=== PATIENT | female | born 1940 | race Caucasian/White ===

== ENCOUNTER 2017-02-04 15:14 | Emergency (ER) | payer OTHER, MEDICARE ==
[~2017-02-04] VITALS: Ht 152.4 cm; Wt 100.6 kg
[~2017-02-04 15:14] MED LIST: ACET325T96 PO; AMLO10TA9 PO; AMR2 PO; ASPEC325 PO; CLOP1TAB15 PO; LSX40 PO; METO100T44 PO; NTRGSL/4 UT; SITA100T3 PO; VALS-10 PO; [UNRECOGNIZED DRUG - CODE] EXT
[2017-02-04 15:21] VITALS: TEMP 36.4; Ht 152.4 cm; Wt 100.6 kg
[2017-02-04] MEDS ORDERED: ONDANSETRON INJ 2 MG/ML 2 ML VIAL IV STA (15:33)
[2017-02-04] MEDS ORDERED: SODIUM CHLORIDE 0.9% 1000ML 500 ML IV STA (15:33)
[2017-02-04] MEDS ORDERED: SODIUM CHLORIDE 0.9% 1000ML 1,000 ML IV STA (15:33)
--- NOTE | 2017-02-04 15:44 | EMERGENCY ROOM VISIT NOTE ---
History Report prepared by Nettie: Andres Reed Under the Supervision of: Dr. Stuart Sy M.D. First contact with patient: 15:27 Chief Complaint: DIARRHEA Stated Complaint: DIARRHEA [id number],ABD PAIN Nursing Triage Summary: Abdominal pain and diarrhea. Denies n/v History of Present Illness The patient is a 76 year old female with a history of diverticulitis who presents to the Emergency Room with complaints of persistent diarrhea that started 2 weeks ago. She says her diarrhea is loose and watery. The patient has had 5 episodes of diarrhea today. She also notes persistent abdominal pain and intermittent chills. She rates the pain as an 8 out of 10 in severity at its worst. The patient says that nothing in particular brings on the diarrhea or worsens the pain. She does not know if this feels like a diverticulitis flare- up. She went to her primary care physician yesterday, and the physician told the patient to come be seen here for evaluation if the pain or symptoms worsen. She was not given any medications there. The patient did not have a fever at the office yesterday. She denies any vomiting or urinary symptoms. The patient has diabetes, and takes medication for it. She has a history of a cholecystectomy, appendectomy, and hysterectomy. Source of History: patient Onset: 2 weeks ago Position: other (global - diarrhea) Symptom Intensity: 5 episodes today Quality: other (loose and watery) Timing: other (persistent) Associated Symptoms: + abdominal pain, + chills, No fevers, No urinary symptoms, No vomiting Review of Systems See HPI for pertinent positives & negatives. A total of 10 systems reviewed and were otherwise negative. Past Medical & Surgical Medical Problems: (1) Appendicitis (2) CAD (coronary artery disease) (3) Colon polyps (4) CORONARY ATHEROSCLEROSIS OF [place] CORONARY VESSEL (5) DIAB KHUSHI WO COMPL, TYPE II OR UNSPEC TYPE, NOT UNCNTRLD (6) Diastolic CHF (7) History of PSVT (paroxysmal supraventricular tachycardia) (8) HTN (hypertension) (9) Hyperlipidemia (10) HYPERLIPIDEMIA NEC/NOS (11) KNEE JOINT REPLACEMENT STATUS (12) PERCUTANEOUS TRANSLUM CORON ANGIOPLASTY STATUS Surgical Problems: (1) History of cardiac cath (2) S/P appendectomy (3) S/P cholecystectomy (4) Stented coronary artery Family History Diabetes mellitus Heart disease Hypertension Social History Smoking Status: Never Smoker Alcohol Use: none Drug Use: none Marital Status: Housing Status: lives alone Occupation Status: retired Current/Historical Medications Scheduled Amlodipine Besylate-Atorvastat (Caduet), 1 TAB PO DAILY Aspirin (Aspirin), 325 MG PO DAILY Baclofen (Baclofen), 10 MG PO BID Clopidogrel (Plavix), 150 MG PO DAILY Furosemide (Furosemide), 40 MG PO DAILY Glimepiride (Glimepiride), 8 MG PO DAILY Metoprolol Succ (Toprol Xl) (Toprol-Xl ), 100 MG PO QAM Nitroglycerin (Nitrostat), 0.4 MG UT PRN Sitagliptin Phosphate (Januvia), 100 MG PO DAILY Triamcinolone Acet (Triamcinolone Acetonide), UD Valsartan/Hctz (Diovan Hct 320MG/12.5MG), 1 TAB PO DAILY Scheduled PRN Acetaminophen Tab (Tylenol), 650 MG PO Q6H PRN for Pain or Fever Dicyclomine Hcl (Bentyl), 1 TAB PO QID PRN for Pain Hydrocodone/Acetaminophen 5MG/325MG ([place] 5MG/325MG), 1 TABLET PO UD PRN for Pain Allergies Coded Allergies: Adhesives (Verified Allergy, Unknown, ALLERGY TO TAPE, 02/04/17) Nadolol (Verified Allergy, Unknown, 02/04/17) Nifedipine (Verified Allergy, Unknown, BLISTERS, TOLERATES PLENDIL, ) Ibuprofen (Verified Adverse Reaction, Mild, UPSET STOMACH, 02/04/17) Diltiazem (Verified Adverse Reaction, Unknown, TOLERATES PLENDIL, MALAISE , 02/04/17) Oxycodone (Verified Adverse Reaction, Unknown, SEVERE NAUSEA, 02/04/17) Physical Exam Vital Signs Date Time Temp Pulse Resp B/P Pulse Ox O2 Delivery O2 Flow Rate FiO2 02/04/17 17:55 65 20 157/74 97 Room Air 02/04/17 15:21 36.4 70 18 158/99 95 Room Air Physical Exam GENERAL: Patient is in no acute distress. HEENT: No acute trauma, normocephalic atraumatic, mucous membranes moist, no nasal congestion, no scleral icterus. NECK: No stridor, no adenopathy, no meningismus, trachea is midline. LUNGS: Clear to auscultation bilaterally, no wheeze, no rhonchi, breath sounds equal. HEART: Without murmurs gallops or rubs, regular rate and rhythm. ABDOMEN: Soft, bowel sounds positive, no hernias, no peritonitis. Diffusely moderately tender. EXTREMITIES: No cyanosis or edema, full range of motion of all the joints without pain or difficulty, no signs for acute trauma. NEUROLOGIC: Oriented x 3, no acute motor or sensory deficits, no focal weakness. SKIN: No rash, no jaundice, no diaphoresis. Medical Decision & Procedures ER Provider Diagnostic Interpretation: CT results as stated below per my review and radiologist interpretation: CT ABD/PELVIS IV AND ORAL CONT CLINICAL HISTORY: Generalized abdominal pain COMPARISON STUDY: 04/26/2014 TECHNIQUE: Following the IV administration of 92 mL of Optiray-320, CT scan of the abdomen and pelvis was performed from the lung bases to the proximal femurs. Images are reviewed in the axial, sagittal, and coronal planes. IV contrast was administered without complication. CT DOSE: 1641.40 mGy.cm FINDINGS: Lower chest: There are minor basilar atelectatic changes Liver: There is mild hepatic steatosis. No focal masses are visualized. The portal vein appears patent. Gallbladder: Surgically absent Spleen: Normal in size and attenuation. Pancreas: Unremarkable. Adrenal glands: Unremarkable. Kidneys: There are multiple bilateral renal cysts including a 9.7 cm left renal cyst and 5.3 cm right renal cyst. A 15 mm upper pole left renal hypodense lesion exceeds water attenuation and is therefore indeterminate. This remain similar in size to the prior study. Bowel: There are no transition zones indicate bowel obstruction. There is colonic diverticulosis. There is mild sigmoid wall thickening likely secondary to peridiverticular muscular hypertrophy. There are no findings to indicate acute diverticulitis. There are no findings to indicate acute appendicitis. Peritoneum: There is no intraperitoneal free air or abdominal ascites. Vasculature: The abdominal aorta is normal in course and caliber. Adenopathy: None. Pelvic viscera: The uterus is surgically absent. Skeletal structures: No destructive osseous lesions are seen. There is a nonspecific 15 mm subcutaneous nodule in the left hip region. IMPRESSION: 1. No evidence of bowel obstruction. No evidence of free air 2. Colonic diverticulosis. No evidence of acute diverticulitis 3. Multiple renal cysts including a 9.7 cm left renal cyst. This has enlarged when compared with the prior study 4. Stable 15 mm left renal hypodense lesion arising from the upper pole. This exceeds water attenuation and remains indeterminate 5. Surgically absent gallbladder and uterus 6. Nonspecific 15 mm subcutaneous nodule within the left hip region. Electronically signed by: Andrew Burrell M.D. 02/04/2017 7:11 PM Dictated Date/Time: 02/04/2017 7:05 PM Laboratory Results 02/04/17 15:56 Red Blood Count 5.01, Mean Corpuscular Volume 87.6, Mean Corpuscular Hemoglobin 28.9, Mean Corpuscular Hemoglobin Concent 33.0, Mean Platelet Volume 10.2, Neutrophils (%) (Auto) 67.0, Lymphocytes (%) (Auto) 25.2, Monocytes (%) (Auto) 5.5, Eosinophils (%) (Auto) 1.7, Basophils (%) (Auto) 0.2, Neutrophils # (Auto) 6.88, Lymphocytes # (Auto) 2.59, Monocytes # (Auto) 0.56, Eosinophils # (Auto) 0.17, Basophils # (Auto) 0.02 02/04/17 15:56 Test 02/04/17 15:56 02/04/17 16:30 02/04/17 21:23 White Blood Count 10.26 K/uL (4.8-10.8) Red Blood Count 5.01 M/uL (4.2-5.4) Hemoglobin 14.5 g/dL (12.0-16.0) Hematocrit 43.9 % (37-47) Mean Corpuscular Volume 87.6 fL (80-100) Mean Corpuscular Hemoglobin 28.9 pg (25-34) Mean Corpuscular Hemoglobin Concent 33.0 g/dl (32-36) Platelet Count 236 K/uL (130-400) Mean Platelet Volume 10.2 fL (7.4-10.4) Neutrophils (%) (Auto) 67.0 % Lymphocytes (%) (Auto) 25.2 % Monocytes (%) (Auto) 5.5 % Eosinophils (%) (Auto) 1.7 % Basophils (%) (Auto) 0.2 % Neutrophils # (Auto) 6.88 K/uL (1.4-6.5) Lymphocytes # (Auto) 2.59 K/uL (1.2-3.4) Monocytes # (Auto) 0.56 K/uL (0.11-0.59) Eosinophils # (Auto) 0.17 K/uL (0-0.5) Basophils # (Auto) 0.02 K/uL (0-0.2) RDW Standard Deviation 41.8 fL (36.4-46.3) RDW Coefficient of Variation 13.0 % (11.5-14.5) Immature Granulocyte % (Auto) 0.4 % Immature Granulocyte # (Auto) 0.04 K/uL (0.00-0.02) Anion Gap 6.0 mmol/L (3-11) Est Creatinine Clear Calc Drug Dose 46.4 ml/min Estimated GFR () 56.5 Estimated GFR (Non- 48.7 BUN/Creatinine Ratio 32.3 (10-20) Calcium Level 9.0 mg/dl (8.5-10.1) Total Bilirubin 0.4 mg/dl (0.2-1) Aspartate Amino Transf (AST/SGOT) 14 U/L (15-37) Alanine Aminotransferase (ALT/SGPT) 30 U/L (12-78) Alkaline Phosphatase 77 U/L (45-117) Total Protein 7.6 gm/dl (6.4-8.2) Albumin 3.4 gm/dl (3.4-5.0) Globulin 4.2 gm/dl (2.5-4.0) Albumin/Globulin Ratio 0.8 (0.9-2) Lipase 257 U/L (73-393) Beta-Hydroxybutyric Acid 0.96 mg/dL (0.2-2.81) Urine Color YELLOW Urine Appearance CLEAR (CLEAR) Urine pH 5.0 (4.5-7.5) Urine Specific [place] 1.010 (1.000-1.030) Urine Protein NEG (NEG) Urine Glucose (UA) TRACE (NEG) Urine Ketones NEG (NEG) Urine Occult Blood NEG (NEG) Urine Nitrite NEG (NEG) Urine Bilirubin NEG (NEG) Urine Urobilinogen NEG (NEG) Urine Leukocyte Esterase NEG (NEG) Bedside Glucose 314 mg/dl (70-90) Laboratory results reviewed by me. Medications Administered Medications (Trade) Dose Ordered Sig/[place] Route Start Time Stop Time Status Last Admin Dose Admin Sodium Chloride 500 ml @ 999 mls/hr Q31M STAT IV 02/04/17 15:33 02/04/17 16:03 DC 02/04/17 15:33 999 MLS/HR Sodium Chloride 1,000 ml @ 200 mls/hr Q5H STAT IV 02/04/17 15:33 02/04/17 20:32 DC 02/04/17 16:45 200 MLS/HR Sodium Chloride (Nss 500ml) 500 ml @ 999 mls/hr Q31M STAT IV 02/04/17 19:43 02/04/17 20:13 DC 02/04/17 20:07 999 MLS/HR Insulin Human Regular 10 units 10 units NOW STAT IV 02/04/17 19:43 02/04/17 19:45 DC 02/04/17 20:02 10 UNITS Sodium Chloride (Nss 500ml) 500 ml @ 999 mls/hr Q31M STAT IV 02/04/17 20:28 02/04/17 20:58 DC 02/04/17 20:51 999 MLS/HR Insulin Human Regular (novoLIN-R U-100 PER UNIT) 10 units NOW STAT IV 02/04/17 21:30 02/04/17 21:31 DC 02/04/17 21:30 10 UNITS Dicyclomine HCl (Bentyl Inj) 20 mg NOW ONCE IM 02/04/17 22:00 02/04/17 22:01 DC 02/04/17 22:09 20 MG ED Course 1530: The patient was evaluated in room C5. A complete history and physical exam was performed. 1532: Ordered NSS 1000 ml @ 200 mls/hr IV, Zofran Inj 4 mg IV, NSS 500 ml @ 999 mls/hr IV. 1937: I reevaluated the patient and she is doing fine. She just gave us a stool sample that we will send out. The patient's sugars are a little high so we will treat that. 1942: Ordered Novolin-R U-100 PER UNIT 10 units IV. 2199: Ordered Bentyl Inj 20 mg IM. 2221: I reevaluated the patient and she is resting comfortably. The patient verbally expressed understanding and agreement of the treatment plan. The patient will be discharged. Medical Decision Differential diagnosis includes but is not limited to colitis or diverticulitis , dehydration, UTI, electrolyte imbalance, pancreatitis, hernia, C. difficile colitis, food borne illness, viral illness. There is no leukocytosis or worrisome anemia. Renal panel testing shows hyperglycemia in the 3 and 400 range. No kidney failure. No hepatitis or pancreatitis. Urinalysis does not show infection. Abdominal and pelvis CT shows some chronic findings in the kidneys, no colitis or diverticulitis, no acute surgical process. Stool cultures are pending, stool C. difficile was negative. The patient received IV saline and IV Zofran. Because of the hyperglycemia, she was given IV insulin 2 doses. She received IM Bentyl for her abdominal cramping. She has done well. The patient is being discharged with a bland diet, Bentyl for abdominal cramps, Tylenol suggested for pain. She will follow with her doctors office. We can call with any positive stool culture results. The cause for the persistent diarrhea is not clear by today's workup. Impression Primary Impression: Diffuse abdominal pain Additional Impressions: Diarrhea Hyperglycemia Scribe Attestation The scribe's documentation has been prepared under my direction and personally reviewed by me in its entirety. I confirm that the note above accurately reflects all work, treatment, procedures, and medical decision making performed by me. Departure Information Dispostion Home / Self-Care Prescriptions Dicyclomine Hcl (BENTYL) 20 Mg Tab 1 TAB PO QID Y for Pain for 10 Days, #40 TAB Prov: Stuart Sy M.D. 02/04/17 Referrals Elizabeth Caicedo M.D. (PCP) Forms HOME CARE DOCUMENTATION FORM, IMPORTANT VISIT INFORMATION Patient Instructions My [facility] Additional Instructions bland diet---crackers, soup, fluids tylenol for pain bentyl tab as directed for abdominal cramps and spasms see your doctor this week return if worsening keep a watch on your sugar imaging was ok today we will call with positive stool results Problem Qualifiers
[2017-02-04] MEDS ORDERED: OPTIRAY 320 IV PRN (16:00)
[2017-02-04 16:11] LABS: BASO % 0.2 %; BASO ABS # 0.02 K/uL (0-0.2); COMPLETE YES; EOS % 1.7 %; HEMATOCRIT 43.9 % (37-47); IG% 0.4 %; LYMPH % 25.2 %; LYMPH ABS # 2.59 K/uL (1.2-3.4); MEAN CELL VOLUME 87.6 fL (80-100); MEAN CORPUSCULAR HEMOGLOBIN 28.9 pg (25-34); MEAN PLATELET VOLUME 10.2 fL (7.4-10.4); MONO % 5.5 %; PLATELET COUNT 236 K/uL (130-400); RED BLOOD COUNT 5.01 M/uL (4.2-5.4); WHITE BLOOD COUNT 10.26 K/uL (4.8-10.8)
[2017-02-04 16:28] LABS: BUN/CREATININE RATIO 32.3 (10-20); CREATININE 1.1 mg/dl (0.60-1.20); POTASSIUM 4.2 mmol/L (3.5-5.1)
[2017-02-04 16:30] LABS: ALB/GLOB RATIO 0.8 (0.9-2)
[2017-02-04 16:38] LABS: BETA-HYDROXYBUTYRATE 0.96 mg/dL (0.2-2.81)
[2017-02-04 16:46] LABS: URINE APPEARANCE CLEAR (CLEAR); URINE BILIRUBIN NEG (NEG); URINE COLOR YELLOW; URINE NITRITE NEG (NEG); UROBILINOGEN NEG (NEG); ZZUR CULT IF INDIC CLEAN CATCH NO
[2017-02-04 17:01] LABS: MANUAL MICROSCOPIC REQUIRED? NO; REVIEW REQ? NO
[2017-02-04] MEDS ORDERED: GLIM4TAB2 PO (17:28)
[2017-02-04] MEDS ORDERED: VALS-10 PO (17:28)
[2017-02-04] MEDS ORDERED: ASPI325T45 PO (17:28)
[2017-02-04] MEDS ORDERED: LRS10 PO (17:30)
[2017-02-04] MEDS ORDERED: HYDR-5688 PO (17:30)
--- NOTE | 2017-02-04 19:14 | DIAGNOSTIC IMAGING REPORT ---
CT ABD/PELVIS IV AND ORAL CONT CLINICAL HISTORY: Generalized abdominal pain COMPARISON STUDY: 04/26/2014 TECHNIQUE: Following the IV administration of 92 mL of Optiray-320, CT scan of the abdomen and pelvis was performed from the lung bases to the proximal femurs. Images are reviewed in the axial, sagittal, and coronal planes. IV contrast was administered without complication. CT DOSE: 1641.40 mGy.cm FINDINGS: Lower chest: There are minor basilar atelectatic changes Liver: There is mild hepatic steatosis. No focal masses are visualized. The portal vein appears patent. Gallbladder: Surgically absent Spleen: Normal in size and attenuation. Pancreas: Unremarkable. Adrenal glands: Unremarkable. Kidneys: There are multiple bilateral renal cysts including a 9.7 cm left renal cyst and 5.3 cm right renal cyst. A 15 mm upper pole left renal hypodense lesion exceeds water attenuation and is therefore indeterminate. This remain similar in size to the prior study. Bowel: There are no transition zones indicate bowel obstruction. There is colonic diverticulosis. There is mild sigmoid wall thickening likely secondary to peridiverticular muscular hypertrophy. There are no findings to indicate acute diverticulitis. There are no findings to indicate acute appendicitis. Peritoneum: There is no intraperitoneal free air or abdominal ascites. Vasculature: The abdominal aorta is normal in course and caliber. Adenopathy: None. Pelvic viscera: The uterus is surgically absent. Skeletal structures: No destructive osseous lesions are seen. There is a nonspecific 15 mm subcutaneous nodule in the left hip region. IMPRESSION: 1. No evidence of bowel obstruction. No evidence of free air 2. Colonic diverticulosis. No evidence of acute diverticulitis 3. Multiple renal cysts including a 9.7 cm left renal cyst. This has enlarged when compared with the prior study 4. Stable 15 mm left renal hypodense lesion arising from the upper pole. This exceeds water attenuation and remains indeterminate 5. Surgically absent gallbladder and uterus 6. Nonspecific 15 mm subcutaneous nodule within the left hip region. Electronically signed by: Andrew Burrell M.D. 02/04/2017 7:11 PM Dictated Date/Time: 02/04/2017 7:05 PM
[2017-02-04] MEDS ORDERED: NovoLIN-R INSULIN PER UNIT CHARGE IV STA ×2 (19:43→21:30)
[2017-02-04] MEDS ORDERED: SODIUM CHLORIDE 0.9% 500ML 500 ML IV STA ×2 (19:43→20:28)
[2017-02-04] MEDS ORDERED: DICYCLOMINE HCL 10 MG/ML 2 ML AMP IM ONE (22:00)
[2017-02-04] MEDS ORDERED: DICY20TA35 PO (22:27)
[2017-02-04 23:00] VITALS: BP 175/78; PULSE 66; O2SAT 98
[2017-03-21] MEDS ORDERED: VALS320T2 PO (11:34)
[2017-03-21] MEDS ORDERED: [UNRECOGNIZED DRUG - REMARK] PO (11:34)
[2017-03-21] MEDS ORDERED: [UNRECOGNIZED DRUG - OTHER] PO (11:35)
== END 2017-02-04 23:03 | disposition home or self-care (01) ==
LOC: C.EDB 15:16 → C.EDC 23:03
DX: R10.9 Unspecified abdominal pain (principal); R19.7 Diarrhea, unspecified; E11.65 Type 2 diabetes mellitus with hyperglycemia; I25.10 Atherosclerotic heart disease of native coronary artery without angina pectoris; Z86.010 Personal history of colon polyps; I10 Essential (primary) hypertension; E78.5 Hyperlipidemia, unspecified; Z83.3 Family history of diabetes mellitus; Z82.49 Family history of ischemic heart disease and other diseases of the circulatory system; Z79.82 Long term (current) use of aspirin; Z79.899 Other long term (current) drug therapy; Z79.02 Long term (current) use of antithrombotics/antiplatelets

== ENCOUNTER → 2017-03-28 | Day surgery (SDC) | payer OTHER, MEDICARE ==
[2017-03-21 11:16] VITALS: Ht 152.4 cm; Wt 100.0 kg
[~2017-03-28] VITALS: Ht 152.4 cm; Wt 100.0 kg
[~2017-03-28] MED LIST changes: -AMR2 PO; -ASPEC325 PO; +ASPI325T45 PO; +BARB1CAP PO; +CEFD1CAP14 PO; +CHOL4POW14 PO; +GLIM4TAB2 PO; +HRBLS PO; +HYDR-5688 PO; +HYOS1TAB PO; +LIDOCAINE HCL 2% 2 ML VIAL (20MG/ML) ONE; +LRS10 PO; +MISCCAP80 PO; +NF656 TOP; +ONDANSETRON INJ 2 MG/ML 2 ML VIAL IV PRN; +PROPOFOL IV EMULSION 10 MG/ML 20 ML VIAL IV ONE; +SACC250C PO; -VALS-10 PO; +VALS320T2 PO; +VANC5CAP PO; +[UNRECOGNIZED DRUG - OTHER] PO; +[UNRECOGNIZED DRUG - OTHER] PO; +[UNRECOGNIZED DRUG - REMARK] PO
--- NOTE | 2017-03-28 11:47 | Endo History and Physical ---
History & Physical Date of Service: Mar 28, 2017. Chief Complaint: Diarrhea Referring Physician: History of Present Illness Patient with a 2 month history of progressive diarrhea presenting for colonoscopy today. Past Medical History Diabetes, Arthritis, Cancer, High Cholesterol, Heart Disease, CHF, Hypertension , MS Past Surgical History Hx Cardiac Surgery: Yes (HEART CATH (MULTIPLE)-TOTAL 7 STENTS PLACED, CARDIAC ALBATION) Hx Abdominal Surgery: Yes (APPY, DANIEL, RENARD BSO) Hx Post-Op Nausea and Vomiting: No Hx Cancer Surgery: Yes (FACIAL EXCISION) Hx Thoracic Surgery: No Hx Orthopedic: Yes (RT TKA AND REVISION, LEFT TKA, LEFT/RT SHOULDER SX X 2) Hx Urinary Tract Surgery: Yes (RECTAL BLADDER FISTULA REPAIR) Family History Polyp Social History Smoking Status: Never Smoker Hx Substance Use: No Hx Alcohol Use: No Allergies Coded Allergies: Adhesives (Verified Allergy, Unknown, ALLERGY TO TAPE, 03/28/17) Nadolol (Verified Allergy, Unknown, UNSURE, 03/28/17) Nifedipine (Verified Allergy, Unknown, BLISTERS, TOLERATES PLENDIL, ) Ibuprofen (Verified Adverse Reaction, Mild, UPSET STOMACH, 03/28/17) Diltiazem (Verified Adverse Reaction, Unknown, TOLERATES PLENDIL, MALAISE , 03/28/17) Oxycodone (Verified Adverse Reaction, Unknown, SEVERE NAUSEA, 03/28/17) Current Medications Reported Home Medications Medications Dose Route/Sig Max Daily Dose Days Date Category Dose Instructions [Gluco-Oil] 1 Cap PO BID 03/21/17 Reported [Clinical Trial Med] 4 Cap PO DIRECTED 03/21/17 Reported Diovan Hct 320MG/25MG (HCTZ/Valsartan) 1 Tab Tab 1 Tab PO QAM 03/21/17 Reported Baclofen 10 Mg Tab 10 Mg PO BID 02/04/17 Reported [place] 5MG/325MG (Acetaminophen/Hydrocodone Bitart) Tab 1 Tablet PO UD PRN 02/04/17 Reported PRN PAIN Glimepiride 4 Mg Tab 8 Mg PO QAM 90 02/04/17 Reported Aspirin 325 Mg Tab 325 Mg PO QAM 02/04/17 Reported CURRENTLY ON HOLD Furosemide 40 Mg Tab 40 Mg PO QAM 05/20/16 Reported Januvia (Sitagliptin Phosphate) 100 Mg Tab 100 Mg PO QAM 05/28/15 Reported Triamcinolone Acetonide (Triamcinolone Acet) 60 Gm Cr 1 Dose EXT UD PRN 10/02/14 Reported APPLY CREAM TO ANKLE NEEDED Tylenol (Acetaminophen) 325 Mg Tab 650 Mg PO Q6H PRN 01/21/14 Reported Caduet (Amlodipine Besylate-Atorvastat) 1 Tab Tab 1 Tab PO QAM 06/04/13 Reported Nitrostat (Nitroglycerin) 0.4 Mg Tab 0.4 Mg UT PRN 06/25/11 Reported NEEDED FOR CHEST PAIN : ONE TABLET UNDER THE TONGUE EVERY 5 MINUTES, UP TO 3 DOSES. Plavix (Clopidogrel Bisulfate) 75 Mg Tab 2 Tab PO QAM 06/24/11 Reported Toprol-Xl (Metoprolol Succinate) 100 Mg Tabcr 100 Mg PO QAM 03/17/10 Reported Vital Signs Weight (Kilograms): 100 Height (Feet): 5 Height (Inches): 0 Date Time Temp Pulse Resp B/P (MAP) Pulse Ox O2 Delivery O2 Flow Rate FiO2 03/28/17 11:39 37 64 18 116/60 (78) 95 Room Air Physical Exam General Appearance: no apparent distress Respiratory/Chest: Auscultation: breath sounds normal Cardiovascular: Heart Auscultation: RRR Abdomen: Inspection & Palpation: soft, RUQ tenderness Assessment and Plan Patient for colonoscopy today to evaluate progressive diarrhea, risks discussed to include bleeding, infection, perforation and pain.
--- NOTE | 2017-03-28 12:27 | GI REPORT ---
Procedure Date: 03/28/2017 11:57 AM Procedure: Colonoscopy Indications: High risk colon cancer surveillance: Personal history of colonic polyps, Incidental diarrhea noted Medicines: Monitored Anesthesia Care Complications: No immediate complications. Estimated blood loss: Minimal. Estimated Blood Loss: Estimated blood loss was minimal. Procedure: Pre-Anesthesia Assessment: - Prior to the procedure, a History and Physical was performed, and patient medications, allergies and sensitivities were reviewed. The patient's tolerance of previous anesthesia was reviewed. - The risks and benefits of the procedure and the sedation options and risks were discussed with the patient. All questions were answered and informed consent was obtained. - Patient identification and proposed procedure were verified prior to the procedure by the physician, the nurse and the dental laboratory technician. The procedure was verified in the procedure room. - Pre-procedure physical examination revealed no contraindications to sedation. - ASA Grade Assessment: III - A patient with severe systemic disease. - After reviewing the risks and benefits, the patient was deemed in satisfactory condition to undergo the procedure. - The anesthesia plan was to use monitored anesthesia care (MAC). - Immediately prior to administration of medications, the patient was re-assessed for adequacy to receive sedatives. - The heart rate, respiratory rate, oxygen saturations, blood pressure, adequacy of pulmonary ventilation, and response to care were monitored throughout the procedure. - The physical status of the patient was re-assessed after the procedure. After I obtained informed consent, the scope was passed under direct vision. Throughout the procedure, the patient's blood pressure, pulse, and oxygen saturations were monitored continuously. The scope was introduced through the anus and advanced to the terminal ileum. The colonoscopy was performed without difficulty. The patient tolerated the procedure well. The quality of the bowel preparation was good. Findings: The perianal and digital rectal examinations were normal. Pertinent negatives include normal sphincter tone. The terminal ileum appeared normal. Normal mucosa was found in the entire colon. Biopsies for histology were taken with a cold forceps from the entire colon for evaluation of microscopic colitis. Fluid aspiration was performed through the scope suction channel. Sample(s) were sent for bacterial cultures, Clostridium difficile and ova and parasites. A 7 mm polyp was found in the transverse colon. The polyp was sessile. The polyp was removed with a hot snare. Resection and retrieval were complete. Estimated blood loss was minimal. Multiple small and large-mouthed diverticula were found in the sigmoid colon and in the descending colon. Internal hemorrhoids were found during retroflexion. The hemorrhoids were moderate. The exam was otherwise without abnormality. Impression: - The examined portion of the ileum was normal. - Normal mucosa in the entire examined colon. Biopsied. Fluid aspiration performed. - One 7 mm polyp in the transverse colon, removed with a hot snare. Resected and retrieved. - Moderate diverticulosis in the sigmoid colon and in the descending colon. - Internal hemorrhoids. - The examination was otherwise normal. Recommendation: - Discharge patient to home (ambulatory). - Advance diet as tolerated today. - Await pathology results. - Repeat colonoscopy in 3 - 5 years for surveillance based on pathology results. - Return to GI office in 4 to 6 months if symptoms persist - Symptoms likely medication related (perhaps januvia) Dayne Doty D.O. Dayne Doty, 03/28/2017 12:26:44 PM This report has been signed electronically. Note Initiated On: 03/28/2017 11:57 AM I attest to the content of the Intraoperative Record and orders documented therein, exceptions below
--- NOTE | 2017-03-28 12:28 | Discharge Instructions ---
Endoscopy Patient Instructions Date / Procedure(s) Performed Mar 28, 2017. Colonoscopy Allergy Information Coded Allergies: Adhesives (Verified Allergy, Unknown, ALLERGY TO TAPE, 03/28/17) Nadolol (Verified Allergy, Unknown, UNSURE, 03/28/17) Nifedipine (Verified Allergy, Unknown, BLISTERS, TOLERATES PLENDIL, ) Ibuprofen (Verified Adverse Reaction, Mild, UPSET STOMACH, 03/28/17) Diltiazem (Verified Adverse Reaction, Unknown, TOLERATES PLENDIL, MALAISE , 03/28/17) Oxycodone (Verified Adverse Reaction, Unknown, SEVERE NAUSEA, 03/28/17) Discharge Date / Findings Mar 28, 2017. Hemorrhoids Diverticulosis of the colon 1 transverse colon polyp Medication Instructions Stopped Medication(s): ASPIRIN LAST DOSE 03/21/17 GLYBRIDE LAST DOSE 03/27/17 JANUVIA LAST DOSE 03/27/17 Reported Home Medications Medications Dose Route/Sig Max Daily Dose Days Date Category Dose Instructions [Gluco-Oil] 1 Cap PO BID 03/21/17 Reported [Clinical Trial Med] 4 Cap PO DIRECTED 03/21/17 Reported Diovan Hct 320MG/25MG (HCTZ/Valsartan) 1 Tab Tab 1 Tab PO QAM 03/21/17 Reported Baclofen 10 Mg Tab 10 Mg PO BID 02/04/17 Reported [place] 5MG/325MG (Acetaminophen/Hydrocodone Bitart) Tab 1 Tablet PO UD PRN 02/04/17 Reported PRN PAIN Glimepiride 4 Mg Tab 8 Mg PO QAM 90 02/04/17 Reported Aspirin 325 Mg Tab 325 Mg PO QAM 02/04/17 Reported CURRENTLY ON HOLD Furosemide 40 Mg Tab 40 Mg PO QAM 05/20/16 Reported Januvia (Sitagliptin Phosphate) 100 Mg Tab 100 Mg PO QAM 05/28/15 Reported Triamcinolone Acetonide (Triamcinolone Acet) 60 Gm Cr 1 Dose EXT UD PRN 10/02/14 Reported APPLY CREAM TO ANKLE NEEDED Tylenol (Acetaminophen) 325 Mg Tab 650 Mg PO Q6H PRN 01/21/14 Reported Caduet (Amlodipine Besylate-Atorvastat) 1 Tab Tab 1 Tab PO QAM 06/04/13 Reported Nitrostat (Nitroglycerin) 0.4 Mg Tab 0.4 Mg UT PRN 06/25/11 Reported NEEDED FOR CHEST PAIN : ONE TABLET UNDER THE TONGUE EVERY 5 MINUTES, UP TO 3 DOSES. Plavix (Clopidogrel Bisulfate) 75 Mg Tab 2 Tab PO QAM 06/24/11 Reported Toprol-Xl (Metoprolol Succinate) 100 Mg Tabcr 100 Mg PO QAM 03/17/10 Reported Provider Instructions Activity Restrictions - No exercising or heavy lifting for 24 hours. - Do not drink alcohol the day of the procedure. - Do not drive a car or operate machinery until the day after the procedure. - Do not make any important decisions or sign important papers in 24 hours after the procedure. Following Day: - Return to full activity which may include returning to work/school. Diet Start your diet with liquids and light foods (jello, soup, juice, toast). Then eat your usual diet if not nauseated. Treatment For Common After Affects For mild abdominal pain, bloating, or excessive gas: - Rest - Eat lightly - Lie on right side Follow-Up Information Follow-up with Dr. Caicedo and SHAGGY SUNSHINE PA-C as scheduled If cultures and biopsies are negative would consider temporarily stopping Januvia Anesthesia Information What You Should Know You have had a procedure that required some medicine to reduce anxiety and discomfort. This treatment is called moderate sedation. After receiving the treatment, you may be sleepy, but you will be able to breathe on your own. The effects of the treatment may last for several hours. Follow these instructions along with Activity/Diet recommendations noted above: * Do NOT do anything where dizziness or clumsiness would be dangerous. * Rest quietly at home today, then you can be up and about tomorrow. * Have a responsible person stay with you the rest of today. * You may have had an I.V. today. If so, you may take the dressing off later today. Recommendations Call your doctor if: * Trouble breathing * Continuous vomiting for more than 24 hours * Temperature above 101 degrees * Severe abdominal pain or bloating * Pain not relieved by pain medicine ordered * There is increased drainage or redness from any incision * A large amount of rectal bleeding greater than 2-3 tablespoons. (If you had a polyp/s removed or have hemorrhoids, a small amount of blood - from the rectum is to be expected.) * You have any unanswered questions or concerns. IN THE EVENT OF A SERIOUS EMERGENCY, GO TO THE NEAREST EMERGENCY ROOM Your discharge instructions were prepared by provider Dayne Doty. Patient Instructions Signature Page Vandana Dodsoning Patient (or Guardian) Signature/Date: I have read and understand the instructions given to me by my caregivers. Caregiver/RN/Doctor Signature/Date: The above-named patient and/or guardian has received patient instructions on this date. + Original Patient Signature Page (only) stays with chart. Please make copy for patient.
[2017-03-28 12:52] VITALS: BP 148/61; PULSE 60; O2SAT 98
--- NOTE | 2017-03-28 14:17 | Anesthesiology Progress Note ---
Anesthesia Post Op Note Date & Time Mar 28, 2017 at 14:17 Vital Signs Pain Intensity: 0 Vital Signs Past 12 Hours Date Time Temp Pulse Resp B/P (MAP) Pulse Ox O2 Delivery O2 Flow Rate FiO2 03/28/17 12:52 60 20 148/61 (90) 98 Room Air 03/28/17 12:40 57 20 134/67 (89) 99 Room Air 03/28/17 12:28 64 18 142/45 (77) 96 Room Air 03/28/17 11:39 37 64 18 116/60 (78) 95 Room Air Notes Mental Status: alert / awake / arousable, participated in evaluation Pt Amnestic to Procedure: Yes Nausea / Vomiting: adequately controlled Pain: adequately controlled Airway Patency, RR, SpO2: stable & adequate BP & HR: stable & adequate Hydration State: stable & adequate Anesthetic Complications: no major complications apparent
[2017-04-05 17:03] LABS: CRYPTOSPORIDIUM AG TC 37213 NOT DETECTED (NOT DETECTED); ISOSPORA+CYCLOSPORA NOT DETECTED (NOT DETECTED); O&P GIARDIA AG NOT DETECTED (NOT DETECTED); O&P SOURCE OTHER-STOOL
== END | disposition home or self-care (01) ==
LOC: C.GI 11:10
PROVIDERS: ATTEND Internal Medicine Gastroenterology
DX: Z12.11 Encounter for screening for malignant neoplasm of colon (principal); Z86.010 Personal history of colon polyps; R19.7 Diarrhea, unspecified; D12.3 Benign neoplasm of transverse colon; K57.30 Diverticulosis of large intestine without perforation or abscess without bleeding; K64.8 Other hemorrhoids; E11.9 Type 2 diabetes mellitus without complications; E66.9 Obesity, unspecified; Z68.41 Body mass index [BMI] 40.0-44.9, adult; I25.2 Old myocardial infarction; I25.10 Atherosclerotic heart disease of native coronary artery without angina pectoris; I10 Essential (primary) hypertension; Z88.1 Allergy status to other antibiotic agents; Z79.02 Long term (current) use of antithrombotics/antiplatelets; Z88.2 Allergy status to sulfonamides; Z90.89 Acquired absence of other organs; Z90.49 Acquired absence of other specified parts of digestive tract; Z96.653 Presence of artificial knee joint, bilateral; Z83.71 Family history of colonic polyps

== ENCOUNTER 2017-05-06 16:37 | Emergency (ER) | payer OTHER, MEDICARE ==
[~2017-05-06] VITALS: Ht 152.4 cm; Wt 99.0 kg
[~2017-05-06 16:37] MED LIST changes: -BARB1CAP PO; -CEFD1CAP14 PO; -CHOL4POW14 PO; -HRBLS PO; -HYOS1TAB PO; -LIDOCAINE HCL 2% 2 ML VIAL (20MG/ML) ONE; -METO100T44 PO; +METO1TAB69 PO; -MISCCAP80 PO; -NF656 TOP; -ONDANSETRON INJ 2 MG/ML 2 ML VIAL IV PRN; -PROPOFOL IV EMULSION 10 MG/ML 20 ML VIAL IV ONE; -SACC250C PO; -VANC5CAP PO; -[UNRECOGNIZED DRUG - OTHER] PO
[2017-05-06 16:40] VITALS: TEMP 36.5; Ht 152.4 cm; Wt 99.0 kg
[2017-05-06] MEDS ORDERED: FENTANYL CITRATE INJ 50 MCG/1 ML 2 ML VIAL IV STA ×2 (16:59→17:18)
[2017-05-06] MEDS ORDERED: HRBLS PO (17:18)
[2017-05-06] MEDS ORDERED: MoRPHine SULFATE 4 MG/ML 1 ML CARP\\VIAL IV STA ×2 (17:18→18:34)
[2017-05-06 17:23] LABS: BASO % 0.3 %; BASO ABS # 0.03 K/uL (0-0.2); COMPLETE YES; EOS % 1.8 %; HEMATOCRIT 39.1 % (37-47); IG% 0.2 %; LYMPH % 29.5 %; MEAN CELL VOLUME 85.7 fL (80-100); MEAN CORPUSCULAR HEMOGLOBIN 29.6 pg (25-34); MEAN CORPUSCULAR HGB CONC 34.5 g/dl (32-36); MEAN PLATELET VOLUME 9.8 fL (7.4-10.4); NEUT % 62.2 %; PLATELET COUNT 241 K/uL (130-400); RED BLOOD COUNT 4.56 M/uL (4.2-5.4)
[2017-05-06 17:43] LABS: BUN/CREATININE RATIO 28.3 (10-20); CALCIUM 9.1 mg/dl (8.5-10.1); CREATININE 1.1 mg/dl (0.60-1.20); POTASSIUM 4.4 mmol/L (3.5-5.1)
[2017-05-06 19:35] LABS: URINE APPEARANCE CLOUDY (CLEAR); URINE BILIRUBIN NEG (NEG); URINE COLOR YELLOW; URINE EPITHELIAL CELL AUTO >30 /lpf (0-5); URINE NITRITE NEG (NEG); URINE SPECIFIC GRAVITY 1.021 (1.000-1.030); UROBILINOGEN NEG (NEG); ZZUR CULT IF INDIC CLEAN CATCH NO
[2017-05-06 19:36] LABS: MANUAL MICROSCOPIC REQUIRED? NO; REVIEW REQ? NO
--- NOTE | 2017-05-06 20:04 | EMERGENCY ROOM VISIT NOTE ---
History First contact with patient: 16:46 Chief Complaint: BACK PAIN Stated Complaint: BACK PAIN History of Present Illness The patient is a 76 year old female who presents to the Emergency Room with complaints of back pain. The patient states that she has had pain in the right side of her back on and off for 2 weeks. The pain sometimes radiates into the right upper abdomen. She rates the discomfort a 10/10. She has been taking Vicodin and muscle relaxers at home without relief. The patient states that she was seen at the [place] emergency Department a few days ago and had a CT of her abdomen which was normal. She has not yet followed up with her primary care provider. She does admit to a long history of "back problems" and has been told before that she needs surgery, but is not a good surgical candidate. She has had a previous cholecystectomy. She denies any numbness or weakness in her extremities. She denies any nausea/vomiting, urinary symptoms or changes in bowel movements. The patient did recently have C. difficile colitis. Review of Systems A complete 10 point review of systems was reviewed with the patient with pertinent positives and negatives as per history of present illness. All else were negative. Past Medical/Surgical History Medical Problems: (1) Appendicitis (2) CAD (coronary artery disease) (3) Colon polyps (4) CORONARY ATHEROSCLEROSIS OF [place] CORONARY VESSEL (5) DIAB KHUSHI WO COMPL, TYPE II OR UNSPEC TYPE, NOT UNCNTRLD (6) Diastolic CHF (7) History of PSVT (paroxysmal supraventricular tachycardia) (8) HTN (hypertension) (9) Hyperlipidemia (10) HYPERLIPIDEMIA NEC/NOS (11) KNEE JOINT REPLACEMENT STATUS (12) PERCUTANEOUS TRANSLUM CORON ANGIOPLASTY STATUS Surgical Problems: (1) History of cardiac cath (2) S/P appendectomy (3) S/P cholecystectomy (4) Stented coronary artery Family History Diabetes mellitus Heart disease Hypertension Social History Smoking Status: Never Smoker Alcohol Use: none Drug Use: none Marital Status: Housing Status: lives alone Occupation Status: retired Current/Historical Medications Scheduled Amlodipine Besylate-Atorvastat (Caduet), 1 TAB PO QAM Aspirin (Aspirin), 325 MG PO QAM Baclofen (Baclofen), 10 MG PO BID Clopidogrel (Plavix), 2 TAB PO QAM Furosemide (Furosemide), 40 MG PO QAM Glimepiride (Glimepiride), 8 MG PO QAM [place] (Herbals), 1 TAB PO DAILY Metoprolol Succ (Toprol Xl) (Toprol-Xl ), 100 MG PO QAM Nitroglycerin (Nitrostat), 0.4 MG UT PRN Sitagliptin Phosphate (Januvia), 100 MG PO QAM Valsartan/Hctz (Diovan Hct 320MG/25MG), 1 TAB PO QAM Scheduled PRN Acetaminophen Tab (Tylenol), 650 MG PO Q6H PRN for Pain or Fever Hydrocodone/Acetaminophen 5MG/325MG ([place] 5MG/325MG), 1 TABLET PO UD PRN for Pain Triamcinolone Acet (Triamcinolone Acetonide), 1 DOSE EXT UD PRN for PRN Physical Exam Vital Signs Date Time Temp Pulse Resp B/P (MAP) Pulse Ox O2 Delivery O2 Flow Rate FiO2 05/06/17 20:16 52 16 145/72 98 Room Air 05/06/17 18:25 56 16 155/63 98 Room Air 05/06/17 16:40 36.5 57 20 133/69 97 Room Air Physical Exam VITALS: Vitals are noted on the nurse's note and reviewed by myself. Vital signs stable. GENERAL: This is a 76-year-old female, in no acute distress, nondiaphoretic, well-developed well-nourished. SKIN: The skin was without rashes. EARS: External auditory canals clear, tympanic membranes pearly blood without erythema or effusion bilaterally. EYES: Pupils equal round and reactive to light and accommodation. MOUTH: Mucous membranes moist. HEART: Regular rate and rhythm without murmurs gallops or rubs. LUNGS: Clear to auscultation bilaterally without wheezes, rales or rhonchi. ABDOMEN: Positive bowel sounds x 4. Soft, nontender to palpation. MUSCULOSKELETAL: There is tenderness of the right thoracic region. No tenderness of the spinous processes. Full range of motion of all tummies. Strength 5/5 throughout. NEURO: Patient was alert and oriented to person place and time. Normal sensation to light and sharp touch. Medical Decision & Procedures Laboratory Results 05/06/17 17:15 Red Blood Count 4.56, Mean Corpuscular Volume 85.7, Mean Corpuscular Hemoglobin 29.6, Mean Corpuscular Hemoglobin Concent 34.5, Mean Platelet Volume 9.8, Neutrophils (%) (Auto) 62.2, Lymphocytes (%) (Auto) 29.5, Monocytes (%) (Auto) 6.0, Eosinophils (%) (Auto) 1.8, Basophils (%) (Auto) 0.3, Neutrophils # (Auto) 5.91, Lymphocytes # (Auto) 2.80, Monocytes # (Auto) 0.57, Eosinophils # (Auto) 0.17, Basophils # (Auto) 0.03 05/06/17 17:15 Test 05/06/17 00:00 05/06/17 17:15 05/06/17 18:52 Urine Color YELLOW Urine Appearance CLOUDY (CLEAR) Urine pH 5.0 (4.5-7.5) Urine Specific [place] 1.021 (1.000-1.030) Urine Protein NEG (NEG) Urine Glucose (UA) NEG (NEG) Urine Ketones NEG (NEG) Urine Occult Blood NEG (NEG) Urine Nitrite NEG (NEG) Urine Bilirubin NEG (NEG) Urine Urobilinogen NEG (NEG) Urine Leukocyte Esterase NEG (NEG) Urine WBC (Auto) 1-5 /hpf (0-5) Urine RBC (Auto) 0-4 /hpf (0-4) Urine Hyaline Casts (Auto) 1-5 /lpf (0-5) Urine Epithelial Cells (Auto) >30 /lpf (0-5) Urine Bacteria (Auto) NEG (NEG) White Blood Count 9.50 K/uL (4.8-10.8) Red Blood Count 4.56 M/uL (4.2-5.4) Hemoglobin 13.5 g/dL (12.0-16.0) Hematocrit 39.1 % (37-47) Mean Corpuscular Volume 85.7 fL (80-100) Mean Corpuscular Hemoglobin 29.6 pg (25-34) Mean Corpuscular Hemoglobin Concent 34.5 g/dl (32-36) Platelet Count 241 K/uL (130-400) Mean Platelet Volume 9.8 fL (7.4-10.4) Neutrophils (%) (Auto) 62.2 % Lymphocytes (%) (Auto) 29.5 % Monocytes (%) (Auto) 6.0 % Eosinophils (%) (Auto) 1.8 % Basophils (%) (Auto) 0.3 % Neutrophils # (Auto) 5.91 K/uL (1.4-6.5) Lymphocytes # (Auto) 2.80 K/uL (1.2-3.4) Monocytes # (Auto) 0.57 K/uL (0.11-0.59) Eosinophils # (Auto) 0.17 K/uL (0-0.5) Basophils # (Auto) 0.03 K/uL (0-0.2) RDW Standard Deviation 40.7 fL (36.4-46.3) RDW Coefficient of Variation 12.9 % (11.5-14.5) Immature Granulocyte % (Auto) 0.2 % Immature Granulocyte # (Auto) 0.02 K/uL (0.00-0.02) Anion Gap 5.0 mmol/L (3-11) Est Creatinine Clear Calc Drug Dose 46.0 ml/min Estimated GFR () 56.5 Estimated GFR (Non- 48.7 BUN/Creatinine Ratio 28.3 (10-20) Calcium Level 9.1 mg/dl (8.5-10.1) Total Bilirubin 0.4 mg/dl (0.2-1) Direct Bilirubin 0.1 mg/dl (0-0.2) Aspartate Amino Transf (AST/SGOT) 18 U/L (15-37) Alanine Aminotransferase (ALT/SGPT) 28 U/L (12-78) Alkaline Phosphatase 87 U/L (45-117) Total Protein 6.9 gm/dl (6.4-8.2) Albumin 3.0 gm/dl (3.4-5.0) Lipase 224 U/L (73-393) Bedside D-Dimer 440 ng/mlFEU (0-450) Medications Administered Medications (Trade) Dose Ordered Sig/Ayleen Route Start Time Stop Time Status Last Admin Dose Admin Morphine Sulfate (MoRPHine SULFATE INJ) 4 mg NOW STAT IV 05/06/17 17:18 05/06/17 17:20 DC 05/06/17 17:25 4 MG Morphine Sulfate (MoRPHine SULFATE INJ) 4 mg NOW STAT IV 05/06/17 18:34 05/06/17 18:35 DC 05/06/17 18:56 4 MG Medical Decision Differential diagnosis includes musculoskeletal back pain, pancreatitis, bowel obstruction, pulmonary embolism, kidney stone, pyelonephritis, among others. The patient was evaluated as above. She is a 76-year-old female who presents complaining of right-sided back pain for the past few weeks. Records were obtained from her recent visit to [place] emergency Department plan. The patient has had 2 CT scans of her abdomen and pelvis in the past month, both of which were negative. Laboratory studies today were unremarkable. There is no leukocytosis or left leg abnormalities. LFTs are within normal limits. Urinalysis was not suggestive of stone or infection. D-dimer was negative. I feel that the patient's symptoms are likely musculoskeletal in nature. She was treated with IV morphine in the emergency room with relief. I had a lengthy discussion with the patient regarding her symptoms today. She is already currently taking pain medication and muscle relaxers at home. I feel she will benefit from follow-up with her primary care provider and possibly physical therapy. She was instructed to follow-up with them for further evaluation and treatment. She will return here for any worsening or new/concerning symptoms. The patient's case was reviewed with Dr. Wolfe, ED attending physician, who agreed with my assessment and treatment plan. Medication Reconcilliation Current Medication List: was personally reviewed by me Blood Pressure Screening Patient's blood pressure: Elevated blood pressure Blood pressure disposition: Elevated BP felt to be situational Impression Primary Impression: Right flank pain Departure Information Dispostion Home / Self-Care Condition GOOD Referrals Elizabeth Caicedo M.D. (PCP) Patient Instructions My [facility] Additional Instructions You have been treated in the Emergency Department for Back Pain. Continue your Vicodin at home as needed for pain. You should schedule a follow-up appointment in 2-3 days with your Primary Care Provider for further evaluation and treatment of your back pain. Return to the Emergency Department if your current symptoms worsen despite treatment course outlined above, or if you develop any of the following symptoms : intractable pain despite aforementioned treatment course, loss of control of your bowel or bladder, numbness or tingling in your groin, or development of a fever.
[2017-05-06 20:16] VITALS: BP 145/72; PULSE 52; O2SAT 98
== END 2017-05-06 20:50 | disposition home or self-care (01) ==
LOC: C.EDB 16:38
DX: R10.9 Unspecified abdominal pain (principal); I11.0 Hypertensive heart disease with heart failure; I50.32 Chronic diastolic (congestive) heart failure; I25.10 Atherosclerotic heart disease of native coronary artery without angina pectoris; E11.9 Type 2 diabetes mellitus without complications; Z96.659 Presence of unspecified artificial knee joint; Z98.61 Coronary angioplasty status; Z90.49 Acquired absence of other specified parts of digestive tract; Z90.89 Acquired absence of other organs; Z83.3 Family history of diabetes mellitus; Z82.49 Family history of ischemic heart disease and other diseases of the circulatory system; Z79.82 Long term (current) use of aspirin; Z79.84 Long term (current) use of oral hypoglycemic drugs; Z79.899 Other long term (current) drug therapy

== ENCOUNTER 2017-05-13 12:55 | Inpatient (IN) | payer OTHER, MEDICARE ==
[~2017-05-13] VITALS: Ht 160 cm; Wt 98.5 kg
[~2017-05-13 12:55] MED LIST changes: +HRBLS PO; -[UNRECOGNIZED DRUG - OTHER] PO; -[UNRECOGNIZED DRUG - REMARK] PO
[2017-05-13] MEDS ORDERED: ONDANSETRON INJ 2 MG/ML 2 ML VIAL IV STA (14:01)
[2017-05-13] MEDS ORDERED: NF656 TOP (14:08)
[2017-05-13] MEDS ORDERED: HYOS1TAB PO (14:08)
[2017-05-13] MEDS ORDERED: SACC250C PO (14:08)
[2017-05-13] MEDS ORDERED: VANC5CAP PO ×2 (14:08→20:21)
[2017-05-13] MEDS ORDERED: MISCCAP80 PO (14:08)
[2017-05-13] MEDS ORDERED: CHOL4POW14 PO (14:08)
[2017-05-13] MEDS ORDERED: BARB1CAP PO (14:08)
[2017-05-13] MEDS: HYDROmorphone INJ 1 MG/ML SYR IV PRN ×2 (14:36→17:16)
[2017-05-13 14:41] LABS: BASO % 0.4 %; BASO ABS # 0.03 K/uL (0-0.2); COMPLETE YES; EOS % 2.3 %; HEMATOCRIT 42.4 % (37-47); IG% 0.5 %; LYMPH % 27.9 %; LYMPH ABS # 2.34 K/uL (1.2-3.4); MEAN CELL VOLUME 87.1 fL (80-100); MEAN CORPUSCULAR HEMOGLOBIN 30.2 pg (25-34); MEAN CORPUSCULAR HGB CONC 34.7 g/dl (32-36); MEAN PLATELET VOLUME 10.3 fL (7.4-10.4); MONO % 6.4 %; NEUT % 62.5 %; PLATELET COUNT 228 K/uL (130-400); RED BLOOD COUNT 4.87 M/uL (4.2-5.4)
[2017-05-13 15:02] LABS: ALT/SGPT 52 U/L (12-78); AST/SGOT 16 U/L (15-37); BLOOD UREA NITROGEN 23 mg/dl (7-18); BUN/CREATININE RATIO 22.8 (10-20); CALCIUM 9.5 mg/dl (8.5-10.1); CARBON DIOXIDE 31 mmol/L (21-32); CHLORIDE 104 mmol/L (98-107); GLUCOSE 234 mg/dl (70-99); POTASSIUM 4.3 mmol/L (3.5-5.1); SODIUM 141 mmol/L (136-145)
[2017-05-13 15:05] LABS: ALKALINE PHOSPHATASE 127 U/L (45-117)
[2017-05-13 15:05] LABS: URINE APPEARANCE CLEAR (CLEAR); URINE BILIRUBIN NEG (NEG); URINE COLOR YELLOW; URINE NITRITE NEG (NEG); URINE SPECIFIC GRAVITY 1.014 (1.000-1.030); UROBILINOGEN NEG (NEG); ZZUR CULT IF INDIC CLEAN CATCH NO
[2017-05-13 15:10] LABS: MANUAL MICROSCOPIC REQUIRED? NO; REVIEW REQ? NO
--- NOTE | 2017-05-13 18:47 | DIAGNOSTIC IMAGING REPORT ---
MRI OF THE LUMBAR SPINE WITHOUT CONTRAST CLINICAL HISTORY: Right lower thoracic/upper lumbar pain COMPARISON STUDY: No previous studies for comparison. TECHNIQUE: Utilizing a 1.5 Kalani magnet and dedicated coil, multiplanar, multiecho imaging of the lumbar spine was performed without IV contrast. FINDINGS: For purposes of numbering on this exam, the L5-S1 disc space is assigned to axial image 23 of 25. Alignment of the lumbar spine is anatomic. Vertebral body heights are maintained. There is no suspicious marrow replacement. There is prominent epidural fat at the L5 level and within the sacrum. Paravertebral soft tissues are unremarkable. A few hemangiomas are noted, the largest of which is a 2 cm lesion within the L1 vertebral body. Bilateral renal lesions are better depicted on prior CT of February 04, 2017. L1-2: The central canal and neural foramen are patent. L2-3: The central canal and neural foramen are patent. There is minimal disc bulge. L3-4: The central canal and neural foramen are patent. There is mild facet arthrosis. L4-5: There is mild disc bulge and facet arthrosis. Central canal and neural foramen are patent. L5-S1: There is disc space narrowing with a disc bulge and small central disc protrusion. There is mild narrowing of the central canal, lateral recesses and neural foramen. IMPRESSION: 1. Mild multilevel degenerative changes of the lumbar spine. 2. Disc bulge with small central disc protrusion at L5-S1 that result in mild narrowing of the central canal, lateral recesses and neural foramen. Electronically signed by: Yaya Huerta M.D. 05/13/2017 6:46 PM Dictated Date/Time: 05/13/2017 6:38 PM
--- NOTE | 2017-05-13 19:03 | DIAGNOSTIC IMAGING REPORT ---
MRI OF THE THORACIC SPINE WITHOUT CONTRAST CLINICAL HISTORY: Right lower thoracic/upper lumbar pain COMPARISON: None. TECHNIQUE: Utilizing a 1.5 Kalani magnet and dedicated coil, multiplanar, multiecho imaging of the thoracic spine was performed without IV contrast. FINDINGS: Alignment of the thoracic spine is anatomic. Vertebral body heights are maintained. There is an L1 vertebral body hemangioma. Thoracic cord signal and caliber are normal. There is no intracanalicular mass or fluid collection. There is moderate disc space narrowing with discogenic changes at the T9-T10. There is minimal disc bulge. Central canal is patent. There is mild narrowing of the bilateral neural foramen at this level. There are trace bilateral pleural effusions. T2 hyperintense bilateral renal lesions are better depicted on abdominal CT of February 04, 2017. There is no suspicious marrow replacement. IMPRESSION: 1. No acute abnormality within the thoracic spine by MRI. 2. Mild degenerative disc disease at T9-T10 with disc bulge. Mild bilateral neural foraminal narrowing at this level. Patent central canal. 3. Normal thoracic cord signal and caliber. 4. Trace bilateral pleural effusions. Electronically signed by: Yaya Huerta M.D. 05/13/2017 7:02 PM Dictated Date/Time: 05/13/2017 6:56 PM
[2017-05-13 19:17] VITALS: BMI 38.5
[2017-05-13] MEDS ORDERED: IV FLUIDS COMPLETED PRN (20:00)
--- NOTE | 2017-05-13 20:07 | EMERGENCY ROOM VISIT NOTE ---
History Report prepared by Nettie: Abdifatah Bowen Under the Supervision of: Dr. Isauro Quinn M.D. First contact with patient: 13:38 Chief Complaint: BACK PAIN Stated Complaint: BACK PAIN History of Present Illness The patient is a 76 year old female who presents to the Emergency Room with complaints of worsening right middle back pain that started a couple of months ago. She rates her pain as a 10/10 in severity and states that the pain has radiated to her right abdominal pain. The patient states that she was her February 04 and last week for the same symptoms, but states that the Morphine she was given did not help. She states that she reported to the [facility] two days ago where they gave her a Lanacane patch, which she states did not help relieve pain. The patient states that she had CT scans and X rays done. The patient states that she had an endoscopy performed two days ago with Dr. Doty of [facility] for a suspected stone in her common bile duct when they found cysts on her kidneys bilaterally. He believes that the patient is experiencing back pain due to the cysts. She reports that she saw her PCP yesterday who told her to report to the ED if the pain worsened and the Vicodin did not work. The patient states that the pain became severe following her visit, which prompted The patient admits to a history of Clostridium difficile that was diagnosed on March 28, which she admits she takes antibiotics for. She also admits to seven stents in her heart and previous unproblematic MRIs. The patient denies LOC, headache, fevers, chills, diaphoresis, visual changes, neck pain, chest pain, breathing difficulties, nausea, vomiting, melena, hematochezia, urinary symptoms , numbness, weakness, lymphadenopathy, rash, or other complaints. Source of History: patient Onset: a couple of months ago Position: back Symptom Intensity: 10/10 Timing: worsening Associated Symptoms: + abdominal pain Review of Systems See HPI for pertinent positives and negatives. A total of ten systems were reviewed and were otherwise negative. Past Medical & Surgical Medical Problems: (1) Appendicitis (2) CAD (coronary artery disease) (3) Colon polyps (4) CORONARY ATHEROSCLEROSIS OF [place] CORONARY VESSEL (5) DIAB KHUSHI WO COMPL, TYPE II OR UNSPEC TYPE, NOT UNCNTRLD (6) Diastolic CHF (7) History of PSVT (paroxysmal supraventricular tachycardia) (8) HTN (hypertension) (9) Hyperlipidemia (10) HYPERLIPIDEMIA NEC/NOS (11) Intractable back pain (12) KNEE JOINT REPLACEMENT STATUS (13) PERCUTANEOUS TRANSLUM CORON ANGIOPLASTY STATUS Surgical Problems: (1) History of cardiac cath (2) S/P appendectomy (3) S/P cholecystectomy (4) Stented coronary artery Family History Diabetes mellitus Heart disease Hypertension Social History Smoking Status: Never Smoker Alcohol Use: none Drug Use: none Marital Status: Housing Status: lives alone Occupation Status: retired Current/Historical Medications Scheduled Amlodipine Besylate-Atorvastat (Caduet), 1 TAB PO QAM Aspirin (Aspirin), 325 MG PO QAM Baclofen (Baclofen), 5 MG PO BID [place]berry-[place] Grape-Goldense (Berberine Complex 200-200-50 mg), 1 CAP PO DAILY Cholestyramine Light (Questran Light), 2 GM PO DAILY Clopidogrel (Plavix), 2 TAB PO QAM Furosemide (Furosemide), 40 MG PO QAM Glimepiride (Glimepiride), 8 MG PO QAM Herbals (Herbals), 1 TAB PO DAILY Hyoscyamine Sulfate (Levsin), 0.125 MG PO BID Lidocaine (Lidoderm Patch 5%), 1 PATCH TOP DAILY Metoprolol Succ (Toprol Xl) (Toprol-Xl ), 100 MG PO QAM Nitroglycerin (Nitrostat), 0.4 MG UT PRN Probiotic Product (Probiotic), 2 CAP PO DAILY Saccharomyces Boulardii (Florastor), 250 MG PO BID Sitagliptin Phosphate (Januvia), 100 MG PO QAM Valsartan/Hctz (Diovan Hct 320MG/25MG), 1 TAB PO QAM Vancomycin Hcl (Vancomycin), 125 MG PO Q2D Scheduled PRN Acetaminophen Tab (Tylenol), 650 MG PO Q6H PRN for Pain or Fever Hydrocodone/Acetaminophen 5MG/325MG ([place] 5MG/325MG), 1 TABLET PO Q6H PRN for Moderate Pain Triamcinolone Acet (Triamcinolone Acetonide), 1 DOSE EXT UD PRN for PRN Allergies Coded Allergies: Adhesives (Verified Allergy, Unknown, ALLERGY TO TAPE, 05/06/17) Nadolol (Verified Allergy, Unknown, UNSURE, 05/06/17) Nifedipine (Verified Allergy, Unknown, BLISTERS, TOLERATES PLENDIL, ) Ibuprofen (Verified Adverse Reaction, Mild, UPSET STOMACH, 05/06/17) Diltiazem (Verified Adverse Reaction, Unknown, TOLERATES PLENDIL, MALAISE , 05/06/17) Oxycodone (Verified Adverse Reaction, Unknown, SEVERE NAUSEA, 05/06/17) Physical Exam Vital Signs Date Time Temp Pulse Resp B/P (MAP) Pulse Ox O2 Delivery O2 Flow Rate FiO2 05/13/17 19:56 52 17 94 05/13/17 19:17 Room Air 05/13/17 18:49 51 16 118/66 93 Room Air 05/13/17 17:17 50 14 108/49 93 Room Air 05/13/17 16:23 49 05/13/17 16:11 51 19 139/62 96 Room Air 05/13/17 15:18 48 16 123/58 94 Room Air 05/13/17 13:02 36.4 62 20 168/74 96 Room Air Physical Exam GENERAL: Uncomfortable, awake, alert, well-appearing, in no distress HENT: Normocephalic, atraumatic. Oropharynx unremarkable. EYES: Normal conjunctiva. Sclera non-icteric. NECK: Supple. No nuchal rigidity. FROM. No JVD. RESPIRATORY: Clear to auscultation. CARDIAC: Regular rate, normal rhythm. Extremities warm and well perfused. Pulses equal. ABDOMEN: Soft, non-distended. Right and Left upper quadrant tenderness as well as mild left lower quadrant tenderness. No rebound or guarding. No masses. RECTAL: Deferred. MUSCULOSKELETAL: Chest examination reveals no tenderness. The back is symmetrical on inspection without obvious abnormality. There is right CVA tenderness to palpation. No joint edema. LOWER EXTREMITIES: Calves are equal size bilaterally and non-tender. No edema. No discoloration. NEURO: Normal sensorium. No sensory or motor deficits noted. SKIN: No rash or jaundice noted. Medical Decision & Procedures ER Provider Diagnostic Interpretation: Radiology results as stated below per my review and radiologist interpretation: MRI OF THE LUMBAR SPINE WITHOUT CONTRAST CLINICAL HISTORY: Right lower thoracic/upper lumbar pain COMPARISON STUDY: No previous studies for comparison. TECHNIQUE: Utilizing a 1.5 Kalani magnet and dedicated coil, multiplanar, multiecho imaging of the lumbar spine was performed without IV contrast. FINDINGS: For purposes of numbering on this exam, the L5-S1 disc space is assigned to axial image 23 of 25. Alignment of the lumbar spine is anatomic. Vertebral body heights are maintained. There is no suspicious marrow replacement. There is prominent epidural fat at the L5 level and within the sacrum. Paravertebral soft tissues are unremarkable. A few hemangiomas are noted, the largest of which is a 2 cm lesion within the L1 vertebral body. Bilateral renal lesions are better depicted on prior CT of February 04, 2017. L1-2: The central canal and neural foramen are patent. L2-3: The central canal and neural foramen are patent. There is minimal disc bulge. L3-4: The central canal and neural foramen are patent. There is mild facet arthrosis. L4-5: There is mild disc bulge and facet arthrosis. Central canal and neural foramen are patent. L5-S1: There is disc space narrowing with a disc bulge and small central disc protrusion. There is mild narrowing of the central canal, lateral recesses and neural foramen. IMPRESSION: 1. Mild multilevel degenerative changes of the lumbar spine. 2. Disc bulge with small central disc protrusion at L5-S1 that result in mild narrowing of the central canal, lateral recesses and neural foramen. Electronically signed by: Yaya Huerta M.D. 05/13/2017 6:46 PM Dictated Date/Time: 05/13/2017 6:38 PM MRI OF THE THORACIC SPINE WITHOUT CONTRAST CLINICAL HISTORY: Right lower thoracic/upper lumbar pain COMPARISON: None. TECHNIQUE: Utilizing a 1.5 Kalani magnet and dedicated coil, multiplanar, multiecho imaging of the thoracic spine was performed without IV contrast. FINDINGS: Alignment of the thoracic spine is anatomic. Vertebral body heights are maintained. There is an L1 vertebral body hemangioma. Thoracic cord signal and caliber are normal. There is no intracanalicular mass or fluid collection. There is moderate disc space narrowing with discogenic changes at the T9-T10. There is minimal disc bulge. Central canal is patent. There is mild narrowing of the bilateral neural foramen at this level. There are trace bilateral pleural effusions. T2 hyperintense bilateral renal lesions are better depicted on abdominal CT of February 04, 2017. There is no suspicious marrow replacement. IMPRESSION: 1. No acute abnormality within the thoracic spine by MRI. 2. Mild degenerative disc disease at T9-T10 with disc bulge. Mild bilateral neural foraminal narrowing at this level. Patent central canal. 3. Normal thoracic cord signal and caliber. 4. Trace bilateral pleural effusions. Electronically signed by: Yaya Huerta M.D. 05/13/2017 7:02 PM Dictated Date/Time: 05/13/2017 6:56 PM Laboratory Results 05/13/17 14:20 Red Blood Count 4.87, Mean Corpuscular Volume 87.1, Mean Corpuscular Hemoglobin 30.2, Mean Corpuscular Hemoglobin Concent 34.7, Mean Platelet Volume 10.3, Neutrophils (%) (Auto) 62.5, Lymphocytes (%) (Auto) 27.9, Monocytes (%) (Auto) 6.4, Eosinophils (%) (Auto) 2.3, Basophils (%) (Auto) 0.4, Neutrophils # (Auto) 5.26, Lymphocytes # (Auto) 2.34, Monocytes # (Auto) 0.54, Eosinophils # (Auto) 0.19, Basophils # (Auto) 0.03 05/13/17 14:20 Test 05/13/17 14:20 05/13/17 14:30 White Blood Count 8.40 K/uL (4.8-10.8) Red Blood Count 4.87 M/uL (4.2-5.4) Hemoglobin 14.7 g/dL (12.0-16.0) Hematocrit 42.4 % (37-47) Mean Corpuscular Volume 87.1 fL (80-100) Mean Corpuscular Hemoglobin 30.2 pg (25-34) Mean Corpuscular Hemoglobin Concent 34.7 g/dl (32-36) Platelet Count 228 K/uL (130-400) Mean Platelet Volume 10.3 fL (7.4-10.4) Neutrophils (%) (Auto) 62.5 % Lymphocytes (%) (Auto) 27.9 % Monocytes (%) (Auto) 6.4 % Eosinophils (%) (Auto) 2.3 % Basophils (%) (Auto) 0.4 % Neutrophils # (Auto) 5.26 K/uL (1.4-6.5) Lymphocytes # (Auto) 2.34 K/uL (1.2-3.4) Monocytes # (Auto) 0.54 K/uL (0.11-0.59) Eosinophils # (Auto) 0.19 K/uL (0-0.5) Basophils # (Auto) 0.03 K/uL (0-0.2) RDW Standard Deviation 42.5 fL (36.4-46.3) RDW Coefficient of Variation 13.3 % (11.5-14.5) Immature Granulocyte % (Auto) 0.5 % Immature Granulocyte # (Auto) 0.04 K/uL (0.00-0.02) Anion Gap 6.0 mmol/L (3-11) Est Creatinine Clear Calc Drug Dose 53.5 ml/min Estimated GFR () 63.4 Estimated GFR (Non- 54.7 BUN/Creatinine Ratio 22.8 (10-20) Calcium Level 9.5 mg/dl (8.5-10.1) Total Bilirubin 0.3 mg/dl (0.2-1) Direct Bilirubin < 0.1 mg/dl (0-0.2) Aspartate Amino Transf (AST/SGOT) 16 U/L (15-37) Alanine Aminotransferase (ALT/SGPT) 52 U/L (12-78) Alkaline Phosphatase 127 U/L (45-117) Total Protein 7.1 gm/dl (6.4-8.2) Albumin 3.1 gm/dl (3.4-5.0) Lipase 177 U/L (73-393) Urine Color YELLOW Urine Appearance CLEAR (CLEAR) Urine pH 5.0 (4.5-7.5) Urine Specific [place] 1.014 (1.000-1.030) Urine Protein NEG (NEG) Urine Glucose (UA) NEG (NEG) Urine Ketones NEG (NEG) Urine Occult Blood NEG (NEG) Urine Nitrite NEG (NEG) Urine Bilirubin NEG (NEG) Urine Urobilinogen NEG (NEG) Urine Leukocyte Esterase NEG (NEG) Laboratory results reviewed by me Medications Administered Medications (Trade) Dose Ordered Sig/Ayleen Route Start Time Stop Time Status Last Admin Dose Admin Hydromorphone HCl (Dilaudid Inj) 1 mg Q15M PRN IV 05/13/17 14:15 05/27/17 14:14 05/13/17 17:16 1 MG Ondansetron HCl (Zofran Inj) 4 mg NOW STAT IV 05/13/17 14:01 05/13/17 14:03 DC 05/13/17 14:36 4 MG ED Course 1357: The patient was evaluated in room C05. A complete history and physical exam was performed. 1401: Zofran Injection 4 mg IV. 1415: Dilaudid Injection 1 mg IV. 1618: I discussed the patient's case with case management. They will evaluate the patient's case further. 164: I reevaluate the patient and she is resting comfortably. 1917: I discussed the patients case with Ashish Russo. He understands the patients condition and agrees to accept the patient. The patient will be further evaluated. 1927: I reevaluated the patient and she is resting comfortably. I updated her on her results and treatment plan. The patient agrees to admission. The patient will be further evaluated. Medical Decision Triage Nursing notes reviewed. The patient's presentation and history were concerning for back and abdominal pain. Etiologies such as lumbago, sciatica, cauda equina, epidural abscess, osteomyelitis, fracture, aortic disease, metastatic disease, infection, renal colic, gastrointestinal, as well as others were entertained. The patient was evaluated. She was treated with IV Zofran and Dilaudid. She was doing better with this. She did require a second dose. The patient has had an extensive workup. Previous CT imaging did not reveal any acute abnormality. She just had an upper endoscopy with endoscopic ultrasound because of suspected choledocholithiasis. No gallbladder duct ultrasound abnormalities were noted. The patient was noted to have renal cysts. She was scheduled to have an outpatient MRI. Unfortunately her pain medication is not controlling her pain and she is having significant issues functioning at home. She is directed to the Emergency Room by her specialty office. The patient had an unremarkable CBC, chemistry panel, LFTs, lipase and urinalysis. Case management did meet with the patient. She went MRI imaging and finding as above. I did consult with the [facility] service. The patient was evaluated in the Emergency Room for further management and she has failed outpatient treatment of her symptoms. Medication Reconcilliation Current Medication List: was personally reviewed by me Blood Pressure Screening Patient's blood pressure: Normal blood pressure Consults Time Called: 1917 Consulting Physician: Ashish Russo Returned Call: 1917 I discussed the patients case with Dr. Coppes, [facility]. He understands the patients condition and agrees to accept the patient. The patient will be further evaluated. Impression Primary Impression: Back pain Additional Impressions: Upper abdominal pain Thoracic disc disease Scribe Attestation The scribe's documentation has been prepared under my direction and personally reviewed by me in its entirety. I confirm that the note above accurately reflects all work, treatment, procedures, and medical decision making performed by me. Departure Information Dispostion Being Evaluated By Hospitalist (Dr. Sood) Referrals Elizabeth Caicedo M.D. (PCP) Patient Instructions My [facility] Problem Qualifiers
[2017-05-13] MEDS ORDERED: [UNRECOGNIZED DRUG - OTHER] PO (20:29)
[2017-05-13] MEDS ORDERED: NITROGLYCERIN 0.4 MG SL PER TAB CHARGE UT PRN (20:30)
[2017-05-13] MEDS ORDERED: HYDROCODONE/ACETAMOPHEN 5/325MG TAB PO PRN (20:30)
--- NOTE | 2017-05-13 20:59 | History and Physical ---
History & Physical Date & Time of Service: May 13, 2017 at 20:49 . Chief Complaint: back pain . Primary Care Physician: Elizabeth Caicedo M.D. . History of Present Illness Source: patient, clinic records, hospital records 76-year-old female followed by Dr. Elizabeth Caicedo. History of ischemic heart disease, diastolic heart failure, diabetes, and other problems noted below. 3 weeks prior to admission developed sudden onset of right upper quadrant/right flank pain. The pain has been constant since then, fluctuating in intensity from moderate to severe. It does not radiate. Experiencing chills, but no fever. Has had intermittent nausea without vomiting. Diagnosed with Clostridium difficile colitis in January with subsequent recurrence being treated with vancomycin. No melena or hematochezia. No dysuria or hematuria. No trauma. Vicodin offers some relief. Intolerant of oxycodone and NSAID's. Tried lidocaine patch without benefit. Patient has been evaluated in clinic as well as [facility] ED. Ultrasound on 04/13/17 demonstrated postsurgical changes of cholecystectomy, no intrahepatic biliary dilatation, common bile duct 9 mm, renal cysts. CT of abdomen and pelvis on 04/16/17 demonstrated bilateral renal cyst, some hyperdense. Repeat CT of abdomen and pelvis on 05/04/17 was similar in appearance. Plain films of thoracic spine on 05/09/17 showed degenerative disease and dyspnea narrowing at T9/10, moderate kyphosis. Plain films of lumbar spine on 05/09/17 showed marked disc space narrowing at L5- S1. EGD by Dr. Doty on 05/11/17 showed small hiatal hernia and gastritis. EUS by Dr. Doty on 05/11/17 did not show any biliary tract pathology, but demonstrated renal cysts. Arrangements made for outpatient MRI thoracic spine as well as Urology consultation. Patient called clinic today with worsening pain, not adequately controlled by Vicodin. She was referred to the ED for further evaluation. . Past Medical/Surgical History Chronic and Resolved Medical Problems: (1) CAD (coronary artery disease) Status: Chronic (2) CKD (chronic kidney disease), stage III Status: Chronic (3) Colon polyps Status: Resolved (4) DIAB KHUSHI WO COMPL, TYPE II OR UNSPEC TYPE, NOT UNCNTRLD Status: Chronic (5) Diabetic retinopathy Status: Chronic (6) Diastolic CHF Status: Chronic (7) Diverticulosis of colon Status: Chronic (8) History of basal cell carcinoma Status: Chronic (9) History of Clostridium difficile infection Status: Chronic (10) History of PSVT (paroxysmal supraventricular tachycardia) Permanent Comment: s/p ablation Status: Chronic (11) HTN (hypertension) Status: Chronic (12) Hyperlipidemia Status: Chronic (13) HYPERLIPIDEMIA NEC/NOS Status: Chronic TENRIISM- NO BLOOD PRODUCTS (14) PERCUTANEOUS TRANSLUM CORON ANGIOPLASTY STATUS Status: Chronic (15) Renal cyst Status: Chronic (16) Stented coronary artery Status: Chronic Surgical Problems: (1) Status post cardiac catheterization Status: Chronic (2) Status post cholecystectomy Status: Chronic (3) Status post coronary artery stent placement Permanent Comment: multiple PCI's Status: Chronic (4) Status post hysterectomy Status: Chronic (5) Status post right knee replacement Status: Chronic . Family History Diabetes mellitus Heart disease Hypertension Social History Smoking Status: Never Smoker Alcohol Use: none Drug Use: none Marital Status: Housing status: lives alone Occupational Status: retired Immunizations History of Influenza Vaccine: Yes Influenza Vaccine Date: Aug 02, 2006 History of Tetanus Vaccine?: Yes History of Pneumococcal: Yes History of Hepatitis B Vaccine: Unknown Multi-Drug Resistant Organisms History of MDRO: No Allergies Coded Allergies: Adhesives (Verified Allergy, Unknown, ALLERGY TO TAPE, 05/06/17) Nadolol (Verified Allergy, Unknown, UNSURE, 05/06/17) Nifedipine (Verified Allergy, Unknown, BLISTERS, TOLERATES PLENDIL, ) Ibuprofen (Verified Adverse Reaction, Mild, UPSET STOMACH, 05/06/17) Diltiazem (Verified Adverse Reaction, Unknown, TOLERATES PLENDIL, MALAISE , 05/06/17) Oxycodone (Verified Adverse Reaction, Unknown, SEVERE NAUSEA, 05/06/17) Home Medications Scheduled Amlodipine Besylate-Atorvastat (Caduet), 1 TAB PO QAM Aspirin (Aspirin), 325 MG PO QAM Baclofen (Baclofen), 5 MG PO BID Barberry-[place] Grape-Goldense (Berberine Complex 200-200-50 mg), 1 CAP PO DAILY Cholestyramine Light (Questran Light), 2 GM PO DAILY Clopidogrel (Plavix), 2 TAB PO QAM Furosemide (Furosemide), 40 MG PO QAM Glimepiride (Glimepiride), 8 MG PO QAM Herbals (Herbals), 1 TAB PO DAILY Hyoscyamine Sulfate (Levsin), 0.125 MG PO BID Metoprolol Succ (Toprol Xl) (Toprol-Xl ), 100 MG PO QAM Nitroglycerin (Nitrostat), 0.4 MG UT PRN Probiotic Product (Probiotic), 2 CAP PO DAILY Saccharomyces Boulardii (Florastor), 250 MG PO BID Sitagliptin Phosphate (Januvia), 100 MG PO QAM Valsartan/Hctz (Diovan Hct 320MG/25MG), 1 TAB PO QAM Vancomycin Hcl (Vancomycin), 125 MG PO Q2D Vancomycin Hcl (Vancomycin), 125 MG PO QID [Epanova], 4 GM PO DAILY Scheduled PRN Acetaminophen Tab (Tylenol), 650 MG PO Q6H PRN for Pain or Fever Hydrocodone/Acetaminophen 5MG/325MG ([place] 5MG/325MG), 1 TABLET PO Q6H PRN for Moderate Pain Triamcinolone Acet (Triamcinolone Acetonide), 1 DOSE EXT UD PRN for PRN Review of Systems Constitutional: + chills, + weight loss (6 lbs), No fever Eyes: No worsening of vision, No diplopia ENT: No nasal symptoms, No sore throat Respiratory: + cough (chronic, mild), + dyspnea on exertion Cardiovascular: + chest pain (occasional), + edema (mild), No palpitations Abdomen: + problem reported (as noted above in HPI) Musculoskeletal: No joint pain, No muscle pain Genitourinary - Female: + problem reported (as noted above in HPI) Neurologic: + problem reported (no diabetic neuropathy, no headaches) Endocrine: + excessive urination (attributed to diuretics), No excessive thirst Hematologic / Lymphatic: + abnormal bleeding/bruising (bruises easily) Integumentary: No rash, No new/changing skin lesions Physical Exam Vital Signs Date Time Temp Pulse Resp B/P (MAP) Pulse Ox O2 Delivery O2 Flow Rate FiO2 05/13/17 19:56 52 17 94 05/13/17 19:17 Room Air 05/13/17 18:49 51 16 118/66 93 Room Air 05/13/17 17:17 50 14 108/49 93 Room Air 05/13/17 16:23 49 05/13/17 16:11 51 19 139/62 96 Room Air 05/13/17 15:18 48 16 123/58 94 Room Air 05/13/17 13:02 36.4 62 20 168/74 96 Room Air General Appearance: WD/WN, + mild distress Head: normocephalic, atraumatic Eyes: normal inspection, PERRL, EOMI, sclerae normal ENT: normal ENT inspection, hearing grossly normal, pharynx normal Neck: supple, no adenopathy, thyroid normal, trachea midline Respiratory/Chest: lungs clear, no respiratory distress, no accessory muscle use Cardiovascular: regular rate, rhythm, no edema, no gallop, no JVD, no murmur, + abnormal peripheral pulses (diminished pedal pulses, capillary refill toes < 2 sec) Abdomen/GI: normal bowel sounds, soft, no organomegaly, no pulsatile mass, + pertinent finding (RUQ tenderness without rebound or guarding) Back: no muscle spasm, + right CVA tenderness, + pertinent finding (no midline tenderness) Extremities/Musculoskelatal: no calf tenderness, no pedal edema Neurologic/Psych: invasive cardiovascular technologist II-XII nml as tested (PERRL, EOMI, no facial palsy, no dysarthria), no motor/sensory deficits (motor strength lower extremities 5/5 bilat), alert, normal mood/affect, oriented x 3, + abnormal cerebellar tests Skin: warm/dry, no rash Lymphatic: no adenopathy (cervical) Diagnostics Laboratory Results Results Past 24 Hours Test 05/13/17 14:20 05/13/17 14:30 Range/Units White Blood Count 8.40 4.8-10.8 K/uL Red Blood Count 4.87 4.2-5.4 M/uL Hemoglobin 14.7 12.0-16.0 g/dL Hematocrit 42.4 37-47 % Mean Corpuscular Volume 87.1 80-100 fL Mean Corpuscular Hemoglobin 30.2 25-34 pg Mean Corpuscular Hemoglobin Concent 34.7 32-36 g/dl Platelet Count 228 130-400 K/uL Mean Platelet Volume 10.3 7.4-10.4 fL Neutrophils (%) (Auto) 62.5 % Lymphocytes (%) (Auto) 27.9 % Monocytes (%) (Auto) 6.4 % Eosinophils (%) (Auto) 2.3 % Basophils (%) (Auto) 0.4 % Neutrophils # (Auto) 5.26 1.4-6.5 K/uL Lymphocytes # (Auto) 2.34 1.2-3.4 K/uL Monocytes # (Auto) 0.54 0.11-0.59 K/uL Eosinophils # (Auto) 0.19 0-0.5 K/uL Basophils # (Auto) 0.03 0-0.2 K/uL RDW Standard Deviation 42.5 36.4-46.3 fL RDW Coefficient of Variation 13.3 11.5-14.5 % Immature Granulocyte % (Auto) 0.5 % Immature Granulocyte # (Auto) 0.04 0.00-0.02 K/uL Sodium Level 141 136-145 mmol/L Potassium Level 4.3 3.5-5.1 mmol/L Chloride Level 104 98-107 mmol/L Carbon Dioxide Level 31 21-32 mmol/L Anion Gap 6.0 3-11 mmol/L Blood Urea Nitrogen 23 7-18 mg/dl Creatinine 1.00 0.60-1.20 mg/dl Est Creatinine Clear Calc Drug Dose 53.5 ml/min Estimated GFR () 63.4 Estimated GFR (Non- 54.7 BUN/Creatinine Ratio 22.8 10-20 Random Glucose 234 70-99 mg/dl Calcium Level 9.5 8.5-10.1 mg/dl Total Bilirubin 0.3 0.2-1 mg/dl Direct Bilirubin < 0.1 0-0.2 mg/dl Aspartate Amino Transf (AST/SGOT) 16 15-37 U/L Alanine Aminotransferase (ALT/SGPT) 52 12-78 U/L Alkaline Phosphatase 127 45-117 U/L Total Protein 7.1 6.4-8.2 gm/dl Albumin 3.1 3.4-5.0 gm/dl Lipase 177 73-393 U/L Urine Color YELLOW Urine Appearance CLEAR CLEAR Urine pH 5.0 4.5-7.5 Urine Specific [place] 1.014 1.000-1.030 Urine Protein NEG NEG Urine Glucose (UA) NEG NEG Urine Ketones NEG NEG Urine Occult Blood NEG NEG Urine Nitrite NEG NEG Urine Bilirubin NEG NEG Urine Urobilinogen NEG NEG Urine Leukocyte Esterase NEG NEG Diagnostic Radiology MRI OF THE THORACIC SPINE WITHOUT CONTRAST FINDINGS: Alignment of the thoracic spine is anatomic. Vertebral body heights are maintained. There is an L1 vertebral body hemangioma. Thoracic cord signal and caliber are normal. There is no intracanalicular mass or fluid collection. There is moderate disc space narrowing with discogenic changes at the T9-T10. There is minimal disc bulge. Central canal is patent. There is mild narrowing of the bilateral neural foramen at this level. There are trace bilateral pleural effusions. T2 hyperintense bilateral renal lesions are better depicted on abdominal CT of February 04, 2017. There is no suspicious marrow replacement. IMPRESSION: 1. No acute abnormality within the thoracic spine by MRI. 2. Mild degenerative disc disease at T9-T10 with disc bulge. Mild bilateral neural foraminal narrowing at this level. Patent central canal. 3. Normal thoracic cord signal and caliber. 4. Trace bilateral pleural effusions. Electronically signed by: Yaya Huerta M.D. 05/13/2017 7:02 PM Dictated Date/Time: 05/13/2017 6:56 PM MRI OF THE LUMBAR SPINE WITHOUT CONTRAST FINDINGS: For purposes of numbering on this exam, the L5-S1 disc space is assigned to axial image 23 of 25. Alignment of the lumbar spine is anatomic. Vertebral body heights are maintained. There is no suspicious marrow replacement. There is prominent epidural fat at the L5 level and within the sacrum. Paravertebral soft tissues are unremarkable. A few hemangiomas are noted, the largest of which is a 2 cm lesion within the L1 vertebral body. Bilateral renal lesions are better depicted on prior CT of February 04, 2017. L1-2: The central canal and neural foramen are patent. L2-3: The central canal and neural foramen are patent. There is minimal disc bulge. L3-4: The central canal and neural foramen are patent. There is mild facet arthrosis. L4-5: There is mild disc bulge and facet arthrosis. Central canal and neural foramen are patent. L5-S1: There is disc space narrowing with a disc bulge and small central disc protrusion. There is mild narrowing of the central canal, lateral recesses and neural foramen. IMPRESSION: 1. Mild multilevel degenerative changes of the lumbar spine. 2. Disc bulge with small central disc protrusion at L5-S1 that result in mild narrowing of the central canal, lateral recesses and neural foramen. Electronically signed by: Yaya Huerta M.D. 05/13/2017 6:46 PM Dictated Date/Time: 05/13/2017 6:38 PM . Impression Assessment and Plan RUQ / FLANK PAIN Constant right upper quadrant/right flank pain over past 3-4 weeks. Status post cholecystectomy. No apparent biliary tract pathology per ultrasound, CT, EUS. Imaging has revealed bilateral renal cysts, some hyperdense and possibly hemorrhagic; no apparent renal/ureteral calculi. Patient has outpatient consultation with urology next week, but feels that she cannot wait for that appointment. Will ask Urology to see her during this hospital stay. Imaging by recent outpatient plain films and ED MRI demonstrated disc disease at T9/10. Patient has been seen in the past by Dr. Soto and would like to see him again. Patient is intolerant of oxycodone and NSAID's. Trial of lidocaine patch noneffective. She had some relief with one Vicodin tablet. Change Vicodin to one tablet 4 times a day plus additional tablet every 6 hours when necessary. Add gabapentin. PT / OT evals. CAD History of ischemic heart disease, status post multiple PCI's. Continue aspirin, clopidogrel, metoprolol, lipid management. DIASTOLIC CHF Chronic left ventricular diastolic heart failure. Compensated. Continue furosemide.a HYPERTENSION Continue metoprolol, losartan, hydrochlorothiazide. DM TYPE 2 Fairly well controlled. Hemoglobin A1c in clinic on 04/07/17 was 8.3. Continue oral agents. Insulin coverage as necessary if blood sugars significantly elevated. RECURRENT C DIFF Continue current course of vancomycin. Contact precautions. TENRIISM No blood products. DVT PROPHYLAXIS Moderate risk for DVT. Will not utilize anticoagulants at this time due to possibility of hemorrhagic renal cysts. SCDs. Ambulate. RESUSCITATION STATUS Discussed with patient. She has a living will. She would like resuscitation attempted in the event of a cardiopulmonary arrest if there is a reasonable chance of a meaningful recovery, but does not want prolonged extraordinary measures if prognosis is poor. Therefore, code status = "Level 1" (full resuscitation).. DISPOSITION Observation status on [facility] Unit. Discharge disposition to be determined. Consider skilled care or inpatient rehabilitation if patient is unable to return home. Medical follow-up with Dr. Elizabeth Caicedo. . Advanced Directives Existing Living Will: Yes Existing Power of Manager Call Center: Yes VTE Prophylaxis VTE Risk Assessment Done? Y/N: Yes Risk Level: Moderate Given or contraindicated: SCD's
[2017-05-13] MEDS: BACLOFEN 10 MG TAB PO SCH (21:00)
[2017-05-13] MEDS: HYDROCODONE/ACETAMOPHEN 5/325MG TAB PO SCH (21:00)
[2017-05-13] MEDS: HYOSCYAMINE SULFATE 0.125 MG SL TAB PO SCH (21:00)
[2017-05-13 21:22] VITALS: BP 123/69; PULSE 50; TEMP 36.4; O2SAT 90
[2017-05-13] MEDS: GABAPENTIN 300 MG CAP PO SCH (21:33)
[2017-05-13] MEDS: RASPBERRY SYRUP 5 ML UDP PO SCH (21:37)
[2017-05-13] MEDS: VANCOMYCIN HCL 125 MG/2.5ML SOLN PO SCH (21:38)
[2017-05-13] MEDS: SACCHAROMYCES BOUL (FLORASTOR) 250 MG CAP PO SCH (22:03)
[2017-05-13 22:50] VITALS: BP 105/62; PULSE 48; TEMP 36.3; O2SAT 92
[2017-05-14] MEDS: HYDROmorphone INJ 1 MG/ML SYR IV PRN ×3 (04:34→18:27)
[2017-05-14 06:48] VITALS: BP 137/65; PULSE 49; TEMP 36.4; O2SAT 94
[2017-05-14] MEDS: HYDROCODONE/ACETAMOPHEN 5/325MG TAB PO SCH (08:27)
[2017-05-14] MEDS: RASPBERRY SYRUP 5 ML UDP PO SCH ×4 (08:28→20:05)
[2017-05-14] MEDS: VANCOMYCIN HCL 125 MG/2.5ML SOLN PO SCH ×4 (08:28→20:05)
[2017-05-14] MEDS: SITAGLIPTIN 100 MG TAB PO SCH (08:28)
[2017-05-14] MEDS: HYDROCHLOROTHIAZIDE 25 MG TAB PO SCH (08:29)
[2017-05-14] MEDS: GLIMEPIRIDE 2 MG TAB PO SCH (08:29)
[2017-05-14] MEDS: ATORVASTATIN 20 MG TAB PO SCH (08:30)
[2017-05-14] MEDS: AMLODIPINE BESYLATE 5 MG TAB PO SCH (08:30)
[2017-05-14] MEDS: FUROSEMIDE 40 MG TAB PO SCH (08:30)
[2017-05-14] MEDS: HYOSCYAMINE SULFATE 0.125 MG SL TAB PO SCH (08:32)
[2017-05-14] MEDS: SACCHAROMYCES BOUL (FLORASTOR) 250 MG CAP PO SCH ×2 (08:32→20:08)
[2017-05-14] MEDS: ASPIRIN 325 MG ECTAB PO SCH (08:32)
[2017-05-14] MEDS: CLOPIDOGREL BISULFATE 75 MG TAB PO SCH (08:33)
[2017-05-14] MEDS: LACTOBACILLUS ACIDOPHILUS (FLORANEX) TAB PO SCH ×2 (08:33→08:36)
[2017-05-14] MEDS: INSULIN ASPART 100 UNITS/ML 3 ML PEN SC SCH ×4 (08:40→21:00)
[2017-05-14] MEDS ORDERED: METOPROLOL SUCC 50MG EXT REL TAB PO SCH (09:00)
--- NOTE | 2017-05-14 09:19 | Orthopedic Consultation ---
Orthopedic Consultation Date of Consultation: May 14, 2017. Attending Physician: Analy Bonilla DO Reason for Consultation: Back pain History of Present Illness Primary pleasant 70 [place] female that has complaints of right flank pain radiating into the right groin. This has been present for several weeks. She denies any trauma fall or precipitating event. She denies any radicular component to her pain. She denies any lower extremity weakness. She denies any loss of bowel bladder function or perineal numbness. Past Medical/Surgical History Medical Problems: (1) Back pain Status: Acute (2) Diarrhea Status: Acute (3) Diffuse abdominal pain Status: Acute (4) Hyperglycemia Status: Acute (5) Thoracic disc disease Status: Acute (6) Upper abdominal pain Status: Acute Family History Diabetes mellitus Heart disease Hypertension Social History Smoking Status: Never Smoker Alcohol Use: none Drug Use: none Marital Status: Housing Status: lives alone Occupation Status: retired Allergies Coded Allergies: Adhesives (Verified Allergy, Unknown, ALLERGY TO TAPE, 05/06/17) Nadolol (Verified Allergy, Unknown, UNSURE, 05/06/17) Nifedipine (Verified Allergy, Unknown, BLISTERS, TOLERATES PLENDIL, ) Ibuprofen (Verified Adverse Reaction, Mild, UPSET STOMACH, 05/06/17) Diltiazem (Verified Adverse Reaction, Unknown, TOLERATES PLENDIL, MALAISE , 05/06/17) Oxycodone (Verified Adverse Reaction, Unknown, SEVERE NAUSEA, 05/06/17) Home Medications Scheduled Amlodipine Besylate-Atorvastat (Caduet), 1 TAB PO QAM Aspirin (Aspirin), 325 MG PO QAM Baclofen (Baclofen), 5 MG PO BID Barberry-[place] Grape-Goldense (Berberine Complex 200-200-50 mg), 1 CAP PO DAILY Cholestyramine Light (Questran Light), 2 GM PO DAILY Clopidogrel (Plavix), 2 TAB PO QAM Furosemide (Furosemide), 40 MG PO QAM Glimepiride (Glimepiride), 8 MG PO QAM Herbals (Herbals), 1 TAB PO DAILY Hyoscyamine Sulfate (Levsin), 0.125 MG PO BID Metoprolol Succ (Toprol Xl) (Toprol-Xl ), 100 MG PO QAM Nitroglycerin (Nitrostat), 0.4 MG UT PRN Probiotic Product (Probiotic), 2 CAP PO DAILY Saccharomyces Boulardii (Florastor), 250 MG PO BID Sitagliptin Phosphate (Januvia), 100 MG PO QAM Valsartan/Hctz (Diovan Hct 320MG/25MG), 1 TAB PO QAM Vancomycin Hcl (Vancomycin), 125 MG PO Q2D Vancomycin Hcl (Vancomycin), 125 MG PO QID [Epanova], 4 GM PO DAILY Scheduled PRN Acetaminophen Tab (Tylenol), 650 MG PO Q6H PRN for Pain or Fever Hydrocodone/Acetaminophen 5MG/325MG ([place] 5MG/325MG), 1 TABLET PO Q6H PRN for Moderate Pain Triamcinolone Acet (Triamcinolone Acetonide), 1 DOSE EXT UD PRN for PRN Current Inpatient Medications Current Inpatient Medications Medications (Trade) Dose Ordered Sig/Ayleen Route Start Time Stop Time Status Last Admin Dose Admin Miscellaneous (Iv Fluids Completed) 1 ea PRN PRN N/A 05/13/17 20:00 05/13/18 19:59 Aspirin (Ecotrin Tab) 325 mg QAM PO 05/14/17 09:00 06/13/17 08:59 05/14/17 08:32 325 MG Baclofen (Lioresal Tab) 5 mg BID PO 05/13/17 21:00 06/12/17 20:59 Clopidogrel Bisulfate (plAVix TAB) 150 mg QAM PO 05/14/17 09:00 06/13/17 08:59 05/14/17 08:33 150 MG Furosemide (Lasix Tab) 40 mg QAM PO 05/14/17 09:00 06/13/17 08:59 05/14/17 08:30 40 MG Acetaminophen/ Hydrocodone Bitart ([place] 5/325 Tab) 1 tab Q6H PRN PO 05/13/17 20:30 05/27/17 20:29 05/14/17 08:28 1 TAB Hyoscyamine Sulfate (Levsin Tab) 0.125 mg BID PO 05/13/17 21:00 06/12/17 20:59 05/14/17 08:32 0.125 MG Metoprolol Succinate (Toprol Xl Tab) 100 mg QAM PO 05/14/17 09:00 06/13/17 08:59 Nitroglycerin (Nitrostat Tab) 0.4 mg PRN PRN UT 05/13/17 20:30 06/12/17 20:29 Saccharomyces Boulardii (Florastor Cap) 250 mg BID PO 05/13/17 21:00 06/12/17 20:59 05/14/17 08:32 250 MG Sitagliptin Phosphate (Januvia Tab) 100 mg QAM PO 05/14/17 09:00 06/13/17 08:59 05/14/17 08:28 100 MG Valsartan (Diovan Tab) 160 mg QAM PO 05/14/17 09:00 06/13/17 08:59 Vancomycin HCl (Vancomycin Oral Soln) 125 mg QID PO 05/13/17 21:00 05/27/17 20:59 05/14/17 08:28 125 MG Amlodipine Besylate (Norvasc Tab) 10 mg QAM PO 05/14/17 09:00 06/13/17 08:59 05/14/17 08:30 10 MG Cholestyramine Resin (Questran Powder Light) 2 gm DAILY@1000 PO 05/14/17 10:00 06/13/17 09:59 Glimepiride (Amaryl Tab) 8 mg QAM PO 05/14/17 09:00 06/13/17 08:59 05/14/17 08:29 8 MG Lactobacillus Acidophilus (Floranex Tab) 4 tab TIDM PO 05/14/17 08:00 06/13/17 07:59 05/14/17 08:36 4 TAB Atorvastatin Calcium (Lipitor Tab) 20 mg QAM PO 05/14/17 09:00 06/13/17 08:59 05/14/17 08:30 20 MG Non-Formulary Medication (Epanova (vpttt-2-zruztogomy acid)) 4 gm DAILY PO 05/14/17 09:00 06/13/17 08:59 Gabapentin (Neurontin Cap) 300 mg BID PO 05/13/17 21:00 05/14/17 21:01 05/13/17 21:33 300 MG Gabapentin (Neurontin Cap) 300 mg TID PO 05/15/17 09:00 06/14/17 08:59 Raspberry (Raspberry Syrup 5ml Cup) 5 ml QID PO 05/13/17 21:00 05/27/17 20:59 05/14/17 08:28 5 ML Hydromorphone HCl (Dilaudid Inj) 1 mg Q4H PRN IV 05/13/17 21:00 05/27/17 20:59 05/14/17 04:34 1 MG Acetaminophen/ Hydrocodone Bitart ([place] 5/325 Tab) 1 tab QID PO 05/13/17 21:00 05/27/17 20:59 05/14/17 08:27 1 TAB Hydrochlorothiazide (Hydrochlorothiazide Tab) 12.5 mg QAM PO 05/14/17 09:00 06/13/17 08:59 05/14/17 08:29 12.5 MG Insulin Aspart (novoLOG ASPART) SLIDING SCALE G... ACHS SC 05/14/17 08:00 06/13/17 07:59 Physical Exam Date Time Temp Pulse Resp B/P (MAP) Pulse Ox O2 Delivery O2 Flow Rate FiO2 05/14/17 08:00 Room Air 05/14/17 06:48 36.4 49 19 137/65 (89) 94 Room Air 05/13/17 23:20 Room Air 05/13/17 22:50 36.3 48 18 105/62 (76) 92 Room Air 05/13/17 21:22 36.4 50 18 123/69 (87) 90 Room Air 05/13/17 19:56 52 17 94 05/13/17 19:17 Room Air 05/13/17 18:49 51 16 118/66 93 Room Air 05/13/17 17:17 50 14 108/49 93 Room Air 05/13/17 16:23 49 05/13/17 16:11 51 19 139/62 96 Room Air 05/13/17 15:18 48 16 123/58 94 Room Air 05/13/17 13:02 36.4 62 20 168/74 96 Room Air On exam she is in the chair at bedside. She is eating breakfast. She has reasonable strength testing bilateral lower extremity. Sensory symmetric and intact. She is no significant discomfort to palpation or percussion over the thoracal lumbar spine. Laboratory Results Last 24 Hours Test 05/13/17 14:20 05/13/17 14:30 White Blood Count 8.40 K/uL Red Blood Count 4.87 M/uL Hemoglobin 14.7 g/dL Hematocrit 42.4 % Mean Corpuscular Volume 87.1 fL Mean Corpuscular Hemoglobin 30.2 pg Mean Corpuscular Hemoglobin Concent 34.7 g/dl Platelet Count 228 K/uL Mean Platelet Volume 10.3 fL Neutrophils (%) (Auto) 62.5 % Lymphocytes (%) (Auto) 27.9 % Monocytes (%) (Auto) 6.4 % Eosinophils (%) (Auto) 2.3 % Basophils (%) (Auto) 0.4 % Neutrophils # (Auto) 5.26 K/uL Lymphocytes # (Auto) 2.34 K/uL Monocytes # (Auto) 0.54 K/uL Eosinophils # (Auto) 0.19 K/uL Basophils # (Auto) 0.03 K/uL RDW Standard Deviation 42.5 fL RDW Coefficient of Variation 13.3 % Immature Granulocyte % (Auto) 0.5 % Immature Granulocyte # (Auto) 0.04 K/uL Sodium Level 141 mmol/L Potassium Level 4.3 mmol/L Chloride Level 104 mmol/L Carbon Dioxide Level 31 mmol/L Anion Gap 6.0 mmol/L Blood Urea Nitrogen 23 mg/dl Creatinine 1.00 mg/dl Est Creatinine Clear Calc Drug Dose 53.5 ml/min Estimated GFR () 63.4 Estimated GFR (Non- 54.7 BUN/Creatinine Ratio 22.8 Random Glucose 234 mg/dl Calcium Level 9.5 mg/dl Total Bilirubin 0.3 mg/dl Direct Bilirubin < 0.1 mg/dl Aspartate Amino Transf (AST/SGOT) 16 U/L Alanine Aminotransferase (ALT/SGPT) 52 U/L Alkaline Phosphatase 127 U/L Total Protein 7.1 gm/dl Albumin 3.1 gm/dl Lipase 177 U/L Urine Color YELLOW Urine Appearance CLEAR Urine pH 5.0 Urine Specific [place] 1.014 Urine Protein NEG Urine Glucose (UA) NEG Urine Ketones NEG Urine Occult Blood NEG Urine Nitrite NEG Urine Bilirubin NEG Urine Urobilinogen NEG Urine Leukocyte Esterase NEG Assessment & Plan Assessment right flank pain. Plan I reviewed her thoracic and lumbar MRIs thoroughly. While she does have some evidence of epidural lipomatosis affecting the L4 5 L5-S1 regions appreciate no abnormalities thoracal lumbar region that would account for her right flank pain. Emphasized the patient that there is nothing surgical from a spine standpoint it will improve her current status. She understands agrees.
[2017-05-14] MEDS: VALSARTAN 80 MG TAB PO SCH (09:41)
[2017-05-14] MEDS: BACLOFEN 10 MG TAB PO SCH ×2 (09:42→20:07)
[2017-05-14] MEDS: GABAPENTIN 300 MG CAP PO SCH (09:42)
[2017-05-14] MEDS: CHOLESTYRAMINE LIGHT 4 GM PKT PO SCH (09:42)
[2017-05-14] MEDS: [UNRECOGNIZED DRUG - OTHER] PO SCH (09:45)
[2017-05-14 09:46] VITALS: PULSE 51
--- NOTE | 2017-05-14 10:56 | Progress Note ---
Medicine Progress Note Date & Time of Visit: May 14, 2017 at 10:25. Subjective 76 yoF with RUQ flank pain x 3-4 weeks which became constant and strong. Admitted for pain control and continued work up of etiology. -abd pain still present this morning with no changes -pt not eating well 2/2 nausea -reports some weight loss 2/2 not eating -denies BM since 3 days -+chills -no UTI symptoms -chronic cough productive for 2 years with no changes. reports a headache that began this morning after taking gabapentin, denies stroke like symptoms, eye pain, h/o glaucoma or current visual changes. Objective Last 8 Hrs Date Time Temp Pulse Resp B/P (MAP) Pulse Ox O2 Delivery O2 Flow Rate FiO2 05/14/17 09:46 51 05/14/17 08:00 Room Air 05/14/17 06:48 36.4 49 19 137/65 (89) 94 Room Air Physical Exam: GEN:Obese, in no acute distress, alert and appropriate HEENT: NC/AT, pupils are equal and round bilaterally, normal sclerae, MMM CARDIO: reg rate, S1/2 heard without m/g/r LUNGS: CTA bilaterally, no crackles, rales or wheezes, good diaphragmatic excursion ABD: soft, diffuse tenderness all throughout abdomen, non-distended but large and protuberant, no rebound or guarding, very hypoactive BS, no CVA tenderness, no worsening of pain in RUQ/flank pain area to palpation BACK: paraspinal muscle tenderness to palpation in lower thoracic area. EXTREMITY: RP and DP palpable 2+ bilat, no LE swelling or edema, extremities are warm and well-perfused NEURO: CN 2-12 grossly intact, sensation intact throughout, moves around bed with ease, no gross focal deficits. MUSC: 5/5 strength throughout, no focal deficits SKIN: warm and dry, mild bruising on RLQ 2/2 recent SQ injection given Laboratory Results: 05/13/17 14:20 Red Blood Count 4.87, Mean Corpuscular Volume 87.1, Mean Corpuscular Hemoglobin 30.2, Mean Corpuscular Hemoglobin Concent 34.7, Mean Platelet Volume 10.3, Neutrophils (%) (Auto) 62.5, Lymphocytes (%) (Auto) 27.9, Monocytes (%) (Auto) 6.4, Eosinophils (%) (Auto) 2.3, Basophils (%) (Auto) 0.4, Neutrophils # (Auto) 5.26, Lymphocytes # (Auto) 2.34, Monocytes # (Auto) 0.54, Eosinophils # (Auto) 0.19, Basophils # (Auto) 0.03 05/13/17 14:20 Test 05/13/17 14:20 05/13/17 14:30 05/14/17 08:21 White Blood Count 8.40 K/uL (4.8-10.8) Red Blood Count 4.87 M/uL (4.2-5.4) Hemoglobin 14.7 g/dL (12.0-16.0) Hematocrit 42.4 % (37-47) Mean Corpuscular Volume 87.1 fL (80-100) Mean Corpuscular Hemoglobin 30.2 pg (25-34) Mean Corpuscular Hemoglobin Concent 34.7 g/dl (32-36) Platelet Count 228 K/uL (130-400) Mean Platelet Volume 10.3 fL (7.4-10.4) Neutrophils (%) (Auto) 62.5 % Lymphocytes (%) (Auto) 27.9 % Monocytes (%) (Auto) 6.4 % Eosinophils (%) (Auto) 2.3 % Basophils (%) (Auto) 0.4 % Neutrophils # (Auto) 5.26 K/uL (1.4-6.5) Lymphocytes # (Auto) 2.34 K/uL (1.2-3.4) Monocytes # (Auto) 0.54 K/uL (0.11-0.59) Eosinophils # (Auto) 0.19 K/uL (0-0.5) Basophils # (Auto) 0.03 K/uL (0-0.2) RDW Standard Deviation 42.5 fL (36.4-46.3) RDW Coefficient of Variation 13.3 % (11.5-14.5) Immature Granulocyte % (Auto) 0.5 % Immature Granulocyte # (Auto) 0.04 K/uL (0.00-0.02) Anion Gap 6.0 mmol/L (3-11) Est Creatinine Clear Calc Drug Dose 53.5 ml/min Estimated GFR () 63.4 Estimated GFR (Non- 54.7 BUN/Creatinine Ratio 22.8 (10-20) Calcium Level 9.5 mg/dl (8.5-10.1) Total Bilirubin 0.3 mg/dl (0.2-1) Direct Bilirubin < 0.1 mg/dl (0-0.2) Aspartate Amino Transf (AST/SGOT) 16 U/L (15-37) Alanine Aminotransferase (ALT/SGPT) 52 U/L (12-78) Alkaline Phosphatase 127 U/L (45-117) Total Protein 7.1 gm/dl (6.4-8.2) Albumin 3.1 gm/dl (3.4-5.0) Lipase 177 U/L (73-393) Urine Color YELLOW Urine Appearance CLEAR (CLEAR) Urine pH 5.0 (4.5-7.5) Urine Specific [place] 1.014 (1.000-1.030) Urine Protein NEG (NEG) Urine Glucose (UA) NEG (NEG) Urine Ketones NEG (NEG) Urine Occult Blood NEG (NEG) Urine Nitrite NEG (NEG) Urine Bilirubin NEG (NEG) Urine Urobilinogen NEG (NEG) Urine Leukocyte Esterase NEG (NEG) Bedside Glucose 130 mg/dl (70-90) Last 24 Hours Test 05/13/17 14:20 05/13/17 14:30 05/14/17 08:21 White Blood Count 8.40 K/uL Red Blood Count 4.87 M/uL Hemoglobin 14.7 g/dL Hematocrit 42.4 % Mean Corpuscular Volume 87.1 fL Mean Corpuscular Hemoglobin 30.2 pg Mean Corpuscular Hemoglobin Concent 34.7 g/dl Platelet Count 228 K/uL Mean Platelet Volume 10.3 fL Neutrophils (%) (Auto) 62.5 % Lymphocytes (%) (Auto) 27.9 % Monocytes (%) (Auto) 6.4 % Eosinophils (%) (Auto) 2.3 % Basophils (%) (Auto) 0.4 % Neutrophils # (Auto) 5.26 K/uL Lymphocytes # (Auto) 2.34 K/uL Monocytes # (Auto) 0.54 K/uL Eosinophils # (Auto) 0.19 K/uL Basophils # (Auto) 0.03 K/uL RDW Standard Deviation 42.5 fL RDW Coefficient of Variation 13.3 % Immature Granulocyte % (Auto) 0.5 % Immature Granulocyte # (Auto) 0.04 K/uL Sodium Level 141 mmol/L Potassium Level 4.3 mmol/L Chloride Level 104 mmol/L Carbon Dioxide Level 31 mmol/L Anion Gap 6.0 mmol/L Blood Urea Nitrogen 23 mg/dl Creatinine 1.00 mg/dl Est Creatinine Clear Calc Drug Dose 53.5 ml/min Estimated GFR () 63.4 Estimated GFR (Non- 54.7 BUN/Creatinine Ratio 22.8 Random Glucose 234 mg/dl Calcium Level 9.5 mg/dl Total Bilirubin 0.3 mg/dl Direct Bilirubin < 0.1 mg/dl Aspartate Amino Transf (AST/SGOT) 16 U/L Alanine Aminotransferase (ALT/SGPT) 52 U/L Alkaline Phosphatase 127 U/L Total Protein 7.1 gm/dl Albumin 3.1 gm/dl Lipase 177 U/L Urine Color YELLOW Urine Appearance CLEAR Urine pH 5.0 Urine Specific [place] 1.014 Urine Protein NEG Urine Glucose (UA) NEG Urine Ketones NEG Urine Occult Blood NEG Urine Nitrite NEG Urine Bilirubin NEG Urine Urobilinogen NEG Urine Leukocyte Esterase NEG Bedside Glucose 130 mg/dl Assessment & Plan 76 yoF with RUQ flank pain x 3-4 weeks which became constant and strong. Admitted for pain control and continued work up of etiology. 1. 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 She feels the pain in her R flank area which is mostly along the lateral abdominal wall. However, on exam the TTP is the same and is throughout the abdomen. She has been nautious and not eating with a subsequent reported 6 lb weight loss. She is currently on therapy with a repeat course of vancomycin which was started a couple of days ago and will complete a taper at this point. She denies any BMs in 3 days, poss 2/2 vicodin use at home. Will try Nucynta PO and Dilaudid IV for breakthrough at this time. Stop vicodin and baclofen, which was originally given for R leg pain, which has resolved. Dr. Soto did not feel this was related to her back and doesn't recommend surgery at this time. Although she has some paraspinal muscle tenderness in the lower thoracics, this is not a major complaint for her. Will supply heating pad to help with this and RUQ pain , also. Urology to see patient and discuss the role of her renal cysts in all of this. Cont supportive care for now. Will stop gabapentin as patient developed a headache after taking it. 2. CAD: History of ischemic heart disease, status post multiple PCI's. Continue aspirin, clopidogrel, metoprolol, lipid management. Decreasing metoprolol to 75mg BID as she has had bradycardia overnight. 3. DIASTOLIC CHF: compensated, cont daily furosemide 4. HYPERTENSION-at goal, cont BB, ARB and HCTZ 5. DMII- glucose controlled, Hemoglobin A1c in clinic on 04/07/17 was 8.3. Continue oral agents. Insulin coverage as necessary if blood sugars significantly elevated. 6. RECURRENT C DIFF: Continue current course of vancomycin with longer taper. Contact precautions. 7. BAPTISM: No blood products. 8. Headache-stopping gabapentin, may be tension headache, ordered heating pad, scheduled Tylenol 9. Obesity DVT PROPHYLAXIS Moderate risk for DVT. Will not utilize anticoagulants at this time due to possibility of hemorrhagic renal cysts. SCDs. Ambulate. FULL CODE DISPOSITION: pending evals by Urology, PT and OT. Admit to Med/surg. Consider skilled care or inpatient rehabilitation if patient is unable to return home. Medical follow-up with Dr. Elizabeth Caicedo. . Analy Bonilla DO [facility] Hospitalist Consultants: Ortho-Dr. Soto Urology-Dr. Machado Current Inpatient Medications: Current Inpatient Medications Medications (Trade) Dose Ordered Sig/Ayleen Route Start Time Stop Time Status Last Admin Dose Admin Miscellaneous (Iv Fluids Completed) 1 ea PRN PRN N/A 05/13/17 20:00 05/13/18 19:59 Aspirin (Ecotrin Tab) 325 mg QAM PO 05/14/17 09:00 06/13/17 08:59 05/14/17 08:32 325 MG Baclofen (Lioresal Tab) 5 mg BID PO 05/13/17 21:00 06/12/17 20:59 05/14/17 09:42 5 MG Clopidogrel Bisulfate (plAVix TAB) 150 mg QAM PO 05/14/17 09:00 06/13/17 08:59 05/14/17 08:33 150 MG Furosemide (Lasix Tab) 40 mg QAM PO 05/14/17 09:00 06/13/17 08:59 05/14/17 08:30 40 MG Acetaminophen/ Hydrocodone Bitart (Sweetser 5/325 Tab) 1 tab Q6H PRN PO 05/13/17 20:30 05/27/17 20:29 05/14/17 08:28 1 TAB Hyoscyamine Sulfate (Levsin Tab) 0.125 mg BID PO 05/13/17 21:00 06/12/17 20:59 05/14/17 08:32 0.125 MG Metoprolol Succinate (Toprol Xl Tab) 100 mg QAM PO 05/14/17 09:00 06/13/17 08:59 Nitroglycerin (Nitrostat Tab) 0.4 mg PRN PRN UT 05/13/17 20:30 06/12/17 20:29 Saccharomyces Boulardii (Florastor Cap) 250 mg BID PO 05/13/17 21:00 06/12/17 20:59 05/14/17 08:32 250 MG Sitagliptin Phosphate (Januvia Tab) 100 mg QAM PO 05/14/17 09:00 06/13/17 08:59 05/14/17 08:28 100 MG Valsartan (Diovan Tab) 160 mg QAM PO 05/14/17 09:00 06/13/17 08:59 05/14/17 09:41 160 MG Vancomycin HCl (Vancomycin Oral Soln) 125 mg QID PO 05/13/17 21:00 05/27/17 20:59 05/14/17 08:28 125 MG Amlodipine Besylate (Norvasc Tab) 10 mg QAM PO 05/14/17 09:00 06/13/17 08:59 05/14/17 08:30 10 MG Cholestyramine Resin (Questran Powder Light) 2 gm DAILY@1000 PO 05/14/17 10:00 06/13/17 09:59 05/14/17 09:42 2 GM Glimepiride (Amaryl Tab) 8 mg QAM PO 05/14/17 09:00 06/13/17 08:59 05/14/17 08:29 8 MG Lactobacillus Acidophilus (Floranex Tab) 4 tab TIDM PO 05/14/17 08:00 06/13/17 07:59 05/14/17 08:36 4 TAB Atorvastatin Calcium (Lipitor Tab) 20 mg QAM PO 05/14/17 09:00 06/13/17 08:59 05/14/17 08:30 20 MG Non-Formulary Medication (Epanova ([id number] acid)) 4 gm DAILY PO 05/14/17 09:00 06/13/17 08:59 Gabapentin (Neurontin Cap) 300 mg BID PO 05/13/17 21:00 05/14/17 21:01 05/14/17 09:42 300 MG Gabapentin (Neurontin Cap) 300 mg TID PO 05/15/17 09:00 06/14/17 08:59 Raspberry (Raspberry Syrup 5ml Cup) 5 ml QID PO 05/13/17 21:00 05/27/17 20:59 05/14/17 08:28 5 ML Hydromorphone HCl (Dilaudid Inj) 1 mg Q4H PRN IV 05/13/17 21:00 05/27/17 20:59 05/14/17 04:34 1 MG Acetaminophen/ Hydrocodone Bitart (Sweetser 5/325 Tab) 1 tab QID PO 05/13/17 21:00 05/27/17 20:59 05/14/17 08:27 1 TAB Hydrochlorothiazide (Hydrochlorothiazide Tab) 12.5 mg QAM PO 05/14/17 09:00 06/13/17 08:59 05/14/17 08:29 12.5 MG Insulin Aspart (novoLOG ASPART) SLIDING SCALE G... ACHS OR 05/14/17 08:00 06/13/17 07:59
[2017-05-14] MEDS: ONDANSETRON 4MG OD TAB PO SCH ×2 (11:00→19:03)
[2017-05-14] MEDS: ACETAMINOPHEN 500 MG TAB PO SCH ×2 (14:19→21:51)
--- NOTE | 2017-05-14 14:49 | Urology Consultation ---
History General Date of Service: May 14, 2017. Primary Care Physician: Elizabeth Caicedo M.D. Pt seen a urologist before?: Yes History of Present Illness 76 y/o female with a 3 week hx of right abd/flank pain. She reports the pain as severe. 10/10. Constant. Very little relief with pain medications. The pain will radiate from the RUQ to the flank to the entire abdomen. [place]. No vomitting. No hematuria. No dysuria. No fevers. No chills. She had a CT scan in the past few months with showed: "There are multiple bilateral renal cysts including a 9.7 cm left renal cyst and 5.3 cm right renal cyst. A 15 mm upper pole left renal hypodense lesion exceeds water attenuation and is therefore indeterminate." No hx of kidney stones. She has never had this pain before. Hx of C Diff infx. Constipation. The patient has undergone extensive work-up without a clear cause as to the cause of her pain. Urology was consulted to eval the possibility of the renal cysts as a cause of her pain. Laboratory Labs were reviewed and are within normal limits unless listed below. Labs are available in the chart and at [facility] Problem List Medical Problems: (1) Back pain Status: Acute (2) Diarrhea Status: Acute (3) Diffuse abdominal pain Status: Acute (4) Hyperglycemia Status: Acute (5) Thoracic disc disease Status: Acute (6) Upper abdominal pain Status: Acute Past History other Past Surgical History: other Family History Diabetes mellitus Heart disease Hypertension Social History Hx Tobacco Use In Past Year?: No Smoking: non-smoker Alcohol: never Marital status: Housing status: lives alone Occupation status: retired Immunizations History of Influenza Vaccine: Yes Influenza Vaccine Date: Aug 02, 2006 History of Tetanus Vaccine?: Yes History of Pneumococcal: Yes History of Hepatitis B Vaccine: Unknown History of MDRO No Allergies Coded Allergies: Adhesives (Verified Allergy, Unknown, ALLERGY TO TAPE, 05/06/17) Nadolol (Verified Allergy, Unknown, UNSURE, 05/06/17) Nifedipine (Verified Allergy, Unknown, BLISTERS, TOLERATES PLENDIL, ) Ibuprofen (Verified Adverse Reaction, Mild, UPSET STOMACH, 05/06/17) Diltiazem (Verified Adverse Reaction, Unknown, TOLERATES PLENDIL, MALAISE , 05/06/17) Oxycodone (Verified Adverse Reaction, Unknown, SEVERE NAUSEA, 05/06/17) Medications Home Medications: Home Meds and Scripts Medications Dose Route/Sig Max Daily Dose Days Date Category Dose Instructions [Epanova] 4 Gm PO DAILY 05/13/17 Reported Take 4 capsules daily. STRENGTH Study Epanova or placebo Vancomycin (Vancomycin HCl) 125 Mg Cap 125 Mg PO QID 05/13/17 Reported Vancomycin (Vancomycin HCl) 125 Mg Cap 125 Mg PO Q2D 05/13/17 Reported Probiotic (Probiotic Product) 1 Cap Cap 2 Cap PO DAILY 05/13/17 Reported Florastor (Saccharomyces Boulardii) 250 Mg Cap 250 Mg PO BID 05/13/17 Reported Questran Light (Cholestyramine Light) 4 Gm/Dose Pow 2 Gm PO DAILY 05/13/17 Reported Levsin (Hyoscyamine Sulfate) 0.125 Mg Tab 0.125 Mg PO BID 05/13/17 Reported Berberine Complex 200-200-50 mg ([place] Grape-Goldense) 1 Cap Cap 1 Cap PO DAILY 05/13/17 Reported Herbals (Miscellaneous) Ea 1 Tab PO DAILY 05/06/17 Reported Diovan Hct 320MG/25MG (HCTZ/Valsartan) 1 Tab Tab 1 Tab PO QAM 03/21/17 Reported Baclofen 10 Mg Tab 5 Mg PO BID 02/04/17 Reported [place] 5MG/325MG (Acetaminophen/Hydrocodone Bitart) Tab 1 Tablet PO Q6H PRN 02/04/17 Reported Glimepiride 4 Mg Tab 8 Mg PO QAM 90 02/04/17 Reported Aspirin 325 Mg Tab 325 Mg PO QAM 02/04/17 Reported Furosemide 40 Mg Tab 40 Mg PO QAM 05/20/16 Reported Januvia (Sitagliptin Phosphate) 100 Mg Tab 100 Mg PO QAM 05/28/15 Reported Triamcinolone Acetonide (Triamcinolone Acet) 60 Gm Cr 1 Dose EXT UD PRN 10/02/14 Reported APPLY CREAM TO ANKLE NEEDED Tylenol (Acetaminophen) 325 Mg Tab 650 Mg PO Q6H PRN 01/21/14 Reported [place] (Amlodipine Besylate-Atorvastat) 1 Tab Tab 1 Tab PO QAM 06/04/13 Reported amlodipine 10 mg atorvastatin 20 mg Nitrostat (Nitroglycerin) 0.4 Mg Tab 0.4 Mg UT PRN 06/25/11 Reported NEEDED FOR CHEST PAIN : ONE TABLET UNDER THE TONGUE EVERY 5 MINUTES, UP TO 3 DOSES. Plavix (Clopidogrel Bisulfate) 75 Mg Tab 2 Tab PO QAM 06/24/11 Reported Toprol-Xl (Metoprolol Succinate) 100 Mg Tabcr 100 Mg PO QAM 03/17/10 Reported Inpatient Medications: Current Inpatient Medications Medications (Trade) Dose Ordered Sig/Ayleen Route Start Time Stop Time Status Last Admin Dose Admin Miscellaneous (Iv Fluids Completed) 1 ea PRN PRN N/A 05/13/17 20:00 05/13/18 19:59 Aspirin (Ecotrin Tab) 325 mg QAM PO 05/14/17 09:00 06/13/17 08:59 05/14/17 08:32 325 MG Baclofen (Lioresal Tab) 5 mg BID PO 05/13/17 21:00 06/12/17 20:59 05/14/17 09:42 5 MG Clopidogrel Bisulfate (plAVix TAB) 150 mg QAM PO 05/14/17 09:00 06/13/17 08:59 05/14/17 08:33 150 MG Furosemide (Lasix Tab) 40 mg QAM PO 05/14/17 09:00 06/13/17 08:59 05/14/17 08:30 40 MG Hyoscyamine Sulfate (Levsin Tab) 0.125 mg BID PO 05/13/17 21:00 06/12/17 20:59 Future Hold 05/14/17 08:32 0.125 MG Nitroglycerin (Nitrostat Tab) 0.4 mg PRN PRN UT 05/13/17 20:30 06/12/17 20:29 Saccharomyces Boulardii (Florastor Cap) 250 mg BID PO 05/13/17 21:00 06/12/17 20:59 05/14/17 08:32 250 MG Sitagliptin Phosphate (Januvia Tab) 100 mg QAM PO 05/14/17 09:00 06/13/17 08:59 05/14/17 08:28 100 MG Valsartan (Diovan Tab) 160 mg QAM PO 05/14/17 09:00 06/13/17 08:59 05/14/17 09:41 160 MG Vancomycin HCl (Vancomycin Oral Soln) 125 mg QID PO 05/13/17 21:00 05/27/17 20:59 05/14/17 13:02 125 MG Amlodipine Besylate (Norvasc Tab) 10 mg QAM PO 05/14/17 09:00 06/13/17 08:59 05/14/17 08:30 10 MG Cholestyramine Resin (Questran Powder Light) 2 gm DAILY@1000 PO 05/14/17 10:00 06/13/17 09:59 05/14/17 09:42 2 GM Glimepiride (Amaryl Tab) 8 mg QAM PO 05/14/17 09:00 06/13/17 08:59 05/14/17 08:29 8 MG Atorvastatin Calcium (Lipitor Tab) 20 mg QAM PO 05/14/17 09:00 06/13/17 08:59 05/14/17 08:30 20 MG Non-Formulary Medication (Epanova ([id number] acid)) 4 gm DAILY PO 05/14/17 09:00 06/13/17 08:59 Raspberry (Raspberry Syrup 5ml Cup) 5 ml QID PO 05/13/17 21:00 05/27/17 20:59 05/14/17 13:02 5 ML Hydromorphone HCl (Dilaudid Inj) 1 mg Q4H PRN IV 05/13/17 21:00 05/27/17 20:59 05/14/17 11:09 1 MG Hydrochlorothiazide (Hydrochlorothiazide Tab) 12.5 mg QAM PO 05/14/17 09:00 06/13/17 08:59 05/14/17 08:29 12.5 MG Insulin Aspart (novoLOG ASPART) SLIDING SCALE G... ACHS SC 05/14/17 08:00 06/13/17 07:59 05/14/17 13:01 1 UNITS Metoprolol Succinate (Toprol Xl Tab) 75 mg DAILY PO 05/15/17 09:00 06/14/17 08:59 Tapentadol (Nucynta Tab) 50 mg Q4H PRN PO 05/14/17 10:45 06/13/17 10:44 Acetaminophen (Tylenol Tab) 1,000 mg Q8 PO 05/14/17 14:00 06/13/17 13:59 05/14/17 14:19 1,000 MG Ondansetron HCl (Zofran Odt) 4 mg Q8 PO 05/14/17 11:00 06/13/17 10:59 Review of Systems Review of Systems Constitutional: + frequent headaches Eyes: + see HPI Neurological: No passing out Endocrine: No excessive thirst Gastrointestinal: + abdominal pain, + nausea Cardiovascular: No chest pain Respiratory: No shortness of breath Skin: No boils Musculoskeletal: + joint pain Blood / Lymphatic: No bleed easily Ears / Nose / Throat: No hearing loss Psychologic / Mental: No nervous Female : + problem reported All Other Systems: Reviewed and Negative Physical Exam Vital Signs: Vital Signs Past 12 Hours Date Time Temp Pulse Resp B/P (MAP) Pulse Ox O2 Delivery O2 Flow Rate FiO2 05/14/17 09:46 51 05/14/17 08:00 Room Air 05/14/17 06:48 36.4 49 19 137/65 (89) 94 Room Air Physical Exam: General Appearance: WD/WN, no apparent distress ENT: normal ENT inspection, hearing grossly normal Neck: supple Respiratory/Chest: lungs clear Cardiovascular: regular rate, rhythm Gastrointestinal: Abdomen: RUQ tenderness Extremities: no calf tenderness Neurologic/Psychiatric: alert Skin: normal color, warm/dry Lymphatic: no adenopathy Assessment & Plan Assessment & Plan (1) Renal cyst Status: Chronic (2) Upper abdominal pain Status: Acute I had a long discussion with the patient today. There is not evidence of malignancy or pyelonephritis. She has several renal cysts. Some simple, some hyperdense. The largest is on the left side and measures close to 10cm. It is atypical for renal cysts to cause the amount of pain the patient is reporting. Typical symptoms include intermittent dull pain, bloating, and early satiety. Given the fact that there isn't a clear cause for the pain, it would be reasonable to consider treatment of the renal cysts. The least invasive technique would be percutaneous drainage with interventional radiology. Would consult them to see if that could be performed during this hospitalization.
[2017-05-14 15:17] VITALS: BP 112/50; PULSE 48; TEMP 36.7; O2SAT 94
[2017-05-14] MEDS: TAPENTADOL HCL 50 MG TAB PO PRN (20:04)
[2017-05-14] MEDS ORDERED: METOPROLOL TARTRATE 25 MG TAB PO SCH (21:00)
[2017-05-14 23:32] VITALS: BP 136/67; PULSE 60; TEMP 36.5; O2SAT 95
[2017-05-15] MEDS: ONDANSETRON 4MG OD TAB PO SCH ×3 (05:39→21:28)
[2017-05-15] MEDS: ACETAMINOPHEN 500 MG TAB PO SCH ×3 (05:40→21:28)
[2017-05-15 06:07] LABS: HEMATOCRIT 37.3 % (37-47); MEAN CELL VOLUME 88.4 fL (80-100); MEAN CORPUSCULAR HEMOGLOBIN 29.6 pg (25-34); MEAN CORPUSCULAR HGB CONC 33.5 g/dl (32-36); MEAN PLATELET VOLUME 10.6 fL (7.4-10.4); PLATELET COUNT 201 K/uL (130-400); RED BLOOD COUNT 4.22 M/uL (4.2-5.4)
[2017-05-15 06:35] LABS: BUN/CREATININE RATIO 26.1 (10-20); CALCIUM 8.6 mg/dl (8.5-10.1); CREATININE 1.5 mg/dl (0.60-1.20); POTASSIUM 3.8 mmol/L (3.5-5.1)
[2017-05-15 06:55] VITALS: BP 129/62; PULSE 54; TEMP 36.7; O2SAT 90
[2017-05-15] MEDS: INSULIN ASPART 100 UNITS/ML 3 ML PEN SC SCH ×4 (08:00→21:00)
[2017-05-15] MEDS: TAPENTADOL HCL 50 MG TAB PO PRN ×3 (08:39→19:34)
[2017-05-15] MEDS: VANCOMYCIN HCL 125 MG/2.5ML SOLN PO SCH ×4 (08:39→21:19)
[2017-05-15] MEDS: RASPBERRY SYRUP 5 ML UDP PO SCH ×4 (08:40→21:19)
[2017-05-15] MEDS: SACCHAROMYCES BOUL (FLORASTOR) 250 MG CAP PO SCH ×2 (08:41→21:21)
[2017-05-15] MEDS: METOPROLOL SUCC 25MG EXT REL TAB PO SCH (08:41)
[2017-05-15] MEDS: SITAGLIPTIN 100 MG TAB PO SCH (08:42)
[2017-05-15] MEDS: VALSARTAN 80 MG TAB PO SCH (08:42)
[2017-05-15] MEDS: ATORVASTATIN 20 MG TAB PO SCH (08:43)
[2017-05-15] MEDS: FUROSEMIDE 40 MG TAB PO SCH (08:43)
[2017-05-15] MEDS: AMLODIPINE BESYLATE 5 MG TAB PO SCH (08:43)
[2017-05-15] MEDS: ASPIRIN 325 MG ECTAB PO SCH (08:43)
[2017-05-15] MEDS: BACLOFEN 10 MG TAB PO SCH ×2 (08:44→21:20)
[2017-05-15] MEDS: [UNRECOGNIZED DRUG - OTHER] PO SCH (08:44)
[2017-05-15] MEDS: CLOPIDOGREL BISULFATE 75 MG TAB PO SCH (08:45)
[2017-05-15] MEDS: GLIMEPIRIDE 2 MG TAB PO SCH (08:45)
[2017-05-15] MEDS: HYDROCHLOROTHIAZIDE 25 MG TAB PO SCH (08:46)
[2017-05-15] MEDS ORDERED: GABAPENTIN 300 MG CAP PO SCH (09:00)
[2017-05-15] MEDS: CHOLESTYRAMINE LIGHT 4 GM PKT PO SCH (10:11)
[2017-05-15 15:29] VITALS: BP 134/68; PULSE 56; TEMP 36.6; O2SAT 93
[2017-05-15] MEDS: SODIUM CHLORIDE 0.9% 1000ML 1,000 ML IV SCH ×2 (16:33→22:35)
--- NOTE | 2017-05-15 16:41 | Progress Note ---
Medicine Progress Note Date & Time of Visit: May 15, 2017 at 14:24. Subjective 76 yoF with RUQ flank pain x 3-4 weeks which became constant and strong. Admitted for pain control and continued work up of etiology. -pt states no changes today and nothing is helping her -reports persistent nausea -had two BMs today-first formed, second was loose stool, no tommy diarrhea -no fevers or chills -substernal chest pain x 30 minutes with no assoc symptoms, not described as her index angina -R upper headache still present -not tolerating PO at this time Objective Last 8 Hrs Date Time Temp Pulse Resp B/P (MAP) Pulse Ox O2 Delivery O2 Flow Rate FiO2 05/15/17 07:50 Room Air 05/15/17 06:55 36.7 54 16 129/62 (84) 90 Room Air Physical Exam: GEN: Obese, in no acute distress, alert and appropriate HEENT: NC/AT, pupils are equal and round bilaterally, normal sclerae, MMM CARDIO: reg rate, S1/2 heard without m/g/r LUNGS: CTA bilaterally, no crackles, rales or wheezes, good diaphragmatic excursion ABD: soft, diffuse tenderness all throughout abdomen, non-distended but large and protuberant, no rebound or guarding, hypoactive BS, no CVA tenderness, no worsening of pain in RUQ/flank pain area to palpation BACK: paraspinal muscle tenderness to palpation in lower thoracic area. EXTREMITY: RP and DP palpable 2+ bilat, no LE swelling or edema, extremities are warm and well-perfused NEURO: CN 2-12 grossly intact, sensation intact throughout, moves around bed with ease, no gross focal deficits. MUSC: 5/5 strength throughout, no focal deficits SKIN: warm and dry, mild bruising on RLQ Laboratory Results: 05/15/17 05:03 05/15/17 05:03 Test 05/13/17 14:20 05/13/17 14:30 05/15/17 05:03 05/15/17 12:12 Immature Granulocyte % (Auto) 0.5 % White Blood Count 8.40 K/uL (4.8-10.8) Red Blood Count 4.87 M/uL (4.2-5.4) 4.22 M/uL (4.2-5.4) Hemoglobin 14.7 g/dL (12.0-16.0) Hematocrit 42.4 % (37-47) Mean Corpuscular Volume 87.1 fL (80-100) 88.4 fL (80-100) Mean Corpuscular Hemoglobin 30.2 pg (25-34) 29.6 pg (25-34) Mean Corpuscular Hemoglobin Concent 34.7 g/dl (32-36) 33.5 g/dl (32-36) Platelet Count 228 K/uL (130-400) Mean Platelet Volume 10.3 fL (7.4-10.4) 10.6 fL (7.4-10.4) Neutrophils (%) (Auto) 62.5 % Lymphocytes (%) (Auto) 27.9 % Monocytes (%) (Auto) 6.4 % Eosinophils (%) (Auto) 2.3 % Basophils (%) (Auto) 0.4 % Neutrophils # (Auto) 5.26 K/uL (1.4-6.5) Lymphocytes # (Auto) 2.34 K/uL (1.2-3.4) Monocytes # (Auto) 0.54 K/uL (0.11-0.59) Eosinophils # (Auto) 0.19 K/uL (0-0.5) Basophils # (Auto) 0.03 K/uL (0-0.2) Immature Granulocyte # (Auto) 0.04 K/uL (0.00-0.02) Total Bilirubin 0.3 mg/dl (0.2-1) Direct Bilirubin < 0.1 mg/dl (0-0.2) Aspartate Amino Transf (AST/SGOT) 16 U/L (15-37) Alanine Aminotransferase (ALT/SGPT) 52 U/L (12-78) Alkaline Phosphatase 127 U/L (45-117) Total Protein 7.1 gm/dl (6.4-8.2) Albumin 3.1 gm/dl (3.4-5.0) Urine Color YELLOW Urine Appearance CLEAR (CLEAR) Urine pH 5.0 (4.5-7.5) Urine Specific [place] 1.014 (1.000-1.030) Urine Protein NEG (NEG) Urine Glucose (UA) NEG (NEG) Urine Ketones NEG (NEG) Urine Occult Blood NEG (NEG) Urine Nitrite NEG (NEG) Urine Bilirubin NEG (NEG) Urine Urobilinogen NEG (NEG) Urine Leukocyte Esterase NEG (NEG) RDW Standard Deviation 43.8 fL (36.4-46.3) RDW Coefficient of Variation 13.4 % (11.5-14.5) Anion Gap 8.0 mmol/L (3-11) Est Creatinine Clear Calc Drug Dose 35.7 ml/min Estimated GFR () 38.8 Estimated GFR (Non- 33.5 BUN/Creatinine Ratio 26.1 (10-20) Calcium Level 8.6 mg/dl (8.5-10.1) Bedside Glucose 147 mg/dl (70-90) Test 05/15/17 16:34 Last 24 Hours Test 05/14/17 17:09 05/14/17 20:50 05/15/17 05:03 05/15/17 07:57 Bedside Glucose 200 mg/dl 163 mg/dl 106 mg/dl White Blood Count 8.70 K/uL Red Blood Count 4.22 M/uL Hemoglobin 12.5 g/dL Hematocrit 37.3 % Mean Corpuscular Volume 88.4 fL Mean Corpuscular Hemoglobin 29.6 pg Mean Corpuscular Hemoglobin Concent 33.5 g/dl RDW Standard Deviation 43.8 fL RDW Coefficient of Variation 13.4 % Platelet Count 201 K/uL Mean Platelet Volume 10.6 fL Sodium Level 135 mmol/L Potassium Level 3.8 mmol/L Chloride Level 99 mmol/L Carbon Dioxide Level 28 mmol/L Anion Gap 8.0 mmol/L Blood Urea Nitrogen 39 mg/dl Creatinine 1.50 mg/dl Est Creatinine Clear Calc Drug Dose 35.7 ml/min Estimated GFR () 38.8 Estimated GFR (Non- 33.5 BUN/Creatinine Ratio 26.1 Random Glucose 114 mg/dl Calcium Level 8.6 mg/dl Assessment & Plan 76 yoF with RUQ flank pain x 3-4 weeks which became constant and strong. Admitted for pain control and continued work up of etiology. 1. RUQ pain- possible etiologies referred pain 2/2 c-diff colitis which is recurrent, or somatic dysfunction of her ribs 2/2 lower thoracic dysfunction vs pancreatitis s/p ERCP vs other. She feels the pain in her R flank area which is mostly along the lateral abdominal wall. However, on exam the TTP is the same and is throughout the abdomen, which is still present today and with hypoactive bowel sounds. She had 2 BMs today. She continues to be nautious and not eating with a subsequent reported 6 lb weight loss. She is currently on therapy with a repeat course of vancomycin which was started a couple of days ago and will complete a taper at this point. Started Nucynta PO and Dilaudid IV for breakthrough at this time. Initially, she said it wasn't doing anything for her but then reports "that pill made it go away"--she has minor pain at this time but it can become crippling for her when the medication wears off. Stopped vicodin and baclofen, which was originally given for R leg pain, which has resolved. Dr. Soto did not feel this was related to her back and doesn't recommend surgery at this time. Although she has some paraspinal muscle tenderness in the lower thoracics, this is not a major complaint for her. Supplied heating pad to help with this and RUQ/R flank pain, also. Urology did not feel that she should have her renal cysts drained as there was very low likelihood this was causing her pain, and the procedure comes with risks that they don't feel are worth taking. Concerned that there is a GI-related issue possibly related to her recurrent c- diff infection versus a pancreatitis related to recent ERCP on 05/11 that may be playing a role in this pain. Pt is nautious, reports losing weight from not eating and is on Levsin at home. Bowel sounds hypoactive and abdomen diffusely tender. Outpatient CT a/p was performed without IV or oral contrast on 05/04 revealing extensive diverticulosis, renal cysts with hyperdense/proteinaceous/ hemorrhagic renal cysts and no other abnormality present to account for the patient's clinical symptomatology. But this was prior to the procedure. In setting of intolerance to PO with new KAROL, will start IVF aggressively. Consulted GI who was seeing her as an outpatient. Somewhat consistent with pancreatitis with intolerance of food, however, no localized tenderness in epigastric area and normal lipase on admission. Will repeat lipase now and defer repeat CT imaging to GI. Appreciate recs/thoughts. Cont supportive care for now. 2. Headache-stopped gabapentin yesterday in response to a headache that she was having, however, her headache persists today. She has had this before and states that she had a procedure. Upon review of the records she underwent a temporal artery biopsy for this same issue which was negative. cannot get a good history on this regarding how often she has this or what typically helps it at home. She states she can't describe it. For now cont narcotics for pain control. She is having no visual changes or eye pain associated with this. 3. CAD: History of ischemic heart disease, status post multiple PCI's. Continue aspirin, clopidogrel, metoprolol, lipid management. Decreased metoprolol to 75mg XR daily as she has had bradycardia overnight. Of note, patient reported approximately 30 minutes of chest pain in substernal area that was not her index angina. She denies recurrent chest pain at home prior to this. No chest pain now, and no associated symptoms of SOB, diaphoresis, worsening nausea, or lightheadedness was reported. Will repeat EKG at this time to ensure no changes from baseline. Advised the patient to report any chest pain to the nursing staff immediately in the future. She verbalized understanding with intent to comply. Cont medical management of CAD. 4. CHRONIC DIASTOLIC CHF: compensated, cont daily furosemide 5. HYPERTENSION-controlled, cont BB, ARB and HCTZ 6. DMII- glucose controlled, Hemoglobin A1c in clinic on 04/07/17 was 8.3. Continue oral agents. Insulin coverage as necessary if blood sugars significantly elevated. 7. RECURRENT C DIFF: Continue current course of vancomycin with longer taper. Contact precautions. 8. ADVENT: No blood products. 9. Obesity-may be playing a role with pain. Advised her to find a way to exercise 30 minutes daily. 10. KAROL-hold HCTZ, Valsartan, Lasix at this time. Start NS 150 mls/hr with concern for pancreatitis above. Repeat PRP in am. Monitor respiratory status closely in setting of diastolic CHF. DVT PROPHYLAXIS: Heparin started. Reviewed records and there was evidence of complex renal cysts in 2013, no current anemia or bleeding, suspect this is stable enough to start DVT prophylaxis. Pt is moderate to high risk for DVT. FULL CODE DISPOSITION: pending evals by Urology, PT and OT. Admit to Med/surg. Consider skilled care or inpatient rehabilitation if patient is unable to return home. Medical follow-up with Dr. Elizabeth Caicedo. . Analy Bonilla DO [facility] Hospitalist Consultants: Ortho-Dr. Soto Urology-DrLuz Maria GUERRERO-Dr. Doty Current Inpatient Medications: Current Inpatient Medications Medications (Trade) Dose Ordered Sig/Ayleen Route Start Time Stop Time Status Last Admin Dose Admin Miscellaneous (Iv Fluids Completed) 1 ea PRN PRN N/A 05/13/17 20:00 05/13/18 19:59 Aspirin (Ecotrin Tab) 325 mg QAM PO 05/14/17 09:00 06/13/17 08:59 05/15/17 08:43 325 MG Baclofen (Lioresal Tab) 5 mg BID PO 05/13/17 21:00 06/12/17 20:59 05/15/17 08:44 5 MG Clopidogrel Bisulfate (plAVix TAB) 150 mg QAM PO 05/14/17 09:00 06/13/17 08:59 05/15/17 08:45 150 MG Furosemide (Lasix Tab) 40 mg QAM PO 05/14/17 09:00 06/13/17 08:59 05/15/17 08:43 40 MG Hyoscyamine Sulfate (Levsin Tab) 0.125 mg BID PO 05/13/17 21:00 06/12/17 20:59 Future Hold 05/14/17 08:32 0.125 MG Nitroglycerin (Nitrostat Tab) 0.4 mg PRN PRN UT 05/13/17 20:30 06/12/17 20:29 Saccharomyces Boulardii (Florastor Cap) 250 mg BID PO 05/13/17 21:00 06/12/17 20:59 05/15/17 08:41 250 MG Sitagliptin Phosphate (Januvia Tab) 100 mg QAM PO 05/14/17 09:00 06/13/17 08:59 05/15/17 08:42 100 MG Valsartan (Diovan Tab) 160 mg QAM PO 05/14/17 09:00 06/13/17 08:59 05/15/17 08:42 160 MG Vancomycin HCl (Vancomycin Oral Soln) 125 mg QID PO 05/13/17 21:00 05/27/17 20:59 05/15/17 12:47 125 MG Amlodipine Besylate (Norvasc Tab) 10 mg QAM PO 05/14/17 09:00 06/13/17 08:59 05/15/17 08:43 10 MG Cholestyramine Resin (Questran Powder Light) 2 gm DAILY@1000 PO 05/14/17 10:00 06/13/17 09:59 05/15/17 10:11 2 GM Glimepiride (Amaryl Tab) 8 mg QAM PO 05/14/17 09:00 06/13/17 08:59 05/15/17 08:45 8 MG Atorvastatin Calcium (Lipitor Tab) 20 mg QAM PO 05/14/17 09:00 06/13/17 08:59 05/15/17 08:43 20 MG Non-Formulary Medication (Epanova (eciui-3-xdjqgastgm acid)) 4 gm DAILY PO 05/14/17 09:00 06/13/17 08:59 Raspberry (Raspberry Syrup 5ml Cup) 5 ml QID PO 05/13/17 21:00 05/27/17 20:59 05/15/17 12:47 5 ML Hydromorphone HCl (Dilaudid Inj) 1 mg Q4H PRN IV 05/13/17 21:00 05/27/17 20:59 05/14/17 18:27 1 MG Hydrochlorothiazide (Hydrochlorothiazide Tab) 12.5 mg QAM PO 05/14/17 09:00 06/13/17 08:59 05/15/17 08:46 12.5 MG Insulin Aspart (novoLOG ASPART) SLIDING SCALE G... ACHS SC 05/14/17 08:00 06/13/17 07:59 05/14/17 17:39 2 UNITS Metoprolol Succinate (Toprol Xl Tab) 75 mg DAILY PO 05/15/17 09:00 06/14/17 08:59 Tapentadol (Nucynta Tab) 50 mg Q4H PRN PO 05/14/17 10:45 06/13/17 10:44 05/15/17 12:44 50 MG Acetaminophen (Tylenol Tab) 1,000 mg Q8 PO 05/14/17 14:00 06/13/17 13:59 05/15/17 13:52 1,000 MG Ondansetron HCl (Zofran Odt) 4 mg Q8 PO 05/14/17 11:00 06/13/17 10:59 05/15/17 13:51 4 MG
[2017-05-15 18:15] LABS: PROTHROMBIN TIME (PATIENT) 10.9 SECONDS (9.0-12.0)
[2017-05-15] MEDS: HEPARIN SOD 5000 UNIT/0.5 ML CARP SQ SCH (21:27)
[2017-05-15 23:10] VITALS: BP 132/58; PULSE 58; TEMP 36.7; O2SAT 94
[2017-05-16] MEDS: HEPARIN SOD 5000 UNIT/0.5 ML CARP SQ SCH ×3 (05:34→21:10)
[2017-05-16] MEDS: SODIUM CHLORIDE 0.9% 1000ML 1,000 ML IV SCH ×3 (05:35→18:34)
[2017-05-16] MEDS: ONDANSETRON 4MG OD TAB PO SCH ×3 (05:36→21:06)
[2017-05-16] MEDS: ACETAMINOPHEN 500 MG TAB PO SCH ×3 (05:37→21:06)
[2017-05-16 06:56] LABS: HEMATOCRIT 37.2 % (37-47); MEAN CELL VOLUME 88.2 fL (80-100); MEAN CORPUSCULAR HEMOGLOBIN 29.6 pg (25-34); MEAN CORPUSCULAR HGB CONC 33.6 g/dl (32-36); MEAN PLATELET VOLUME 10.3 fL (7.4-10.4); PLATELET COUNT 208 K/uL (130-400); RED BLOOD COUNT 4.22 M/uL (4.2-5.4); WHITE BLOOD COUNT 7.62 K/uL (4.8-10.8)
[2017-05-16 07:32] LABS: BUN/CREATININE RATIO 27.4 (10-20); CALCIUM 8.4 mg/dl (8.5-10.1); CREATININE 0.99 mg/dl (0.60-1.20); POTASSIUM 3.7 mmol/L (3.5-5.1)
[2017-05-16 08:22] VITALS: BP 151/84; PULSE 60; TEMP 36.3; O2SAT 93
[2017-05-16 08:23] VITALS: O2SAT 94
[2017-05-16 08:30] VITALS: PULSE 64
[2017-05-16] MEDS: INSULIN ASPART 100 UNITS/ML 3 ML PEN SC SCH ×4 (08:39→21:00)
[2017-05-16] MEDS: TAPENTADOL HCL 50 MG TAB PO PRN (08:42)
[2017-05-16] MEDS: RASPBERRY SYRUP 5 ML UDP PO SCH ×4 (08:43→21:06)
[2017-05-16] MEDS: VANCOMYCIN HCL 125 MG/2.5ML SOLN PO SCH ×4 (08:43→21:06)
[2017-05-16] MEDS: CLOPIDOGREL BISULFATE 75 MG TAB PO SCH (08:44)
[2017-05-16] MEDS: AMLODIPINE BESYLATE 5 MG TAB PO SCH (08:44)
[2017-05-16] MEDS: GLIMEPIRIDE 2 MG TAB PO SCH (08:45)
[2017-05-16] MEDS: METOPROLOL SUCC 25MG EXT REL TAB PO SCH (08:46)
[2017-05-16] MEDS: ATORVASTATIN 20 MG TAB PO SCH (08:48)
[2017-05-16] MEDS: ASPIRIN 325 MG ECTAB PO SCH (08:48)
[2017-05-16] MEDS: SACCHAROMYCES BOUL (FLORASTOR) 250 MG CAP PO SCH ×2 (08:50→21:06)
[2017-05-16] MEDS: [UNRECOGNIZED DRUG - OTHER] PO SCH (08:52)
[2017-05-16] MEDS: BACLOFEN 10 MG TAB PO SCH ×2 (08:53→21:06)
[2017-05-16] MEDS: SITAGLIPTIN 100 MG TAB PO SCH (08:55)
[2017-05-16] MEDS: CHOLESTYRAMINE LIGHT 4 GM PKT PO SCH (10:06)
[2017-05-16 10:55] VITALS: Ht 160 cm; Wt 98.5 kg
[2017-05-16] MEDS: HYDROmorphone INJ 1 MG/ML SYR IV PRN ×3 (12:21→22:03)
--- NOTE | 2017-05-16 15:59 | Gastrointestinal Consultation ---
Gastrointestinal Consultation Date of Consultation: May 16, 2017 Attending Physician: Dr. Analy Bonilla Consulting Physician: Dr. Dayne Doty Reason for Consultation: Abdominal pain, recent c diff History of Present Illness Patient is a 76 year old female known to Dr. Doty with hx of ischemic heart disease, DM, chronic abdominal pain with recent unremarkable GI work up, and bilateral large renal cysts admitted with persistent RUQ/flank pain. Pt notes she has difficulty laying down or sitting for any length of time. Reports nausea but no vomiting. Feels her pain is more in her right sided back area. Has been on vanco for recent c diff, no diarrhea at this time. She has had recent CT 05/04/17 with persistent large renal cysts for which urology has been consulted this admission and is investigating the option of draining via IR for symptomatic relief of her pain. GI work up has included colonoscopy 03/2017 revealing polyps, diverticular disease and hemorrhoids, no acute pathology. EGD and EUS was unremarkable except for small hiatal hernia and gastritis. Past Medical/Surgical History Medical Problems: (1) Back pain Status: Acute (2) Diarrhea Status: Acute (3) Diffuse abdominal pain Status: Acute (4) Hyperglycemia Status: Acute (5) Thoracic disc disease Status: Acute (6) Upper abdominal pain Status: Acute Past Medical History: Oriental orthodox - no blood products ischemic heart disease diastolic heart failure DM CKD HTN hyperlipidemia diabetic retinopathy diverticulosis hx basal cell ca hx c diff hx PSVT Past Surgical History: GI endoscopies as above multiple cardiac stent placements cholecystectomy hysterectomy knee replacement Family History Diabetes mellitus Heart disease Hypertension Social History Smoking Status: Never Smoker Alcohol Use: none Drug Use: none Marital Status: Housing Status: lives alone Occupation Status: retired Allergies Coded Allergies: Adhesives (Verified Allergy, Unknown, ALLERGY TO TAPE, 05/06/17) Nadolol (Verified Allergy, Unknown, UNSURE, 05/06/17) Nifedipine (Verified Allergy, Unknown, BLISTERS, TOLERATES PLENDIL, ) Ibuprofen (Verified Adverse Reaction, Mild, UPSET STOMACH, 05/06/17) Diltiazem (Verified Adverse Reaction, Unknown, TOLERATES PLENDIL, MALAISE , 05/06/17) Oxycodone (Verified Adverse Reaction, Unknown, SEVERE NAUSEA, 05/06/17) Current Medications Home Meds and Scripts Medications Dose Route/Sig Max Daily Dose Days Date Category Dose Instructions [Epanova] 4 Gm PO DAILY 05/13/17 Reported Take 4 capsules daily. STRENGTH Study Epanova or placebo Vancomycin (Vancomycin HCl) 125 Mg Cap 125 Mg PO QID 05/13/17 Reported Vancomycin (Vancomycin HCl) 125 Mg Cap 125 Mg PO Q2D 05/13/17 Reported Probiotic (Probiotic Product) 1 Cap Cap 2 Cap PO DAILY 05/13/17 Reported Florastor (Saccharomyces Boulardii) 250 Mg Cap 250 Mg PO BID 05/13/17 Reported Questran Light (Cholestyramine Light) 4 Gm/Dose Pow 2 Gm PO DAILY 05/13/17 Reported Levsin (Hyoscyamine Sulfate) 0.125 Mg Tab 0.125 Mg PO BID 05/13/17 Reported Berberine Complex 200-200-50 mg ([place] Grape-Goldense) 1 Cap Cap 1 Cap PO DAILY 05/13/17 Reported Herbals (Miscellaneous) Ea 1 Tab PO DAILY 05/06/17 Reported Diovan Hct 320MG/25MG (HCTZ/Valsartan) 1 Tab Tab 1 Tab PO QAM 03/21/17 Reported Baclofen 10 Mg Tab 5 Mg PO BID 02/04/17 Reported [place] 5MG/325MG (Acetaminophen/Hydrocodone Bitart) Tab 1 Tablet PO Q6H PRN 02/04/17 Reported Glimepiride 4 Mg Tab 8 Mg PO QAM 90 02/04/17 Reported Aspirin 325 Mg Tab 325 Mg PO QAM 02/04/17 Reported Furosemide 40 Mg Tab 40 Mg PO QAM 05/20/16 Reported Januvia (Sitagliptin Phosphate) 100 Mg Tab 100 Mg PO QAM 05/28/15 Reported Triamcinolone Acetonide (Triamcinolone Acet) 60 Gm Cr 1 Dose EXT UD PRN 10/02/14 Reported APPLY CREAM TO ANKLE NEEDED Tylenol (Acetaminophen) 325 Mg Tab 650 Mg PO Q6H PRN 01/21/14 Reported [place] (Amlodipine Besylate-Atorvastat) 1 Tab Tab 1 Tab PO QAM 06/04/13 Reported amlodipine 10 mg atorvastatin 20 mg Nitrostat (Nitroglycerin) 0.4 Mg Tab 0.4 Mg UT PRN 06/25/11 Reported NEEDED FOR CHEST PAIN : ONE TABLET UNDER THE TONGUE EVERY 5 MINUTES, UP TO 3 DOSES. Plavix (Clopidogrel Bisulfate) 75 Mg Tab 2 Tab PO QAM 06/24/11 Reported Toprol-Xl (Metoprolol Succinate) 100 Mg Tabcr 100 Mg PO QAM 03/17/10 Reported Review of Systems Constitutional: No fever, No chills Eyes: No problem reported ENT: No hearing loss Respiratory: No shortness of breath Cardiac: No chest pain Abdomen: + see HPI (bowels improved, no diarrhea) Musculoskeletal: + problem reported (chronic back pain) Female : No dysuria Neuro: No problem reported (denies mental status changes) Heme: No abnormal bleeding/bruising Skin: No rash Physical Exam Date Time Temp Pulse Resp B/P (MAP) Pulse Ox O2 Delivery O2 Flow Rate FiO2 05/16/17 08:40 Room Air 05/16/17 08:30 64 05/16/17 08:23 94 Room Air 05/16/17 08:22 36.3 60 18 151/84 (106) 93 Room Air 05/15/17 23:15 Room Air 05/15/17 23:10 36.7 58 16 132/58 (82) 94 Room Air General Appearance: WD/WN, no apparent distress, + obese (pt seen ambulating independently from the bathroom at time of consult) Eyes: normal inspection ENT: hearing grossly normal Respiratory/Chest: normal breath sounds, no respiratory distress, no accessory muscle use Cardiovascular: regular rate, rhythm Abdomen: normal bowel sounds, soft (no significant abdominal tenderness at time of this exam) Extremities: no pedal edema Neurologic/Psych: alert, normal mood/affect, oriented x 3 Skin: normal color, no rash Laboratory Results Last 24 Hours Test 05/15/17 16:34 05/15/17 17:16 05/15/17 17:56 05/15/17 20:50 Lactic Acid Level 0.6 mmol/L Lipase 199 U/L Bedside Glucose 127 mg/dl 105 mg/dl Prothrombin Time 10.9 SECONDS Prothromb Time International Ratio 1.0 Test 05/16/17 05:40 05/16/17 05:44 05/16/17 08:08 White Blood Count 7.62 K/uL Red Blood Count 4.22 M/uL Hemoglobin 12.5 g/dL Hematocrit 37.2 % Mean Corpuscular Volume 88.2 fL Mean Corpuscular Hemoglobin 29.6 pg Mean Corpuscular Hemoglobin Concent 33.6 g/dl RDW Standard Deviation 42.8 fL RDW Coefficient of Variation 13.3 % Platelet Count 208 K/uL Mean Platelet Volume 10.3 fL Sodium Level 142 mmol/L Potassium Level 3.7 mmol/L Chloride Level 109 mmol/L Carbon Dioxide Level 27 mmol/L Anion Gap 6.0 mmol/L Blood Urea Nitrogen 27 mg/dl Creatinine 0.99 mg/dl Est Creatinine Clear Calc Drug Dose 54.1 ml/min Estimated GFR () 64.2 Estimated GFR (Non- 55.4 BUN/Creatinine Ratio 27.4 Random Glucose 59 mg/dl Calcium Level 8.4 mg/dl Bedside Glucose 76 mg/dl Impression Patient is a 76 year old female with multiple medical problems as above with persistent RUQ/ right flank pain, recent c diff infection and bilateral renal cysts Plan large bilateral renal cysts - urology on board and attempting option of IR drainage of cysts in setting of negative work up for abdominal pain RUQ/flank pain - EGD, EUS and colonoscopy showed no acute etiology to explain her pain. No evidence of pancreatitis based on current exam findings, normal lipase and LFTs. No indication for repeat imaging from GI stand point. Pt seen in conjunction with Dr. Doty. No new GI recommendations at this time. GI will sign off, please call with questions. I saw and evaluated the patient. GI is consult at with regard to her flank pain and recurrent C. difficile infection. We did start her on vancomycin 125 4 times a day last week. This should be continued for another week. After completion of 2 weeks she will be on vancomycin 125 mg every other day for 4 additional weeks. Previous prescriptions have been given. She denies having any nausea and notes her stool is solid. The patient does have persistent back and flank pain. Physical examination No obvious distress, obese female mild right-sided and flank tenderness Impression: Patient appears to be improved from the standpoint of her C. difficile infection. Please continue the vancomycin as described in her outpatient notes. As far as the patient's discomfort is concerned I believe this is from her large renal cysts. Please call with any additional questions or concerns GI to sign off
[2017-05-16 16:05] VITALS: BP 153/69; PULSE 66; TEMP 36.4; O2SAT 96
[2017-05-16] MEDS ORDERED: NURSING VERBAL MED ORDER ONE (19:15)
--- NOTE | 2017-05-16 19:22 | Progress Note ---
Medicine Progress Note Date & Time of Visit: May 16, 2017 at 18:37. Subjective Pt was seen and examined lying in bed with no distress talking on the phone Pt said that she continue to have abdominal pain and right side flank pain she had no discomfort when i pushed on her abdomen and her flank area she said that she does not have any more diarrhea denies any chest pain, palpitation, and SOB Objective Last 8 Hrs Date Time Temp Pulse Resp B/P (MAP) Pulse Ox O2 Delivery O2 Flow Rate FiO2 05/16/17 16:05 36.4 66 16 153/69 (97) 96 Room Air 05/16/17 15:30 Room Air Physical Exam: General- No acute distress, obese Head- atraumatic Eyes- PERRL, EOMI ENT- oropharynx clear Neck- supple, no JVD Lungs- clear to auscultation Heart- regular rhythm; no murmur Abdomen- normal bowel sounds, soft Extremities- no calf tenderness Neuro- alert, oriented x 3; PERRL, EOMI Skin- warm & dry Laboratory Results: Last 24 Hours Test 05/15/17 20:50 05/16/17 05:40 05/16/17 05:44 05/16/17 08:08 Bedside Glucose 105 mg/dl 76 mg/dl White Blood Count 7.62 K/uL Red Blood Count 4.22 M/uL Hemoglobin 12.5 g/dL Hematocrit 37.2 % Mean Corpuscular Volume 88.2 fL Mean Corpuscular Hemoglobin 29.6 pg Mean Corpuscular Hemoglobin Concent 33.6 g/dl RDW Standard Deviation 42.8 fL RDW Coefficient of Variation 13.3 % Platelet Count 208 K/uL Mean Platelet Volume 10.3 fL Sodium Level 142 mmol/L Potassium Level 3.7 mmol/L Chloride Level 109 mmol/L Carbon Dioxide Level 27 mmol/L Anion Gap 6.0 mmol/L Blood Urea Nitrogen 27 mg/dl Creatinine 0.99 mg/dl Est Creatinine Clear Calc Drug Dose 54.1 ml/min Estimated GFR () 64.2 Estimated GFR (Non- 55.4 BUN/Creatinine Ratio 27.4 Random Glucose 59 mg/dl Calcium Level 8.4 mg/dl Test 05/16/17 11:49 05/16/17 16:55 Bedside Glucose 162 mg/dl 129 mg/dl Assessment & Plan RUQ Abdominal pain Etiology? No significant pain on exam Tolerated diet D/C IVF On Dilaudid and Nucynta prn for the pain EGD, EUS and colonoscopy showed no acute finding GI was consulted and does not plain to get any more scope Recommended to continue vancomycin for the C-diff Right Flank Pain Outpatient CT abd/pelvis done on 05/04 revealing extensive diverticulosis, renal cysts with hyperdense/proteinaceous/hemorrhagic renal cysts Urology consulted and recommended percutaneous drainage with interventional radiology Will consult IR Back Pain Lumbar spine MRI showed mild multilevel degenerative changes of the lumbar spine. Disc bulge with small central disc protrusion at L5-S1 that result in mild narrowing of the central canal. Thoracic spine MRI showed no acute abnormality. Mild degenerative disc disease at T9-T10 with disc bulge Ortho consulted recommended no surgical intervention continue pain contro Headache Improved continue nucynta CAD Denies any chest pain Continue plavix, asa, statin and metoprolol Chronic Diastolic CHF Compensated Continue lasix Stable HTN Continue valsartan, HCTZ, metoprolol, Amlodipine and lasix continue monitor BP DMII Hba1c 04/07/17 was 8.3. Not at goal continue oral DM med On insulin coverage Hx recurrent C DIFF Continue current course of vancomycin taper course On contact precautions. FAITH: No blood products. DVT px on heparin subq CODE Status FULL CODE Consultants: Ortho-Dr. Soto Urology-Dr. Machado GI-Dr. Doty Current Inpatient Medications: Current Inpatient Medications Medications (Trade) Dose Ordered Sig/Ayleen Route Start Time Stop Time Status Last Admin Dose Admin Miscellaneous (Iv Fluids Completed) 1 ea PRN PRN N/A 05/13/17 20:00 05/13/18 19:59 Aspirin (Ecotrin Tab) 325 mg QAM PO 05/14/17 09:00 06/13/17 08:59 05/16/17 08:48 325 MG Baclofen (Lioresal Tab) 5 mg BID PO 05/13/17 21:00 06/12/17 20:59 05/16/17 08:53 5 MG Clopidogrel Bisulfate (plAVix TAB) 150 mg QAM PO 05/14/17 09:00 06/13/17 08:59 05/16/17 08:44 150 MG Furosemide (Lasix Tab) 40 mg QAM PO 05/14/17 09:00 06/13/17 08:59 Future Hold 05/15/17 08:43 40 MG Hyoscyamine Sulfate (Levsin Tab) 0.125 mg BID PO 05/13/17 21:00 06/12/17 20:59 Future Hold 05/14/17 08:32 0.125 MG Nitroglycerin (Nitrostat Tab) 0.4 mg PRN PRN UT 05/13/17 20:30 06/12/17 20:29 Saccharomyces Boulardii (Florastor Cap) 250 mg BID PO 05/13/17 21:00 06/12/17 20:59 05/16/17 08:50 250 MG Sitagliptin Phosphate (Januvia Tab) 100 mg QAM PO 05/14/17 09:00 06/13/17 08:59 05/15/17 08:42 100 MG Valsartan (Diovan Tab) 160 mg QAM PO 05/14/17 09:00 06/13/17 08:59 Future Hold 05/15/17 08:42 160 MG Vancomycin HCl (Vancomycin Oral Soln) 125 mg QID PO 05/13/17 21:00 05/27/17 20:59 05/16/17 18:14 125 MG Amlodipine Besylate (Norvasc Tab) 10 mg QAM PO 05/14/17 09:00 06/13/17 08:59 05/16/17 08:44 10 MG Cholestyramine Resin (Questran Powder Light) 2 gm DAILY@1000 PO 05/14/17 10:00 06/13/17 09:59 05/16/17 10:06 2 GM Glimepiride (Amaryl Tab) 8 mg QAM PO 05/14/17 09:00 06/13/17 08:59 05/15/17 08:45 8 MG Atorvastatin Calcium (Lipitor Tab) 20 mg QAM PO 05/14/17 09:00 06/13/17 08:59 05/16/17 08:48 20 MG Non-Formulary Medication (Epanova (ypnoy-7-wrbmqsyjjl acid)) 4 gm DAILY PO 05/14/17 09:00 06/13/17 08:59 Raspberry (Raspberry Syrup 5ml Cup) 5 ml QID PO 05/13/17 21:00 05/27/17 20:59 05/16/17 18:15 5 ML Hydromorphone HCl (Dilaudid Inj) 1 mg Q4H PRN IV 05/13/17 21:00 05/27/17 20:59 05/16/17 18:06 1 MG Hydrochlorothiazide (Hydrochlorothiazide Tab) 12.5 mg QAM PO 05/14/17 09:00 06/13/17 08:59 Future Hold 05/15/17 08:46 12.5 MG Insulin Aspart (novoLOG ASPART) SLIDING SCALE G... ACHS SC 05/14/17 08:00 06/13/17 07:59 05/14/17 17:39 2 UNITS Metoprolol Succinate (Toprol Xl Tab) 75 mg DAILY PO 05/15/17 09:00 06/14/17 08:59 05/16/17 08:46 75 MG Tapentadol (Nucynta Tab) 50 mg Q4H PRN PO 05/14/17 10:45 06/13/17 10:44 05/16/17 08:42 50 MG Acetaminophen (Tylenol Tab) 1,000 mg Q8 PO 05/14/17 14:00 06/13/17 13:59 05/16/17 13:28 1,000 MG Ondansetron HCl (Zofran Odt) 4 mg Q8 PO 05/14/17 11:00 06/13/17 10:59 05/16/17 13:29 4 MG Sodium Chloride 1,000 ml @ 150 mls/hr Q6H40M IV 05/15/17 16:20 06/14/17 16:19 05/16/17 18:34 150 MLS/HR Heparin Sodium (Porcine) (Heparin Sq 5000 Unit/0.5ml) 5,000 unit Q8 SQ 05/15/17 22:00 06/14/17 21:59 05/16/17 05:34 5,000 UNIT
[2017-05-16 22:52] VITALS: BP 116/55; PULSE 55; TEMP 36.7; O2SAT 90
[2017-05-17] MEDS: ONDANSETRON 4MG OD TAB PO SCH ×3 (05:28→20:50)
[2017-05-17] MEDS: HEPARIN SOD 5000 UNIT/0.5 ML CARP SQ SCH ×3 (05:28→20:58)
[2017-05-17] MEDS: ACETAMINOPHEN 500 MG TAB PO SCH ×3 (05:28→20:52)
[2017-05-17] MEDS: HYDROmorphone INJ 1 MG/ML SYR IV PRN (06:32)
[2017-05-17 07:30] VITALS: BP 125/75; PULSE 57; TEMP 36.6; O2SAT 93
[2017-05-17] MEDS: INSULIN ASPART 100 UNITS/ML 3 ML PEN SC SCH ×4 (08:00→20:57)
[2017-05-17] MEDS: [UNRECOGNIZED DRUG - OTHER] PO SCH (08:38)
[2017-05-17] MEDS: GLIMEPIRIDE 2 MG TAB PO SCH (08:39)
[2017-05-17] MEDS: ASPIRIN 325 MG ECTAB PO SCH (08:51)
[2017-05-17] MEDS: SACCHAROMYCES BOUL (FLORASTOR) 250 MG CAP PO SCH ×2 (08:52→20:52)
[2017-05-17] MEDS: SITAGLIPTIN 100 MG TAB PO SCH (08:55)
[2017-05-17] MEDS: ATORVASTATIN 20 MG TAB PO SCH (08:56)
[2017-05-17] MEDS: AMLODIPINE BESYLATE 5 MG TAB PO SCH (08:58)
[2017-05-17] MEDS: CLOPIDOGREL BISULFATE 75 MG TAB PO SCH (08:59)
[2017-05-17] MEDS: METOPROLOL SUCC 25MG EXT REL TAB PO SCH (09:00)
[2017-05-17] MEDS: BACLOFEN 10 MG TAB PO SCH ×2 (09:19→20:51)
[2017-05-17] MEDS: RASPBERRY SYRUP 5 ML UDP PO SCH ×4 (09:21→20:50)
[2017-05-17] MEDS: VANCOMYCIN HCL 125 MG/2.5ML SOLN PO SCH ×4 (09:22→20:50)
[2017-05-17] MEDS: TAPENTADOL HCL 50 MG TAB PO PRN (09:40)
[2017-05-17] MEDS: CHOLESTYRAMINE LIGHT 4 GM PKT PO SCH (10:46)
[2017-05-17 11:12] VITALS: O2SAT 93
[2017-05-17 15:47] VITALS: BP 146/77; PULSE 58; TEMP 36.6; O2SAT 96
--- NOTE | 2017-05-17 17:54 | Progress Note ---
Medicine Progress Note Date & Time of Visit: May 17, 2017 at 17:33. Subjective Pt was seen and examined Lying in bed with no discomfort very comfortable with no distress Pt said that the pain is tolerable She was not too happy after i spoke to her I told her that we cannot drained the renal cyst in this facility because we do not have IR I also told her that i spoke with urologist and dr. Castro did not think the pain that she has is related to the cyst also the largest renal cyst is in her left side and her pain in in her right flank area Pt said that she has been moving around Tolerated her diet well denies any chest pain, palpitation, dizziness, diarrhea and sob Objective Last 8 Hrs Date Time Temp Pulse Resp B/P (MAP) Pulse Ox O2 Delivery O2 Flow Rate FiO2 05/17/17 15:47 36.6 58 16 146/77 (100) 96 Room Air 05/17/17 15:20 Room Air 05/17/17 11:12 93 Room Air Physical Exam: General- No acute distress, obese Head- atraumatic Eyes- PERRL, EOMI ENT- oropharynx clear Neck- supple, no JVD Lungs- clear to auscultation Heart- regular rhythm; no murmur Abdomen- normal bowel sounds, soft Extremities- no calf tenderness Neuro- alert, oriented x 3; PERRL, EOMI Skin- warm & dry Laboratory Results: Last 24 Hours Test 05/16/17 20:45 05/17/17 08:17 05/17/17 11:58 05/17/17 17:04 Bedside Glucose 105 mg/dl 74 mg/dl 131 mg/dl 226 mg/dl Assessment & Plan RUQ Abdominal pain Etiology? No significant pain on exam Tolerated diet D/C IVF On Dilaudid and Nucynta prn for the pain EGD, EUS and colonoscopy showed no acute finding GI was consulted and does not plain to do any more scope Recommended to continue vancomycin for the C-diff Seems to improved slightly Right Flank Pain Outpatient CT abd/pelvis done on 05/04 revealing extensive diverticulosis, renal cysts with hyperdense/proteinaceous/hemorrhagic renal cysts Urology consulted Case discussed with Dr. Castro that do not think the pain is related to the renal cyst Also the largest cyst is on the left kidney and her pain in on the right side. Dr. Castro said no surgical intervention Case discussed with radiology, we don't have IR. Also radiology also feels laparoscopy procedure will be the treatment of choice not percutaneous drainage Pt is Jehovah witness, no blood product Pt requests to see Dr. Guallpa nephrology to get a second opinion I also offered her outpatient referral to see an interventional radiology in [place] She will think about the referral later before discharge Continue pain control Back Pain Lumbar spine MRI showed mild multilevel degenerative changes of the lumbar spine. Disc bulge with small central disc protrusion at L5-S1 that result in mild narrowing of the central canal. Thoracic spine MRI showed no acute abnormality. Mild degenerative disc disease at T9-T10 with disc bulge Ortho consulted recommended no surgical intervention continue pain control Headache Improved continue nucynta CAD Denies any chest pain Continue plavix, asa, statin and metoprolol Chronic Diastolic CHF Compensated Continue lasix Stable HTN Continue valsartan, HCTZ, metoprolol, Amlodipine and lasix continue monitor BP DMII Hba1c 04/07/17 was 8.3. Not at goal continue oral DM med On insulin coverage Hx recurrent C DIFF Continue current course of vancomycin taper course On contact precautions. GNOSTICISM: No blood products. DVT px on heparin subq CODE Status FULL CODE Consultants: Ortho-Dr. Soto Urology-Dr. Machado GI-Dr. Doty Current Inpatient Medications: Current Inpatient Medications Medications (Trade) Dose Ordered Sig/Ayleen Route Start Time Stop Time Status Last Admin Dose Admin Miscellaneous (Iv Fluids Completed) 1 ea PRN PRN N/A 05/13/17 20:00 05/13/18 19:59 Aspirin (Ecotrin Tab) 325 mg QAM PO 05/14/17 09:00 06/13/17 08:59 05/17/17 08:51 325 MG Baclofen (Lioresal Tab) 5 mg BID PO 05/13/17 21:00 06/12/17 20:59 05/17/17 09:19 5 MG Clopidogrel Bisulfate (plAVix TAB) 150 mg QAM PO 05/14/17 09:00 06/13/17 08:59 05/17/17 08:59 150 MG Furosemide (Lasix Tab) 40 mg QAM PO 05/14/17 09:00 06/13/17 08:59 Future Hold 05/15/17 08:43 40 MG Hyoscyamine Sulfate (Levsin Tab) 0.125 mg BID PO 05/13/17 21:00 06/12/17 20:59 Future Hold 05/14/17 08:32 0.125 MG Nitroglycerin (Nitrostat Tab) 0.4 mg PRN PRN UT 05/13/17 20:30 06/12/17 20:29 Saccharomyces Boulardii (Florastor Cap) 250 mg BID PO 05/13/17 21:00 06/12/17 20:59 05/17/17 08:52 250 MG Sitagliptin Phosphate (Januvia Tab) 100 mg QAM PO 05/14/17 09:00 06/13/17 08:59 Future Hold 05/17/17 08:55 100 MG Valsartan (Diovan Tab) 160 mg QAM PO 05/14/17 09:00 06/13/17 08:59 Future Hold 05/15/17 08:42 160 MG Vancomycin HCl (Vancomycin Oral Soln) 125 mg QID PO 05/13/17 21:00 05/27/17 20:59 05/17/17 17:13 125 MG Amlodipine Besylate (Norvasc Tab) 10 mg QAM PO 05/14/17 09:00 06/13/17 08:59 05/17/17 08:58 10 MG Cholestyramine Resin (Questran Powder Light) 2 gm DAILY@1000 PO 05/14/17 10:00 06/13/17 09:59 05/17/17 10:46 2 GM Glimepiride (Amaryl Tab) 8 mg QAM PO 05/14/17 09:00 06/13/17 08:59 05/15/17 08:45 8 MG Atorvastatin Calcium (Lipitor Tab) 20 mg QAM PO 05/14/17 09:00 06/13/17 08:59 05/17/17 08:56 20 MG Non-Formulary Medication (Epanova (hcnez-1-qqoknlpipo acid)) 4 gm DAILY PO 05/14/17 09:00 06/13/17 08:59 Raspberry (Raspberry Syrup 5ml Cup) 5 ml QID PO 05/13/17 21:00 05/27/17 20:59 05/17/17 17:13 5 ML Hydromorphone HCl (Dilaudid Inj) 1 mg Q4H PRN IV 05/13/17 21:00 05/27/17 20:59 05/17/17 06:32 1 MG Hydrochlorothiazide (Hydrochlorothiazide Tab) 12.5 mg QAM PO 05/14/17 09:00 06/13/17 08:59 Future Hold 05/15/17 08:46 12.5 MG Insulin Aspart (novoLOG ASPART) SLIDING SCALE G... ACHS SC 05/14/17 08:00 06/13/17 07:59 05/14/17 17:39 2 UNITS Metoprolol Succinate (Toprol Xl Tab) 75 mg DAILY PO 05/15/17 09:00 06/14/17 08:59 05/16/17 08:46 75 MG Tapentadol (Nucynta Tab) 50 mg Q4H PRN PO 05/14/17 10:45 06/13/17 10:44 05/17/17 09:40 50 MG Acetaminophen (Tylenol Tab) 1,000 mg Q8 PO 05/14/17 14:00 06/13/17 13:59 05/17/17 13:48 1,000 MG Ondansetron HCl (Zofran Odt) 4 mg Q8 PO 05/14/17 11:00 06/13/17 10:59 05/17/17 13:49 4 MG Heparin Sodium (Porcine) (Heparin Sq 5000 Unit/0.5ml) 5,000 unit Q8 SQ 05/15/17 22:00 06/14/17 21:59 05/17/17 13:54 5,000 UNIT
[2017-05-17 23:12] VITALS: BP 138/79; PULSE 61; TEMP 36.7; O2SAT 92
[2017-05-18] MEDS: HYDROmorphone INJ 1 MG/ML SYR IV PRN (01:56)
[2017-05-18] MEDS: ACETAMINOPHEN 500 MG TAB PO SCH ×2 (05:38→13:32)
[2017-05-18] MEDS: HEPARIN SOD 5000 UNIT/0.5 ML CARP SQ SCH ×2 (05:39→13:35)
[2017-05-18] MEDS: ONDANSETRON 4MG OD TAB PO SCH ×2 (05:39→13:31)
[2017-05-18 07:28] VITALS: O2SAT 95
[2017-05-18 07:29] VITALS: BP 152/79; PULSE 56; TEMP 36.4; O2SAT 95
[2017-05-18 07:45] VITALS: O2SAT 95
[2017-05-18] MEDS: INSULIN ASPART 100 UNITS/ML 3 ML PEN SC SCH ×2 (08:00→13:19)
[2017-05-18] MEDS: [UNRECOGNIZED DRUG - OTHER] PO SCH (08:24)
[2017-05-18] MEDS: METOPROLOL SUCC 25MG EXT REL TAB PO SCH (08:33)
[2017-05-18] MEDS: GLIMEPIRIDE 2 MG TAB PO SCH (08:36)
[2017-05-18] MEDS: ASPIRIN 325 MG ECTAB PO SCH (08:36)
[2017-05-18] MEDS: BACLOFEN 10 MG TAB PO SCH (08:37)
[2017-05-18] MEDS: SACCHAROMYCES BOUL (FLORASTOR) 250 MG CAP PO SCH (08:37)
[2017-05-18] MEDS: ATORVASTATIN 20 MG TAB PO SCH (08:39)
[2017-05-18] MEDS: AMLODIPINE BESYLATE 5 MG TAB PO SCH (08:41)
[2017-05-18] MEDS: CLOPIDOGREL BISULFATE 75 MG TAB PO SCH (08:43)
[2017-05-18] MEDS: RASPBERRY SYRUP 5 ML UDP PO SCH ×3 (08:45→17:32)
[2017-05-18] MEDS: VANCOMYCIN HCL 125 MG/2.5ML SOLN PO SCH ×3 (08:45→17:32)
--- NOTE | 2017-05-18 10:07 | Nephrology Consultation ---
Nephrology Consultation Date & Providers Date of Consultation: May 18, 2017. Primary Care Provider: Elizabeth Ciacedo M.D. Referring Provider: Reason for Consultation Evaluation of kidney cysts History of Present Illness Ms. Lucero is a 76 year old white female who is seen at the request of Dr. Lyn for evaluation of kidney cysts. Medical records in the EMR were reviewed today and are summarized as follows: Ms. Lucero has a history of HTN , hyperlipidemia, ASCVD and AODM. In January of this year she developed diarrhea. This progressively worsened to the point that she sought evaluation by Gastroenterology. She underwent colonoscopy and stool samples at that time were positive for Clostridium Difficile toxin. Ms. Lucero was started on oral Vancomycin and is slowly being tapered off her antibiotic. Since her colonoscopy she has had RUQ abdominal pain. Abdominal CT performed 01/30 revealed a 9.7 cm cyst involving the L kidney. This abuts the pancreas. There is a 5.3 cm cyst involving the R kidney. The patient was also noted to have a 15 mm indeterminant lesion involving the upper pole of the L kidney. Ms. Lucero has had no gross hematuria. She notes that her abdominal discomfort is improving with treatment of her colitis. Past Medical/Surgical History Medical: # Kidney cysts # Indeterminant 15 mm lesion involving the upper pole of the L kidney # Clostridium difficile colitis # HTN # DM # ASCVD # Hyperlipidemia Allergies Coded Allergies: Adhesives (Verified Allergy, Unknown, ALLERGY TO TAPE, 05/06/17) Nadolol (Verified Allergy, Unknown, UNSURE, 05/06/17) Nifedipine (Verified Allergy, Unknown, BLISTERS, TOLERATES PLENDIL, ) Ibuprofen (Verified Adverse Reaction, Mild, UPSET STOMACH, 05/06/17) Diltiazem (Verified Adverse Reaction, Unknown, TOLERATES PLENDIL, MALAISE , 05/06/17) Oxycodone (Verified Adverse Reaction, Unknown, SEVERE NAUSEA, 05/06/17) Inpatient Medications Current Inpatient Medications Medications (Trade) Dose Ordered Sig/Ayleen Route Start Time Stop Time Status Last Admin Dose Admin Miscellaneous (Iv Fluids Completed) 1 ea PRN PRN N/A 05/13/17 20:00 05/13/18 19:59 Aspirin (Ecotrin Tab) 325 mg QAM PO 05/14/17 09:00 06/13/17 08:59 05/18/17 08:36 325 MG Baclofen (Lioresal Tab) 5 mg BID PO 05/13/17 21:00 06/12/17 20:59 05/18/17 08:37 5 MG Clopidogrel Bisulfate (plAVix TAB) 150 mg QAM PO 05/14/17 09:00 06/13/17 08:59 05/18/17 08:43 150 MG Furosemide (Lasix Tab) 40 mg QAM PO 05/14/17 09:00 06/13/17 08:59 Future Hold 05/15/17 08:43 40 MG Hyoscyamine Sulfate (Levsin Tab) 0.125 mg BID PO 05/13/17 21:00 06/12/17 20:59 Future Hold 05/14/17 08:32 0.125 MG Nitroglycerin (Nitrostat Tab) 0.4 mg PRN PRN UT 05/13/17 20:30 06/12/17 20:29 Saccharomyces Boulardii (Florastor Cap) 250 mg BID PO 05/13/17 21:00 06/12/17 20:59 05/18/17 08:37 250 MG Sitagliptin Phosphate (Januvia Tab) 100 mg QAM PO 05/14/17 09:00 06/13/17 08:59 Future Hold 05/17/17 08:55 100 MG Valsartan (Diovan Tab) 160 mg QAM PO 05/14/17 09:00 06/13/17 08:59 Future Hold 05/15/17 08:42 160 MG Vancomycin HCl (Vancomycin Oral Soln) 125 mg QID PO 05/13/17 21:00 05/27/17 20:59 05/18/17 08:45 125 MG Amlodipine Besylate (Norvasc Tab) 10 mg QAM PO 05/14/17 09:00 06/13/17 08:59 05/18/17 08:41 10 MG Cholestyramine Resin (Questran Powder Light) 2 gm DAILY@1000 PO 05/14/17 10:00 06/13/17 09:59 05/17/17 10:46 2 GM Glimepiride (Amaryl Tab) 8 mg QAM PO 05/14/17 09:00 06/13/17 08:59 05/18/17 08:36 8 MG Atorvastatin Calcium (Lipitor Tab) 20 mg QAM PO 05/14/17 09:00 06/13/17 08:59 05/18/17 08:39 20 MG Non-Formulary Medication (Epanova (lvhiw-5-ncnyklswbv acid)) 4 gm DAILY PO 05/14/17 09:00 06/13/17 08:59 Raspberry (Raspberry Syrup 5ml Cup) 5 ml QID PO 05/13/17 21:00 05/27/17 20:59 05/18/17 08:45 5 ML Hydromorphone HCl (Dilaudid Inj) 1 mg Q4H PRN IV 05/13/17 21:00 05/27/17 20:59 05/18/17 01:56 1 MG Hydrochlorothiazide (Hydrochlorothiazide Tab) 12.5 mg QAM PO 05/14/17 09:00 06/13/17 08:59 Future Hold 05/15/17 08:46 12.5 MG Insulin Aspart (novoLOG ASPART) SLIDING SCALE G... ACHS SC 05/14/17 08:00 06/13/17 07:59 05/17/17 20:57 1 UNITS Metoprolol Succinate (Toprol Xl Tab) 75 mg DAILY PO 05/15/17 09:00 06/14/17 08:59 05/16/17 08:46 75 MG Tapentadol (Nucynta Tab) 50 mg Q4H PRN PO 05/14/17 10:45 06/13/17 10:44 05/17/17 09:40 50 MG Acetaminophen (Tylenol Tab) 1,000 mg Q8 PO 05/14/17 14:00 06/13/17 13:59 05/18/17 05:38 1,000 MG Ondansetron HCl (Zofran Odt) 4 mg Q8 PO 05/14/17 11:00 06/13/17 10:59 05/18/17 05:39 4 MG Heparin Sodium (Porcine) (Heparin Sq 5000 Unit/0.5ml) 5,000 unit Q8 SQ 05/15/17 22:00 06/14/17 21:59 05/18/17 05:39 5,000 UNIT Family History Diabetes mellitus Heart disease Hypertension Negative for CKD / ESRD Social History Smoking Status: Never Smoker Alcohol Use: none Drug Use: none Marital Status: Housing Status: lives alone Occupation: retired . One child in good health. 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 Never a smoker Review of Systems Constitutional: No fever Respiratory: No shortness of breath Cardiovascular: No chest pain Abdomen: + pain, + diarrhea A complete review of systems was performed. Pertinent positives are noted above. All other systems are negative. Physical Exam Date Time Temp Pulse Resp B/P (MAP) Pulse Ox O2 Delivery O2 Flow Rate FiO2 05/18/17 07:45 95 Room Air 05/18/17 07:29 36.4 56 18 152/79 (103) 95 Room Air 05/18/17 07:28 95 Room Air 05/17/17 23:12 36.7 61 18 138/79 (98) 92 Room Air 05/17/17 23:00 Room Air 05/17/17 15:47 36.6 58 16 146/77 (100) 96 Room Air 05/17/17 15:20 Room Air 05/17/17 11:12 93 Room Air General Appearance: WD/WN, no apparent distress Head: normocephalic, atraumatic Eyes: PERRL, EOMI Neck: supple, no adenopathy Respiratory/Chest: lungs clear, no respiratory distress Cardiovascular: regular rate, rhythm Abdomen/GI: non tender, soft Extremities/Musculoskelatal: no calf tenderness, no pedal edema Neurologic/Psych: alert, oriented x 3 Skin: warm/dry Laboratory Results Last 24 Hours Test 05/17/17 11:58 05/17/17 17:04 05/17/17 20:44 05/18/17 09:47 Bedside Glucose 131 mg/dl 226 mg/dl 192 mg/dl Impression (1) Kidney cyst, acquired (2) Kidney lesion, shinnecock, left (3) Clostridium difficile colitis (4) HTN (hypertension) (5) Hyperlipidemia (6) CAD (coronary artery disease) (7) DIAB KHUSHI WO COMPL, TYPE II OR UNSPEC TYPE, NOT UNCNTRLD (8) HYPERLIPIDEMIA NEC/NOS Ms. Lucero has preserved kidney function. Urine sediment is benign. She has large simple cysts involving each kidney. There is no hydronephrosis. There is no intestinal obstruction of evidence of mass effect from the cysts. Patient does have a 15 mm indeterminant lesion involving the upper pole of the left kidney. Recommendations -- Kidney function is well preserved. Urine sediment is benign. -- 01/[address] films reviewed today. Kidney cysts are simple. They do not appear to be causing obstruction or mass effect. -- 15 mm indeterminant lesion involving the upper pole of the left kidney should be monitored by Urology -- No further Nephrology evaluation or follow up needed. Will sign off. Please call if further assistance is needed.
[2017-05-18 10:32] LABS: HEMATOCRIT 38.4 % (37-47); MEAN CELL VOLUME 88.7 fL (80-100); MEAN CORPUSCULAR HEMOGLOBIN 29.6 pg (25-34); MEAN CORPUSCULAR HGB CONC 33.3 g/dl (32-36); MEAN PLATELET VOLUME 10.1 fL (7.4-10.4); PLATELET COUNT 211 K/uL (130-400); RED BLOOD COUNT 4.33 M/uL (4.2-5.4); WHITE BLOOD COUNT 7.86 K/uL (4.8-10.8)
[2017-05-18] MEDS: CHOLESTYRAMINE LIGHT 4 GM PKT PO SCH (10:37)
--- NOTE | 2017-05-18 12:33 | Progress Note ---
Medicine Progress Note Date & Time of Visit: May 18, 2017 at 12:28. Subjective Pt was seen and examined lying in bed with no distress comfortable in bed watching TV Pt said that she feels slightly better she tolerates her diet denies any chest pain, palpitation, dizziness and sob Objective Last 8 Hrs Date Time Temp Pulse Resp B/P (MAP) Pulse Ox O2 Delivery O2 Flow Rate FiO2 05/18/17 07:45 95 Room Air 05/18/17 07:29 36.4 56 18 152/79 (103) 95 Room Air 05/18/17 07:28 95 Room Air Physical Exam: General- No acute distress, obese Head- atraumatic Eyes- PERRL, EOMI ENT- oropharynx clear Neck- supple, no JVD Lungs- clear to auscultation Heart- regular rhythm; no murmur Abdomen- normal bowel sounds, soft, mild tenderness with deep palpation Extremities- no calf tenderness Neuro- alert, oriented x 3; PERRL, EOMI Skin- warm & dry Laboratory Results: Last 24 Hours Test 05/17/17 17:04 05/17/17 20:44 05/18/17 07:58 05/18/17 09:47 Bedside Glucose 226 mg/dl 192 mg/dl 106 mg/dl White Blood Count 7.86 K/uL Red Blood Count 4.33 M/uL Hemoglobin 12.8 g/dL Hematocrit 38.4 % Mean Corpuscular Volume 88.7 fL Mean Corpuscular Hemoglobin 29.6 pg Mean Corpuscular Hemoglobin Concent 33.3 g/dl RDW Standard Deviation 43.8 fL RDW Coefficient of Variation 13.4 % Platelet Count 211 K/uL Mean Platelet Volume 10.1 fL Test 05/18/17 12:17 Bedside Glucose 142 mg/dl Assessment & Plan RUQ Abdominal pain Etiology? No significant pain on exam Tolerated diet D/C IVF On Dilaudid and Nucynta prn for the pain EGD, EUS and colonoscopy showed no acute finding GI was consulted and does not plain to do any more scope Recommended to continue vancomycin for the C-diff clinicaaly improved Right Flank Pain Outpatient CT abd/pelvis done on 05/04 revealing extensive diverticulosis, renal cysts with hyperdense/proteinaceous/hemorrhagic renal cysts Urology consulted Case discussed with Dr. Castro that do not think the pain is related to the renal cyst Also the largest cyst is on the left kidney and her pain in on the right side. Dr. Castro said no surgical intervention Case discussed with radiology, we don't have IR. Also radiology also feels laparoscopy procedure will be the treatment of choice not percutaneous drainage Pt is Jehovah witness, no blood product Pt requests to see Dr. Guallpa nephrology to get a second opinion I also offered her outpatient referral to see an interventional radiology in [place] Follow with urology as an outpatient for the renal cyst Continue pain control Back Pain Lumbar spine MRI showed mild multilevel degenerative changes of the lumbar spine. Disc bulge with small central disc protrusion at L5-S1 that result in mild narrowing of the central canal. Thoracic spine MRI showed no acute abnormality. Mild degenerative disc disease at T9-T10 with disc bulge Ortho consulted recommended no surgical intervention continue pain control Headache Stable CAD Denies any chest pain Continue plavix, asa, statin and metoprolol Stable Chronic Diastolic CHF Compensated Continue lasix Stable HTN Resume valsartan/HCTZ, metoprolol, Amlodipine and lasix continue monitor BP DMII Hba1c 04/07/17 was 8.3. Not at goal continue oral DM med On insulin coverage Hx recurrent C DIFF Continue current course of vancomycin taper course On contact precautions. SIKHISM: No blood products. DVT px on heparin subq CODE Status FULL CODE Consultants: Ortho-Dr. Soto Urology-Dr. Machado GI-Dr. Doty Current Inpatient Medications: Current Inpatient Medications Medications (Trade) Dose Ordered Sig/Ayleen Route Start Time Stop Time Status Last Admin Dose Admin Miscellaneous (Iv Fluids Completed) 1 ea PRN PRN N/A 05/13/17 20:00 05/13/18 19:59 Aspirin (Ecotrin Tab) 325 mg QAM PO 05/14/17 09:00 06/13/17 08:59 05/18/17 08:36 325 MG Baclofen (Lioresal Tab) 5 mg BID PO 05/13/17 21:00 06/12/17 20:59 05/18/17 08:37 5 MG Clopidogrel Bisulfate (plAVix TAB) 150 mg QAM PO 05/14/17 09:00 06/13/17 08:59 05/18/17 08:43 150 MG Furosemide (Lasix Tab) 40 mg QAM PO 05/14/17 09:00 06/13/17 08:59 Future Hold 05/15/17 08:43 40 MG Hyoscyamine Sulfate (Levsin Tab) 0.125 mg BID PO 05/13/17 21:00 06/12/17 20:59 Future Hold 05/14/17 08:32 0.125 MG Nitroglycerin (Nitrostat Tab) 0.4 mg PRN PRN UT 05/13/17 20:30 06/12/17 20:29 Saccharomyces Boulardii (Florastor Cap) 250 mg BID PO 05/13/17 21:00 06/12/17 20:59 05/18/17 08:37 250 MG Sitagliptin Phosphate (Januvia Tab) 100 mg QAM PO 05/14/17 09:00 06/13/17 08:59 Future Hold 05/17/17 08:55 100 MG Valsartan (Diovan Tab) 160 mg QAM PO 05/14/17 09:00 06/13/17 08:59 Future hold 05/15/17 08:42 160 MG Vancomycin HCl (Vancomycin Oral Soln) 125 mg QID PO 05/13/17 21:00 05/27/17 20:59 05/18/17 08:45 125 MG Amlodipine Besylate (Norvasc Tab) 10 mg QAM PO 05/14/17 09:00 06/13/17 08:59 05/18/17 08:41 10 MG Cholestyramine Resin (Questran Powder Light) 2 gm DAILY@1000 PO 05/14/17 10:00 06/13/17 09:59 05/18/17 10:37 2 GM Glimepiride (Amaryl Tab) 8 mg QAM PO 05/14/17 09:00 06/13/17 08:59 05/18/17 08:36 8 MG Atorvastatin Calcium (Lipitor Tab) 20 mg QAM PO 05/14/17 09:00 06/13/17 08:59 05/18/17 08:39 20 MG Non-Formulary Medication (Epanova (cetnw-6-wdjjabtito acid)) 4 gm DAILY PO 05/14/17 09:00 06/13/17 08:59 Raspberry (Raspberry Syrup 5ml Cup) 5 ml QID PO 05/13/17 21:00 05/27/17 20:59 05/18/17 08:45 5 ML Hydromorphone HCl (Dilaudid Inj) 1 mg Q4H PRN IV 05/13/17 21:00 05/27/17 20:59 05/18/17 01:56 1 MG Hydrochlorothiazide (Hydrochlorothiazide Tab) 12.5 mg QAM PO 05/14/17 09:00 06/13/17 08:59 Future hold 05/15/17 08:46 12.5 MG Insulin Aspart (novoLOG ASPART) SLIDING SCALE G... ACHS SC 05/14/17 08:00 06/13/17 07:59 05/17/17 20:57 1 UNITS Metoprolol Succinate (Toprol Xl Tab) 75 mg DAILY PO 05/15/17 09:00 06/14/17 08:59 05/16/17 08:46 75 MG Tapentadol (Nucynta Tab) 50 mg Q4H PRN PO 05/14/17 10:45 06/13/17 10:44 05/17/17 09:40 50 MG Acetaminophen (Tylenol Tab) 1,000 mg Q8 PO 05/14/17 14:00 06/13/17 13:59 05/18/17 05:38 1,000 MG Ondansetron HCl (Zofran Odt) 4 mg Q8 PO 05/14/17 11:00 06/13/17 10:59 05/18/17 05:39 4 MG Heparin Sodium (Porcine) (Heparin Sq 5000 Unit/0.5ml) 5,000 unit Q8 SQ 05/15/17 22:00 06/14/17 21:59 05/18/17 05:39 5,000 UNIT
[2017-05-18 14:57] VITALS: BP 166/74; PULSE 61; TEMP 36.7; O2SAT 97
--- NOTE | 2017-05-18 15:19 | Discharge Instructions ---
Discharge Instructions Date of Service May 18, 2017. Admission Reason for Admission: Intractable Back Pain Discharge Discharge Diagnosis / Problem: Intractable back pain, RUQ pain, Right Flank pain, Renal cyst Discharge Goals Goal(s): Decrease discomfort, Improve function, Improve disease control Activity Recommendations Activity Limitations: resume your previous activity (as tolerated) . Instructions / Follow-Up Instructions / Follow-Up Discharge home with home health services Please follow up with Dr. Yen (Elizabeth Caicedo's partner) on 05/22 @ 12:45pm Outpatient Follow up with urology for the renal cyst Continue follow with Gastro Continue vancomycin as previously instructed as per Dr. Doty (from your last outpatient visit) Current Hospital Diet Patient's current hospital diet: AHA Diet (Heart Healthy), Diabetes Type 2 Diet Discharge Diet Recommended Diet: AHA Diet (Heart Healthy), Diabetes Type 2 Diet Pending Studies Studies pending at discharge: no Medical Emergencies . Who to Call and When: Medical Emergencies: If at any time you feel your situation is an emergency, please call 911 immediately. . Non-Emergent Contact Non-Emergency issues call your: Primary Care Provider Call Non-Emergent contact if: you have a fever, your pain is not controlled, your pain is worsening, your pain is concerning you, you have any medication questions . . "Provider Documentation" section prepared by Jun Lyn. . VTE Core Measure Inpt VTE Proph given/why not?: Unfractionated heparin SQ [place] Drug Monitoring Program Search Results: no issues identified
[2017-05-18 16:51] VITALS: BP 166/74; PULSE 61; TEMP 36.7; O2SAT 97
--- NOTE | 2017-05-21 16:35 | Discharge Summary ---
Discharge Summary Date of Service May 21, 2017. Discharge Summary Admission Date: May 15, 2017 at 11:40 Discharge Date: May 18, 2017 Discharge Disposition: Home with services Principal Diagnosis: RUQ Abdominal pain Right Flank pain Secondary Diagnoses/Problems: Renal Cysts Back pain Headache CAD Chronic diastolic CHF Hx recurrent C DIFF HTN Jehovah Witness- No blood product Procedures: MRI OF THE LUMBAR SPINE WITHOUT CONTRAST CLINICAL HISTORY: Right lower thoracic/upper lumbar pain COMPARISON STUDY: No previous studies for comparison. TECHNIQUE: Utilizing a 1.5 Kalani magnet and dedicated coil, multiplanar, multiecho imaging of the lumbar spine was performed without IV contrast. FINDINGS: For purposes of numbering on this exam, the L5-S1 disc space is assigned to axial image 23 of 25. Alignment of the lumbar spine is anatomic. Vertebral body heights are maintained. There is no suspicious marrow replacement. There is prominent epidural fat at the L5 level and within the sacrum. Paravertebral soft tissues are unremarkable. A few hemangiomas are noted, the largest of which is a 2 cm lesion within the L1 vertebral body. Bilateral renal lesions are better depicted on prior CT of February 04, 2017. L1-2: The central canal and neural foramen are patent. L2-3: The central canal and neural foramen are patent. There is minimal disc bulge. L3-4: The central canal and neural foramen are patent. There is mild facet arthrosis. L4-5: There is mild disc bulge and facet arthrosis. Central canal and neural foramen are patent. L5-S1: There is disc space narrowing with a disc bulge and small central disc protrusion. There is mild narrowing of the central canal, lateral recesses and neural foramen. IMPRESSION: 1. Mild multilevel degenerative changes of the lumbar spine. 2. Disc bulge with small central disc protrusion at L5-S1 that result in mild narrowing of the central canal, lateral recesses and neural foramen. Electronically signed by: Yaya Huerta M.D. 05/13/2017 6:46 PM Dictated Date/Time: 05/13/2017 6:38 PM MRI OF THE THORACIC SPINE WITHOUT CONTRAST CLINICAL HISTORY: Right lower thoracic/upper lumbar pain COMPARISON: None. TECHNIQUE: Utilizing a 1.5 Kalani magnet and dedicated coil, multiplanar, multiecho imaging of the thoracic spine was performed without IV contrast. FINDINGS: Alignment of the thoracic spine is anatomic. Vertebral body heights are maintained. There is an L1 vertebral body hemangioma. Thoracic cord signal and caliber are normal. There is no intracanalicular mass or fluid collection. There is moderate disc space narrowing with discogenic changes at the T9-T10. There is minimal disc bulge. Central canal is patent. There is mild narrowing of the bilateral neural foramen at this level. There are trace bilateral pleural effusions. T2 hyperintense bilateral renal lesions are better depicted on abdominal CT of February 04, 2017. There is no suspicious marrow replacement. IMPRESSION: 1. No acute abnormality within the thoracic spine by MRI. 2. Mild degenerative disc disease at T9-T10 with disc bulge. Mild bilateral neural foraminal narrowing at this level. Patent central canal. 3. Normal thoracic cord signal and caliber. 4. Trace bilateral pleural effusions. Electronically signed by: Yaya Huerta M.D. 05/13/2017 7:02 PM Dictated Date/Time: 05/13/2017 6:56 PM Consultations: Ortho-Dr. Soto Urology-Dr. Machado GI-Dr. Doty Medication Reconciliation Continued Medications: Acetaminophen Tab (Tylenol) 325 Mg Tab 650 MG PO Q6H PRN for Pain or Fever, TAB Amlodipine Besylate-Atorvastat (Caduet) 1 Tab Tab 1 TAB PO QAM amlodipine 10 mg atorvastatin 20 mg Aspirin (Aspirin) 325 Mg Tab 325 MG PO QAM Baclofen (Baclofen) 10 Mg Tab 5 MG PO BID for Muscle Spasms, #20 [place] Grape-Goldense (Berberine Complex 200-200-50 mg) 1 Cap Cap 1 CAP PO DAILY Cholestyramine Light (Questran Light) 4 Gm/Dose Pow 2 GM PO DAILY Clopidogrel (Plavix) 75 Mg Tab 2 TAB PO QAM, 0 Refills Furosemide (Furosemide) 40 Mg Tab 40 MG PO QAM Glimepiride (Glimepiride) 4 Mg Tab 8 MG PO QAM for 90 Days, #180 TAB 3 Refills Herbals (Herbals) Ea 1 TAB PO DAILY, EA Hydrocodone/Acetaminophen 5MG/325MG ([place]ell 5MG/325MG) Tab 1 TABLET PO Q6H PRN for Moderate Pain, TAB Hyoscyamine Sulfate (Levsin) 0.125 Mg Tab 0.125 MG PO BID, TAB Metoprolol Succ (Toprol Xl) (Toprol-Xl ) 100 Mg Tabcr 100 MG PO QAM, 0 Refills Nitroglycerin (Nitrostat) 0.4 Mg Tab 0.4 MG UT PRN NEEDED FOR CHEST PAIN : ONE TABLET UNDER THE TONGUE EVERY 5 MINUTES, UP TO 3 DOSES. Probiotic Product (Probiotic) 1 Cap Cap 2 CAP PO DAILY Saccharomyces Boulardii (Florastor) 250 Mg Cap 250 MG PO BID Sitagliptin Phosphate (Januvia) 100 Mg Tab 100 MG PO QAM, TAB Triamcinolone Acet (Triamcinolone Acetonide) 60 Gm Cr 1 DOSE EXT UD PRN for PRN APPLY CREAM TO ANKLE NEEDED Valsartan/Hctz (Diovan Hct 320MG/25MG) 1 Tab Tab 1 TAB PO QAM, TAB Vancomycin Hcl (Vancomycin) 125 Mg Cap 125 MG PO Q2D Vancomycin Hcl (Vancomycin) 125 Mg Cap 125 MG PO QID [Epanova] () 4 GM PO DAILY Take 4 capsules daily. STRENGTH Study Epanova or placebo Admission Information HPI (per Admitting provider): 76-year-old female followed by Dr. Elizabeth Caicedo. History of ischemic heart disease, diastolic heart failure, diabetes, and other problems noted below. 3 weeks prior to admission developed sudden onset of right upper quadrant/right flank pain. The pain has been constant since then, fluctuating in intensity from moderate to severe. It does not radiate. Experiencing chills, but no fever. Has had intermittent nausea without vomiting. Diagnosed with Clostridium difficile colitis in January with subsequent recurrence being treated with vancomycin. No melena or hematochezia. No dysuria or hematuria. No trauma. Vicodin offers some relief. Intolerant of oxycodone and NSAID's. Tried lidocaine patch without benefit. Patient has been evaluated in clinic as well as [facility] ED. Ultrasound on 04/13/17 demonstrated postsurgical changes of cholecystectomy, no intrahepatic biliary dilatation, common bile duct 9 mm, renal cysts. CT of abdomen and pelvis on 04/16/17 demonstrated bilateral renal cyst, some hyperdense. Repeat CT of abdomen and pelvis on 05/04/17 was similar in appearance. Plain films of thoracic spine on 05/09/17 showed degenerative disease and dyspnea narrowing at T9/10, moderate kyphosis. Plain films of lumbar spine on 05/09/17 showed marked disc space narrowing at L5- S1. EGD by Dr. Doty on 05/11/17 showed small hiatal hernia and gastritis. EUS by Dr. Doty on 05/11/17 did not show any biliary tract pathology, but demonstrated renal cysts. Arrangements made for outpatient MRI thoracic spine as well as Urology consultation. Patient called clinic today with worsening pain, not adequately controlled by Vicodin. She was referred to the ED for further evaluation. . Physical Exam (per Admitting): General Appearance: WD/WN, + mild distress Head: normocephalic, atraumatic Eyes: normal inspection, PERRL, EOMI, sclerae normal ENT: normal ENT inspection, hearing grossly normal, pharynx normal Neck: supple, no adenopathy, thyroid normal, trachea midline Respiratory/Chest: lungs clear, no respiratory distress, no accessory muscle use Cardiovascular: regular rate, rhythm, no edema, no gallop, no JVD, no murmur , + abnormal peripheral pulses (diminished pedal pulses, capillary refill toes < 2 sec) Abdomen/GI: normal bowel sounds, soft, no organomegaly, no pulsatile mass, + pertinent finding (RUQ tenderness without rebound or guarding) Back: no muscle spasm, + right CVA tenderness, + pertinent finding (no midline tenderness) Extremities/Musculoskelatal: no calf tenderness, no pedal edema Neurologic/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 No significant pain on exam Tolerated diet D/C IVF On Dilaudid and Nucynta prn for the pain EGD, EUS and colonoscopy showed no acute finding GI was consulted and does not plain to do any more scope Recommended to continue vancomycin for the C-diff clinicaaly improved Right Flank Pain Outpatient CT abd/pelvis done on 05/04 revealing extensive diverticulosis, renal cysts with hyperdense/proteinaceous/hemorrhagic renal cysts Urology consulted Case discussed with Dr. Castro that do not think the pain is related to the renal cyst Also the largest cyst is on the left kidney and her pain in on the right side. Dr. Castro said no surgical intervention Case discussed with radiology, we don't have IR. Also radiology also feels laparoscopy procedure will be the treatment of choice not percutaneous drainage Pt is Jehovah witness, no blood product Pt requests to see Dr. Guallpa nephrology to get a second opinion I also offered her outpatient referral to see an interventional radiology in [place] Follow with urology as an outpatient for the renal cyst Continue pain control Back Pain Lumbar spine MRI showed mild multilevel degenerative changes of the lumbar spine. Disc bulge with small central disc protrusion at L5-S1 that result in mild narrowing of the central canal. Thoracic spine MRI showed no acute abnormality. Mild degenerative disc disease at T9-T10 with disc bulge Ortho consulted recommended no surgical intervention continue pain control Headache Stable CAD Denies any chest pain Continue plavix, asa, statin and metoprolol Stable Chronic Diastolic CHF Compensated Continue lasix Stable HTN Resume valsartan/HCTZ, metoprolol, Amlodipine and lasix continue monitor BP DMII Hba1c 04/07/17 was 8.3. Not at goal continue oral DM med On insulin coverage Hx recurrent C DIFF Continue current course of vancomycin taper course On contact precautions. BUDDHISM: No blood products. DVT px on heparin subq CODE Status FULL CODE Total time spent on discharge = 35 minutes This includes examination of the patient, discharge planning, medication reconciliation, and communication with other providers. Discharge Instructions Date of Service May 18, 2017. Admission Reason for Admission: Intractable Back Pain Discharge Discharge Diagnosis / Problem: Intractable back pain, RUQ pain, Right Flank pain, Renal cyst Discharge Goals Goal(s): Decrease discomfort, Improve function, Improve disease control Activity Recommendations Activity Limitations: resume your previous activity (as tolerated) . Instructions / Follow-Up Instructions / Follow-Up Discharge home with home health services Please follow up with Dr. Yen (Elizabeth Caicedo's partner) on 05/22 @ 12:45pm Outpatient Follow up with urology for the renal cyst Continue follow with Gastro Continue vancomycin as previously instructed as per Dr. Doty (from your last outpatient visit) Current Hospital Diet Patient's current hospital diet: AHA Diet (Heart Healthy), Diabetes Type 2 Diet Discharge Diet Recommended Diet: AHA Diet (Heart Healthy), Diabetes Type 2 Diet Pending Studies Studies pending at discharge: no Medical Emergencies . Who to Call and When: Medical Emergencies: If at any time you feel your situation is an emergency, please call 911 immediately. . Non-Emergent Contact Non-Emergency issues call your: Primary Care Provider Call Non-Emergent contact if: you have a fever, your pain is not controlled, your pain is worsening, your pain is concerning you, you have any medication questions . . "Provider Documentation" section prepared by Jun Lyn. . VTE Core Measure Inpt VTE Proph given/why not?: Unfractionated heparin SQ [place] Drug Monitoring Program Search Results: no issues identified Additional Copies To Elizabeth Caicedo M.D.
== END 2017-05-18 18:18 | disposition home health service (06) | DRG 372 ==
LOC: C.EDB 12:56 → C.MSW 19:34 → ENRESERV 19:40 → EDBEDREQ 19:41 → OBSVTOIN 05-15 11:40
PROVIDERS: ADMIT Hospitalist; ATTEND Internal Medicine
DX: A04.7 Enterocolitis due to Clostridium difficile (principal); Q61.02 Congenital multiple renal cysts; I50.32 Chronic diastolic (congestive) heart failure; I13.0 Hypertensive heart and chronic kidney disease with heart failure and stage 1 through stage 4 chronic kidney disease, or unspecified chronic kidney disease; K57.30 Diverticulosis of large intestine without perforation or abscess without bleeding; I25.10 Atherosclerotic heart disease of native coronary artery without angina pectoris; E78.5 Hyperlipidemia, unspecified; Z95.818 Presence of other cardiac implants and grafts; N18.3 Chronic kidney disease, stage 3 (moderate); E11.319 Type 2 diabetes mellitus with unspecified diabetic retinopathy without macular edema; Z85.828 Personal history of other malignant neoplasm of skin

== ENCOUNTER 2017-06-14 02:52 | Emergency (ER) | payer OTHER, MEDICARE ==
[~2017-06-14] VITALS: Ht 152.4 cm; Wt 97.5 kg
[~2017-06-14 02:52] MED LIST changes: +BARB1CAP PO; +CHOL4POW14 PO; +HYOS1TAB PO; +MISCCAP80 PO; +SACC250C PO; +VANC5CAP PO; +[UNRECOGNIZED DRUG - OTHER] PO
[2017-06-14 03:00] VITALS: TEMP 36.6; Ht 152.4 cm; Wt 97.5 kg
[2017-06-14] MEDS ORDERED: HYDROCODONE/ACETAMINOPHEN 7.5/325MG TAB PO STA (05:17)
[2017-06-14 05:21] LABS: BASO % 0.1 %; BASO ABS # 0.01 K/uL (0-0.2); COMPLETE YES; HEMATOCRIT 42.6 % (37-47); IG% 0.3 %; LYMPH % 20.1 %; MEAN CELL VOLUME 87.3 fL (80-100); MEAN CORPUSCULAR HEMOGLOBIN 29.3 pg (25-34); MEAN CORPUSCULAR HGB CONC 33.6 g/dl (32-36); MEAN PLATELET VOLUME 10.3 fL (7.4-10.4); MONO % 7.6 %; NEUT % 69.9 %; PLATELET COUNT 242 K/uL (130-400); RED BLOOD COUNT 4.88 M/uL (4.2-5.4); WHITE BLOOD COUNT 11.95 K/uL (4.8-10.8)
[2017-06-14 05:36] LABS: URINE APPEARANCE CLOUDY (CLEAR); URINE BILIRUBIN NEG (NEG); URINE COLOR YELLOW; URINE EPITHELIAL CELL AUTO >30 /lpf (0-5); URINE NITRITE POS (NEG); URINE PH 5.5 (4.5-7.5); URINE SPECIFIC GRAVITY 1.017 (1.000-1.030); UROBILINOGEN NEG (NEG); ZZUR CULT IF INDIC CLEAN CATCH YES
[2017-06-14 05:45] LABS: MANUAL MICROSCOPIC REQUIRED? NO; REVIEW REQ? NO
[2017-06-14] MEDS ORDERED: CEFTRIAXONE SOD INJ 1 GM ADDVIAL IV STA (05:50)
[2017-06-14 06:10] LABS: ALKALINE PHOSPHATASE 200 U/L (45-117); ALT/SGPT 145 U/L (12-78); BLOOD UREA NITROGEN 34 mg/dl (7-18); CALCIUM 9.4 mg/dl (8.5-10.1); CARBON DIOXIDE 29 mmol/L (21-32); CHLORIDE 102 mmol/L (98-107); GLUCOSE 243 mg/dl (70-99); SODIUM 137 mmol/L (136-145)
[2017-06-14] MEDS ORDERED: CEFD1CAP14 PO (06:44)
[2017-06-14] MEDS ORDERED: HYDR-5688 PO (06:46)
--- NOTE | 2017-06-14 07:00 | EMERGENCY ROOM VISIT NOTE ---
History Report prepared by Nettie: Mal Tanner Under the Supervision of: Dr. Jyotsna Eddy M.D. First contact with patient: 03:11 Chief Complaint: ABDOMINAL PAIN Stated Complaint: PAIN IN LT SIDE History of Present Illness The patient is a 76 year old female who presents to the Emergency Room with complaints of worsening left flank pain beginning two days ago. She rates her pain as a 10/10 in severity. She was recently admitted to the hospital for right flank pain which was thought to be related to spinal stenosis. The patient 's pain is worsened with deep breathing, eating, and movement. She also complains of chills, epigastric abdominal pain, and chest pain. She denies any urinary symptoms, fevers, diaphoresis, increased SOB, or abnormal cough. The patient has a history of large bilateral renal cysts, bilateral kidney lesions, diastolic heart failure, and diabetes. She is on Vancomycin due to having C- diff about four months ago. She has taken Vicodin for her pain but has seen minimal relief. The patient states that she has not defecated today. Source of History: patient Onset: Two days ago Position: other (left flank) Symptom Intensity: 10/10 Timing: worsening Associated Symptoms: + chills, + chest pain, + abdominal pain (epigastric), No fevers, No diaphoresis, No cough (abnormal), No SOB (increased), No urinary symptoms Review of Systems See HPI for pertinent positives & negatives. A total of 10 systems reviewed and were otherwise negative. Past Medical & Surgical Medical Problems: (1) CAD (coronary artery disease) (2) CKD (chronic kidney disease), stage III (3) Clostridium difficile colitis (4) Colon polyps (5) DIAB KHUSHI WO COMPL, TYPE II OR UNSPEC TYPE, NOT UNCNTRLD (6) Diabetic retinopathy (7) Diastolic CHF (8) Diverticulosis of colon (9) History of basal cell carcinoma (10) History of Clostridium difficile infection (11) History of PSVT (paroxysmal supraventricular tachycardia) (12) HTN (hypertension) (13) Hyperlipidemia (14) HYPERLIPIDEMIA NEC/NOS (15) Intractable abdominal pain (16) Kidney cyst, acquired (17) Kidney lesion, [place], left (18) PERCUTANEOUS TRANSLUM CORON ANGIOPLASTY STATUS (19) Renal cyst (20) Stented coronary artery Surgical Problems: (1) Status post cardiac catheterization (2) Status post cholecystectomy (3) Status post coronary artery stent placement (4) Status post hysterectomy (5) Status post right knee replacement Social History Problems: (1) Patient is Orthodox Family History Diabetes mellitus Heart disease Hypertension Social History Smoking Status: Never Smoker Alcohol Use: none Drug Use: none Marital Status: Housing Status: lives alone Occupation Status: retired Current/Historical Medications Scheduled Amlodipine Besylate-Atorvastat (Caduet), 1 TAB PO QAM Aspirin (Aspirin), 325 MG PO QAM Baclofen (Baclofen), 5 MG PO BID [place]berry-[place] Grape-Goldense (Berberine Complex 200-200-50 mg), 1 CAP PO DAILY Cefdinir (Omnicef), 300 MG PO BID Cholestyramine Light (Questran Light), 2 GM PO DAILY Clopidogrel (Plavix), 2 TAB PO QAM Furosemide (Furosemide), 40 MG PO QAM Glimepiride (Glimepiride), 8 MG PO QAM Herbals (Herbals), 1 TAB PO DAILY Hyoscyamine Sulfate (Levsin), 0.125 MG PO BID Metoprolol Succ (Toprol Xl) (Toprol-Xl ), 100 MG PO QAM Nitroglycerin (Nitrostat), 0.4 MG UT PRN Probiotic Product (Probiotic), 2 CAP PO DAILY Saccharomyces Boulardii (Florastor), 250 MG PO BID Sitagliptin Phosphate (Januvia), 100 MG PO QAM Valsartan/Hctz (Diovan Hct 320MG/25MG), 1 TAB PO QAM Vancomycin Hcl (Vancomycin), 125 MG PO Q2D Vancomycin Hcl (Vancomycin), 125 MG PO QID [Epanova], 4 GM PO DAILY Scheduled PRN Acetaminophen Tab (Tylenol), 650 MG PO Q6H PRN for Pain or Fever Hydrocodone/Acetaminophen 5MG/325MG (Raymond 5MG/325MG), 1 TABLET PO Q6H PRN for Moderate Pain Hydrocodone/Acetaminophen 5MG/325MG (Raymond 5MG/325MG), 1-2 TABLETS PO Q6 PRN for Pain Triamcinolone Acet (Triamcinolone Acetonide), 1 DOSE EXT UD PRN for PRN Allergies Coded Allergies: Adhesives (Verified Allergy, Unknown, ALLERGY TO TAPE, 06/14/17) Nadolol (Verified Allergy, Unknown, UNSURE, 06/14/17) Nifedipine (Verified Allergy, Unknown, BLISTERS, TOLERATES PLENDIL, ) Ibuprofen (Verified Adverse Reaction, Mild, UPSET STOMACH, 06/14/17) Diltiazem (Verified Adverse Reaction, Unknown, TOLERATES PLENDIL, MALAISE , 06/14/17) Oxycodone (Verified Adverse Reaction, Unknown, SEVERE NAUSEA, 06/14/17) Physical Exam Vital Signs Date Time Temp Pulse Resp B/P (MAP) Pulse Ox O2 Delivery O2 Flow Rate FiO2 06/14/17 07:20 57 16 166/90 98 06/14/17 05:01 54 18 158/68 96 Room Air 06/14/17 03:00 36.6 63 20 130/78 96 Room Air Physical Exam Vital signs reviewed. General: Obese, well-appearing female, in no significant distress. HEENT: No scleral icterus, PERRLA, neck supple. Atraumatic. Cardiovascular: Regular rate and rhythm, no extra sounds. Pulmonary: Clear to auscultation bilaterally, normal work of breathing. Abdomen: Soft, nontender, nondistended, positive bowel sounds. Musculoskeletal: Atraumatic, no peripheral edema. No CVA tenderness. Neurologic: Patient awake alert and oriented x 3, full strength in all 4 extremities. Cranial nerves 2 through 12 grossly intact. Skin: Warm, dry, no rash Medical Decision & Procedures Laboratory Results 06/14/17 05:13 Red Blood Count 4.88, Mean Corpuscular Volume 87.3, Mean Corpuscular Hemoglobin 29.3, Mean Corpuscular Hemoglobin Concent 33.6, Mean Platelet Volume 10.3, Neutrophils (%) (Auto) 69.9, Lymphocytes (%) (Auto) 20.1, Monocytes (%) (Auto) 7.6, Eosinophils (%) (Auto) 2.0, Basophils (%) (Auto) 0.1, Neutrophils # (Auto) 8.36, Lymphocytes # (Auto) 2.40, Monocytes # (Auto) 0.91, Eosinophils # (Auto) 0.24, Basophils # (Auto) 0.01 06/14/17 05:13 Test 06/14/17 05:13 06/14/17 05:15 White Blood Count 11.95 K/uL (4.8-10.8) Red Blood Count 4.88 M/uL (4.2-5.4) Hemoglobin 14.3 g/dL (12.0-16.0) Hematocrit 42.6 % (37-47) Mean Corpuscular Volume 87.3 fL (80-100) Mean Corpuscular Hemoglobin 29.3 pg (25-34) Mean Corpuscular Hemoglobin Concent 33.6 g/dl (32-36) Platelet Count 242 K/uL (130-400) Mean Platelet Volume 10.3 fL (7.4-10.4) Neutrophils (%) (Auto) 69.9 % Lymphocytes (%) (Auto) 20.1 % Monocytes (%) (Auto) 7.6 % Eosinophils (%) (Auto) 2.0 % Basophils (%) (Auto) 0.1 % Neutrophils # (Auto) 8.36 K/uL (1.4-6.5) Lymphocytes # (Auto) 2.40 K/uL (1.2-3.4) Monocytes # (Auto) 0.91 K/uL (0.11-0.59) Eosinophils # (Auto) 0.24 K/uL (0-0.5) Basophils # (Auto) 0.01 K/uL (0-0.2) RDW Standard Deviation 42.5 fL (36.4-46.3) RDW Coefficient of Variation 13.5 % (11.5-14.5) Immature Granulocyte % (Auto) 0.3 % Immature Granulocyte # (Auto) 0.03 K/uL (0.00-0.02) Anion Gap 6.0 mmol/L (3-11) Est Creatinine Clear Calc Drug Dose 41.7 ml/min Estimated GFR () 50.8 Estimated GFR (Non- 43.9 BUN/Creatinine Ratio 28.0 (10-20) Calcium Level 9.4 mg/dl (8.5-10.1) Total Bilirubin 0.4 mg/dl (0.2-1) Direct Bilirubin mg/dl (0-0.2) Aspartate Amino Transf (AST/SGOT) U/L (15-37) Alanine Aminotransferase (ALT/SGPT) 145 U/L (12-78) Alkaline Phosphatase 200 U/L (45-117) Total Protein 7.4 gm/dl (6.4-8.2) Albumin 3.1 gm/dl (3.4-5.0) Lipase 159 U/L (73-393) Urine Color YELLOW Urine Appearance CLOUDY (CLEAR) Urine pH 5.5 (4.5-7.5) Urine Specific [place] 1.017 (1.000-1.030) Urine Protein TRACE (NEG) Urine Glucose (UA) TRACE (NEG) Urine Ketones NEG (NEG) Urine Occult Blood 2+ (NEG) Urine Nitrite POS (NEG) Urine Bilirubin NEG (NEG) Urine Urobilinogen NEG (NEG) Urine Leukocyte Esterase MODERATE (NEG) Urine WBC (Auto) >30 /hpf (0-5) Urine RBC (Auto) 10-30 /hpf (0-4) Urine Hyaline Casts (Auto) 5-10 /lpf (0-5) Urine Epithelial Cells (Auto) >30 /lpf (0-5) Urine Bacteria (Auto) 4+ (NEG) Laboratory results per my review. Medications Administered Medications (Trade) Dose Ordered Sig/Ayleen Route Start Time Stop Time Status Last Admin Dose Admin Acetaminophen/ Hydrocodone Bitart (Raymond 7.5/325 Tab) 1 tab NOW STAT PO 06/14/17 05:17 06/14/17 05:18 DC 06/14/17 05:34 1 TAB Ceftriaxone Sodium (Rocephin Inj) 1 gm NOW STAT IV 06/14/17 05:50 06/14/17 05:51 DC 06/14/17 06:25 1 GM ED Course 0351: Past medical records reviewed. The patient was evaluated in room B3B. A complete history and physical examination was performed. 0517: Ordered Raymond 7.5/325 Tab PO. 0550: Ordered Rocephin Inj 1 gm IV. 0650: Upon reevaluation, the patient appeared to have improvement of her symptoms. I discussed findings with her. She verbalized agreement of the treatment plan. The patient was discharged home. Medical Decision Differential diagnosis: Etiologies such as renal colic, appendicitis, diverticulitis, mesenteric ischemia, aortic pathology, infections, inflammatory bowel disease, PUD, biliary pathology, UTI, as well as others were entertained. This pt was evaluated and appeared to be in no distress. IV access was obtained and lab work was drawn. Pt was placed on the court monitor. She was given norco for pain. Lab work is significant for a mild leukocytosis and a + UA. Pt was given 1 gm IV ceftriaxone. Findings were explained. Pt was d/ c on keflex 500 mg TID x 7 days. Urine cx is pending. Pt will f/u with PCP this week and return to the ED for worsening of symptoms or any medical concerns. Medication Reconcilliation Current Medication List: was personally reviewed by me Blood Pressure Screening Patient's blood pressure: Elevated blood pressure Blood pressure disposition: Elevated BP felt to be situational Impression Primary Impression: Pyelonephritis Scribe Attestation The scribe's documentation has been prepared under my direction and personally reviewed by me in its entirety. I confirm that the note above accurately reflects all work, treatment, procedures, and medical decision making performed by me. Departure Information Dispostion Home / Self-Care Prescriptions Hydrocodone/Acetaminophen 5MG/325MG (Raymond 5MG/325MG) Tab 1-2 TABLETS PO Q6 Y for Pain, #20 TAB Prov: Jyotsna Eddy M.D. 06/14/17 Cefdinir (Omnicef) 300 Mg Cap 300 MG PO BID, #14 CAP Prov: Jyotsna Eddy M.D. 06/14/17 Referrals Elizabeth Caicedo M.D. (PCP) Forms HOME CARE DOCUMENTATION FORM, IMPORTANT VISIT INFORMATION Patient Instructions My [facility] Additional Instructions Diagnosis: Pyelonephritis Raymond one to 2 tabs every 6 hours as needed for pain. Do not drive or take Tylenol on this medication. Drink plenty of clear fluids. Omnicef 300 mg twice daily for 7 days. Watch for allergic symptoms. Department rash develops, stop this medication immediately. Follow-up with your physician this week for reevaluation. Return to the ER for worsening of symptoms or any medical concerns.
[2017-06-14 07:20] VITALS: BP 166/90; PULSE 57; O2SAT 98
--- NOTE | 2017-06-16 12:19 | Pharmacy Progress Note ---
ED Pharmacist Culture FollowUp Date of Service: Jun 16, 2017. Patient was sent home with a prescription for cefdinir, which should cover the Proteus mirabilis growing from the patient's urine culture.
== END 2017-06-14 07:20 | disposition home or self-care (01) ==
LOC: C.EDB 02:54
DX: N12 Tubulo-interstitial nephritis, not specified as acute or chronic (principal); I50.30 Unspecified diastolic (congestive) heart failure; Z79.2 Long term (current) use of antibiotics; I12.9 Hypertensive chronic kidney disease with stage 1 through stage 4 chronic kidney disease, or unspecified chronic kidney disease; N18.3 Chronic kidney disease, stage 3 (moderate); E11.22 Type 2 diabetes mellitus with diabetic chronic kidney disease; E11.319 Type 2 diabetes mellitus with unspecified diabetic retinopathy without macular edema; Z85.828 Personal history of other malignant neoplasm of skin; E78.5 Hyperlipidemia, unspecified; Z95.5 Presence of coronary angioplasty implant and graft; Z90.49 Acquired absence of other specified parts of digestive tract; Z90.710 Acquired absence of both cervix and uterus; Z96.651 Presence of right artificial knee joint; Z83.3 Family history of diabetes mellitus; Z82.49 Family history of ischemic heart disease and other diseases of the circulatory system; Z79.82 Long term (current) use of aspirin; Z79.899 Other long term (current) drug therapy

== ENCOUNTER 2018-11-13 19:35 | Inpatient (IN) ==
[2018-11-13] MEDS ORDERED: ACETAMINOPHEN 500 MG TAB PO STA (20:50)
[2018-11-13] MEDS ORDERED: METOCLOPRAMIDE HCL INJ 5 MG/ML 2 ML VIAL IV STA (20:50)
[2018-11-13] MEDS ORDERED: DiphenhydrAMINE HCL 50 MG/ML VIAL IV STA (20:51)
[2018-11-13] MEDS ORDERED: SODIUM CHLORIDE 0.9% 500 ML IV SCH (21:00)
[2018-11-13 21:53] LABS: Basophils # (auto) 0.02 K/uL (0-0.2); Basophils % (auto) 0.2 %; Eosinophils # (auto) 0.13 K/uL (0-0.5); Eosinophils % (auto) 1.3 %; Hematocrit (blood only) 40.3 % (37-47); Hemoglobin 13.8 g/dL (12.0-16.0); Immature Granulocytes # (auto) 0.01 K/uL (0.00-0.02); Immature Granulocytes % (auto) 0.1 %; Lymphocytes # (auto) 3.19 K/uL (1.2-3.4); Lymphocytes % (auto) 31.3 %; Mean Corpuscular Hgb Conc 34.2 g/dL (32-36); Mean Platelet Volume 9.9 fL (7.4-10.4); Monocytes # (auto) 0.54 K/uL (0.11-0.59); Monocytes % (auto) 5.3 %; Neutrophils # (auto) 6.31 K/uL (1.4-6.5); Neutrophils % (auto) 61.8 %; Platelet Count 223 K/uL (130-400); RDW Coefficient of Variation 13.5 % (11.5-14.5); RDW Standard Deviation 42.7 fL (36.4-46.3); Red Blood Count 4.63 M/uL (4.2-5.4)
[2018-11-13 22:17] LABS: Alanine Aminotransferase 56 U/L (12-78); Albumin Level 3.1 gm/dl (3.4-5.0); Aspartate Aminotransferase 19 U/L (15-37); BUN Creatinine Ratio 22.3 (10-20); Blood Urea Nitrogen 32 mg/dl (7-18); C Reactive Protein 1.23 mg/dl (0-0.29); Calcium 8.8 mg/dl (8.5-10.1); Carbon Dioxide 24 mmol/L (21-32); Chloride 101 mmol/L (98-107); Creatinine Clr Calc Pharmacy 33.5 ml/min; Est GFR (African American) 40.2; Est GFR (Non-African American) 34.6; Glucose 244 mg/dl (70-99); Potassium 3.8 mmol/L (3.5-5.1); Sodium 133 mmol/L (136-145)
[2018-11-13 22:27] LABS: Albumin Globulin Ratio 0.7 (0.9-2); Alkaline Phosphatase 95 U/L (45-117); Bilirubin,Total 0.4 mg/dl (0.2-1); Globulin 4.2 gm/dl (2.5-4.0); Total Protein 7.3 gm/dl (6.4-8.2); Troponin I < 0.015 ng/ml (0-0.045)
--- NOTE | 2018-11-13 22:30 | CT Scan Report ---
CT head/brain wo con CLINICAL HISTORY: 77 years-old Female with headache pain. Acute headache TECHNIQUE: Multiple axial CT images of the head were obtained without contrast. A dose lowering tech nique was utilized adhering to the principles of ALARA. CT DOSE: 537.48 mGy.cm COMPARISON: None. FINDINGS: No acute intracranial hemorrhage, midline shift, intracranial mass, hydrocephalus, territorial ischem ia or abnormal extra-axial collection. Age-related involutional changes. Scattered hypodensities abou t the white matter are suggestive of chronic microvascular ischemic changes. Cerebral vascular calcif ications are noted. The calvarium is intact. The paranasal sinuses, mastoid air cells, and middle ear cavities are clear . IMPRESSION: No acute intracranial abnormality. The above report was generated using voice recognition software. It may contain grammatical, syntax o r spelling errors. Electronically signed by: Carrington Clifford M.D. 11/13/2018 10:29 PM
[2018-11-13 22:32] LABS: Appearance Urine Clear (Clear); Bacteria Urine Automated Negative (Negative); Bilirubin Urine Negative (Negative); Color Urine Yellow; Epithelial Cell Urine Auto 0-5 /lpf (0-5); Glucose Urine UA 2+ (Negative); Ketones Urine Negative (Negative); Leukocyte Esterase Urine 1+ (Negative); Nitrite Urine Negative (Negative); Protein Urine Negative (Negative); Specific Gravity Urine 1.014 (1.000-1.030); Urobilinogen Urine Negative (Negative)
[2018-11-14] MEDS ORDERED: TRIAMCINOLONE ACET 0.5% CR 15 GM TUBE TOP PRN (00:28)
[2018-11-14] MEDS ORDERED: NITROGLYCERIN SL 0.4 MG/TAB TAB SL PRN ×2 (00:28)
[2018-11-14] MEDS ORDERED: METOCLOPRAMIDE HCL 5 MG TABLET PO PRN (00:28)
[2018-11-14] MEDS ORDERED: ONDANSETRON 8 MG TABLET PO PRN (00:28)
[2018-11-14] MEDS ORDERED: methylPREDNISolone 125 MG/2 ML VIAL IV STA (00:32)
[2018-11-14] MEDS: INSULIN GLARGINE SOLOSTAR 100 UNITS/ML 3 ML PEN SC SCH ×2 (01:41→08:33)
[2018-11-14] MEDS: INSULIN ASPART 100 UNITS/ML 3 ML PEN SC SCH ×6 (01:42→23:59)
[2018-11-14] MEDS ORDERED: PHARMACY GLYCEMIC MGMT CONSULT PRN (01:49)
--- NOTE | 2018-11-14 02:17 | Emergency Department Note ---
Entered by Stuart Tracy acting as a scribe for Zach Osorio MD History of Present Illness General Chief complaint: Head Pain Stated complaint: PAIN ON SIDE OF HEAD/TREMORS Time Seen by Provider: 11/13/18 20:23 Source: patient History of Present Illness Provider complaint: headache Onset (ago): day(s) 4 Location: head Radiation: other (radiating to the back of her head and jaw) Pain Consistency: + constant Maximum Pain Intensity: 8 Quality: + aching Associated symptoms: + other (hip pain, diarrhea, and vision changes) The patient is a 77 y/o white gender w/ PMHx of female who presents to the ED w / CC of head pain beginning 4 days ago. The patient states her symptoms have been constant for the past 4 days. The patient notes that morphine did relieve some of the pain. She describes the pain as being in the top of head, and radiating to the back of her head and jaw. The patient adds she has been taking her prescribed medications. The patient denies any recent falls/ trauma. The patient also complains of hip pain, diarrhea, and vision changes. She describes the vision changes as "seeing fuzzies". The patient also reports she has not been eating and consuming fluids. The patient notes she has a history of shingles. She denies ever being diagnosed with Fibromyalgia. Home Medications Home Medications Medication Instructions Recorded Confirmed Type Clinical Trial Med 4 tab PO DAILY 11/13/18 11/13/18 History acyclovir [Zovirax] 800 mg PO TID 11/13/18 11/13/18 History amlodipine [Norvasc] 10 mg PO DAILY 11/13/18 11/13/18 History aspirin 325 mg PO DAILY 11/13/18 11/13/18 History baclofen 10 mg PO BID 11/13/18 11/13/18 History cholestyramine-aspartame [Questran 4 g PO BID 11/13/18 11/13/18 History Light] clopidogrel [Plavix] 150 mg PO DAILY 11/13/18 11/13/18 History diphenoxylate-atropine [Lomotil] 2 tab PO BID PRN 11/13/18 11/13/18 History furosemide [Lasix] 40 mg PO DAILY 11/13/18 11/13/18 History gabapentin 300 mg PO TID 11/13/18 11/13/18 History glimepiride 8 mg PO QAM 11/13/18 11/13/18 History metoclopramide HCl [Reglan] 10 mg PO Q4 PRN 11/13/18 11/13/18 History metoprolol succinate 100 mg PO DAILY 11/13/18 11/13/18 History nitroglycerin [Nitrostat] 0.4 mg SUBLINGUAL UD PRN 11/13/18 11/13/18 History ondansetron HCl [Zofran] 8 mg PO TID PRN 11/13/18 11/13/18 History pantoprazole [Protonix] 40 mg PO DAILY 11/13/18 11/13/18 History simvastatin [Zocor] 20 mg PO HS 11/13/18 11/13/18 History sitagliptin [Januvia] 100 mg PO DAILY 11/13/18 11/13/18 History triamcinolone acetonide 1 applic TOPICAL BID PRN 11/13/18 11/13/18 History valsartan-hydrochlorothiazide 1 tab PO DAILY 11/13/18 11/13/18 History Allergies Allergy/AdvReac Type Severity Reaction Status Date / Time Sulfa (Sulfonamide Allergy Mild Rash Verified 11/13/18 23:29 Antibiotics) adhesive Allergy Unknown ALLERGY TO Verified 11/13/18 23:29 TAPE nadolol Allergy Unknown UNSURE Verified 11/13/18 23:29 nifedipine Allergy Unknown BLISTERS, Verified 11/13/18 23:29 TOLERATES PLENDIL ciprofloxacin [From Cipro] Allergy Rash Verified 11/13/18 23:29 ibuprofen AdvReac Mild UPSET Verified 11/13/18 23:29 STOMACH diltiazem AdvReac Unknown TOLERATES Verified 11/13/18 23:29 PLENDIL, MALAISE oxycodone AdvReac Unknown SEVERE Verified 11/13/18 23:29 NAUSEA acetaminophen [From Tylenol] AdvReac DOES NOT Verified 11/13/18 23:29 TAKE DUE TO PANCREATITIS atorvastatin [From Lipitor] AdvReac Gastrointestinal Verified 11/13/18 23:29 Upset metformin AdvReac Diarrhea Verified 11/13/18 23:29 prednisone AdvReac BSG GOES Verified 11/13/18 23:29 OKSANA HIGH Past Med/Surg History Medical History Hyperlipemia (Chronic) Hypertension (Chronic) Social History Current Living Situation: Alone Current Living Situation Comment: lives at home alone Other Information That Helps Us Care for You: No Feels Safe at Home: Yes Safety Concerns: Feels Safe At This Time Smoking Status: Never smoker Hx Alcohol Use: No Hx Substance Use: No Beliefs That Will Affect Care: Episcopalian Episcopalian Beliefs: Jehovas witness Preferred Language: Maltese Communication Ability: Effective Full Stack Developer Required: No Review of Systems See HPI for pertinent positives & negatives. and A total of 10 systems reviewed and were otherwise negative Physical Exam Vital Signs Vital Signs - 24 hr 11/13/18 19:38 11/13/18 21:06 11/13/18 22:16 Temperature 36.7 C Temperature Source Oral Sepsis Recent Fever Within 48 Hours No Sepsis Action Taken by Nursing No Action Required Pulse Rate 61 Pulse Rate [Apical] 58 L Pulse Rhythm [Apical] Pulse Strength [Apical] Respiratory Rate 16 16 Respiratory Effort / Characteristics Non-Labored Spontaneous Non-Labored Respiratory Depth Normal Normal Respiratory Pattern Regular Blood Pressure 125/58 L Blood Pressure [Right Arm] 175/77 H Blood Pressure Mean 80 Blood Pressure Mean [Right Arm] 109 Blood Pressure Position Sitting Blood Pressure Position [Right Arm] Pulse Oximetry 96 96 97 Pulse Oximetry [Left Index Finger] Oxygen Delivery Method Room Air Room Air Room Air Oxygen Delivery Method [Left Index Finger] Oxygen Flow Rate 11/13/18 22:36 11/14/18 00:05 11/14/18 00:09 Temperature Temperature Source Sepsis Recent Fever Within 48 Hours Sepsis Action Taken by Nursing Pulse Rate 56 L Pulse Rate [Apical] 59 L 83 Pulse Rhythm [Apical] Regular Pulse Strength [Apical] Normal Respiratory Rate 16 20 20 Respiratory Effort / Characteristics Non-Labored Non-Labored Spontaneous Respiratory Depth Normal Normal Respiratory Pattern Regular Blood Pressure 128/49 L Blood Pressure [Right Arm] 163/77 H 137/57 L Blood Pressure Mean Blood Pressure Mean [Right Arm] 105 83 Blood Pressure Position Blood Pressure Position [Right Arm] Pulse Oximetry 96 96 97 Pulse Oximetry [Left Index Finger] 83 L Oxygen Delivery Method Room Air Room Air Nasal Cannula Oxygen Delivery Method [Left Index Finger] Room Air Oxygen Flow Rate 11/14/18 00:10 Temperature Temperature Source Sepsis Recent Fever Within 48 Hours Sepsis Action Taken by Nursing Pulse Rate Pulse Rate [Apical] 83 Pulse Rhythm [Apical] Regular Pulse Strength [Apical] Normal Respiratory Rate 20 Respiratory Effort / Characteristics Non-Labored Spontaneous Respiratory Depth Normal Respiratory Pattern Regular Blood Pressure Blood Pressure [Right Arm] 137/57 L Blood Pressure Mean Blood Pressure Mean [Right Arm] 83 Blood Pressure Position Blood Pressure Position [Right Arm] Sitting Pulse Oximetry 97 Pulse Oximetry [Left Index Finger] Oxygen Delivery Method Nasal Cannula Oxygen Delivery Method [Left Index Finger] Oxygen Flow Rate 2 GENERAL: Well appearing, well nourished, NAD, non-toxic. HEAD: : Right sided head pain and temporal pain. Has right sided jaw pain. EYE EXAM: Normal conjunctiva. PERRL, no anisocoria and EOM's grossly intact w/o pain. OROPHARYNX: No exudate, posterior pharynx is clear, no tonsillar/uvular deviation or swelling. NECK: Supple, no nuchal rigidity, no adenopathy, non-tender. No signs of meningismus. LUNGS: Clear to auscultation bilaterally. Normal chest wall mechanics. HEART: NSR, no MRG. ABDOMEN: Abdomen soft, non-tender, normo-active bowel sounds, no masses, no rebound or guarding. BACK: No CVA TTP. SKIN: No rashes and no bruising. UPPER EXTREMITIES: Upper extremities are grossly normal. LOWER EXTREMITIES: No pitting edema. No calf pain. NEURO EXAM: Cranial nerves II-XII grossly intact, normal speech, 5/5 strength in bilateral upper and lower extremities, no sensory deficits, moves all 4 extremities on command w/o issue. Course 2024: Past medical records reviewed. The patient was evaluated in room A02, and a complete history and physical examination were performed. 2246: [facility] will evaluate the patient for further management. Administered Medications Insulin Aspart (Novolog Flexpen) 0 units SC ACHS OZ; Protocol Stop: 12/14/18 00:29 Last Admin: 11/14/18 01:42 Dose: 2 units Insulin Glargine (Lantus Solostar Pen) 15 units SC BID OZ; Protocol Stop: 12/14/18 00:29 Last Admin: 11/14/18 01:41 Dose: 15 units Discontinued Medications Acetaminophen (Tylenol) 1,000 mg PO NOW STA Stop: 11/13/18 20:51 Last Admin: 11/13/18 21:50 Dose: 1,000 mg Diphenhydramine HCl (Benadryl) 12.5 mg IV NOW STA Stop: 11/13/18 20:52 Last Admin: 11/13/18 21:54 Dose: 12.5 mg Sodium Chloride (Nss) 500 mls @ 999 mls/hr IV .Q31M OZ Stop: 11/13/18 21:30 Last Infusion: 11/13/18 22:26 Dose: 0 mls/hr Admin: 11/13/18 21:54 Dose: 999 mls/hr Methylprednisolone (Solumedrol) 60 mg IV NOW STA Stop: 11/14/18 00:33 Last Admin: 11/14/18 01:39 Dose: 60 mg Metoclopramide HCl (Reglan) 10 mg IV NOW STA Stop: 11/13/18 20:51 Last Admin: 11/13/18 21:50 Dose: 10 mg Medical Decision Making Medical Records Attestation: I reviewed the patient's medical records. Home Medications Current Medication List: was personally reviewed by me Laboratory Data Attestation: I reviewed the patient's lab results. Result diagrams: 11/13/18 21:32 11/13/18 21:32 Lab Results 11/13/18 11/13/18 11/13/18 Range/Units 21:32 21:32 21:32 WBC 10.20 (4.8-10.8) K/uL RBC 4.63 (4.2-5.4) M/uL Hgb 13.8 (12.0-16.0) g/dL Hct 40.3 (37-47) % MCV 87.0 (80-100) fL MCH 29.8 (25-34) pg MCHC 34.2 (32-36) g/dL RDW Std Deviation 42.7 (36.4-46.3) fL RDW Coeff of Mina 13.5 (11.5-14.5) % Plt Count 223 (130-400) K/uL MPV 9.9 (7.4-10.4) fL Immature Gran % (Auto) 0.1 % Neut % (Auto) 61.8 % Lymph % (Auto) 31.3 % [place] % (Auto) 5.3 % Eos % (Auto) 1.3 % Baso % (Auto) 0.2 % Immature Gran # (Auto) 0.01 (0.00-0.02) K/uL Neut # (Auto) 6.31 (1.4-6.5) K/uL Lymph # (Auto) 3.19 (1.2-3.4) K/uL [place] # (Auto) 0.54 (0.11-0.59) K/uL Eos # (Auto) 0.13 (0-0.5) K/uL Baso # (Auto) 0.02 (0-0.2) K/uL ESR 69 H (0-21) mm/hr Sodium 133 L (136-145) mmol/L Potassium 3.8 (3.5-5.1) mmol/L Chloride 101 (98-107) mmol/L Carbon Dioxide 24 (21-32) mmol/L Anion Gap 8.0 (3-11) BUN 32 H (7-18) mg/dl Creatinine 1.45 H (0.6-1.2) mg/dl Est Cr Clr Drug Dosing 33.5 ml/min Est GFR ( Amer) 40.2 Est GFR (Non-Af Amer) 34.6 BUN/Creatinine Ratio 22.3 H (10-20) Glucose 244 H (70-99) mg/dl POC Glucose (70-99) Calcium 8.8 (8.5-10.1) mg/dl Total Bilirubin 0.4 (0.2-1) mg/dl AST 19 (15-37) U/L ALT 56 (12-78) U/L Alkaline Phosphatase 95 (45-117) U/L Troponin I < 0.015 (0-0.045) ng/ml C-Reactive Protein 1.23 H (0-0.29) mg/dl Total Protein 7.3 (6.4-8.2) gm/dl Albumin 3.1 L (3.4-5.0) gm/dl Globulin 4.2 H (2.5-4.0) gm/dl Albumin/Globulin Ratio 0.7 L (0.9-2) TSH 1.350 (0.300-4.500) uIu/ml Urine Color Urine Appearance (Clear) Urine pH (4.5-7.5) Ur Specific [place] (1.000-1.030) Urine Protein (Negative) Urine Glucose (UA) (Negative) Urine Ketones (Negative) Urine Blood (Negative) Urine Nitrite (Negative) Urine Bilirubin (Negative) Urine Urobilinogen (Negative) Ur Leukocyte Esterase (Negative) Urine WBC (Auto) (0-5) /hpf Urine RBC (Auto) (0-4) /hpf U Hyaline Cast (Auto) (0-5) /lpf U Epithel Cells (Auto) (0-5) /lpf Urine Bacteria (Auto) (Negative) 11/13/18 11/14/18 Range/Units 22:15 00:43 WBC (4.8-10.8) K/uL RBC (4.2-5.4) M/uL Hgb (12.0-16.0) g/dL Hct (37-47) % MCV (80-100) fL MCH (25-34) pg MCHC (32-36) g/dL RDW Std Deviation (36.4-46.3) fL RDW Coeff of Mina (11.5-14.5) % Plt Count (130-400) K/uL MPV (7.4-10.4) fL Immature Gran % (Auto) % Neut % (Auto) % Lymph % (Auto) % [place] % (Auto) % Eos % (Auto) % Baso % (Auto) % Immature Gran # (Auto) (0.00-0.02) K/uL Neut # (Auto) (1.4-6.5) K/uL Lymph # (Auto) (1.2-3.4) K/uL [place] # (Auto) (0.11-0.59) K/uL Eos # (Auto) (0-0.5) K/uL Baso # (Auto) (0-0.2) K/uL ESR (0-21) mm/hr Sodium (136-145) mmol/L Potassium (3.5-5.1) mmol/L Chloride (98-107) mmol/L Carbon Dioxide (21-32) mmol/L Anion Gap (3-11) BUN (7-18) mg/dl Creatinine (0.6-1.2) mg/dl Est Cr Clr Drug Dosing ml/min Est GFR ( Amer) Est GFR (Non-Af Amer) BUN/Creatinine Ratio (10-20) Glucose (70-99) mg/dl POC Glucose 181 H (70-99) Calcium (8.5-10.1) mg/dl Total Bilirubin (0.2-1) mg/dl AST (15-37) U/L ALT (12-78) U/L Alkaline Phosphatase (45-117) U/L Troponin I (0-0.045) ng/ml C-Reactive Protein (0-0.29) mg/dl Total Protein (6.4-8.2) gm/dl Albumin (3.4-5.0) gm/dl Globulin (2.5-4.0) gm/dl Albumin/Globulin Ratio (0.9-2) TSH (0.300-4.500) uIu/ml Urine Color Yellow Urine Appearance Clear (Clear) Urine pH 5.0 (4.5-7.5) Ur Specific [place] 1.014 (1.000-1.030) Urine Protein Negative (Negative) Urine Glucose (UA) 2+ H (Negative) Urine Ketones Negative (Negative) Urine Blood Negative (Negative) Urine Nitrite Negative (Negative) Urine Bilirubin Negative (Negative) Urine Urobilinogen Negative (Negative) Ur Leukocyte Esterase 1+ H (Negative) Urine WBC (Auto) 10-30 H (0-5) /hpf Urine RBC (Auto) 0-4 (0-4) /hpf U Hyaline Cast (Auto) 1-5 (0-5) /lpf U Epithel Cells (Auto) 0-5 (0-5) /lpf Urine Bacteria (Auto) Negative (Negative) Imaging Data Radiologist's Impression: Radiology results as stated below per my review and the radiologist's interpretation: CT head/brain wo con CLINICAL HISTORY: 77 years-old Female with headache pain. Acute headache TECHNIQUE: Multiple axial CT images of the head were obtained without contrast. A dose lowering technique was utilized adhering to the principles of ALARA. CT DOSE: 537.48 mGy.cm COMPARISON: None. FINDINGS: No acute intracranial hemorrhage, midline shift, intracranial mass, hydrocephalus, territorial ischemia or abnormal extra-axial collection. Age- related involutional changes. Scattered hypodensities about the white matter are suggestive of chronic microvascular ischemic changes. Cerebral vascular calcifications are noted. The calvarium is intact. The paranasal sinuses, mastoid air cells, and middle ear cavities are clear. IMPRESSION: No acute intracranial abnormality. The above report was generated using voice recognition software. It may contain grammatical, syntax or spelling errors. Electronically signed by: Carrington Clifford M.D. 11/13/2018 10:29 PM ECG Data Attestation: I personally reviewed and interpreted this ECG as follows: Indication: bradycardia Rate (beats per minute): 56 Findings: + other (normal axis) and + 1st degree AV block; no ST depression, no ST elevation and no acute ischemic change Comparison ECG Date: no prior available Blood Pressure Blood Pressure Findings: Normal blood pressure MDM Narrative The patient is a 77 y/o white gender w/ PMHx of female who presents to the ED w / CC of head pain beginning 4 days ago. Headache: Intracranial hemorrhage, intracranial mass, migraine headache, tension headache , sinusitis, meningitis Patient was seen and evaluated the bedside. Patient was complaining of some mild headache pain. The patient has been seen at [facility]. The patient states that she had a prior temporal artery biopsy but without any clear diagnosis. Patient states that she had some recently elevated sed rates. I did obtain her most recent visit which showed a negative CT of the brain. The patient also did have some elevated sed rate. Patient blood work is unremarkable. CT of the brain is negative. Patient did had elevated ESR and CRP. Given the patient's jaw claudication associated temporal pain hip pain and elevated inflammatory markers there was a concern for possible giant cell arteritis. I given the patient has a significant cardiac history and is on antiplatelet medications and thought she would benefit from further evaluation treatment and medical management. I did speak with the on-call hospitalist who agreed to further evaluate treat the patient. The patient was admitted to the medicine service. Impression & Plan PMR (polymyalgia rheumatica) Discharge Plan Visit Data *Final* Discharge Date/Time: 11/14/18 00:05 Chief Complaint: Head Pain Stated Complaint: PAIN ON SIDE OF HEAD/TREMORS ED Provider: Zach Osorio Discharge Problem: PMR (polymyalgia rheumatica) Patient Disposition: Admitted As Inpatient Discharge Instructions Interventions: ED Discharge Assessment Last Done: 11/14/18 00:05 The scribe's documentation has been prepared under my direction and personally reviewed by me in its entirety. I confirm that the note above accurately reflects all work, treatment, procedures, and medical decision making performed by me.
[2018-11-14 05:48] LABS: Basophils # (auto) 0.01 K/uL (0-0.2); Basophils % (auto) 0.1 %; Eosinophils # (auto) 0.04 K/uL (0-0.5); Eosinophils % (auto) 0.6 %; Hematocrit (blood only) 40.4 % (37-47); Hemoglobin 13.8 g/dL (12.0-16.0); Immature Granulocytes # (auto) 0.02 K/uL (0.00-0.02); Immature Granulocytes % (auto) 0.3 %; Lymphocytes # (auto) 1.52 K/uL (1.2-3.4); Lymphocytes % (auto) 21.6 %; Mean Corpuscular Hgb Conc 34.2 g/dL (32-36); Mean Corpuscular Volume 86.9 fL (80-100); Mean Platelet Volume 9.8 fL (7.4-10.4); Monocytes # (auto) 0.12 K/uL (0.11-0.59); Monocytes % (auto) 1.7 %; Neutrophils # (auto) 5.34 K/uL (1.4-6.5); Neutrophils % (auto) 75.7 %; Platelet Count 203 K/uL (130-400); RDW Coefficient of Variation 13.3 % (11.5-14.5); RDW Standard Deviation 42.4 fL (36.4-46.3); Red Blood Count 4.65 M/uL (4.2-5.4); White Blood Count 7.05 K/uL (4.8-10.8)
[2018-11-14 06:04] LABS: Estimated Average Glucose 183 mg/dl
[2018-11-14 06:35] LABS: BUN Creatinine Ratio 26.8 (10-20); Calcium 8.8 mg/dl (8.5-10.1); Creatinine Clr Calc Pharmacy 49.4 ml/min; Est GFR (African American) 62.9; Est GFR (Non-African American) 54.3; Magnesium 2.5 mg/dl (1.8-2.4); Potassium 3.5 mmol/L (3.5-5.1)
[2018-11-14] MEDS ORDERED: GLUCAGON FOR INJ 1 MG VIAL IM PRN (07:52)
[2018-11-14] MEDS ORDERED: CARBOHYDRATES FOR HYPOGLYCEMIA PO PRN (07:52)
[2018-11-14] MEDS ORDERED: GLUCOSE 10 TABS/TUBE PO PRN (07:52)
[2018-11-14] MEDS ORDERED: DEXTROSE 50% 50 ML SYRINGE IV PRN (07:52)
[2018-11-14] MEDS ORDERED: GLUCOSE 40% GEL 15 GM TUBE PO PRN (07:52)
--- NOTE | 2018-11-14 08:15 | History and Physical Report ---
DATE OF ADMISSION: 11/13/2018 CHIEF COMPLAINT: Fever and headache. HISTORY OF PRESENT ILLNESS: This is a 77-year-old female with past medical history significant for diabetes on pills, hyperlipidemia, CAD, chronic diastolic CHF, hypertension, chronic diarrhea, GERD, morbid obesity, diverticulosis, history of cystic kidney disease, comes with severe headache. The patient had been having headache since last Monday. She visited the ER and they thought it was might be shingles and prescribed valacyclovir, then she saw her family doctor(Nov 12) and General Surgery(Nov 13). There is a plan for a temporal artery biopsy on November 16. As per the surgical notes she had this biopsy done several years ago which was negative. Outpatient labs showed ESR of 72, .Steroids are not started yet because of diabetes. As patient's headache is getting worse she came to the ER. The pain is in the left occipital region radiating to the left synagogue region, severe in nature. No blurred visions. Has some nausea , has left jaw pain and also shoulder pain. She also complains of some chest discomfort. Gets short of breath once in a while. Nauseous. Complains of some mild right lower quadrant abdominal pain, has some diarrhea. Normal bladder movements. Currently, resting comfortable and stable. Lives alone. Daughter checks on her. Ambulates without any help. Appetite is okay. ALLERGIES: CALCIUM CHANNEL BLOCKERS, ACETAMINOPHEN, CIPROFLOXACIN, NADOLOL, IBUPROFEN, LIPITOR, METFORMIN, OXYCONTIN, PERCOCET, PREDNISONE, TAPE, SULFA ANTIBIOTICS. PAST MEDICAL HISTORY: As mentioned above. PAST SURGICAL HISTORY: Ablation of the heart, right knee surgery, heart catheterization, left total knee arthroplasty, multiple cardiac catheterization, , colonoscopy with biopsy, endoscopic ultrasound, ERCP. Knee arthroscopy, right appendectomy, removal of ovaries, cholecystectomy, repair of rectal bladder fistula, total hysterectomy. MEDICATIONS: The patient valacyclovir 10 mg p.o. t.i.d., [id number] mg p.o. daily, cholestyramine 1 scoop 2 times a day, baclofen 10 mg p.o. b.i.d., Lomotil 1 tablet p.o. b.i.d. p.r.n., Toprol-XL 100 mg p.o. daily, valsartan/hydrochlorothiazide 320/25 mg p.o. daily, Zocor 20 mg p.o. daily, triamcinolone cream applied p.r.n., Zofran 8 mg p.o. t.i.d. p.r.n., Reglan 10mg po q. 4 hours p.r.n., Lasix 40 mg p.o. daily, Plavix 150 mg p.o. daily, gabapentin 300 mg p.o. t.i.d., nitroglycerin 0.4 mg sublingual p.r.n., Protonix 40 mg p.o. daily, glimepiride 8 mg p.o. daily, clinical trial medication 4 capsules daily (1 gram capsule, corn oil 1 gram), Januvia 100 mg p.o. daily, aspirin 325 mg p.o. daily. FAMILY HISTORY: Significant for sister has asthma, heart disorder, CHF and bipolar. Motgher had first MS at age 33 and at age 73. Father of cerebral aneurysm at age 57. SOCIAL HISTORY: , lives alone. Daughter checks on her. No smoking history. No alcohol history.. No drug use. REVIEW OF SYMPTOMS: As per HPI. Rest of the symptoms negative. PHYSICAL EXAMINATION: GENERAL: The patient is obese, not in acute distress. VITAL SIGNS: Temperature 37.7, pulse 59, respiratory rate 16, blood pressure 163/77, oxygen 96% room air. HEENT: No pallor, no icterus. Pupils equal, round react to light. Tenderness in the left temporal region on palpation. NECK: No JVD, no neck masses, no carotid bruits. CARDIOVASCULAR: S1, S2 heard, regular rate and rhythm, no murmur, no gallop. RESPIRATORY SYSTEM: Normal AP diameter. Clear to auscultation. No wheezing, no crackles. ABDOMEN: Soft, bowel sounds present. Nontender. No distention. CENTRAL NERVOUS SYSTEM: Cranial nerves II-XII grossly intact. Nonfocal. EXTREMITIES: No edema, no erythema. LABS: WBC 10.2, hemoglobin 13.8, hematocrit 40.3, platelets 223. Sodium 133, potassium 3.8, chloride 101, bicarbonate 24, BUN 32, creatinine 1.45, glucose 244, calcium 8.8, total bilirubin 0.4, AST 19, ALT 56, alkaline phosphatase is 95, troponin I less than 0.015. TSH 1.3. Urinalysis positive for leukocyte esterase. CT of the head shows no acute intracranial pathology is seen. EKG sinus bradycardia, rate of 56. No acute ST changes seen. CT head , no intracranial pathology. ASSESSMENT AND PLAN: This is a 77-year-old female who presents with ongoing severe headache. 1. Ongoing severe headache since last Monday. Mostly in left occipital region radiating to left temporal region.Also has left jaw pain and shoulder pain. ESR was 72 as outpatient and is planned for temporal artery biopsy this coming Monday on November 16. Pain was not getting under control she came to the ER today.Will start Empirically on high dose steroids We will consult rheumatology. Will Consider biopsy in the hospital . Pain control. 2. History of CAD with chronic angina, history of multiple stents and multiple heart catheterization. follows with cardiology. has mild chest discomfort but initial EKG land troponin negative.We will follow serial cardiac enzymes and monitor. Patient on full dose aspirin and Plavix 150mg daily,b west[place] nd stain.Surgery wanted to hold Plavix for couple of days for the biopsy. 4. Proximal SVT status post ablation, on Toprol-XL. We will see the patient 5. Hypertension, on amlodipine, Toprol-XL, valsartan/hctz and diuretics. We will monitor the blood pressure . 6. Hyperlipidemia. On statin 6. Diabetes. On glimepiride and Januvia, we shall hold, place her on Lantus and ISS. As starting on high dose steroids will consult pharmacy to help with insulin regimen. Follow the blood sugars. 7. Chronic diarrhea, on Questran, Lomotil p.r.n. 8. Chronic diastolic congestive heart failure on Lasix. We will monitor for volume overload. 9. Gastroesophageal reflux disease: On PPI. 10" UA positive. Follow cultures 11. Deep venous thrombosis prophylaxis, SCDs for now. 12. Disposition: Admit to Med/Surg tele. Level 1 full code. MTDD
[2018-11-14] MEDS: FUROSEMIDE 40 MG TAB PO SCH (08:35)
[2018-11-14] MEDS: ASPIRIN 325 MG ECTAB PO SCH (08:35)
[2018-11-14] MEDS: BACLOFEN 10 MG TAB PO SCH ×2 (08:36→20:21)
[2018-11-14] MEDS: AMLODIPINE BESYLATE 5 MG TAB PO SCH (08:36)
[2018-11-14] MEDS: GABAPENTIN 300 MG CAP PO SCH ×3 (08:36→20:20)
[2018-11-14] MEDS: predniSONE 20 MG TAB PO SCH (08:37)
[2018-11-14] MEDS: PANTOprazole 40 MG TAB PO SCH (08:37)
[2018-11-14] MEDS: METOPROLOL SUCC 50MG EXT REL TAB PO SCH (08:38)
[2018-11-14] MEDS: ACYCLOVIR 400 MG TAB PO SCH ×3 (08:39→20:30)
[2018-11-14] MEDS: ACETAMINOPHEN 325 MG TAB PO PRN ×2 (08:47→20:18)
[2018-11-14] MEDS: CHOLESTYRAMINE LIGHT 4 GM PKT PO SCH ×2 (08:50→20:29)
--- NOTE | 2018-11-14 08:50 | Surgery Consultation ---
Date of Consultation November 14, 2018 Assessment & Plan (1) Headache: 77 year-old female with increasing headache that began last Monday. Scheduled for outpatient temporal artery biopsy with Dr. Tate at [facility] on 11/16/18 however had increasing pain and vision changes. History of right temporal artery biopsy in 2013 which was negative. Elevated ESR and CRP. Plan: Plan to take patient to operating room for left temporal artery biopsy tomorrow with Dr. Lim. Patient informed of procedure and risks, including bleeding and infection and informed consent obtained. Cardiology preop eval given extensive CAD history Hold plavix and aspirin today NPO after midnight Continue medical management Dr. lim has seen and examined pt, agrees with above. History of Present Illness Reason for Consultation: Headache, Temporal Artery Biopsy Requesting Physician: Hany Macias Attending Physician: Isauro Sood MD History of Present Illness Vandana is a 77 year-old female with history of diabetes, hyperlipidemia, CAD, chronic diastolic CHF, hypertension, chronic diarrhea, GERD, morbid obesity, diverticulosis, and cystic kidney disease who presented to emergency department last evening with worsening headache since last Monday. She was scheduled for outpatient temporal artery biopsy by Dr. Tate on November 16. She has history of headaches but noticed increasing pain and presented to ER. She has noticed some left jaw and shoulder pain along with some vision changes. Describes "fuzziness" as vision changes. She has a history of right temporal artery biopsy many years ago which was negative. She has not been placed on oral steroids as there is concern for increase blood sugars while on steroids. She does take 325 mg of Aspirin and Plavix. She last took her Plavix yesterday. She follows with Dr. Cisneros with cardiology. Has had cardiac stent placed with recurrent thrombosis. Her labs showed no leukocytosis but elevated ESR at 69 and CRP at 1.23. CT scan of the head/brain without contrast showed no acute intracranial abnormality Allergies Allergy/AdvReac Type Severity Reaction Status Date / Time Sulfa (Sulfonamide Allergy Mild Rash Verified 11/13/18 23:29 Antibiotics) adhesive Allergy Unknown ALLERGY TO Verified 11/13/18 23:29 TAPE nadolol Allergy Unknown UNSURE Verified 11/13/18 23:29 nifedipine Allergy Unknown BLISTERS, Verified 11/13/18 23:29 TOLERATES PLENDIL ciprofloxacin [From Cipro] Allergy Rash Verified 11/13/18 23:29 ibuprofen AdvReac Mild UPSET Verified 11/13/18 23:29 STOMACH diltiazem AdvReac Unknown TOLERATES Verified 11/13/18 23:29 PLENDIL, MALAISE oxycodone AdvReac Unknown SEVERE Verified 11/13/18 23:29 NAUSEA acetaminophen [From Tylenol] AdvReac DOES NOT Verified 11/13/18 23:29 TAKE DUE TO PANCREATITIS atorvastatin [From Lipitor] AdvReac Gastrointestinal Verified 11/13/18 23:29 Upset metformin AdvReac Diarrhea Verified 11/13/18 23:29 prednisone AdvReac BSG GOES Verified 11/13/18 23:29 OKSANA HIGH Home Medications Home Medications Medication Instructions Recorded Confirmed Type Clinical Trial Med 4 tab PO DAILY 11/13/18 11/13/18 History acyclovir [Zovirax] 800 mg PO TID 11/13/18 11/13/18 History amlodipine [Norvasc] 10 mg PO DAILY 11/13/18 11/13/18 History aspirin 325 mg PO DAILY 11/13/18 11/13/18 History baclofen 10 mg PO BID 11/13/18 11/13/18 History cholestyramine-aspartame [Questran 4 g PO BID 11/13/18 11/13/18 History Light] clopidogrel [Plavix] 150 mg PO DAILY 11/13/18 11/13/18 History diphenoxylate-atropine [Lomotil] 2 tab PO BID PRN 11/13/18 11/13/18 History furosemide [Lasix] 40 mg PO DAILY 11/13/18 11/13/18 History gabapentin 300 mg PO TID 11/13/18 11/13/18 History glimepiride 8 mg PO QAM 11/13/18 11/13/18 History metoclopramide HCl [Reglan] 10 mg PO Q4 PRN 11/13/18 11/13/18 History metoprolol succinate 100 mg PO DAILY 11/13/18 11/13/18 History nitroglycerin [Nitrostat] 0.4 mg SUBLINGUAL UD PRN 11/13/18 11/13/18 History ondansetron HCl [Zofran] 8 mg PO TID PRN 11/13/18 11/13/18 History pantoprazole [Protonix] 40 mg PO DAILY 11/13/18 11/13/18 History simvastatin [Zocor] 20 mg PO HS 11/13/18 11/13/18 History sitagliptin [Januvia] 100 mg PO DAILY 11/13/18 11/13/18 History triamcinolone acetonide 1 applic TOPICAL BID PRN 11/13/18 11/13/18 History valsartan-hydrochlorothiazide 1 tab PO DAILY 11/13/18 11/13/18 History Patient History Medical History Hyperlipemia (Chronic) Hypertension (Chronic) CAD in [place] artery Chronic diastolic heart failure Diabetes type 2, uncontrolled PSVT (paroxysmal supraventricular tachycardia) Surgical History History of coronary artery stent placement Social History Current Living Situation: Alone Current Living Situation Comment: lives at home alone Other Information That Helps Us Care for You: No Feels Safe at Home: Yes Safety Concerns: Feels Safe At This Time Smoking Status: Never smoker Hx Alcohol Use: No Hx Substance Use: No Beliefs That Will Affect Care: Confucianism Confucianism Beliefs: Jehovas witness Preferred Language: Urdu Communication Ability: Effective Stain Remover Required: No Physical Exam 2 Vital Signs (Past 24 Hours): Last Vital Signs Temp 36.5 C 11/14/18 07:00 Pulse 55 L 11/14/18 07:00 Resp 18 11/14/18 07:00 BP 137/70 11/14/18 07:00 Pulse Ox 97 11/14/18 07:00 Constitutional: WD/WN, vitals as above no acute distress Respiratory: normal respiratory effort; no respiratory distress, no labored breathing and no retractions Cardiovascular: RRR, no murmur, no edema Skin: no rashes, warm and dry Psychiatric: A+Ox3, euthymic affect Results & Data Laboratory Results 11/14/18 11/14/18 11/14/18 Range/Units 05:19 05:19 05:19 WBC 7.05 (4.8-10.8) K/uL RBC 4.65 (4.2-5.4) M/uL Hgb 13.8 (12.0-16.0) g/dL Hct 40.4 (37-47) % MCV 86.9 (80-100) fL MCH 29.7 (25-34) pg MCHC 34.2 (32-36) g/dL RDW Std Deviation 42.4 (36.4-46.3) fL RDW Coeff of Mina 13.3 (11.5-14.5) % Plt Count 203 (130-400) K/uL MPV 9.8 (7.4-10.4) fL Immature Gran % (Auto) 0.3 % Neut % (Auto) 75.7 % Lymph % (Auto) 21.6 % [place] % (Auto) 1.7 % Eos % (Auto) 0.6 % Baso % (Auto) 0.1 % Immature Gran # (Auto) 0.02 (0.00-0.02) K/uL Neut # (Auto) 5.34 (1.4-6.5) K/uL Lymph # (Auto) 1.52 (1.2-3.4) K/uL [place] # (Auto) 0.12 (0.11-0.59) K/uL Eos # (Auto) 0.04 (0-0.5) K/uL Baso # (Auto) 0.01 (0-0.2) K/uL ESR (0-21) mm/hr Sodium 137 (136-145) mmol/L Potassium 3.5 (3.5-5.1) mmol/L Chloride 106 (98-107) mmol/L Carbon Dioxide 25 (21-32) mmol/L Anion Gap 6.0 (3-11) BUN 27 H (7-18) mg/dl Creatinine 1.00 D (0.6-1.2) mg/dl Est Cr Clr Drug Dosing 49.4 ml/min Est GFR ( Amer) 62.9 Est GFR (Non-Af Amer) 54.3 BUN/Creatinine Ratio 26.8 H (10-20) Glucose 112 H (70-99) mg/dl POC Glucose (70-99) Estimat Average Glucose 183 mg/dl Hemoglobin A1c 8.0 H (4.5-5.6) % Calcium 8.8 (8.5-10.1) mg/dl Magnesium 2.5 H (1.8-2.4) mg/dl Total Bilirubin (0.2-1) mg/dl AST (15-37) U/L ALT (12-78) U/L Alkaline Phosphatase (45-117) U/L Troponin I (0-0.045) ng/ml C-Reactive Protein (0-0.29) mg/dl Total Protein (6.4-8.2) gm/dl Albumin (3.4-5.0) gm/dl Globulin (2.5-4.0) gm/dl Albumin/Globulin Ratio (0.9-2) TSH (0.300-4.500) uIu/ml Urine Color Urine Appearance (Clear) Urine pH (4.5-7.5) Ur Specific [place] (1.000-1.030) Urine Protein (Negative) Urine Glucose (UA) (Negative) Urine Ketones (Negative) Urine Blood (Negative) Urine Nitrite (Negative) Urine Bilirubin (Negative) Urine Urobilinogen (Negative) Ur Leukocyte Esterase (Negative) Urine WBC (Auto) (0-5) /hpf Urine RBC (Auto) (0-4) /hpf U Hyaline Cast (Auto) (0-5) /lpf U Epithel Cells (Auto) (0-5) /lpf Urine Bacteria (Auto) (Negative) 11/14/18 11/13/18 11/13/18 Range/Units 00:43 22:15 21:32 WBC (4.8-10.8) K/uL RBC (4.2-5.4) M/uL Hgb (12.0-16.0) g/dL Hct (37-47) % MCV (80-100) fL MCH (25-34) pg MCHC (32-36) g/dL RDW Std Deviation (36.4-46.3) fL RDW Coeff of Mina (11.5-14.5) % Plt Count (130-400) K/uL MPV (7.4-10.4) fL Immature Gran % (Auto) % Neut % (Auto) % Lymph % (Auto) % [place] % (Auto) % Eos % (Auto) % Baso % (Auto) % Immature Gran # (Auto) (0.00-0.02) K/uL Neut # (Auto) (1.4-6.5) K/uL Lymph # (Auto) (1.2-3.4) K/uL [place] # (Auto) (0.11-0.59) K/uL Eos # (Auto) (0-0.5) K/uL Baso # (Auto) (0-0.2) K/uL ESR 69 H (0-21) mm/hr Sodium (136-145) mmol/L Potassium (3.5-5.1) mmol/L Chloride (98-107) mmol/L Carbon Dioxide (21-32) mmol/L Anion Gap (3-11) BUN (7-18) mg/dl Creatinine (0.6-1.2) mg/dl Est Cr Clr Drug Dosing ml/min Est GFR ( Amer) Est GFR (Non-Af Amer) BUN/Creatinine Ratio (10-20) Glucose (70-99) mg/dl POC Glucose 181 H (70-99) Estimat Average Glucose mg/dl Hemoglobin A1c (4.5-5.6) % Calcium (8.5-10.1) mg/dl Magnesium (1.8-2.4) mg/dl Total Bilirubin (0.2-1) mg/dl AST (15-37) U/L ALT (12-78) U/L Alkaline Phosphatase (45-117) U/L Troponin I (0-0.045) ng/ml C-Reactive Protein (0-0.29) mg/dl Total Protein (6.4-8.2) gm/dl Albumin (3.4-5.0) gm/dl Globulin (2.5-4.0) gm/dl Albumin/Globulin Ratio (0.9-2) TSH (0.300-4.500) uIu/ml Urine Color Yellow Urine Appearance Clear (Clear) Urine pH 5.0 (4.5-7.5) Ur Specific [place] 1.014 (1.000-1.030) Urine Protein Negative (Negative) Urine Glucose (UA) 2+ H (Negative) Urine Ketones Negative (Negative) Urine Blood Negative (Negative) Urine Nitrite Negative (Negative) Urine Bilirubin Negative (Negative) Urine Urobilinogen Negative (Negative) Ur Leukocyte Esterase 1+ H (Negative) Urine WBC (Auto) 10-30 H (0-5) /hpf Urine RBC (Auto) 0-4 (0-4) /hpf U Hyaline Cast (Auto) 1-5 (0-5) /lpf U Epithel Cells (Auto) 0-5 (0-5) /lpf Urine Bacteria (Auto) Negative (Negative) 11/13/18 11/13/18 Range/Units 21:32 21:32 WBC 10.20 (4.8-10.8) K/uL RBC 4.63 (4.2-5.4) M/uL Hgb 13.8 (12.0-16.0) g/dL Hct 40.3 (37-47) % MCV 87.0 (80-100) fL MCH 29.8 (25-34) pg MCHC 34.2 (32-36) g/dL RDW Std Deviation 42.7 (36.4-46.3) fL RDW Coeff of Mina 13.5 (11.5-14.5) % Plt Count 223 (130-400) K/uL MPV 9.9 (7.4-10.4) fL Immature Gran % (Auto) 0.1 % Neut % (Auto) 61.8 % Lymph % (Auto) 31.3 % [place] % (Auto) 5.3 % Eos % (Auto) 1.3 % Baso % (Auto) 0.2 % Immature Gran # (Auto) 0.01 (0.00-0.02) K/uL Neut # (Auto) 6.31 (1.4-6.5) K/uL Lymph # (Auto) 3.19 (1.2-3.4) K/uL [place] # (Auto) 0.54 (0.11-0.59) K/uL Eos # (Auto) 0.13 (0-0.5) K/uL Baso # (Auto) 0.02 (0-0.2) K/uL ESR (0-21) mm/hr Sodium 133 L (136-145) mmol/L Potassium 3.8 (3.5-5.1) mmol/L Chloride 101 (98-107) mmol/L Carbon Dioxide 24 (21-32) mmol/L Anion Gap 8.0 (3-11) BUN 32 H (7-18) mg/dl Creatinine 1.45 H (0.6-1.2) mg/dl Est Cr Clr Drug Dosing 33.5 ml/min Est GFR ( Amer) 40.2 Est GFR (Non-Af Amer) 34.6 BUN/Creatinine Ratio 22.3 H (10-20) Glucose 244 H (70-99) mg/dl POC Glucose (70-99) Estimat Average Glucose mg/dl Hemoglobin A1c (4.5-5.6) % Calcium 8.8 (8.5-10.1) mg/dl Magnesium (1.8-2.4) mg/dl Total Bilirubin 0.4 (0.2-1) mg/dl AST 19 (15-37) U/L ALT 56 (12-78) U/L Alkaline Phosphatase 95 (45-117) U/L Troponin I < 0.015 (0-0.045) ng/ml C-Reactive Protein 1.23 H (0-0.29) mg/dl Total Protein 7.3 (6.4-8.2) gm/dl Albumin 3.1 L (3.4-5.0) gm/dl Globulin 4.2 H (2.5-4.0) gm/dl Albumin/Globulin Ratio 0.7 L (0.9-2) TSH 1.350 (0.300-4.500) uIu/ml Urine Color Urine Appearance (Clear) Urine pH (4.5-7.5) Ur Specific [place] (1.000-1.030) Urine Protein (Negative) Urine Glucose (UA) (Negative) Urine Ketones (Negative) Urine Blood (Negative) Urine Nitrite (Negative) Urine Bilirubin (Negative) Urine Urobilinogen (Negative) Ur Leukocyte Esterase (Negative) Urine WBC (Auto) (0-5) /hpf Urine RBC (Auto) (0-4) /hpf U Hyaline Cast (Auto) (0-5) /lpf U Epithel Cells (Auto) (0-5) /lpf Urine Bacteria (Auto) (Negative) Diagnostic Findings CT head/brain wo con CLINICAL HISTORY: 77 years-old Female with headache pain. Acute headache TECHNIQUE: Multiple axial CT images of the head were obtained without contrast. A dose lowering technique was utilized adhering to the principles of ALARA. CT DOSE: 537.48 mGy.cm COMPARISON: None. FINDINGS: No acute intracranial hemorrhage, midline shift, intracranial mass, hydrocephalus, territorial ischemia or abnormal extra-axial collection. Age- related involutional changes. Scattered hypodensities about the white matter are suggestive of chronic microvascular ischemic changes. Cerebral vascular calcifications are noted. The calvarium is intact. The paranasal sinuses, mastoid air cells, and middle ear cavities are clear. IMPRESSION: No acute intracranial abnormality.
[2018-11-14] MEDS ORDERED: CLOPIDOGREL BISULFATE 75 MG TAB PO SCH (09:00)
[2018-11-14] MEDS: hydroCHLOROthiazide 25 MG TAB PO SCH (09:26)
[2018-11-14] MEDS: VALSARTAN 80 MG TAB PO SCH (09:26)
--- NOTE | 2018-11-14 11:37 | Cardiology Consultation ---
Date of Consultation November 14, 2018 Assessment & Plan (1) Preop cardiovascular exam: Patient is considered moderate perioperative cardiovascular risk for temporal artery biopsy. No further cardiac testing or intervention would lower her risk at this time. Due to history of stent thrombosis recommend minimizing duration of withholding clopidogrel. Clinical currently on hold with plans to restart postoperatively. Continue beta-westley uninterrupted perioperatively. Continue aspirin uninterrupted. Continue telemetry monitoring. (2) CAD (coronary artery disease): No medication changes at this time. (3) Diastolic CHF: Patient appears compensated. (4) HTN (hypertension): Borderline control in the setting of acute headache. (5) History of PSVT (paroxysmal supraventricular tachycardia): Short salvos of paroxysmal atrial tachycardia noted on telemetry. Continue beta-westley. Will monitor at this time. Replace electrolytes as needed. History of Present Illness Reason for Consultation: Preoperative cardiovascular risk stratification Requesting Physician: Dr. Matthews Attending Physician: Isauro Sood MD History of Present Illness 77-year-old female who [facility] Complex cardiovascular history noted below. Presented to the emergency department with approximately 1 week of uncontrolled headache. She is scheduled for temporal artery biopsy on Monday in [place]. Patient has been in the ER at [place] on 2 occasions. Due to ongoing discomfort she decided to come to the emergency department at [facility]. There is concern regarding possible temporal arteritis. I have been asked to see the patient for preoperative for stratification. She is feeling well from a cardiovascular perspective. Notes occasional chest discomfort as well as chronic dyspnea on exertion. Her functional capacity is stable. ECG unchanged. Currently resting comfortably with complaints of a right-sided frontal headache. Plavix placed on hold today. Denies orthopnea, PND, lower extremity edema, or weight gain. No recent medication changes from a cardiovascular perspective. No fever, chills, or sick contacts. Symptoms improved with use of morphine and Tylenol. Patient has not been prescribed corticosteroids due to issues with hyperglycemia in the past. Previous temporal artery biopsy negative in 2013. Tentatively scheduled for surgery in the morning 11/15/18. Summary of cardiac history: In October of 2000, the patient received a bare metal stent to the left circumflex. In April of 2002, brachytherapy of in-stent restenosis of left circumflex. September of 2003, non-ST elevation [place] with left circumflex restented. March of 2005 restenting of left circumflex with drug- eluting stent. January of 2007, cardiac cath showing patent left circumflex stent. Late stent thrombosis of the circumflex drug eluting stent 2007. This was treated with balloon angioplasty. Repeat coronary angiography performed May 2012 demonstrated patent stents with otherwise nonobstructive coronary disease. Cardiac catheterization performed in January 2014 and May 2015 demonstrated chronic 50% left circumflex stenosis and significant branch vessel disease which is not amenable to PCI. Dobutamine stress echo negative for inducible ischemia 05/2016. Chronic and stable class II angina. Allergies Allergy/AdvReac Type Severity Reaction Status Date / Time Sulfa (Sulfonamide Allergy Mild Rash Verified 11/13/18 23:29 Antibiotics) adhesive Allergy Unknown ALLERGY TO Verified 11/13/18 23:29 TAPE nadolol Allergy Unknown UNSURE Verified 11/13/18 23:29 nifedipine Allergy Unknown BLISTERS, Verified 11/13/18 23:29 TOLERATES PLENDIL ciprofloxacin [From Cipro] Allergy Rash Verified 11/13/18 23:29 ibuprofen AdvReac Mild UPSET Verified 11/13/18 23:29 STOMACH diltiazem AdvReac Unknown TOLERATES Verified 11/13/18 23:29 PLENDIL, MALAISE oxycodone AdvReac Unknown SEVERE Verified 11/13/18 23:29 NAUSEA acetaminophen [From Tylenol] AdvReac DOES NOT Verified 11/13/18 23:29 TAKE DUE TO PANCREATITIS atorvastatin [From Lipitor] AdvReac Gastrointestinal Verified 11/13/18 23:29 Upset metformin AdvReac Diarrhea Verified 11/13/18 23:29 prednisone AdvReac BSG GOES Verified 11/13/18 23:29 OKSANA HIGH Home Medications Home Medications Medication Instructions Recorded Confirmed Type Clinical Trial Med 4 tab PO DAILY 11/13/18 11/13/18 History acyclovir [Zovirax] 800 mg PO TID 11/13/18 11/13/18 History amlodipine [Norvasc] 10 mg PO DAILY 11/13/18 11/13/18 History aspirin 325 mg PO DAILY 11/13/18 11/13/18 History baclofen 10 mg PO BID 11/13/18 11/13/18 History cholestyramine-aspartame [Questran 4 g PO BID 11/13/18 11/13/18 History Light] clopidogrel [Plavix] 150 mg PO DAILY 11/13/18 11/13/18 History diphenoxylate-atropine [Lomotil] 2 tab PO BID PRN 11/13/18 11/13/18 History furosemide [Lasix] 40 mg PO DAILY 11/13/18 11/13/18 History gabapentin 300 mg PO TID 11/13/18 11/13/18 History glimepiride 8 mg PO QAM 11/13/18 11/13/18 History metoclopramide HCl [Reglan] 10 mg PO Q4 PRN 11/13/18 11/13/18 History metoprolol succinate 100 mg PO DAILY 11/13/18 11/13/18 History nitroglycerin [Nitrostat] 0.4 mg SUBLINGUAL UD PRN 11/13/18 11/13/18 History ondansetron HCl [Zofran] 8 mg PO TID PRN 11/13/18 11/13/18 History pantoprazole [Protonix] 40 mg PO DAILY 11/13/18 11/13/18 History simvastatin [Zocor] 20 mg PO HS 11/13/18 11/13/18 History sitagliptin [Januvia] 100 mg PO DAILY 11/13/18 11/13/18 History triamcinolone acetonide 1 applic TOPICAL BID PRN 11/13/18 11/13/18 History valsartan-hydrochlorothiazide 1 tab PO DAILY 11/13/18 11/13/18 History Patient History Medical History Hyperlipemia (Chronic) Hypertension (Chronic) CAD in [place] artery Chronic diastolic heart failure Diabetes type 2, uncontrolled PSVT (paroxysmal supraventricular tachycardia) Surgical History History of coronary artery stent placement Social History Current Living Situation: Alone Current Living Situation Comment: lives at home alone Other Information That Helps Us Care for You: No Feels Safe at Home: Yes Safety Concerns: Feels Safe At This Time Smoking Status: Never smoker Hx Alcohol Use: No Hx Substance Use: No Beliefs That Will Affect Care: Advent Advent Beliefs: Jehovas witness Preferred Language: [place]iny[place] Communication Ability: Effective Computer Assembler Required: No Review of Systems Pertinent positives noted per HPI, comprehensive 10 system review otherwise negative. Physical Exam 2 Vital Signs (Past 24 Hours): Last Vital Signs Temp 36.5 C 11/14/18 07:00 Pulse 55 L 11/14/18 07:00 Resp 18 11/14/18 07:00 BP 137/70 11/14/18 07:00 Pulse Ox 97 11/14/18 07:00 Physical Exam: General: NAD, AAO x3, well nourished. Obese. HEENT: Normocephalic. Atraumatic. Conjunctiva pink, no scleral icterus. Neck: No carotid bruits, the carotid upstrokes are brisk. No JVD. No HJR Heart: Regular normal S-1 and S-2 no S-3 or S-4 gallop. No murmurs or rub appreciated. PMI is not displaced. No RV heave. Lungs: Clear bilateral without rales , rhonchi, or wheeze. Abdomen: Normal bowel sounds. Soft. Nontender. No masses or organomegaly. No abdominal bruits. Extremities: No clubbing, or cyanosis. Trace bilateral pedal and ankle edema. Pulses: radial=2/4, posterior tibial=2/ 4. Neuro: Cranial nerves grossly intact. No focal motor deficit. _ (1) CAD (coronary artery disease) Coronary Disease-Associated Artery/Lesion type: [place] artery [place] vs. transplanted heart: [place] heart Associated angina: with stable angina Qualified Code(s): I25.118 - Atherosclerotic heart disease of [place] coronary artery with other forms of angina pectoris (2) Diastolic CHF Heart failure chronicity: chronic Qualified Code(s): I50.32 - Chronic diastolic (congestive) heart failure (3) HTN (hypertension) Hypertension type: essential hypertension Qualified Code(s): I10 - Essential (primary) hypertension
--- NOTE | 2018-11-14 12:27 | Rheumatology Consultation ---
Rheumatology Consultation DOS November 14, [address] Macias Attending Physician Dr Sood Reason for Consultation Headache, elevated ESR, ? GCA Assessment & Plan (1) Serologic abnormality: Has long standing elevated ESR dating back to 2004, has been over 60 since 2017. recent admission was 69. I would suggest getting a SPEP, immunofixation as well Present on Admission?: Yes (2) Headache: Been present sicne last Monday. constant in nature. so far IV solumedrol and oral pred at 60mg daily has not changed her symptoms. previous negative right sided temporal artery biopsy for headache and elevated ESR in 2012. My suspicion is that this is not GCA given her over history and exam and so far poor response to steroids. I do agree with going ahead and getting left sided biopsy to be sure. I wonder about right sided occipital neuralgia given the location of her pain and history. would continue with prednisone until biopsy result is known. 1. await temporal artery biopsy 2. continue pred 60mg daily until biopsy result is back - if negative can rapidly taper off 3. will arrange rheumatology outpatient follow up if needed 4. thank you for the consult and involving me in this patient's care Present on Admission?: Yes History of Present Illness Reason for Consultation: Headache, elevated ESR, ? GCA Requesting Physician: Dr Sood Attending Physician: Isauro Sood MD History of Present Illness Vandana is a 77 y/o female with long standing uncontrolled diabetes, CAD with 7 stents, osteoarthritis (s/p bilateral knee replacements), chronically elevated ESR since 2003 who presented to [facility] ED last night with ongonig right sided headache. she has a history of right side headache and underwent right sided temporal artery biopsy in 2013 that was negative. she reports that this headache started last monday and has been constant and pretty severe. the pain is mainly around the right ear. it seems to radiate up from the neck up around the ear to the jaw. she has some scalp tenderness on the right side as well. she actually was seen at the [facility] ED x 2 since this heaache began. the first visit they thought shingles given a rash that was present and started acyclovir. she was then seen by PCP Dr Caicedo who did not want to give steroids given her uncontrolled diabetes and previous issues with BS in the past from steroids. she again was seen at [facility] ED yesterday and referred to Dr Cho who arranged left sided temporal artery biopsy for this monday. she came to the ED here at [facility] last night because the headache was not getting any better. she reports that she sees some funny things in her vision but no blury vision or vision loss. she states some jaw pain but does not sound like jaw claudication or jaw pain with eating. she has reported recent diarrhea, lack of appetite and some chills. no fevers or night sweats. no worsening of baseline arthritis pains. was seen by surgery here today and planned for left sided temporal artery biopsy tomorrow. she was given IV solumedrol 60mg last night and started on 60mg of prednisone and today she does not feel any better. in fact she had some radiation of her pain to the left side of her head. the pain is constant. she states the only thing that has helped so far was morphine given in the ED at [facility] yesterday because it knocked her out. currently she is seen lying in bed on left side because cannot lay on right side of head because of pain. she is concerned about gonig home on steroids and her BS. Allergies Allergy/AdvReac Type Severity Reaction Status Date / Time Sulfa (Sulfonamide Allergy Mild Rash Verified 11/13/18 23:29 Antibiotics) adhesive Allergy Unknown ALLERGY TO Verified 11/13/18 23:29 TAPE nadolol Allergy Unknown UNSURE Verified 11/13/18 23:29 nifedipine Allergy Unknown BLISTERS, Verified 11/13/18 23:29 TOLERATES PLENDIL ciprofloxacin [From Cipro] Allergy Rash Verified 11/13/18 23:29 ibuprofen AdvReac Mild UPSET Verified 11/13/18 23:29 STOMACH diltiazem AdvReac Unknown TOLERATES Verified 11/13/18 23:29 PLENDIL, MALAISE oxycodone AdvReac Unknown SEVERE Verified 11/13/18 23:29 NAUSEA acetaminophen [From Tylenol] AdvReac DOES NOT Verified 11/13/18 23:29 TAKE DUE TO PANCREATITIS atorvastatin [From Lipitor] AdvReac Gastrointestinal Verified 11/13/18 23:29 Upset metformin AdvReac Diarrhea Verified 11/13/18 23:29 prednisone AdvReac BSG GOES Verified 11/13/18 23:29 OKSANA HIGH Home Medications Home Medications Medication Instructions Recorded Confirmed Type Clinical Trial Med 4 tab PO DAILY 11/13/18 11/13/18 History acyclovir [Zovirax] 800 mg PO TID 11/13/18 11/13/18 History amlodipine [Norvasc] 10 mg PO DAILY 11/13/18 11/13/18 History aspirin 325 mg PO DAILY 11/13/18 11/13/18 History baclofen 10 mg PO BID 11/13/18 11/13/18 History cholestyramine-aspartame [Questran 4 g PO BID 11/13/18 11/13/18 History Light] clopidogrel [Plavix] 150 mg PO DAILY 11/13/18 11/13/18 History diphenoxylate-atropine [Lomotil] 2 tab PO BID PRN 11/13/18 11/13/18 History furosemide [Lasix] 40 mg PO DAILY 11/13/18 11/13/18 History gabapentin 300 mg PO TID 11/13/18 11/13/18 History glimepiride 8 mg PO QAM 11/13/18 11/13/18 History metoclopramide HCl [Reglan] 10 mg PO Q4 PRN 11/13/18 11/13/18 History metoprolol succinate 100 mg PO DAILY 11/13/18 11/13/18 History nitroglycerin [Nitrostat] 0.4 mg SUBLINGUAL UD PRN 11/13/18 11/13/18 History ondansetron HCl [Zofran] 8 mg PO TID PRN 11/13/18 11/13/18 History pantoprazole [Protonix] 40 mg PO DAILY 11/13/18 11/13/18 History simvastatin [Zocor] 20 mg PO HS 11/13/18 11/13/18 History sitagliptin [Januvia] 100 mg PO DAILY 11/13/18 11/13/18 History triamcinolone acetonide 1 applic TOPICAL BID PRN 11/13/18 11/13/18 History valsartan-hydrochlorothiazide 1 tab PO DAILY 11/13/18 11/13/18 History Patient History Medical History Chronic knee pain after total replacement of both knee joints (Chronic) Hyperlipemia (Chronic) Hypertension (Chronic) CAD in [place] artery Chronic diastolic heart failure Diabetes type 2, uncontrolled PSVT (paroxysmal supraventricular tachycardia) Surgical History History of coronary artery stent placement Social History Current Living Situation: Alone Current Living Situation Comment: lives at home alone Other Information That Helps Us Care for You: No Feels Safe at Home: Yes Safety Concerns: Feels Safe At This Time Smoking Status: Never smoker Hx Alcohol Use: No Hx Substance Use: No Beliefs That Will Affect Care: Holiness Holiness Beliefs: Jehovas witness Communication Ability: Effective Physical Exam 2 Vital Signs (Past 24 Hours): Last Vital Signs Temp 36.5 C 11/14/18 07:00 Pulse 55 L 11/14/18 07:00 Resp 18 11/14/18 07:00 BP 137/70 11/14/18 07:00 Pulse Ox 97 11/14/18 07:00 Constitutional: well developed and well nourished noted to have some discomfort from headaches ENMT: no rashes noted to scalp or around right ear, good left side temporal pulse. tenderness to right posterior/occipital scalp Respiratory: normal respiratory effort, lungs clear to auscultation normal respiratory effort; no respiratory distress Cardiovascular: RRR, no murmur, no edema Rate/Rhythm: regular rate Heart Sounds: normal S1 and normal S2; no murmur Gastrointestinal (Abdomen): Inspection/Auscultation: normal bowel sounds Percussion/Palpation: abdomen soft; abdomen nontender and no guarding Musculoskeletal: bilateral knee replacements noted some mild cervical rotational rom restriction noted right and left - some pain looking right + spurling testing on right side no synovitis noted Skin: some ecchymosis noted but no rashes Results & Data Laboratory Results reviewed
--- NOTE | 2018-11-14 14:06 | Anesthesiology Progress Note ---
Date of Service November 14, 2018 Anesthesia Post Procedure Vital Signs Vital Signs: Temp Pulse Pulse Pulse Resp BP BP 11/14/18 07:00 36.5 C 55 L 18 137/70 11/14/18 05:19 48 L 20 11/14/18 00:10 83 20 11/14/18 00:09 83 20 11/14/18 00:05 56 L 20 128/49 L 11/13/18 22:36 59 L 16 11/13/18 22:16 58 L 16 11/13/18 21:06 11/13/18 19:38 36.7 C 61 16 125/58 L BP Pulse Ox Pulse Ox 11/14/18 07:00 97 11/14/18 05:19 122/77 99 11/14/18 00:10 137/57 L 97 11/14/18 00:09 137/57 L 97 83 L 11/14/18 00:05 96 11/13/18 22:36 163/77 H 96 11/13/18 22:16 175/77 H 97 11/13/18 21:06 96 11/13/18 19:38 96 Pain Intensity Head: Pain Intensity: 2 Notes Mental Status: alert / awake / arousable Patient Amnestic to Procedure: Yes Nausea / Vomiting: adequately controlled Pain: adequately controlled Airway Patency, RR, SpO2: stable & adequate BP & HR: stable & adequate Hydration State: stable & adequate Anesthetic Complications: no major complications apparent, see Notes below and Pt Satisfied with anesthetic care Notes: The patient is POD #1
--- NOTE | 2018-11-14 14:11 | Pharmacy Report ---
Glycemic Control Consultation - Date of Service November 14, 2018 - Scope Scope: Glycemic Pharmacist consulted by Dr Macias on [11-14-18] for glycemic control and to write orders per [facility] inpatient glycemic control protocol - Objective Weight: 97.931 kg Accuchecks BSG (last 24hrs): 11/13/18 11/14/18 11/14/18 21:32 00:43 05:19 Glucose 244 H 112 H POC Glucose 181 H 11/14/18 11:10 Glucose POC Glucose 297 H Laboratory Data (last 24hrs): 11/13/18 11/14/18 21:32 05:19 Potassium 3.8 3.5 Carbon Dioxide 24 25 Anion Gap 8.0 6.0 Creatinine 1.45 H 1.00 D Est Cr Clr Drug Dosing 33.5 49.4 HbA1c: Hemoglobin A1c 8.0 % (4.5-5.6) H 11/14/18 05:19 - Recent Pertinent Medications Outpatient Anti-diabetic Regimen: * glimepiride 8 mg Qam, Januvia 100 mg Qam * A1c = 8.0 % [11/14/18] Risk Factors for Insulin Resistance: * Steroids: Solumedrol 60 mg iv last evening, prednisone 60 mg daily (first dose today) * Diet: t2dm - Assessment & Plan Assessment & Plan: ASSESSMENT: * Patient is a 77 year old female, type 2 diabetic managed only on oral agents at home. A1C on admission 8%. * Patient received solumedrol last evening, started on prednison 60 mg daily this morning - anticipate steroid induced hyperglycemia, therefore will utilize basal/bolus dosing for insulin * Fasting BSG at 112 mg/dL - started on Lantus 15 units BID last evening * Lunchtime BSG trendnig up to 297 mg/dL - tightened CF/CR to provide additional coverage PLAN FOR INPATIENT GLYCEMIC CONTROL: * Pt is maintained on oral antidiabetic agents as an outpatient * Oral agents are not recommended for inpatient use d/t drug interactions, changing PO intake, and difficulty titrating for acute hyper/hypoglycemia. ADA recommends re-initiating outpatient oral agents 1-2 days prior to discharge if/ when appropriate if they were held on admission. * Will hold oral agents for admission and utilize SQ basal bolus insulin regimen which is the recommended regimen for inpatient glycemic control. * Will initiate weight based insulin dosing for insulin jody patient and titrate based on BSG trends. * Basal insulin * Lantus 15 units this am * Add Lantus scale for this evening For BSG less than 140 - 10 units For BSG 140-200 - 15 units For BSG greater than 200 - 20 units * Bolus insulin - tightened - added overnight check * NovoLog per scale ACHS or Q6hrs while NPO * Goal Range: Low 110 mg/dL - High 140mg/dL * Correction Factor: 15 mg/dL/unit * Nutritional / Prandial insulin per carb ratio of 1 unit per 6 grams CHO consumed * Please note that the plan above was derived based on current level of insulin resistance and hospital stress. These recommendations are appropriate for inpatient admission only. Plan of care upon discharge will need to be reassessed to avoid potential outpatient hypo/hyperglycemia. Thank you.
--- NOTE | 2018-11-14 14:25 | Anesthesiology Consultation ---
Date of Service November 14, 2018 Assessment & Plan (1) Encounter for pre-operative examination: Chart Review Chart Review: Acceptable Risk for Surgery Consults Requested none Patient is already followed by cardiology. History Surgery Operation Date: 11/15/18 11:30 Proposed Procedures p Left Temporal Artery Biopsy - Namita Matthews MD Height/Weight Height: 5 ft Weight: 97.931 kg Allergies Allergy/AdvReac Type Severity Reaction Status Date / Time Sulfa (Sulfonamide Allergy Mild Rash Verified 11/13/18 23:29 Antibiotics) adhesive Allergy Unknown ALLERGY TO Verified 11/13/18 23:29 TAPE nadolol Allergy Unknown UNSURE Verified 11/13/18 23:29 nifedipine Allergy Unknown BLISTERS, Verified 11/13/18 23:29 TOLERATES PLENDIL ciprofloxacin [From Cipro] Allergy Rash Verified 11/13/18 23:29 ibuprofen AdvReac Mild UPSET Verified 11/13/18 23:29 STOMACH diltiazem AdvReac Unknown TOLERATES Verified 11/13/18 23:29 PLENDIL, MALAISE oxycodone AdvReac Unknown SEVERE Verified 11/13/18 23:29 NAUSEA acetaminophen [From Tylenol] AdvReac DOES NOT Verified 11/13/18 23:29 TAKE DUE TO PANCREATITIS atorvastatin [From Lipitor] AdvReac Gastrointestinal Verified 11/13/18 23:29 Upset metformin AdvReac Diarrhea Verified 11/13/18 23:29 prednisone AdvReac BSG GOES Verified 11/13/18 23:29 OKSANA HIGH Medications Home Medications Medication Instructions Recorded Confirmed Last Taken Clinical Trial Med 4 tab PO DAILY 11/13/18 11/13/18 Unknown acyclovir [Zovirax] 800 mg PO TID 11/13/18 11/13/18 11/13/18 10:00 amlodipine [Norvasc] 10 mg PO DAILY 11/13/18 11/13/18 11/13/18 10:00 aspirin 325 mg PO DAILY 11/13/18 11/13/18 11/13/18 10:00 baclofen 10 mg PO BID 11/13/18 11/13/18 11/13/18 10:00 cholestyramine-aspartame [Questran 4 g PO BID 11/13/18 11/13/18 11/12/18 Light] clopidogrel [Plavix] 150 mg PO DAILY 11/13/18 11/13/18 11/13/18 10:00 diphenoxylate-atropine [Lomotil] 2 tab PO BID PRN 11/13/18 11/13/18 Unknown furosemide [Lasix] 40 mg PO DAILY 11/13/18 11/13/18 11/13/18 10:00 gabapentin 300 mg PO TID 11/13/18 11/13/18 11/13/18 10:00 glimepiride 8 mg PO QAM 11/13/18 11/13/18 11/13/18 14:00 metoclopramide HCl [Reglan] 10 mg PO Q4 PRN 11/13/18 11/13/18 Unknown metoprolol succinate 100 mg PO DAILY 11/13/18 11/13/18 11/13/18 10:00 nitroglycerin [Nitrostat] 0.4 mg SUBLINGUAL UD PRN 11/13/18 11/13/18 Unknown ondansetron HCl [Zofran] 8 mg PO TID PRN 11/13/18 11/13/18 Unknown pantoprazole [Protonix] 40 mg PO DAILY 11/13/18 11/13/18 11/13/18 10:00 simvastatin [Zocor] 20 mg PO HS 11/13/18 11/13/18 Unknown sitagliptin [Januvia] 100 mg PO DAILY 11/13/18 11/13/18 11/12/18 triamcinolone acetonide 1 applic TOPICAL BID PRN 11/13/18 11/13/18 Unknown valsartan-hydrochlorothiazide 1 tab PO DAILY 11/13/18 11/13/18 11/13/18 10:00 Active Medications Generic Name Dose Route Start Last Admin Trade Name Freq PRN Reason Stop Dose Admin Acetaminophen 650 mg 11/14/18 00:28 11/14/18 08:47 Tylenol PO 12/14/18 00:27 650 mg Q4H PRN Administration Pain or Fever Acyclovir 800 mg 11/14/18 09:00 11/14/18 08:39 Zovirax PO 11/18/18 08:59 800 mg TID OZ Administration Protocol Amlodipine Besylate 10 mg 11/14/18 09:00 11/14/18 08:36 Norvasc PO 12/14/18 08:59 10 mg DAILY OZ Administration Aspirin 325 mg 11/14/18 09:00 11/14/18 08:35 Ecotrin PO 12/14/18 08:59 325 mg DAILY OZ Administration Baclofen 10 mg 11/14/18 09:00 11/14/18 08:36 Lioresal PO 12/14/18 08:59 10 mg BID OZ Administration Cholestyramine Resin 4 gm 11/14/18 10:00 11/14/18 08:50 Questran PO 12/14/18 09:59 Not Given BID@1000,2200 OZ Furosemide 40 mg 11/14/18 09:00 11/14/18 08:35 Lasix PO 12/14/18 08:59 40 mg DAILY OZ Administration Gabapentin 300 mg 11/14/18 09:00 11/14/18 08:36 Neurontin PO 12/14/18 08:59 300 mg TID OZ Administration Hydrochlorothiazide 25 mg 11/14/18 09:00 11/14/18 09:26 Hctz PO 12/14/18 08:59 25 mg DAILY OZ Administration Insulin Aspart 0 units 11/14/18 00:30 11/14/18 12:33 Novolog Flexpen SC 12/14/18 00:29 19 units ACHS OZ Administration Protocol Metoprolol Succinate 100 mg 11/14/18 09:00 11/14/18 08:38 Toprol Xl PO 12/14/18 08:59 Not Given DAILY OZ Pantoprazole Sodium 40 mg 11/14/18 09:00 11/14/18 08:37 Protonix PO 12/14/18 08:59 40 mg DAILY OZ Administration Prednisone 60 mg 11/14/18 09:00 11/14/18 08:37 Prednisone PO 12/14/18 08:59 60 mg DAILY OZ Administration Valsartan 320 mg 11/14/18 09:00 11/14/18 09:26 Diovan PO 12/14/18 08:59 320 mg DAILY OZ Administration Past Medical History Medical History Chronic knee pain after total replacement of both knee joints (Chronic) Hyperlipemia (Chronic) Hypertension (Chronic) CAD in [place] artery Chronic diastolic heart failure Diabetes type 2, uncontrolled PSVT (paroxysmal supraventricular tachycardia) Past Surgical History Surgical History History of coronary artery stent placement Social History Smoking Status: Never smoker Hx Alcohol Use: No Hx Substance Use: No Physical Exam Vital Signs Last Vital Signs Temp 36.5 C 11/14/18 07:00 Pulse 55 L 11/14/18 07:00 Resp 18 11/14/18 07:00 BP 137/70 11/14/18 07:00 Pulse Ox 97 11/14/18 07:00 Testing Electrocardiogram Date: 11/14/18 Findings: + SB @ (53) and + T wave inversion (consider lateral ischemia) Other Testing 11/13/[address]: NAD Laboratory Results 11/14/18 05:19 11/14/18 05:19 Hemoglobin A1c 8.0 % (4.5-5.6) H 11/14/18 05:19 Urine Color Yellow 11/13/18 22:15 Urine Appearance Clear (Clear) 11/13/18 22:15 Urine pH 5.0 (4.5-7.5) 11/13/18 22:15 Ur Specific [place] 1.014 (1.000-1.030) 11/13/18 22:15 Urine Protein Negative (Negative) 11/13/18 22:15 Urine Glucose (UA) 2+ (Negative) H 11/13/18 22:15 Urine Ketones Negative (Negative) 11/13/18 22:15 Urine Nitrite Negative (Negative) 11/13/18 22:15 Ur Leukocyte Esterase 1+ (Negative) H 11/13/18 22:15 Urine WBC (Auto) 10-30 /hpf (0-5) H 11/13/18 22:15 Urine RBC (Auto) 0-4 /hpf (0-4) 11/13/18 22:15 U Hyaline Cast (Auto) 1-5 /lpf (0-5) 11/13/18 22:15 U Epithel Cells (Auto) 0-5 /lpf (0-5) 11/13/18 22:15 Urine Bacteria (Auto) Negative (Negative) 11/13/18 22:15 11/14/18 11:10 POC Glucose 297 H
[2018-11-14] MEDS: SIMVASTATIN 20 MG TAB PO SCH (20:20)
--- NOTE | 2018-11-14 20:24 | Hospitalist Progress Note ---
Date of Service November 14, 2018 Assessment & Plan (1) Headache: ESR elevated. Possible temporal arterities. Started on prednisone. Rheumatology consulted. General Surgery consulted for temporal artery biopsy. (2) Diabetes mellitus type 2, controlled: DM type 2, usually fairly well-controlled on glimepiride. Hgb A1C = 8.0. Blood sugars elevated due to steroid therapy. Pharmacy consulted for glycemic management. Lantus / NovoLog per protocol. (3) CAD (coronary artery disease): No chest pain. Aspirin and clopidogrel held for temporal artery biopsy. Continue metoprolol. (4) HTN (hypertension): Continue metoprolol. (5) Diastolic CHF: Compensated. (6) CKD (chronic kidney disease), stage III: Creatinine 1.0. Follow. (7) Patient is Yazidism: No blood products. (8) DVT (deep venous thrombosis): SCD's. Ambulate. (9) Discharge planning issues: Anticipated discharge to home. Primary care follow-up with Dr. Elizabeth Caicedo. Subjective Recheck for headache and other problems. Pt seen in her room around 1920. Admitted last night with headache concerning for possible temporal arteritis. Has ongoing headache. Complains of blurred vision, but able to read with her glasses on. Complains of neck cracking. Complains of abdominal pain; no nausea, vomiting, diarrhea. Blood sugars elevated on prednisone. Physical Exam 2 Vital Signs (Past 24 Hours): Last Vital Signs Temp 36.4 C L 11/14/18 19:35 Pulse 69 11/14/18 19:35 Resp 18 11/14/18 14:56 BP 143/75 H 11/14/18 19:35 Pulse Ox 98 11/14/18 19:35 Constitutional: no acute distress Respiratory: normal respiratory effort, lungs clear to auscultation Cardiovascular: Rate/Rhythm: regular rate and regular rhythm Heart Sounds: no gallop Extremities: no edema Gastrointestinal (Abdomen): Inspection/Auscultation: normal bowel sounds Percussion/Palpation: abdomen soft; abdomen nontender Musculoskeletal: Head/Neck/Chest: + head abnormal to inspection (? tenderness over temporal arteries) Skin: no rashes, warm and dry Psychiatric: Orientation: alert and oriented x 3 Affect: + depressed affect and + anxious affect Thought Process: + flight of ideas Results & Data Laboratory Results FBS 297 _ (1) CAD (coronary artery disease) Coronary Disease-Associated Artery/Lesion type: [place] artery [place] vs. transplanted heart: [place] heart Associated angina: with stable angina Qualified Code(s): I25.118 - Atherosclerotic heart disease of [place] coronary artery with other forms of angina pectoris (2) HTN (hypertension) Hypertension type: essential hypertension Qualified Code(s): I10 - Essential (primary) hypertension (3) Diastolic CHF Heart failure chronicity: chronic Qualified Code(s): I50.32 - Chronic diastolic (congestive) heart failure
[2018-11-14] MEDS ORDERED: INSULIN GLARGINE SOLOSTAR 100 UNITS/ML 3 ML PEN SC SCH (21:00)
[2018-11-14] MEDS: TRAMADOL HCL 50 MG TABLET PO PRN (22:45)
[2018-11-15] MEDS: ACETAMINOPHEN 325 MG TAB PO PRN (00:30)
[2018-11-15] MEDS ORDERED: MoRPHine SULFATE 4 MG/ML 1 ML CARP\\VIAL IV STA (01:10)
[2018-11-15] MEDS: INSULIN ASPART 100 UNITS/ML 3 ML PEN SC SCH ×5 (04:28→20:48)
[2018-11-15 07:34] LABS: Calcium 8.6 mg/dl (8.5-10.1); Creatinine Clr Calc Pharmacy 41.4 ml/min; Potassium 3.8 mmol/L (3.5-5.1)
[2018-11-15] MEDS ORDERED: HYDROmorphone INJ 0.5 MG/0.5 ML SYR IV ONE (10:05)
--- NOTE | 2018-11-15 11:25 | Pharmacy Report ---
Pharmacy Glycemic Short Note 2 - Date of Service November 15, 2018 - Glycemic Short BSG Results (Last 24 hours): 11/14/18 11/14/18 11/14/18 16:41 20:10 23:58 Glucose POC Glucose 337 H 327 H 112 H 11/15/18 11/15/18 11/15/18 04:21 04:44 05:53 Glucose POC Glucose 66 L* 133 H 97 11/15/18 11/15/18 06:35 07:43 Glucose 100 H POC Glucose 95 Assessment & Plan: ASSESSMENT: 11-15: * Patient required 115 units of insulin yesterday, of which 35 units were basal insulin - increased insulin requirements likely related to steroids, currently on prednisone 60 daily (unsure if dose given this am - checking with nurse) * BSGs trended up last evening up to 327 mg/dL ; CF/CR further tightened * 0400 BSG check this morning low at 66 mg/dL - treated with dextrose per hypoglycemia protocol, 0600 check 97 mg/dL * Patient planned to have temporal artery biopsy today around lunchtime, is currently NPO - will hold am Lantus, likely effects of evening Lantus still on board for this am * Plan to add a scale for Lantus post procedure - as anticipate diet to be resumed at that time 11-14: * Patient is a 77 year old female, type 2 diabetic managed only on oral agents at home. A1C on admission 8%. * Patient received solumedrol last evening, started on prednison 60 mg daily this morning - anticipate steroid induced hyperglycemia, therefore will utilize basal/bolus dosing for insulin * Fasting BSG at 112 mg/dL - started on Lantus 15 units BID last evening * Lunchtime BSG trendnig up to 297 mg/dL - tightened CF/CR to provide additional coverage PLAN FOR INPATIENT GLYCEMIC CONTROL: * Pt is maintained on oral antidiabetic agents as an outpatient * Oral agents are not recommended for inpatient use d/t drug interactions, changing PO intake, and difficulty titrating for acute hyper/hypoglycemia. ADA recommends re-initiating outpatient oral agents 1-2 days prior to discharge if/ when appropriate if they were held on admission. * Will hold oral agents for admission and utilize SQ basal bolus insulin regimen which is the recommended regimen for inpatient glycemic control. * Will initiate weight based insulin dosing for insulin jody patient and titrate based on BSG trends. * Basal insulin * Lantus hold this am for NPO - procedure * Add Lantus scale for this evening For BSG less than 120 - hold lantus For BSG 120-180 - lantus 10 For BSG greater than 180 - lantus 15 * Bolus insulin - * NovoLog per scale ACHS or Q6hrs while NPO * Goal Range: Low 110 mg/dL - High 140mg/dL * Correction Factor: 12 mg/dL/unit * Nutritional / Prandial insulin per carb ratio of 1 unit per 4 grams CHO consumed * Please note that the plan above was derived based on current level of insulin resistance and hospital stress. These recommendations are appropriate for inpatient admission only. Plan of care upon discharge will need to be reassessed to avoid potential outpatient hypo/hyperglycemia. Thank you.
[2018-11-15] MEDS ORDERED: ONDANSETRON INJ 2 MG/ML 2 ML VIAL IV PRN (12:01)
[2018-11-15] MEDS ORDERED: ePHEDrine sulfate 50 MG/ML AMP IV PRN (12:01)
[2018-11-15] MEDS ORDERED: ATROPINE SULFATE 0.1 MG/ML 10ML SYR IV PRN (12:01)
[2018-11-15] MEDS ORDERED: fentaNYL citrate 100 MCG/2 ML VIAL IV PRN (12:01)
[2018-11-15] MEDS ORDERED: fentaNYL citrate 100 MCG/2 ML VIAL ONE (12:06)
[2018-11-15] MEDS ORDERED: PROPOFOL IV EMULSION 10 MG/ML 20 ML VIAL IV ONE (12:29)
[2018-11-15] MEDS ORDERED: LIDOCAINE HCL 2% 2 ML VIAL/AMP(20MG/ML) INFIL ONE (12:29)
[2018-11-15] MEDS ORDERED: MIDAZOLAM HCL 1 MG/ML 2ML VIAL ONE (12:30)
[2018-11-15] MEDS ORDERED: BUPIVACAINE/EPINEPHRINE 0.5% MPF 1:200,000 30 ML VIAL ONE (12:36)
[2018-11-15] MEDS ORDERED: LIDOCAINE HCL 1% 20 ML VIAL ONE (12:37)
[2018-11-15] MEDS ORDERED: BACITRACIN OINT 15 GM TUBE ONE (12:37)
--- NOTE | 2018-11-15 12:46 | History & Physical Bridge Note ---
Date of Service November 15, 2018 History & Physical Bridge Note I have examined the patient, reviewed the History & Physical and in the interval since the performance of the History & Physical I have noted the following changes of clinical significance: no changes noted
[2018-11-15] MEDS ORDERED: KEFZOL SPECIAL PROCEDURE STOCK 1 GM ADDVIAL IV ONE (13:24)
--- NOTE | 2018-11-15 13:42 | Post Operative Brief Note ---
Immediate Post Op Note v1 Date of Surgery November 15, 2018 Pre & Post Diagnosis Operation Date: 11/15/18 11:30 Pre-Op Diagnosis: left temporal headache Post-Op Diagnosis: left temporal headache Procedure Operation Date: 11/15/18 11:30 Actual Procedures p Left Temporal Artery Biopsy(Left) - Namita Matthews MD Surgeon Namita Matthews MD Director Of Accounts Payable surgical brace maker Estimated Blood Loss 3 Findings Consistent with Post-Op Diagnosis patent left temporal artery Fluids 100ml Specimens left temporal artery Complications none Disposition Accompanied Patient To Recovery: Yes Disposition: Recovery Room Overlapping Procedure I was immediately available: during the entire case.
--- NOTE | 2018-11-15 14:21 | Anesthesiology Progress Note ---
Date of Service November 15, 2018 Anesthesia Post Procedure Vital Signs Vital Signs: Temp Pulse Pulse Pulse Resp BP BP 11/15/18 14:10 36.4 C L 55 L 12 140/59 L 11/15/18 14:00 56 L 10 L 153/55 H 11/15/18 13:51 36.5 C 61 21 121/63 11/15/18 11:11 36.7 C 59 L 18 124/62 11/15/18 07:56 36.8 C 48 L 18 137/66 11/15/18 03:17 36.4 C L 57 L 18 150/75 H 11/14/18 23:06 62 11/14/18 22:52 36.5 C 64 136/57 L 11/14/18 19:35 36.4 C L 69 143/75 H 11/14/18 16:00 69 11/14/18 14:56 36.3 C L 68 18 149/79 H Pulse Ox 11/15/18 14:10 93 11/15/18 14:00 92 11/15/18 13:51 94 11/15/18 11:11 94 11/15/18 07:56 95 11/15/18 03:17 97 11/14/18 23:06 11/14/18 22:52 94 11/14/18 19:35 98 11/14/18 16:00 11/14/18 14:56 98 Pain Intensity Head: Pain Intensity: 10 Notes Mental Status: alert / awake / arousable and participated in evaluation Patient Amnestic to Procedure: Yes Nausea / Vomiting: adequately controlled Pain: adequately controlled Airway Patency, RR, SpO2: stable & adequate BP & HR: stable & adequate Hydration State: stable & adequate Anesthetic Complications: no major complications apparent and Pt Satisfied with anesthetic care
[2018-11-15] MEDS: METOPROLOL SUCC 50MG EXT REL TAB PO SCH (14:36)
[2018-11-15] MEDS: CHOLESTYRAMINE LIGHT 4 GM PKT PO SCH ×3 (14:37→21:31)
[2018-11-15] MEDS: GABAPENTIN 300 MG CAP PO SCH ×3 (14:39→20:04)
[2018-11-15] MEDS: predniSONE 20 MG TAB PO SCH (14:40)
[2018-11-15] MEDS: PANTOprazole 40 MG TAB PO SCH (14:40)
[2018-11-15] MEDS: VALSARTAN 80 MG TAB PO SCH (14:41)
[2018-11-15] MEDS: BACLOFEN 10 MG TAB PO SCH ×2 (14:42→20:04)
[2018-11-15] MEDS: AMLODIPINE BESYLATE 5 MG TAB PO SCH (14:42)
[2018-11-15] MEDS: hydroCHLOROthiazide 25 MG TAB PO SCH (14:43)
[2018-11-15] MEDS: FUROSEMIDE 40 MG TAB PO SCH (14:43)
[2018-11-15] MEDS: ACYCLOVIR 400 MG TAB PO SCH (15:18)
--- NOTE | 2018-11-15 15:22 | Cardiology Progress Note ---
Date of Service November 15, 2018 Assessment & Plan (1) Preop cardiovascular exam: Patient is considered moderate perioperative cardiovascular risk for temporal artery biopsy. No further cardiac testing or intervention would lower her risk at this time. Due to history of stent thrombosis recommend minimizing duration of withholding clopidogrel. Clinical currently on hold with plans to restart postoperatively. Continue beta-westley uninterrupted perioperatively. Continue aspirin uninterrupted. Continue telemetry monitoring. (2) CAD (coronary artery disease): No medication changes at this time. (3) Diastolic CHF: Patient appears compensated. (4) HTN (hypertension): Borderline control in the setting of acute headache. (5) History of PSVT (paroxysmal supraventricular tachycardia): No recurrence overnight. Continue beta-westley. Continue telemetry. Subjective Patient seen and examined at the bedside. No chest discomfort or shortness of breath. Headache persists. No recurrent SVT on telemetry. Plavix on hold. Offers no new complaints/concerns. Daughter is present at bedside. Review of Systems All systems reviewed & are unremarkable except as noted in HPI & below Physical Exam 2 Vital Signs (Past 24 Hours): Last Vital Signs Temp 36.4 C L 11/15/18 14:46 Pulse 54 L 11/15/18 14:46 Resp 16 11/15/18 14:46 BP 123/70 11/15/18 14:46 Pulse Ox 94 11/15/18 14:46 Physical Exam: General: NAD, AAO x3, well nourished. Obese. HEENT: Normocephalic. Atraumatic. Conjunctiva pink, no scleral icterus. Neck: No carotid bruits, the carotid upstrokes are brisk. No JVD. No HJR Heart: Regular normal S-1 and S-2 no S-3 or S-4 gallop. No murmurs or rub appreciated. PMI is not displaced. No RV heave. Lungs: Clear bilateral without rales , rhonchi, or wheeze. Abdomen: Normal bowel sounds. Soft. Nontender. No masses or organomegaly. No abdominal bruits. Extremities: No clubbing, or cyanosis. Trace bilateral pedal and ankle edema. Pulses: radial=2/4, posterior tibial=2/ 4. Neuro: Cranial nerves grossly intact. No focal motor deficit. _ (1) CAD (coronary artery disease) Coronary Disease-Associated Artery/Lesion type: [place] artery [place] vs. transplanted heart: [place] heart Associated angina: with stable angina Qualified Code(s): I25.118 - Atherosclerotic heart disease of [place] coronary artery with other forms of angina pectoris (2) Diastolic CHF Heart failure chronicity: chronic Qualified Code(s): I50.32 - Chronic diastolic (congestive) heart failure (3) HTN (hypertension) Hypertension type: essential hypertension Qualified Code(s): I10 - Essential (primary) hypertension
[2018-11-15] MEDS: TRAMADOL HCL 50 MG TABLET PO PRN ×2 (16:26→23:02)
[2018-11-15] MEDS ORDERED: INSULIN ASPART 100 UNITS/ML 3 ML PEN SC SCH (18:00)
--- NOTE | 2018-11-15 18:40 | Operative Report ---
DATE OF OPERATION: 11/15/2018 PREOPERATIVE DIAGNOSIS: Left temporal headache. POSTOPERATIVE DIAGNOSIS: Left temporal headache. PROCEDURE: Biopsy, left temporal artery. SURGEON: Namita Matthews MD ANESTHESIA: Local with sedation. ESTIMATED BLOOD LOSS: About 3 mL. FINDINGS: Tenting, left temporal artery. COMPLICATIONS: None. INDICATIONS FOR THE PROCEDURE: This is a 77-year-old female who presented with left temporal headache. Patient referred for biopsy, left temporal artery. I did talk to patient about the benefits, the risks, and alternate procedure. I indicated the risks may include but not limited to bleeding, infection, worsen lesion. Patient understood. She signed informed consent. I answered all questions. DETAILS OF PROCEDURE: We brought in patient to the OR, put the patient in the supine position. Patient received SCD on bilateral legs to prevent DVT. Also, patient received 2 g Ancef IV for prophylactic antibiotic. Patient received conscious sedation by the anesthesiology. The left side temporal area was prepped and draped in routine sterile fashion. After timeout, I used Doppler to locate the left temporal artery. I then injected local anesthesia by using 1% lidocaine mixed with 0.5% Marcaine. I then made about a 1.5 cm incision and opened fascia. The left temporal artery was identified. I then used 3-0 Vicryl to tie 2 sides of the left temporal artery and removed about 1 cm long left temporal artery, rechecked, no active bleeding. Hemostasis was obtained. I then a 3-0 Vicryl to close subcutaneous layer interruptedly and closed skin by using 4-0 Vicryl continuous running. We then put the dressing on. The patient tolerated the procedure well. All instrument, needle, and sponge counts correct x2 at the end of case. Patient transferred to recovery room in stable condition. Specimen sent to pathology. After procedure, I did talk to patient and family member about OR finding and procedure we did, they understood. I attest to the content of the Intraoperative Record and any orders documented therein. Any exception s are noted below.
--- NOTE | 2018-11-15 19:07 | Hospitalist Progress Note ---
Date of Service November 15, 2018 Assessment & Plan (1) Headache: ESR elevated. Possible temporal arterities. Started on prednisone. Rheumatology consulted. General Surgery consulted for temporal artery biopsy- results pending. (2) Diabetes mellitus type 2, controlled: DM type 2, usually fairly well-controlled on glimepiride. Hgb A1C = 8.0. Blood sugars elevated due to steroid therapy. Pharmacy consulted for glycemic management. Receiving Lantus / NovoLog per protocol. FBS 95. (3) CAD (coronary artery disease): No chest pain. Aspirin and clopidogrel held for temporal artery biopsy. Continue metoprolol. (4) HTN (hypertension): Continue metoprolol. (5) Diastolic CHF: Compensated. (6) CKD (chronic kidney disease), stage III: Creatinine 1.19. Follow. (7) Patient is Latter day: No blood products. (8) DVT (deep venous thrombosis): SCD's. Ambulate. (9) Discharge planning issues: Anticipated discharge to home. Primary care follow-up with Dr. Elizabeth Caicedo. Subjective Recheck for headache and other problems. Pt seen in her room around 1850. Left temporal artery biopsy performed by Dr. Matthews. Having some postop discomfort. Persistent headache, concerned about etiology. No CP, cough, SOB. Has some abdominal discomfort, no nausea or vomiting. Physical Exam 2 Vital Signs (Past 24 Hours): Last Vital Signs Temp 36.4 C L 11/15/18 14:46 Pulse 63 11/15/18 16:30 Resp 16 11/15/18 14:46 BP 123/70 11/15/18 14:46 Pulse Ox 94 11/15/18 14:46 Constitutional: no acute distress Respiratory: normal respiratory effort, lungs clear to auscultation Cardiovascular: Rate/Rhythm: regular rate and regular rhythm Heart Sounds: no gallop Extremities: no edema Gastrointestinal (Abdomen): Inspection/Auscultation: normal bowel sounds Percussion/Palpation: abdomen soft; abdomen nontender Musculoskeletal: Head/Neck/Chest: + head abnormal to inspection (left baptism bandaged) Skin: no rashes, warm and dry Psychiatric: Orientation: alert and oriented x 3 Affect: + depressed affect and + anxious affect Thought Process: + flight of ideas _ (1) CAD (coronary artery disease) Coronary Disease-Associated Artery/Lesion type: [place] artery [place] vs. transplanted heart: [place] heart Associated angina: with stable angina Qualified Code(s): I25.118 - Atherosclerotic heart disease of [place] coronary artery with other forms of angina pectoris (2) HTN (hypertension) Hypertension type: essential hypertension Qualified Code(s): I10 - Essential (primary) hypertension (3) Diastolic CHF Heart failure chronicity: chronic Qualified Code(s): I50.32 - Chronic diastolic (congestive) heart failure
[2018-11-15] MEDS ORDERED: CLOPIDOGREL BISULFATE 75 MG TAB PO ONE (19:15)
[2018-11-15] MEDS: HYDROmorphone INJ 0.5 MG/0.5 ML SYR IV PRN (20:00)
[2018-11-15] MEDS: SIMVASTATIN 20 MG TAB PO SCH (20:04)
[2018-11-15] MEDS ORDERED: INSULIN GLARGINE SOLOSTAR 100 UNITS/ML 3 ML PEN SC SCH (21:00)
[2018-11-15] MEDS: ONDANSETRON INJ 2 MG/ML 2 ML VIAL IV PRN (21:22)
[2018-11-16] MEDS ORDERED: INSULIN ASPART 100 UNITS/ML 3 ML PEN SC SCH
[2018-11-16] MEDS: DIPHENOXYLATE/ATROPINE 2.5/0.025MG TAB PO PRN (00:42)
[2018-11-16] MEDS: HYDROmorphone INJ 0.5 MG/0.5 ML SYR IV PRN ×2 (04:22→09:13)
[2018-11-16] MEDS ORDERED: CEFAZOLIN 2000MG 2,000 MG/15 ML SYR IV SCH (06:00)
[2018-11-16] MEDS: VALSARTAN 80 MG TAB PO SCH (08:00)
[2018-11-16] MEDS: CLOPIDOGREL BISULFATE 75 MG TAB PO SCH (08:00)
[2018-11-16] MEDS: GABAPENTIN 300 MG CAP PO SCH ×3 (08:01→21:23)
[2018-11-16] MEDS: METOPROLOL SUCC 50MG EXT REL TAB PO SCH (08:01)
[2018-11-16] MEDS: predniSONE 20 MG TAB PO SCH (08:01)
[2018-11-16] MEDS: AMLODIPINE BESYLATE 5 MG TAB PO SCH (08:01)
[2018-11-16] MEDS: PANTOprazole 40 MG TAB PO SCH (08:01)
[2018-11-16] MEDS: FUROSEMIDE 40 MG TAB PO SCH (08:02)
[2018-11-16] MEDS: hydroCHLOROthiazide 25 MG TAB PO SCH (08:02)
[2018-11-16] MEDS: BACLOFEN 10 MG TAB PO SCH ×2 (08:02→21:23)
[2018-11-16] MEDS: INSULIN ASPART 100 UNITS/ML 3 ML PEN SC SCH ×4 (08:03→21:31)
--- NOTE | 2018-11-16 08:14 | Anesthesiology Progress Note ---
Date of Service November 16, 2018 Anesthesia Post Procedure Vital Signs Vital Signs: Temp Pulse Pulse Pulse Resp BP BP 11/16/18 07:18 36.5 C 58 L 18 141/66 H 11/16/18 07:00 61 11/16/18 04:46 36.4 C L 59 L 18 133/49 L 11/16/18 00:00 61 11/15/18 23:08 36.3 C L 64 18 150/55 H 11/15/18 16:30 63 11/15/18 14:46 36.4 C L 54 L 16 123/70 11/15/18 14:10 36.4 C L 55 L 12 140/59 L 11/15/18 14:00 56 L 10 L 153/55 H 11/15/18 13:51 36.5 C 61 21 121/63 11/15/18 11:11 36.7 C 59 L 18 124/62 Pulse Ox 11/16/18 07:18 95 11/16/18 07:00 11/16/18 04:46 93 11/16/18 00:00 11/15/18 23:08 99 11/15/18 16:30 11/15/18 14:46 94 11/15/18 14:10 93 11/15/18 14:00 92 11/15/18 13:51 94 11/15/18 11:11 94 Pain Intensity Head: Pain Intensity: 10 Notes Mental Status: alert / awake / arousable Patient Amnestic to Procedure: Yes Nausea / Vomiting: adequately controlled Pain: adequately controlled Airway Patency, RR, SpO2: stable & adequate BP & HR: stable & adequate Hydration State: stable & adequate Anesthetic Complications: no major complications apparent
[2018-11-16] MEDS ORDERED: SITAGLIPTIN PHOSPHATE 100 MG TAB PO SCH (09:00)
[2018-11-16] MEDS ORDERED: INSULIN HUMAN NPH SC ONE (09:00)
[2018-11-16] MEDS ORDERED: GLIMEPIRIDE 2 MG TAB PO SCH (09:00)
[2018-11-16] MEDS ORDERED: [UNRECOGNIZED DRUG - REMARK] PO SCH (09:00)
[2018-11-16] MEDS: CHOLESTYRAMINE LIGHT 4 GM PKT PO SCH ×2 (09:28→22:31)
[2018-11-16] MEDS: ASPIRIN 325 MG ECTAB PO SCH (09:28)
[2018-11-16] MEDS: ONDANSETRON INJ 2 MG/ML 2 ML VIAL IV PRN (09:32)
--- NOTE | 2018-11-16 11:14 | Surgery Progress Note ---
Date of Service November 16, 2018 Assessment & Plan (1) Headache: POD # 1 s/p left temporal artery biopsy - vitals stable - dressing intact, clean and dry FINAL DIAGNOSIS ARTERY, LEFT TEMPORAL, BIOPSY: - MEDIUM-SIZED MUSCULAR ARTERY WITH SCATTERED FINE MEDIAL CALCIFICATIONS - NEGATIVE FOR NEUTROPHILIC, LYMPHOCYTIC OR GRANULOMATOUS INFLAMMATION Plan: Continue current medical management for pain relief Keep dressing on for 3 days and remove Outpatient follow-up with rheumatology Continue asp and plavix Our services signing off Dr. Matthews has seen and examined patient, agrees with above Subjective still having pain, back of the neck no bleeding from incision site Physical Exam 2 Vital Signs (Past 24 Hours): Last Vital Signs Temp 36.5 C 11/16/18 07:18 Pulse 58 L 11/16/18 07:18 Resp 18 11/16/18 07:18 BP 141/66 H 11/16/18 07:18 Pulse Ox 95 11/16/18 07:18 Constitutional: WD/WN, vitals as above no acute distress Head: Left temporal region: Dressing intact , no bleeding. Incision not inspected Respiratory: normal respiratory effort; no respiratory distress Skin: no rashes, warm and dry Psychiatric: A+Ox3, euthymic affect Results & Data Laboratory Results 11/16/18 11/16/18 11/16/18 Range/Units 07:28 07:20 00:12 POC Glucose 162 H 228 H (70-99) Total Protein (PEP) Pending Albumin (PEP) Pending Qmswd-5-Otnpbijzi Pending Vqray-8-Cyzxolkbz Pending Bouz-7-Valvsyez Pending Mxxh-0-Dunepfpx Pending Gamma Globulins Pending Monoclonal Peak 3 Pending Ser Monoclonl Protein Pending Ser Monoclonal Prot 2 Pending PEP Interpretation Pending Serum Immunofixation Pending 11/15/18 11/15/18 11/15/18 Range/Units 20:13 16:27 14:59 POC Glucose 251 H 142 H 76 (70-99) Total Protein (PEP) Albumin (PEP) Efozz-6-Smdiwjmkm Qbkvs-9-Fvztbxlcp Lqjp-9-Ugtpsobu Cpis-9-Tfuvhzjx Gamma Globulins Monoclonal Peak 3 Ser Monoclonl Protein Ser Monoclonal Prot 2 PEP Interpretation Serum Immunofixation 11/15/18 11/15/18 Range/Units 13:52 11:37 POC Glucose 87 74 (70-99) Total Protein (PEP) Albumin (PEP) Vzhik-0-Mhtwbdjma Nhnls-3-Liopsnvdz Rxow-1-Naxulhzz Qict-0-Lsqukgru Gamma Globulins Monoclonal Peak 3 Ser Monoclonl Protein Ser Monoclonal Prot 2 PEP Interpretation Serum Immunofixation
--- NOTE | 2018-11-16 14:44 | Pharmacy Report ---
Pharmacy Glycemic Short Note 2 - Date of Service November 16, 2018 - Glycemic Short BSG Results (Last 24 hours): 11/15/18 11/15/18 11/15/18 14:59 16:27 20:13 POC Glucose 76 142 H 251 H 11/16/18 11/16/18 11/16/18 00:12 07:20 11:31 POC Glucose 228 H 162 H 199 H ASSESSMENT: * 77 yo F with T2DM on two oral agents as an outpatient with HbA1c of 8.0% * Stressors * Prednisone stopped - last dose was this AM * Diet resumed yesterday evening * Basal insulin * Switched from Lantus to NPH this AM 2nd hypoglycemia yesterday AM, possibly 2nd effects of prednisone dissipating overnight with effects of Lantus persisting. However, will switch back to Lantus now that prednisone has been discontinued * Bolus insulin * Will continue current Novolog for now. However, starting tomorrow AM will significantly loosen as insulin sensitivity is expected to increase 2nd discontinuation of prednisone PLAN FOR INPATIENT GLYCEMIC CONTROL: * Pt is maintained on oral antidiabetic agents as an outpatient * Oral agents are not recommended for inpatient use d/t drug interactions, changing PO intake, and difficulty titrating for acute hyper/hypoglycemia. ADA recommends re-initiating outpatient oral agents 1-2 days prior to discharge if/ when appropriate if they were held on admission. * Insulin NPH 10 units x1 administered this morning * Ongoing basal insulin: Lantus qAM based on BSG * 10 units for BSG less than 110 mg/dL * 15 units for BSG 110 mg/dL or greater * Bolus insulin - * NovoLog per scale ACHS or Q6hrs while NPO * Goal Range: Low 110 mg/dL - High 140mg/dL * Correction Factor: 12 mg/dL/unit, loosen to 20 mg/dL/unit starting 11/17/18 * Carb ratio: 4 g CHO/unit, loosen to 7 g CHO/unit starting 11/17/18 * Please note that the plan above was derived based on current level of insulin resistance and hospital stress. These recommendations are appropriate for inpatient admission only. Plan of care upon discharge will need to be reassessed to avoid potential outpatient hypo/hyperglycemia. Thank you.
--- NOTE | 2018-11-16 14:48 | Neurology Consultation ---
Date of Consultation November 16, 2018 Assessment & Plan (1) Headache: 1. temp artery biopsy negative 2. steroids - patient states they are not helping would d/c 3. CT neck for any structural abnormalities 4. medical management per primary team 5. trigger point injections or botox may be helpful to manage her pain issues. 6. MRI brain may be helpful to further evaluate for source of headache if no other source is found 7. compazine 10 mg IV q 8 hours scheduled 8. magnesium 1g every 8 hours scheduled 9. IV fluids NS 75 ml per hour 10. depakote 750 mg IV q 12hours Supervising Physician Co-Signing Physician Notes I have seen and discussed above patient with Dr Ra Hager. Patient was seen and examined. Agree with Sushma Hackett As noted below. Admitted for intractable headache. Holocephalic pain which radiates forward. Has some nausea. Constant stabbing pain. Denies photophobia. ESR chronically elevated. Temporal artery biopsy x2. Recent path report negative for vasculitis changes. On examine patient does not appear in distress. EOMI. VF full to confrontation. Phenotype of headache is NOT suggestive of GCA. Has had similar episode in the past. Differential certainly includes status migrainosis. Given new onset of intractable severe headache in patient in her 70's x1 week needs MRI brain w/wo contrast to evaluate for secondary etiology of headache. Agree with symptomatic management . Recommend trial of migraine cocktail as noted above (IVF, compazine, Mag, Depakote). Would recommend avoiding narcotics. History of Present Illness Reason for Consultation: severe headache Requesting Physician: Isauro Sood MD Attending Physician: Isauro Sood MD History of Present Illness Vandana is a 77 year old femalel with a PMH-DM 2, hyperlipidemia, CAD, chronic diastolic CHF, hypertension, chronic diarrhea, GERD, morbid obesity, diverticulosis, history of cystic kidney disease presents with a severe headache. She states it started last Monday. She was seen in [place] ED and was prescribed valacyclovir and then saw her family doctor on 11/12 and there was a plan for a temporal artery biopsy on 11/16. She had a biopsy on the right temporal which was negative. she had a sed rate of 72 and stated that the headache was worse than before so she came to [facility] for evaluation. general surgery did a temporal biopsy on the left which was negative. She is currently on steroids which she states is not helping. She states the headache starts in the back of her neck and goes forward to her ears and top of her head. She state the pain is worse with moving her neck side to side. denies CP, SOB, abdominal pain, weakness, numbness tingling, N, V. some blurred vision off and on, no blacking out of vision like a curtain coming down, no pain radiation down arms or legs Allergies Allergy/AdvReac Type Severity Reaction Status Date / Time Sulfa (Sulfonamide Allergy Mild Rash Verified 11/13/18 23:29 Antibiotics) adhesive Allergy Unknown ALLERGY TO Verified 11/13/18 23:29 TAPE nadolol Allergy Unknown UNSURE Verified 11/13/18 23:29 nifedipine Allergy Unknown BLISTERS, Verified 11/13/18 23:29 TOLERATES PLENDIL ciprofloxacin [From Cipro] Allergy Rash Verified 11/13/18 23:29 ibuprofen AdvReac Mild UPSET Verified 11/13/18 23:29 STOMACH diltiazem AdvReac Unknown TOLERATES Verified 11/13/18 23:29 PLENDIL, MALAISE oxycodone AdvReac Unknown SEVERE Verified 11/13/18 23:29 NAUSEA acetaminophen [From Tylenol] AdvReac DOES NOT Verified 11/13/18 23:29 TAKE DUE TO PANCREATITIS atorvastatin [From Lipitor] AdvReac Gastrointestinal Verified 11/13/18 23:29 Upset metformin AdvReac Diarrhea Verified 11/13/18 23:29 prednisone AdvReac BSG GOES Verified 11/13/18 23:29 OKSANA HIGH Home Medications Home Medications Medication Instructions Recorded Confirmed Type Clinical Trial Med 4 tab PO DAILY 11/13/18 11/13/18 History acyclovir [Zovirax] 800 mg PO TID 11/13/18 11/13/18 History amlodipine [Norvasc] 10 mg PO DAILY 11/13/18 11/13/18 History aspirin 325 mg PO DAILY 11/13/18 11/13/18 History baclofen 10 mg PO BID 11/13/18 11/13/18 History cholestyramine-aspartame [Questran 4 g PO BID 11/13/18 11/13/18 History Light] clopidogrel [Plavix] 150 mg PO DAILY 11/13/18 11/13/18 History diphenoxylate-atropine [Lomotil] 2 tab PO BID PRN 11/13/18 11/13/18 History furosemide [Lasix] 40 mg PO DAILY 11/13/18 11/13/18 History gabapentin 300 mg PO TID 11/13/18 11/13/18 History glimepiride 8 mg PO QAM 11/13/18 11/13/18 History metoclopramide HCl [Reglan] 10 mg PO Q4 PRN 11/13/18 11/13/18 History metoprolol succinate 100 mg PO DAILY 11/13/18 11/13/18 History nitroglycerin [Nitrostat] 0.4 mg SUBLINGUAL UD PRN 11/13/18 11/13/18 History ondansetron HCl [Zofran] 8 mg PO TID PRN 11/13/18 11/13/18 History pantoprazole [Protonix] 40 mg PO DAILY 11/13/18 11/13/18 History simvastatin [Zocor] 20 mg PO HS 11/13/18 11/13/18 History sitagliptin [Januvia] 100 mg PO DAILY 11/13/18 11/13/18 History triamcinolone acetonide 1 applic TOPICAL BID PRN 11/13/18 11/13/18 History valsartan-hydrochlorothiazide 1 tab PO DAILY 11/13/18 11/13/18 History Patient History Medical History 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 artery Chronic diastolic heart failure Diabetes type 2, uncontrolled PSVT (paroxysmal supraventricular tachycardia) Surgical History History of coronary artery stent placement Social History Current Living Situation: Alone Current Living Situation Comment: lives at home alone Other Information That Helps Us Care for You: No Feels Safe at Home: Yes Safety Concerns: Feels Safe At This Time Smoking Status: Never smoker Hx Alcohol Use: No Hx Substance Use: No Beliefs That Will Affect Care: Catholic Catholic Beliefs: Jehovas witness Communication Ability: Effective Physical Exam 2 Vital Signs (Past 24 Hours): Last Vital Signs Temp 36.4 C L 11/16/18 11:42 Pulse 55 L 11/16/18 11:42 Resp 18 11/16/18 11:42 BP 159/71 H 11/16/18 11:42 Pulse Ox 94 11/16/18 11:42 Physical Exam: Constitutional: appearance over nourished Ears, Nose, Mouth and Throat: mucous membranes moist, no injection and skin normal, eyes normal Cardiovascular: normal S-1 and S-2 and regular rate and rhythm Respiratory: clear to auscultation (CTA) and no rales, rhonchi or wheeze Musculoskeletal: non pitting peripheral edema. tender with palpation of occiput and neck, increased with movement, no pain with palpation of temp right, left bandage applied Skin: no stigmata of neurocutaneous disease noted and normal and intact, bilateral incisions on knees Eyes: extraocular muscles intact (EOMI) and pupils equal, round and reactive to light (PERRL), no tenderness with eye movement NEUROLOGIC EXAMINATION: Mental status: Alert and interactive Oriented to full date and location Oriented to person Speech fluent with no evidence of aphasia Cranial Nerves smile eye brow raise symmetric Reflexes: Deep tendon reflexes were symmetrical and graded 2/5. Plantar responses were flexor. Sensory: no deficit to cool, light, vibration bilaterally LE, GT proprioception intact Coordination: finger to nose no bi pass, rapid hand movement intact bilaterally Gait/Stance: Posture sitting up in bed able to move freely in bed. Motor: Negative for pronator drift of out stretched arms with eyes closed. Strength: biceps triceps hand autism specialist 5/5 bilaterally Results & Data Laboratory Results Abnormal lab results 11/15/18 11/15/18 11/16/18 Range/Units 16:27 20:13 00:12 POC Glucose 142 H 251 H 228 H (70-99) 11/16/18 11/16/18 Range/Units 07:20 11:31 POC Glucose 162 H 199 H (70-99) Diagnostic Findings CT head with no acute abnormalities.
--- NOTE | 2018-11-16 20:54 | Hospitalist Progress Note ---
Date of Service November 16, 2018 Assessment & Plan (1) Headache: ESR elevated. Temporal arteritis concisdered. Started on prednisone as outpatient Rheumatology consulted. General Surgery performed temporal artery biopsy. Neurology consulted for their input. Further imaging and trial of migraine meds recommended. (2) Diabetes mellitus type 2, controlled: DM type 2, usually fairly well-controlled on glimepiride. Hgb A1C = 8.0. Blood sugars elevated due to steroid therapy. Pharmacy consulted for glycemic management. Receiving Lantus / NovoLog per protocol. Prednisone being discontinued. Titrate insulin coverage. (3) CAD (coronary artery disease): No chest pain. Aspirin and clopidogrel held for temporal artery biopsy. Continue metoprolol. (4) HTN (hypertension): Continue metoprolol. (5) Diastolic CHF: Compensated. (6) CKD (chronic kidney disease), stage III: Creatinine 1.19. Follow. (7) Patient is Restoration: No blood products. (8) DVT (deep venous thrombosis): SCD's. Ambulate. (9) Discharge planning issues: Anticipated discharge to home. Primary care follow-up with Dr. Elizabeth Caicedo. Subjective Recheck for headache and other problems. Pt seen in her room around 2019. Ongoing severe diffuse headache (although does not appear to be in distress). Having several loose stools a day. History of C diff. Would like to have a colonoscopy to make certain that she does not have recurrence. No melena or hematochezia. RLQ abdominal pain. History of pancreatitis, concerned about recurrence. Physical Exam 2 Vital Signs (Past 24 Hours): Last Vital Signs Temp 36.5 C 11/16/18 19:46 Pulse 55 L 11/16/18 19:46 Resp 18 11/16/18 19:46 BP 130/53 L 11/16/18 19:46 Pulse Ox 94 11/16/18 19:46 Constitutional: no acute distress Respiratory: normal respiratory effort, lungs clear to auscultation Cardiovascular: Rate/Rhythm: regular rate and regular rhythm Heart Sounds: no gallop Extremities: no edema Gastrointestinal (Abdomen): Inspection/Auscultation: normal bowel sounds Percussion/Palpation: abdomen soft; abdomen nontender Musculoskeletal: Head/Neck/Chest: + head abnormal to inspection (left restoration bandaged) Skin: no rashes, warm and dry Psychiatric: Orientation: alert and oriented x 3 Affect: + depressed affect and + anxious affect Thought Process: + flight of ideas Results & Data Laboratory Results Laboratory Results - last 24 hr 11/16/18 11/16/18 11/16/18 00:12 07:20 11:31 POC Glucose 228 H 162 H 199 H 11/16/18 11/16/18 16:10 20:08 POC Glucose 88 171 H _ (1) CAD (coronary artery disease) Coronary Disease-Associated Artery/Lesion type: [place] artery [place] vs. transplanted heart: [place] heart Associated angina: with stable angina Qualified Code(s): I25.118 - Atherosclerotic heart disease of [place] coronary artery with other forms of angina pectoris (2) HTN (hypertension) Hypertension type: essential hypertension Qualified Code(s): I10 - Essential (primary) hypertension (3) Diastolic CHF Heart failure chronicity: chronic Qualified Code(s): I50.32 - Chronic diastolic (congestive) heart failure
[2018-11-16] MEDS: SODIUM CHLORIDE 0.9% 1000ML 1,000 ML IV SCH (21:15)
[2018-11-16] MEDS: SIMVASTATIN 20 MG TAB PO SCH (21:23)
[2018-11-16] MEDS: PROCHLORPERAZINE 5 MG in SYRINGE 4 ML IV SCH (22:52)
[2018-11-16] MEDS: VALPROATE SOD 750 MG in DEXTROSE 5% 50 ML IV SCH (22:57)
[2018-11-16] MEDS: TRAMADOL HCL 50 MG TABLET PO PRN (23:41)
[2018-11-17] MEDS: MAGNESIUM SULFATE / D5W 1 GM/100 ML BAG IV SCH ×3 (00:01→14:18)
[2018-11-17] MEDS: PROCHLORPERAZINE 5 MG in SYRINGE 4 ML IV SCH ×2 (05:07→14:19)
[2018-11-17 07:30] LABS: BUN Creatinine Ratio 28.8 (10-20); Calcium 8.6 mg/dl (8.5-10.1); Creatinine Clr Calc Pharmacy 42.5 ml/min; Est GFR (African American) 52.6; Est GFR (Non-African American) 45.4; Potassium 4.3 mmol/L (3.5-5.1)
[2018-11-17] MEDS: GABAPENTIN 300 MG CAP PO SCH ×3 (08:00→21:00)
[2018-11-17] MEDS: AMLODIPINE BESYLATE 5 MG TAB PO SCH (08:00)
[2018-11-17] MEDS: VALSARTAN 80 MG TAB PO SCH (08:00)
[2018-11-17] MEDS: PANTOprazole 40 MG TAB PO SCH (08:00)
[2018-11-17] MEDS: FUROSEMIDE 40 MG TAB PO SCH (08:01)
[2018-11-17] MEDS: ASPIRIN 325 MG ECTAB PO SCH (08:01)
[2018-11-17] MEDS: METOPROLOL SUCC 50MG EXT REL TAB PO SCH (08:01)
[2018-11-17] MEDS: hydroCHLOROthiazide 25 MG TAB PO SCH (08:01)
[2018-11-17] MEDS: CLOPIDOGREL BISULFATE 75 MG TAB PO SCH (08:02)
[2018-11-17] MEDS: INSULIN ASPART 100 UNITS/ML 3 ML PEN SC SCH ×4 (08:08→20:57)
[2018-11-17] MEDS: TRAMADOL HCL 50 MG TABLET PO PRN ×3 (08:47→21:00)
[2018-11-17] MEDS ORDERED: INSULIN GLARGINE SOLOSTAR 100 UNITS/ML 3 ML PEN SC SCH ×2 (09:00)
[2018-11-17] MEDS: VALPROATE SOD 750 MG in DEXTROSE 5% 50 ML IV SCH (09:38)
[2018-11-17] MEDS: CHOLESTYRAMINE LIGHT 4 GM PKT PO SCH ×2 (09:59→21:01)
--- NOTE | 2018-11-17 10:17 | Hospitalist Progress Note ---
Date of Service November 17, 2018 Assessment & Plan (1) Headache: ESR elevated. Temporal arteritis concisdered. Started on prednisone as outpatient Rheumatology consulted. General Surgery performed temporal artery biopsy. Neurology consulted for their input. Further imaging and trial of migraine meds (valproic acid, magnesium, prochlorperazine) recommended. CT cervical spine, MRI brain, MRA intracerebral vessels ordered. (2) Diabetes mellitus type 2, controlled: DM type 2, usually fairly well-controlled on glimepiride. Hgb A1C = 8.0. Blood sugars elevated due to steroid therapy. Pharmacy consulted for glycemic management. Receiving Lantus / NovoLog per protocol. Prednisone discontinued. FBS this morning = 249. Titrate insulin coverage. (3) CAD (coronary artery disease): No chest pain. Aspirin and clopidogrel held for temporal artery biopsy. Continue metoprolol. (4) HTN (hypertension): Continue metoprolol. (5) Diastolic CHF: Compensated. (6) CKD (chronic kidney disease), stage III: Creatinine 1.16. Follow. (7) Patient is Restorationist: No blood products. (8) DVT (deep venous thrombosis): SCD's. Ambulate. (9) Discharge planning issues: Anticipated discharge to home. Primary care follow-up with Dr. Elizabeth Caicedo. Subjective Recheck for headache and other problems. Pt seen in her room around 1000. Ongoing severe diffuse headache. No bowel movements today. Intermittent abdominal pain, sometimes left-sided, sometimes right-sided. No fever. Physical Exam 2 Vital Signs (Past 24 Hours): Last Vital Signs Temp 36.5 C 11/17/18 07:23 Pulse 52 L 11/17/18 07:23 Resp 20 11/17/18 07:23 BP 170/72 H 11/17/18 07:23 Pulse Ox 95 11/17/18 07:23 Constitutional: no acute distress Respiratory: normal respiratory effort, lungs clear to auscultation Cardiovascular: Rate/Rhythm: regular rate and regular rhythm Heart Sounds: no gallop Extremities: no edema Gastrointestinal (Abdomen): Inspection/Auscultation: normal bowel sounds Percussion/Palpation: abdomen soft; abdomen nontender Musculoskeletal: Head/Neck/Chest: + head abnormal to inspection (left orthodox bandaged) and neck supple Skin: no rashes, warm and dry Psychiatric: Orientation: alert and oriented x 3 Affect: + depressed affect and + anxious affect Results & Data Laboratory Results Laboratory Results - last 24 hr 11/16/18 11/17/18 11/17/18 20:08 06:39 07:17 Sodium 137 Potassium 4.3 Chloride 102 Carbon Dioxide 27 Anion Gap 8.0 BUN 33 H Creatinine 1.16 Est Cr Clr Drug Dosing 42.5 Est GFR ( Amer) 52.6 Est GFR (Non-Af Amer) 45.4 BUN/Creatinine Ratio 28.8 H Glucose 284 H POC Glucose 171 H 249 H Calcium 8.6 11/17/18 11/17/18 12:57 16:29 Sodium Potassium Chloride Carbon Dioxide Anion Gap BUN Creatinine Est Cr Clr Drug Dosing Est GFR ( Amer) Est GFR (Non-Af Amer) BUN/Creatinine Ratio Glucose POC Glucose 184 H 204 H Calcium _ (1) CAD (coronary artery disease) Coronary Disease-Associated Artery/Lesion type: [place] artery [place] vs. transplanted heart: [place] heart Associated angina: with stable angina Qualified Code(s): I25.118 - Atherosclerotic heart disease of [place] coronary artery with other forms of angina pectoris (2) HTN (hypertension) Hypertension type: essential hypertension Qualified Code(s): I10 - Essential (primary) hypertension (3) Diastolic CHF Heart failure chronicity: chronic Qualified Code(s): I50.32 - Chronic diastolic (congestive) heart failure
[2018-11-17] MEDS: SODIUM CHLORIDE 0.9% 1000ML 1,000 ML IV SCH (10:32)
[2018-11-17] MEDS ORDERED: CLOPIDOGREL BISULFATE 75 MG TAB PO ONE (11:30)
[2018-11-17] MEDS ORDERED: GADOBUTROL 65ML VIAL IV PRN (11:39)
--- NOTE | 2018-11-17 11:47 | Magnetic Resonance Report ---
MR angio head wo con CLINICAL HISTORY: 77 years-old Female presenting with severe headache since [place], blurred vision, c onstant pain, history of recent left temporal artery biopsy. TECHNIQUE: MR angiography of the head was performed without the use of intravenous contrast using 3-D [id number] technique. 3-D volumetric and/or maximum intensity projection (MIP) images were subse quently reconstructed for review. IV contrast: None. COMPARISON: None. FINDINGS: Localizer images: Unremarkable. Anterior circulation: Intracranial portions of the internal carotid arteries patent to the level of t he termini. Anterior cerebral arteries patent. Middle cerebral arteries patent. Anterior communicatin g artery patent. Posterior circulation: Left dominant vertebral arteries. Intradural portions of the vertebral arterie s patent. Posterior inferior cerebellar arteries patent. 2 mm aneurysm in the region of the basilar t ip which may either arise from the basilar artery or the origin of the left posterior cerebellar whit ry. Anterior inferior cerebellar arteries poorly visualized. Superior cerebellar arteries patent. Pos terior cerebral arteries patent.Posterior communicating arteries hypoplastic or aplastic. Superficial left temporal vasculature demonstrates foci of susceptibility artifact likely related to reported biopsy. No evidence of a pseudoaneurysm or hematoma. IMPRESSION: 1. 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 No other aneurysm identifi ed. 2. No focal occlusion or significant stenosis in the intracranial vasculature. 3. Postsurgical changes in the region of the left temporal artery. No pseudoaneurysm or hematoma. Electronically signed by: Augusto Grace M.D. 11/17/2018 11:46 AM
--- NOTE | 2018-11-17 12:02 | Neurology Progress Note ---
Date of Service November 17, 2018 Headache s/p Left TA biopsy A 77 year old woman admitted with complaint of inractable headache x1 week. S/p tempora artery biopsy x2. Recent biopsy Negative. Started on migraine scheduled migraine cocktail yesterday. MRI and MRA completed. No acute intcranial process. Incidental 2 mm basilar aneurysm. - Patient sleeping in wheelchair on arrival in CT waiting room. Woke easily but stated her low back is hurting. I then asked aboute her headache and she stated headache is unchanged and remains severe. - I reviewed her MRI brain and MRA findings wiht her. Discussed MRI was negative for stroke, hemorrhage, mass, or signs of infection. Discussed incidental basilar aneurysm (2 mm). No acute intervention needed. - Discussed inpatient management of headache with patient. Can certainly continued scheduled migraine cocktail. Recommend to STOP Depakote. Recommend to STOP Reglan. I explained to patient headache may take time to get better and may not get better in hospital. Discussed that we do not use Morphine for headache. Can try Reglan 10 mg IV Q8hr, Benadryl 25 mg IV Q8, and Zanaflex 4 mg PO Q8hr PRN. Assessment & Plan (1) Headache: 1. temp artery biopsy negative 2. steroids - patient states they are not helping would d/c 3. CT neck for any structural abnormalities 4. medical management per primary team 5. trigger point injections or botox may be helpful to manage her pain issues. 6. MRI brain may be helpful to further evaluate for source of headache if no other source is found 7. compazine 10 mg IV q 8 hours scheduled 8. magnesium 1g every 8 hours scheduled 9. IV fluids NS 75 ml per hour 10. depakote 750 mg IV q 12hours Subjective Patient was seen and examined. Patient sleeping in wheelchair in CT waiting room. Stated her low back hurts. When ask about headache she stated that remains severe and unchanged. She remains concerned for her headache. Just completed imaging. Has concern for going home. Physical Exam 2 Vital Signs (Past 24 Hours): Last Vital Signs Temp 36.5 C 11/17/18 07:23 Pulse 52 L 11/17/18 07:23 Resp 20 11/17/18 07:23 BP 170/72 H 11/17/18 07:23 Pulse Ox 95 11/17/18 07:23 Physical Exam: Constitutional: appearance normally developed, well nourished and obese Head and Face: normocephalic , s/p left temporal biopsy, appears dry with bandage Eyes: normal lids, normal conjunctiva Respiratory: normal effort Cardiovascular: regular rhythm Abdomen: non distended Skin: bandage on left temporal lobe Psychiatric: normal judgement and insight, normal mood and normal affect NEUROLOGIC EXAMINATION: Appearance: no acute distress Orientation: awake, alert and oriented x 3 Mental Status: alert Memory: Ok Attention: normal Knowledge: appropriate Language: no aphasia Speech: no dysarthria Cranial Nerves: CN 2 - no visual defect on confrontation and pupils round, equal, reactive to light CN 3, 4, 6 - extra-ocular movements intact and no nystagmus CN 5 - facial sensation intact CN 7 - no facial asymmetry CN 8 - intact hearing CN 9, 10 - palate symmetric CN 11 - good shoulder shrug CN 12 - tongue midline Gait: deferred in wheelchair Coordination: no ataxia with finger to nose testing Sensory: intact to light touch Muscle Tone: normal Muscle exam: 5/5 throughout Reflexes: No clonus, negative moore
--- NOTE | 2018-11-17 12:15 | Magnetic Resonance Report ---
MR brain wo/w con CLINICAL HISTORY: 77 years-old Female presenting with severe headache, severe pain since Monday, inte rmittent blurry vision, constant pain, recent temporal artery biopsy. TECHNIQUE: Multisequence, multiplanar MR imaging of the brain was performed before and after the admi nistration of intravenous contrast. IV contrast: 9.5 mL of Gadavist. COMPARISON: Noncontrast CT head from 11/13/2018. FINDINGS: Localizer images: Unremarkable. Ventricles and sulci normal in size. Periventricular and subcortical white matter T2/FLAIR hyperinten sity, nonspecific but likely indicative of chronic small vessel ischemic change. No abnormal parenchy mal enhancement. No mass effect or midline shift. No restricted diffusion to suggest acute ischemia. No hemorrhage. No extra-axial fluid collection. T2 skull base flow voids preserved. Bone marrow signal intensity within the calvarium within normal l imits. IMPRESSION: 1. Chronic small vessel ischemic change. No acute intracranial abnormality. No abnormal parenchymal enhancement. Electronically signed by: Augusto Grace M.D. 11/17/2018 12:14 PM
--- NOTE | 2018-11-17 12:27 | CT Scan Report ---
CT cervical spine wo con CLINICAL HISTORY: 77 years-old Female presenting with severe neck pain. TECHNIQUE: Multidetector CT of the cervical spine was performed without the use of intravenous contra st. IV contrast: None. One or more dose lowering techniques were used consistent with the principles of ALARA (as low as reasonably achievable), including automatic exposure control, mA or kV adjustment to individual patient size, and/or use of iterative reconstruction. COMPARISON: None. CT DOSE (mGy.cm): The estimated cumulative dose is 260.70 mGy.cm. FINDINGS: Racquet Maker topogram: Gilbert noted in the left humeral head. Normal cervical lordosis. Vertebral bodies maintain normal height and alignment. Moderate to severe i ntervertebral disc height loss at C6-7 and mild intervertebral disc height loss at C4-5 and C5-6. Sma ll disc osteophyte complexes noted at every level to varying degrees though the greatest degree of de generative change is evident at C6-7. Mild posterior bony spurring at this level. Facet arthropathy a nd uncovertebral hypertrophy result in very degrees of osseous neural foraminal narrowing greatest at C6-7. No acute fracture or subluxation. Skull base intact. Paraspinal soft tissues within normal burris its. IMPRESSION: 1. No acute osseous injury of the cervical spine. 2. Multilevel degenerative changes most severe at C6-7. Electronically signed by: Augusto Grace M.D. 11/17/2018 12:26 PM
--- NOTE | 2018-11-17 12:34 | Pharmacy Report ---
Pharmacy Glycemic Short Note 2 - Date of Service November 17, 2018 - Glycemic Short BSG Results (Last 24 hours): 11/16/18 11/16/18 11/17/18 16:10 20:08 06:39 Glucose 284 H POC Glucose 88 171 H 11/17/18 07:17 Glucose POC Glucose 249 H ASSESSMENT: * 77 yo F with T2DM on two oral agents as an outpatient with HbA1c of 8.0% * Oral agents on hold for admission and patient receiving SQ basal bolus insulin regimen for inpatient use * Basal insulin was switched from Lantus to NPH for daily prednisone. However, likely 24hr insulin will be needed with elevated A1c. Will change back to Lantus * Daily insulin dose has been tapering with decreasing steroids, pt requiring about 50-60 units of insulin per day. Expect total daily dose to settle in around 40-50 units/day once prednisone hyperglycemia diminished. Should be soon since last dose of prednisone was 11/16/18. * Will keep regimen slightly weighted towards bolus insulin for steroid induced hyperglycemia. PLAN FOR INPATIENT GLYCEMIC CONTROL: * Pt is maintained on oral antidiabetic agents as an outpatient * Oral agents are not recommended for inpatient use d/t drug interactions, changing PO intake, and difficulty titrating for acute hyper/hypoglycemia. ADA recommends re-initiating outpatient oral agents 1-2 days prior to discharge if/ when appropriate if they were held on admission. * Basal insulin: * Lantus 18 units SQ daily * Bolus insulin * NovoLog per scale ACHS or Q6hrs while NPO * Goal Range: Low 110 mg/dL - High 140mg/dL * Correction Factor: 20 mg/dL/unit * Carb ratio: 7 g CHO/unit * Please note that the plan above was derived based on current level of insulin resistance and hospital stress. These recommendations are appropriate for inpatient admission only. Plan of care upon discharge will need to be reassessed to avoid potential outpatient hypo/hyperglycemia. Thank you.
[2018-11-17] MEDS: ACETAMINOPHEN 325 MG TAB PO PRN (18:35)
[2018-11-17] MEDS: ONDANSETRON INJ 2 MG/ML 2 ML VIAL IV PRN (19:50)
[2018-11-17] MEDS: SIMVASTATIN 20 MG TAB PO SCH (21:00)
[2018-11-18] MEDS: ACETAMINOPHEN 325 MG TAB PO PRN ×3 (00:07→19:37)
[2018-11-18] MEDS: TRAMADOL HCL 50 MG TABLET PO PRN ×3 (05:03→18:17)
[2018-11-18] MEDS: ONDANSETRON INJ 2 MG/ML 2 ML VIAL IV PRN (06:35)
[2018-11-18] MEDS: GABAPENTIN 300 MG CAP PO SCH ×3 (08:20→21:00)
[2018-11-18] MEDS: AMLODIPINE BESYLATE 5 MG TAB PO SCH (08:21)
[2018-11-18] MEDS: FUROSEMIDE 40 MG TAB PO SCH (08:21)
[2018-11-18] MEDS: CLOPIDOGREL BISULFATE 75 MG TAB PO SCH (08:21)
[2018-11-18] MEDS: METOPROLOL SUCC 50MG EXT REL TAB PO SCH (08:21)
[2018-11-18] MEDS: PANTOprazole 40 MG TAB PO SCH (08:21)
[2018-11-18] MEDS: hydroCHLOROthiazide 25 MG TAB PO SCH (08:22)
[2018-11-18] MEDS: ASPIRIN 325 MG ECTAB PO SCH (08:22)
[2018-11-18] MEDS: VALSARTAN 80 MG TAB PO SCH (08:22)
[2018-11-18] MEDS: INSULIN ASPART 100 UNITS/ML 3 ML PEN SC SCH ×4 (08:32→20:56)
[2018-11-18] MEDS: CHOLESTYRAMINE LIGHT 4 GM PKT PO SCH ×2 (10:25→21:05)
[2018-11-18] MEDS ORDERED: INSULIN GLARGINE SOLOSTAR 100 UNITS/ML 3 ML PEN SC SCH (11:00)
--- NOTE | 2018-11-18 11:34 | Pharmacy Report ---
Pharmacy Glycemic Short Note 2 - Date of Service November 18, 2018 - Glycemic Short BSG Results (Last 24 hours): 11/17/18 11/17/18 11/17/18 12:57 16:29 20:08 POC Glucose 184 H 204 H 171 H 11/18/18 07:37 POC Glucose 78 ASSESSMENT: * 77 yo F with T2DM on two oral agents as an outpatient with HbA1c of 8.0% * Oral agents on hold for admission and patient receiving SQ basal bolus insulin regimen for inpatient use * Basal insulin was switched from Lantus to NPH for daily prednisone. However, likely 24hr insulin will be needed with elevated A1c. Changed back to Lantus dosing 11/17/18 * Patient is currently receiving an average of 55 units of insulin per day * 18 units of basal insulin * 37 units of prandial/correctional insulin * BSGs ranging 78-249mg/dl over the past 24hrs * Anticipating insulin regimen will need decreased for the next 24hrs d/t : * AM Fasting BSG = 78mg/dl. This is below goal range for inpatient targets; therefore Basal insulin needs decreased * Post-prandial BSGs are in goal range--> no changes needed to CF/CR * Anticipate total daily dose to be about 30-40 units/day PLAN FOR INPATIENT GLYCEMIC CONTROL: * Pt is maintained on oral antidiabetic agents as an outpatient * Oral agents are not recommended for inpatient use d/t drug interactions, changing PO intake, and difficulty titrating for acute hyper/hypoglycemia. ADA recommends re-initiating outpatient oral agents 1-2 days prior to discharge if/ when appropriate if they were held on admission. * Basal insulin: * Decrease: Lantus 15 units SQ daily * Bolus insulin: no change * NovoLog per scale ACHS or Q6hrs while NPO * Goal Range: Low 110 mg/dL - High 140mg/dL * Correction Factor: 20 mg/dL/unit * Carb ratio: 7 g CHO/unit * Please note that the plan above was derived based on current level of insulin resistance and hospital stress. These recommendations are appropriate for inpatient admission only. Plan of care upon discharge will need to be reassessed to avoid potential outpatient hypo/hyperglycemia. Thank you.
--- NOTE | 2018-11-18 14:32 | Hospitalist Progress Note ---
Date of Service November 18, 2018 Assessment & Plan (1) Headache: ESR elevated. Temporal arteritis considered. Started on prednisone as outpatient without improvement of symptoms. Rheumatology consulted. General Surgery performed temporal artery biopsy, negative for temporal arteritis. Prednisone stopped. Neurology consulted for their input. Further imaging and trial of migraine meds (valproic acid, magnesium, prochlorperazine) recommended. No benefit from migraine cocktail- discontinued. CT cervical spine showed degenerative disease. MRI brain showed chronic small vessel ischemic changes, no acute findings, no masses. 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 Possible occipital neuralgia. Consult Pain Medicine. (2) Diabetes mellitus type 2, controlled: DM type 2, usually fairly well-controlled on glimepiride. Hgb A1C = 8.0. Blood sugars elevated due to steroid therapy. Pharmacy consulted for glycemic management. Receiving Lantus / NovoLog per protocol. Prednisone discontinued. FBS this morning = 78. Titrate insulin coverage. (3) CAD (coronary artery disease): No chest pain. Aspirin and clopidogrel held for temporal artery biopsy, then resumed. Continue metoprolol. (4) HTN (hypertension): Continue metoprolol. (5) Diastolic CHF: Compensated. (6) CKD (chronic kidney disease), stage III: Creatinine 1.16 yesterday. Follow. (7) Patient is Jainism: No blood products. (8) DVT (deep venous thrombosis): SCD's. Ambulate. (9) Discharge planning issues: Anticipated discharge to home. Primary care follow-up with Dr. Elizabeth Caicedo. Subjective Recheck for headache and other problems. Pt seen in her room around 1055. Ongoing severe headache, diffuse, but mostly occipital. Intermittent crampy abdominal pain, sometimes left-sided, sometimes right-sided. No nausea or vomiting. No diarrhea. No fever. Physical Exam 2 Vital Signs (Past 24 Hours): Last Vital Signs Temp 36.5 C 11/18/18 08:10 Pulse 51 L 11/18/18 08:10 Resp 20 11/18/18 08:10 BP 133/63 11/18/18 08:10 Pulse Ox 97 11/18/18 08:10 Constitutional: no acute distress Respiratory: normal respiratory effort, lungs clear to auscultation Cardiovascular: Rate/Rhythm: regular rate and regular rhythm Heart Sounds: no gallop Extremities: no edema Gastrointestinal (Abdomen): Inspection/Auscultation: normal bowel sounds Percussion/Palpation: abdomen soft; abdomen nontender Musculoskeletal: Head/Neck/Chest: + head abnormal to inspection (left sikh bandaged) and neck supple Skin: no rashes, warm and dry Psychiatric: Orientation: alert and oriented x 3 Affect: + depressed affect and + anxious affect Thought Process: + flight of ideas Results & Data Laboratory Results Laboratory Results - last 24 hr 11/17/18 11/18/18 11/18/18 20:04 07:37 11:27 POC Glucose 78 109 H Stl C. diff Tox B Gene TNP 11/18/18 11/18/18 16:17 20:33 POC Glucose 129 H 124 H Stl C. diff Tox B Gene _ (1) CAD (coronary artery disease) Coronary Disease-Associated Artery/Lesion type: [place] artery [place] vs. transplanted heart: [place] heart Associated angina: with stable angina Qualified Code(s): I25.118 - Atherosclerotic heart disease of [place] coronary artery with other forms of angina pectoris (2) HTN (hypertension) Hypertension type: essential hypertension Qualified Code(s): I10 - Essential (primary) hypertension (3) Diastolic CHF Heart failure chronicity: chronic Qualified Code(s): I50.32 - Chronic diastolic (congestive) heart failure
[2018-11-18] MEDS: SIMVASTATIN 20 MG TAB PO SCH (21:00)
[2018-11-19] MEDS: TRAMADOL HCL 50 MG TABLET PO PRN ×3 (00:14→16:14)
[2018-11-19] MEDS: ACETAMINOPHEN 325 MG TAB PO PRN (02:57)
[2018-11-19] MEDS ORDERED: BUPIVACAINE 0.5 % 5 MG/1 ML PF 10ML VIAL ONE (08:01)
[2018-11-19] MEDS ORDERED: TRIAMCINOLONE ACET 40 MG/ML VIAL ONE (08:02)
--- NOTE | 2018-11-19 08:43 | Pharmacy Report ---
Pharmacy Glycemic Short Note 2 - Date of Service November 19, 2018 - Glycemic Short BSG Results (Last 24 hours): 11/18/18 11/18/18 11/18/18 11:27 16:17 20:33 POC Glucose 109 H 129 H 124 H 11/19/18 07:57 POC Glucose 99 ASSESSMENT: * 77 yo F with T2DM on two oral agents as an outpatient with HbA1c of 8.0% * Oral agents on hold for admission and patient receiving SQ basal bolus insulin regimen for inpatient use * Basal insulin was switched from Lantus to NPH for daily prednisone. However, likely 24hr insulin will be needed with elevated A1c. Changed back to Lantus dosing 11/17/18 2-4: * Fasting BSG 99 mg/dL - anticipate insulin needs to continue to decrease due to steroids discontinued; will decrease Lantus dose slightly * BSGs yesterday much improved 109-129-124 mg/dL - will continue same CF/CR 2-3: * Anticipating insulin regimen will need decreased for the next 24hrs d/t : * AM Fasting BSG = 78mg/dl. This is below goal range for inpatient targets; therefore Basal insulin needs decreased * Post-prandial BSGs are in goal range--> no changes needed to CF/CR * Anticipate total daily dose to be about 30-40 units/day PLAN FOR INPATIENT GLYCEMIC CONTROL: * Pt is maintained on oral antidiabetic agents as an outpatient * Oral agents are not recommended for inpatient use d/t drug interactions, changing PO intake, and difficulty titrating for acute hyper/hypoglycemia. ADA recommends re-initiating outpatient oral agents 1-2 days prior to discharge if/ when appropriate if they were held on admission. * Basal insulin: * Decrease: Lantus 12 units SQ daily * Bolus insulin: no change * NovoLog per scale ACHS or Q6hrs while NPO * Goal Range: Low 110 mg/dL - High 140mg/dL * Correction Factor: 20 mg/dL/unit * Carb ratio: 7 g CHO/unit * Please note that the plan above was derived based on current level of insulin resistance and hospital stress. These recommendations are appropriate for inpatient admission only. Plan of care upon discharge will need to be reassessed to avoid potential outpatient hypo/hyperglycemia. Thank you.
[2018-11-19] MEDS ORDERED: INSULIN GLARGINE SOLOSTAR 100 UNITS/ML 3 ML PEN SC SCH (09:00)
[2018-11-19] MEDS: hydroCHLOROthiazide 25 MG TAB PO SCH (09:03)
[2018-11-19] MEDS: CLOPIDOGREL BISULFATE 75 MG TAB PO SCH (09:04)
[2018-11-19] MEDS: VALSARTAN 80 MG TAB PO SCH (09:04)
--- NOTE | 2018-11-19 09:04 | Pain Management Consultation ---
Date of Consultation November 19, 2018 Assessment & Plan (1) Headache: 1. Recommend greater and lesser occipital nerve blocks today to further delineate etiology of pain. Please see the procedure note associated with this consult for further details. 2. Consider right C2, C3, C4 medial branch blocks levels to be determined under fluoroscopy should the patient be acceptable risk for holding Plavix times 7 days. Plavix is not able to be held for 7 days risk of quadriplegia is too great to perform procedure. This may be performed as an outpatient on an elective basis. 3. Recommend addition of Cymbalta 30 mg p.o. every morning to augment descending regulation of pain. Orders are written 4. Continue other medications as current. 5. Thank you for this consultation. I did speak with Dr. Sood in regards to this patient's care. GREATER AND LESSER OCCIPITAL NERVE BLOCK Diagnosis: Headache Side: Right Surgeon: Dr. Gisselle Bright Anesthesia: none Material forwarded to lab: none The patient was counseled on the risks, benefits of the procedure and agrees to proceed. No sign of infection at site of needle insertion. Consent was obtained and witnessed. Time out was performed. A syringe containing a mixture of 5 ml 0.5%bupivacaine PF and 40mg kenalog and was placed on a 25G needle. Skeletal landmarks identified the greater and lesser occipital nerve on the appropriate side of injection. Then alcohol swab was utilized for skin preparation. After negative aspiration for blood 2ml were injected in a fan like fashion at each site. No blood or CSF was aspirated prior to injection. The patient tolerated the procedure well. Report was given to the floor RN. Present on Admission?: Yes (2) Cervical facet syndrome: (3) Cervicalgia: History of Present Illness Reason for Consultation: Headache Attending Physician: Isauro Sood MD History of Present Illness 77-year-old female with with known polymyalgia rheumatica and new onset headache headache since 11/16/2018 prompting presentation to the [facility] emergency room. She reports that pain is predominantly right- sided starting at the base of the occiput and upper cervical facet joints and radiates to the apex of her head. She has some radiation to the ipsilateral ear. She denies any trauma or known etiology of her pain. She apparently initially presented with bilateral headache but now has only right-sided headache. She rates her pain as 7 out of 10 viselike and cramping pulsating in nature. She denies any worsening of headache with positional changes, visual changes, photophobia, photophobia, seizure type activity, bowel or bladder incontinence, motor weakness, fever, chills, and or night sweats. Workup during this admission includes CT of the head, MRI/MRA of the head, temporal artery biopsy, laboratory studies. She admits that prednisone and hydrocodone minimally decreases her pain. Initially herpes zoster was considered a possible etiology however no rash or vesicle formation has been present. Pain Assessment Full Body Front + Back: 2 1. [facility] Scale: 7-Severe - Pain prevents productive activity. Impossible to tolerate. Pain scale - at its best (0-10): 7 Pain scale - at its worst (0-10): 7 Allergies Allergy/AdvReac Type Severity Reaction Status Date / Time Sulfa (Sulfonamide Allergy Mild Rash Verified 11/13/18 23:29 Antibiotics) adhesive Allergy Unknown ALLERGY TO Verified 11/13/18 23:29 TAPE nadolol Allergy Unknown UNSURE Verified 11/13/18 23:29 nifedipine Allergy Unknown BLISTERS, Verified 11/13/18 23:29 TOLERATES PLENDIL ciprofloxacin [From Cipro] Allergy Rash Verified 11/13/18 23:29 ibuprofen AdvReac Mild UPSET Verified 11/13/18 23:29 STOMACH diltiazem AdvReac Unknown TOLERATES Verified 11/13/18 23:29 PLENDIL, MALAISE oxycodone AdvReac Unknown SEVERE Verified 11/13/18 23:29 NAUSEA acetaminophen [From Tylenol] AdvReac DOES NOT Verified 11/13/18 23:29 TAKE DUE TO PANCREATITIS atorvastatin [From Lipitor] AdvReac Gastrointestinal Verified 11/13/18 23:29 Upset metformin AdvReac Diarrhea Verified 11/13/18 23:29 prednisone AdvReac BSG GOES Verified 11/13/18 23:29 OKSANA HIGH Home Medications Home Medications Medication Instructions Recorded Confirmed Type Clinical Trial Med 4 tab PO DAILY 11/13/18 11/13/18 History acyclovir [Zovirax] 800 mg PO TID 11/13/18 11/13/18 History amlodipine [Norvasc] 10 mg PO DAILY 11/13/18 11/13/18 History aspirin 325 mg PO DAILY 11/13/18 11/13/18 History baclofen 10 mg PO BID 11/13/18 11/13/18 History cholestyramine-aspartame [Questran 4 g PO BID 11/13/18 11/13/18 History Light] clopidogrel [Plavix] 150 mg PO DAILY 11/13/18 11/13/18 History diphenoxylate-atropine [Lomotil] 2 tab PO BID PRN 11/13/18 11/13/18 History furosemide [Lasix] 40 mg PO DAILY 11/13/18 11/13/18 History gabapentin 300 mg PO TID 11/13/18 11/13/18 History glimepiride 8 mg PO QAM 11/13/18 11/13/18 History metoclopramide HCl [Reglan] 10 mg PO Q4 PRN 11/13/18 11/13/18 History metoprolol succinate 100 mg PO DAILY 11/13/18 11/13/18 History nitroglycerin [Nitrostat] 0.4 mg SUBLINGUAL UD PRN 11/13/18 11/13/18 History ondansetron HCl [Zofran] 8 mg PO TID PRN 11/13/18 11/13/18 History pantoprazole [Protonix] 40 mg PO DAILY 11/13/18 11/13/18 History simvastatin [Zocor] 20 mg PO HS 11/13/18 11/13/18 History sitagliptin [Januvia] 100 mg PO DAILY 11/13/18 11/13/18 History triamcinolone acetonide 1 applic TOPICAL BID PRN 11/13/18 11/13/18 History valsartan-hydrochlorothiazide 1 tab PO DAILY 11/13/18 11/13/18 History Patient History Medical History Chronic knee pain after total replacement of both knee joints (Chronic) Hyperlipemia (Chronic) Hypertension (Chronic) CAD in [place] artery Chronic diastolic heart failure Diabetes type 2, uncontrolled PSVT (paroxysmal supraventricular tachycardia) Surgical History History of coronary artery stent placement Social History Current Living Situation: Alone Current Living Situation Comment: lives at home alone Other Information That Helps Us Care for You: No Feels Safe at Home: Yes Safety Concerns: Feels Safe At This Time Smoking Status: Never smoker Hx Alcohol Use: No Hx Substance Use: No Beliefs That Will Affect Care: Buddhist Buddhist Beliefs: Jehovas witness Communication Ability: Effective Review of Systems Constitutional: Negative for fever, chills, sweats Eyes: Negative for eye pain, photophobia, drainage Ear, nose, mouth, throat: Negative for ear pain, nasal congestion, mouth lesions , change in voice Respiratory: Negative for wheezing, sputum production Cardiovascular: Negative for chest pain, palpitations, calf pain Gastrointestinal: Negative for abdominal pain, belching, bloating Genitourinary: Negative for dysuria, urinary incontinence, urinary urgency Musculoskeletal: Negative for deformities Integumentary: Negative for nail changes, skin yellowing, pruritus Neurological: Negative for abnormal speech, seizure type activity Physical Exam 2 Vital Signs (Past 24 Hours): Last Vital Signs Temp 36.4 C L 11/19/18 07:47 Pulse 52 L 11/19/18 07:47 Resp 18 11/19/18 07:47 BP 129/83 11/19/18 07:47 Pulse Ox 96 11/19/18 07:47 Physical Exam: Constitutional: Deconditioned, morbidly obese Psych: Awake, alert, and oriented 3 with normal affect and mood. Positive flight of ideas, difficult to obtain information secondary to tangential thoughts Eyes: Pupils are equally round and reactive to light with normal size pupils, eyelids appear normal. There is a bandage clean dry and intact over her left temporal region. Ear, nose, mouth, and throat: Moist nasal and oral membranes, lips and tongues appear normal, no external ear abnormalities are noted. She is nontender over temporal arteries bilaterally nontender over her auriculotemporal nerves, supratrochlear supraorbital nerves. She is nontender over frontal maxillary sinuses. There is no appreciable TMJ abnormalities. She is mildly tender over right greater and lesser occipital nerves nontender over the left. There is no nuchal rigidity noted. Neck: The trachea is midline without deviation and no thyromegaly is noted Respiratory: Normal respiratory effort without distress, no audible wheezes or rhonchi CV: Normal S1 and S2 Chest: Deferred GI/abdomen: Non-tender without guarding, obese Musculoskeletal: Head is normocephalic, gait was not observed Cervical: Lordotic curve: Slightly decreased Range of motion is within normal limits of flexion, but decreased extension side-bending, and rotation Tenderness: Mildly tender tender over the axial midline right-sided only over C2-3 and 3-4 facets Facet provocation: Positive on the right negative on the left Hoffmans maneuver: Negative bilaterally Step-off injuries: None Strength: Strength is equal bilaterally with 5 out of 5 strength in all planes Sensation of upper extremities: Intact bilaterally Deep tendon reflexes: Rated at 1+ in bilateral biceps, triceps, brachial radialis Myofascial spasm: No appreciable spasm. No discrete trigger points noted Thoracic: Kyphotic curve: Slight kyphosis Range of motion is normal with extension, flexion, side- bending, rotation Tenderness: Nontender over the axial midline Facet provocation: Negative bilaterally Myofascial spasm: No appreciable spasm. No discrete trigger points noted Lumbar: Lordotic curve: Slight loss of lordosis Range of motion is decreased with extension, flexion, side- bending, rotation secondary to body habitus Straight leg raise: Negative bilaterally Strength: Strength is grossly equal bilaterally with 5 out of 5 strength in all planes Sensation of lower extremities: Intact bilaterally Skin: No rashes, lesions, ulcers, and duration are noted Neuro: No nystagmus noted, the tongue is midline, the patient is able to rotate their head bilaterally : Deferred Results & Data Laboratory Results Patient: RICHAR LUZ EAdmit Date: 11/13/18 MR#: [id number]: [address] Acct ID:[id number]: Date: [address] [place] [address] Zip: [place] [address] Age: 77Location: 2N Sex: F [facility]Bed[facility] Att Phy: Isauro Sood MDDiagnosis: SEVERE HEADACHE Jessica Phy: Elizabeth Caicedo MDService Date: 11/17/18 Fam Phy: Elizabeth Caicedo MDInterpreting Phy: Augusto Grace MD Admit Phy: Ben Macias MD Ordering Phy: Isauro Sood MD cc: ~ MR angio head wo con CLINICAL HISTORY: 77 years-old Female presenting with severe headache since Osmar, blurred vision, constant pain, history of recent left temporal artery biopsy. TECHNIQUE: MR angiography of the head was performed without the use of intravenous contrast using 3-D [id number] technique. 3-D volumetric and/or maximum intensity projection (MIP) images were subsequently reconstructed for review. IV contrast: None. COMPARISON: None. FINDINGS: Localizer images: Unremarkable. Anterior circulation: Intracranial portions of the internal carotid arteries patent to the level of the termini. Anterior cerebral arteries patent. Middle cerebral arteries patent. Anterior communicating artery patent. Posterior circulation: Left dominant vertebral arteries. Intradural portions of the vertebral arteries patent. Posterior inferior cerebellar arteries patent. 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 Anterior inferior cerebellar arteries poorly visualized. Superior cerebellar arteries patent. Posterior cerebral arteries patent.Posterior communicating arteries hypoplastic or aplastic. Superficial left temporal vasculature demonstrates foci of susceptibility artifact likely related to reported biopsy. No evidence of a pseudoaneurysm or hematoma. IMPRESSION: 1. 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 No other aneurysm identified. 2. No focal occlusion or significant stenosis in the intracranial vasculature. 3. Postsurgical changes in the region of the left temporal artery. No pseudoaneurysm or hematoma. Diagnostic Findings Patient: RICHAR LUZ EAdmit Date: 11/13/18 MR#: [id number]: [address] Acct ID:[id number]: Date: [address] [place] [address] Zip: [place] [address] Age: 77Location: 2N Sex: F [facility]Bed[facility] Att Phy: Isauro Sood MDDiagnosis: SEVERE HEADACHE Jessica Phy: Elizabeth Caicedo MDService Date: 11/17/18 Fam Phy: Elizabeth Caicedo MDInterpreting Phy: Augusto Grace MD Admit Phy: Ben Macias MD Ordering Phy: Isauro Sood MD cc: ~ CT cervical spine wo con CLINICAL HISTORY: 77 years-old Female presenting with severe neck pain. TECHNIQUE: Multidetector CT of the cervical spine was performed without the use of intravenous contrast. IV contrast: None. One or more dose lowering techniques were used consistent with the principles of ALARA (as low as reasonably achievable), including automatic exposure control, mA or kV adjustment to individual patient size, and/or use of iterative reconstruction. COMPARISON: None. CT DOSE (mGy.cm): The estimated cumulative dose is 260.70 mGy.cm. FINDINGS: Roast Master topogram: [place] noted in the left humeral head. Normal cervical lordosis. Vertebral bodies maintain normal height and alignment. Moderate to severe intervertebral disc height loss at C6-7 and mild intervertebral disc height loss at C4-5 and C5-6. Small disc osteophyte complexes noted at every level to varying degrees though the greatest degree of degenerative change is evident at C6-7. Mild posterior bony spurring at this level. Facet arthropathy and uncovertebral hypertrophy result in very degrees of osseous neural foraminal narrowing greatest at C6-7. No acute fracture or subluxation. Skull base intact. Paraspinal soft tissues within normal limits. IMPRESSION: 1. No acute osseous injury of the cervical spine. 2. Multilevel degenerative changes most severe at C6-7. Medications Administered Patient: RICHAR LUZ EAdmit Date: 11/13/18 MR#: [id number]: [address] Acct ID:[id number]: Date: [facility] Zip: [place] [address] Age: 77Location: 2N Sex: F Room[facility]Bed: [facility] Att Phy: Isauro Sood MDDiagnosis: SEVERE HEADACHE Jessica Phy: Elizabeth Caicedo MDService Date: 11/17/18 Fam Phy: Elizabeth Caicedo MDInterpreting Phy: Augusto Grace MD Admit Phy: Ben Macias MD Ordering Phy: Isauro Sood MD cc: ~ MR brain wo/w con CLINICAL HISTORY: 77 years-old Female presenting with severe headache, severe pain since Osmar, intermittent blurry vision, constant pain, recent temporal artery biopsy. TECHNIQUE: Multisequence, multiplanar MR imaging of the brain was performed before and after the administration of intravenous contrast. IV contrast: 9.5 mL of Gadavist. COMPARISON: Noncontrast CT head from 11/13/2018. FINDINGS: Localizer images: Unremarkable. Ventricles and sulci normal in size. Periventricular and subcortical white matter T2/FLAIR hyperintensity, nonspecific but likely indicative of chronic small vessel ischemic change. No abnormal parenchymal enhancement. No mass effect or midline shift. No restricted diffusion to suggest acute ischemia. No hemorrhage. No extra-axial fluid collection. T2 skull base flow voids preserved. Bone marrow signal intensity within the calvarium within normal limits. IMPRESSION: 1. Chronic small vessel ischemic change. No acute intracranial abnormality. No abnormal parenchymal enhancement.
[2018-11-19] MEDS: FUROSEMIDE 40 MG TAB PO SCH (09:05)
[2018-11-19] MEDS: PANTOprazole 40 MG TAB PO SCH (09:05)
[2018-11-19] MEDS: METOPROLOL SUCC 50MG EXT REL TAB PO SCH (09:05)
[2018-11-19] MEDS: ASPIRIN 325 MG ECTAB PO SCH (09:05)
[2018-11-19] MEDS: GABAPENTIN 300 MG CAP PO SCH ×3 (09:05→20:22)
[2018-11-19] MEDS: AMLODIPINE BESYLATE 5 MG TAB PO SCH (09:06)
[2018-11-19] MEDS: INSULIN ASPART 100 UNITS/ML 3 ML PEN SC SCH ×4 (09:11→20:26)
[2018-11-19] MEDS: CHOLESTYRAMINE LIGHT 4 GM PKT PO SCH ×2 (12:55→21:55)
[2018-11-19] MEDS: DULOXETINE HCL 30 MG CAP PO SCH (12:58)
[2018-11-19] MEDS ORDERED: IOVERSOL 100ml IV PRN (16:40)
--- NOTE | 2018-11-19 16:45 | CT Scan Report ---
CT abd pelvis oral and IV con CT DOSE: 973.81 mGycm HISTORY: Pain abdominal pain TECHNIQUE: Multiaxial CT images of the abdomen and pelvis were performed following the use of intrave nous and oral contrast. A dose lowering technique was utilized adhering to the principles of ALARA. COMPARISON STUDY: 02/04/2017 FINDINGS: Lung bases are clear. Liver is uniform. Prior cholecystectomy. Pancreas is unremarkable. Moderate cortical scarring of the kidneys bilaterally. No evidence for hydronephrosis. Several renal cysts somewhat diminished in size from the prior study. Bowel pattern within the abdomen and pelvis is considered nonobstructive. No evidence for free air. M ild chronic sigmoid diverticulosis. No evidence for acute diverticulitis. Bladder is midline. IMPRESSION: Chronic and postoperative change. No acute process. Chronic sigmoid diverticulosis with no evidence f or diverticulitis. The above report was generated using voice recognition software. It may contain grammatical, syntax or spelling errors. Electronically signed by: Sean Bishop M.D. 11/19/2018 4:43 PM
--- NOTE | 2018-11-19 16:49 | XRay Report ---
XR chest 2V routine CLINICAL HISTORY: cough dyspnea COMPARISON STUDY: 04/29/2018 FINDINGS: The bones soft tissues and hemidiaphragms are normal. The cardiomediastinal silhouette is n ormal. The lungs are clear. The pulmonary vasculature is normal. IMPRESSION: Negative chest. The above report was generated using voice recognition software. It may contain grammatical, syntax or spelling errors. Electronically signed by: Sean Bishop M.D. 11/19/2018 4:47 PM
--- NOTE | 2018-11-19 20:17 | Hospitalist Progress Note ---
Date of Service November 19, 2018 Assessment & Plan (1) Headache: ESR elevated. Temporal arteritis considered. Started on prednisone as outpatient without improvement of symptoms. Rheumatology consulted. General Surgery performed temporal artery biopsy, negative for temporal arteritis. Prednisone stopped. Neurology consulted for their input. Further imaging and trial of migraine meds (valproic acid, magnesium, prochlorperazine) recommended. No benefit from migraine cocktail- discontinued. CT cervical spine showed degenerative disease. MRI brain showed chronic small vessel ischemic changes, no acute findings, no masses. 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 Possible occipital neuralgia. Pain Medicine consulted. Nerve block greater and lesser occipital nerves performed. (2) Diabetes mellitus type 2, controlled: DM type 2, usually fairly well-controlled on glimepiride. Hgb A1C = 8.0. Blood sugars elevated due to steroid therapy. Pharmacy consulted for glycemic management. Receiving Lantus / NovoLog per protocol. Prednisone discontinued. FBS this morning = 99. Titrate insulin coverage. (3) CAD (coronary artery disease): No chest pain. Aspirin and clopidogrel held for temporal artery biopsy, then resumed. Continue metoprolol. (4) HTN (hypertension): Continue metoprolol. (5) Diastolic CHF: Compensated. (6) CKD (chronic kidney disease), stage III: Creatinine 1.16 2/2. Follow. (7) Patient is Advent: No blood products. (8) DVT (deep venous thrombosis): SCD's. Ambulate. (9) Discharge planning issues: Anticipated discharge to home. Primary care follow-up with Dr. Elizabeth Caicedo. Subjective Recheck for headache and other problems. Pt seen in her room around 1310. Ongoing severe headache, mostly occipital. Seen by Dr. Bright this morning. Greater and lesser occipital nerve block performed. Headache perhaps slightly better. Intermittent crampy abdominal pain, sometimes left-sided, sometimes right-sided. Pain was severe last night and kept her awake until 3 AM. No nausea or vomiting. No diarrhea. No fever. Physical Exam 2 Vital Signs (Past 24 Hours): Last Vital Signs Temp 36.3 C L 11/19/18 15:29 Pulse 56 L 11/19/18 15:29 Resp 16 11/19/18 15:29 BP 147/76 H 11/19/18 15:29 Pulse Ox 95 11/19/18 15:29 Constitutional: no acute distress Respiratory: normal respiratory effort, lungs clear to auscultation Cardiovascular: Rate/Rhythm: regular rate and regular rhythm Heart Sounds: no gallop Extremities: no edema Gastrointestinal (Abdomen): Inspection/Auscultation: normal bowel sounds Percussion/Palpation: abdomen soft; abdomen nontender, no guarding, abdomen not rigid and no pulsatile mass Musculoskeletal: Head/Neck/Chest: + head abnormal to inspection (left adventist bandaged) and neck supple Skin: no rashes, warm and dry Psychiatric: Orientation: alert and oriented x 3 Affect: + depressed affect and + anxious affect Results & Data Laboratory Results Laboratory Results - last 24 hr 11/19/18 11/19/18 11/19/18 07:57 11:45 17:28 POC Glucose 99 162 H 144 H 11/19/18 20:26 POC Glucose 119 H _ (1) CAD (coronary artery disease) Coronary Disease-Associated Artery/Lesion type: [place] artery [place] vs. transplanted heart: [place] heart Associated angina: with stable angina Qualified Code(s): I25.118 - Atherosclerotic heart disease of [place] coronary artery with other forms of angina pectoris (2) HTN (hypertension) Hypertension type: essential hypertension Qualified Code(s): I10 - Essential (primary) hypertension (3) Diastolic CHF Heart failure chronicity: chronic Qualified Code(s): I50.32 - Chronic diastolic (congestive) heart failure
[2018-11-19] MEDS: DIPHENOXYLATE/ATROPINE 2.5/0.025MG TAB PO PRN (20:18)
[2018-11-19] MEDS: SIMVASTATIN 20 MG TAB PO SCH (20:22)
[2018-11-19] MEDS: ONDANSETRON INJ 2 MG/ML 2 ML VIAL IV PRN (21:24)
[2018-11-20] MEDS: TRAMADOL HCL 50 MG TABLET PO PRN (01:42)
--- NOTE | 2018-11-20 07:05 | CT Scan Report ---
CT SCAN OF THE BRAIN WITHOUT IV CONTRAST CLINICAL HISTORY: Headache. Left hand numbness. COMPARISON STUDY: CT of the brain dated 11/13/2018. TECHNIQUE: Unenhanced axial CT scan of the brain is performed from the vertex to the skull base. A do se lowering technique was utilized adhering to the principles of ALARA. CT DOSE: 537.48 mGy.cm FINDINGS: Brain parenchyma: There are age-related involutional changes noting minimal subcortical and perivent ricular microangiopathic change. There is no hemorrhage, mass effect, or evidence of acute territoria l ischemia by CT criteria. [place]-white matter differentiation is preserved. No extra-axial fluid colle ction is seen. Ventricles, sulci, cisterns: Prominent secondary to involutional change. Intracranial vasculature: There is atherosclerotic calcification of the cavernous carotid and vertebr al arteries. Calvarium: Unremarkable. Sinuses and mastoids: The visualized paranasal sinuses are clear. The mastoid air cells are well pneu matized. Orbits: The bony orbits are grossly intact. IMPRESSION: There is no hemorrhage, mass effect, or evidence of acute territorial ischemia by CT richard farris. Electronically signed by: Stuart Noel M.D. 11/20/2018 7:04 AM
[2018-11-20 07:36] VITALS: TEMP 98.4; O2SAT 91
[2018-11-20] MEDS ORDERED: INSULIN GLARGINE SOLOSTAR 100 UNITS/ML 3 ML PEN SC SCH (09:00)
[2018-11-20] MEDS ORDERED: SITAGLIPTIN PHOSPHATE 100 MG TAB PO SCH (09:00)
[2018-11-20] MEDS ORDERED: GLIMEPIRIDE 2 MG TAB PO SCH (09:00)
--- NOTE | 2018-11-20 09:04 | Pharmacy Report ---
Pharmacy Glycemic Short Note 2 - Date of Service November 20, 2018 - Glycemic Short BSG Results (Last 24 hours): 11/19/18 11/19/18 11/19/18 11:45 17:28 20:26 POC Glucose 162 H 144 H 119 H 11/20/18 07:45 POC Glucose 121 H ASSESSMENT: * 77 yo F with T2DM on two oral agents as an outpatient with HbA1c of 8.0% 2-5: * Fasting BSG 121 mg/dL - insulin needs have decreased about 50% over last 2 days, likely due to patient no longer on steroids * From 11/18 patient used about 42 units/day of insulin, then yesterday only about 24 units total of insulin. Of which 12 units were basal insulin * Anticipate BSGs to further trend downward - will hold Lantus this morning and initiate her home oral agents this morning, including the Januvia and Amaryl 2-4: * Fasting BSG 99 mg/dL - anticipate insulin needs to continue to decrease due to steroids discontinued; will decrease Lantus dose slightly * BSGs yesterday much improved 109-129-124 mg/dL - will continue same CF/CR 2-3: * Anticipating insulin regimen will need decreased for the next 24hrs d/t : * AM Fasting BSG = 78mg/dl. This is below goal range for inpatient targets; therefore Basal insulin needs decreased * Post-prandial BSGs are in goal range--> no changes needed to CF/CR * Anticipate total daily dose to be about 30-40 units/day PLAN FOR INPATIENT GLYCEMIC CONTROL: * Restart oral agents this morning - Amaryl and Januvia * * Basal insulin: * hold this am * Bolus insulin: no change * NovoLog per scale ACHS or Q6hrs while NPO * Goal Range: Low 110 mg/dL - High 140mg/dL * Correction Factor: 20 mg/dL/unit * Carb ratio: 7 g CHO/unit * Please note that the plan above was derived based on current level of insulin resistance and hospital stress. These recommendations are appropriate for inpatient admission only. Plan of care upon discharge will need to be reassessed to avoid potential outpatient hypo/hyperglycemia. Thank you.
[2018-11-20] MEDS: ONDANSETRON INJ 2 MG/ML 2 ML VIAL IV PRN (09:32)
[2018-11-20] MEDS: METOPROLOL SUCC 50MG EXT REL TAB PO SCH (09:33)
[2018-11-20] MEDS: PANTOprazole 40 MG TAB PO SCH (09:33)
[2018-11-20] MEDS: VALSARTAN 80 MG TAB PO SCH (09:33)
[2018-11-20] MEDS: AMLODIPINE BESYLATE 5 MG TAB PO SCH (09:33)
[2018-11-20] MEDS: GABAPENTIN 300 MG CAP PO SCH ×2 (09:33→13:54)
[2018-11-20] MEDS: CLOPIDOGREL BISULFATE 75 MG TAB PO SCH (09:34)
[2018-11-20] MEDS: DULOXETINE HCL 30 MG CAP PO SCH (09:34)
[2018-11-20] MEDS: hydroCHLOROthiazide 25 MG TAB PO SCH (09:34)
[2018-11-20] MEDS: ASPIRIN 325 MG ECTAB PO SCH (09:34)
[2018-11-20] MEDS: INSULIN ASPART 100 UNITS/ML 3 ML PEN SC SCH ×2 (09:34→13:00)
[2018-11-20] MEDS: FUROSEMIDE 40 MG TAB PO SCH (09:34)
[2018-11-20] MEDS: CHOLESTYRAMINE LIGHT 4 GM PKT PO SCH (09:36)
--- NOTE | 2018-11-20 14:07 | Hospitalist Progress Note ---
Date of Service November 20, 2018 Assessment & Plan (1) Headache: ESR elevated. Temporal arteritis considered. Started on prednisone as outpatient without improvement of symptoms. Rheumatology consulted. General Surgery performed temporal artery biopsy, negative for temporal arteritis. Prednisone stopped. Neurology consulted for their input. Further imaging and trial of migraine meds (valproic acid, magnesium, prochlorperazine) recommended. No benefit from migraine cocktail- discontinued. CT cervical spine showed degenerative disease. MRI brain showed chronic small vessel ischemic changes, no acute findings, no masses. 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 Possible occipital neuralgia. Pain Medicine consulted. Nerve block greater and lesser occipital nerves performed. Cervical medial branch blocks considered, but not an option because of antiplatelet therapy with aspirin + clopidogrel. Started on duloxetine 30 mg daily. (2) Diabetes mellitus type 2, controlled: DM type 2, usually fairly well-controlled on glimepiride. Hgb A1C = 8.0. Blood sugars elevated due to steroid therapy. Pharmacy consulted for glycemic management. Received Lantus / NovoLog per protocol. Prednisone discontinued once temporal artery biopsy results reported as negative. FBS morning of discharge 121. Discharge on usual regimen. (3) CAD (coronary artery disease): No chest pain. Aspirin and clopidogrel held for temporal artery biopsy, then resumed. Continue metoprolol. (4) HTN (hypertension): Continue metoprolol. (5) Diastolic CHF: Compensated. (6) CKD (chronic kidney disease), stage III: Creatinine 1.16 on 11/17. Follow. (7) Elevated erythrocyte sedimentation rate: ESR was 72 on 11/10/18. Seen in consultation by Rheumatology regarding possibility of temporal arteritis. Temporal arteritis ruled out as discussed above. SPEP and IEP recommended. SPEP demonstrated acute inflammatory pattern with acute phase proteins, faint restricted band (M-spike) migrating in the gamma globulin region. IEP: faint band in lambda region "cannot be ruled out." May have monoclonal gammopathy. Consider follow-up testing, perhaps in a few months. Consider further Rheumatologic evaluation as clinically indicated (8) Patient is [place]: No blood products. (9) DVT (deep venous thrombosis): SCD's. Ambulate. (10) Discharge planning issues: Discharge to home. Primary care follow-up with Dr. Elizabeth Caicedo. Outpatient follow-up with Neurology recommended re: headaches and small basilar artery aneurysm. Subjective Recheck for headache and other problems. Persistent headaches, but ready to go home. No fever. Cough improved (chest x-ray yesterday was negative). No chest pain or SOB. No nausea or vomiting. Abdominal pain improved. No diarrhea. Physical Exam 2 Vital Signs (Past 24 Hours): Last Vital Signs Temp 36.9 C 11/20/18 07:35 Pulse 63 11/20/18 07:35 Resp 16 11/20/18 07:35 BP 170/69 H 11/20/18 07:35 Pulse Ox 91 11/20/18 07:35 Constitutional: no acute distress Respiratory: normal respiratory effort, lungs clear to auscultation Cardiovascular: Rate/Rhythm: regular rate and regular rhythm Heart Sounds: no gallop Extremities: no edema Gastrointestinal (Abdomen): Inspection/Auscultation: normal bowel sounds Percussion/Palpation: abdomen soft; abdomen nontender, no guarding, abdomen not rigid and no pulsatile mass Musculoskeletal: Head/Neck/Chest: neck supple Skin: no rashes, warm and dry Psychiatric: Orientation: alert and oriented x 3 _ (1) CAD (coronary artery disease) Coronary Disease-Associated Artery/Lesion type: [place] artery [place] vs. transplanted heart: [place] heart Associated angina: with stable angina Qualified Code(s): I25.118 - Atherosclerotic heart disease of [place] coronary artery with other forms of angina pectoris (2) HTN (hypertension) Hypertension type: essential hypertension Qualified Code(s): I10 - Essential (primary) hypertension (3) Diastolic CHF Heart failure chronicity: chronic Qualified Code(s): I50.32 - Chronic diastolic (congestive) heart failure
[2018-11-20 14:30] VITALS: BP 149/82; PULSE 54
[2018-11-20 15:39] LABS: Albumin 3.1 G/DL (3.8-4.8); Alpha 1 Globulin 0.3 G/DL (0.2-0.3); Beta-1-Globulin 0.4 G/DL (0.4-0.6); Beta-2-Globulin 0.3 G/DL (0.2-0.5); Gamma Globulin 0.8 G/DL (0.8-1.7); Monoclonal Protein Band 1 DNR G/DL (NOT DETECTED); Monoclonal Protein Band 2 DNR G/DL (NOT DETECTED); Monoclonal Protein Band 3 DNR G/DL (NOT DETECTED)
--- NOTE | 2018-11-22 15:31 | Discharge Summary ---
Date of Service Date of admission: 11/13/18 Date of discharge: 11/20/18 Admission HPI Per Admitting Provider This is a 77-year-old female with past medical history significant for diabetes on pills, hyperlipidemia, CAD, chronic diastolic CHF, hypertension, chronic diarrhea, GERD, morbid obesity, diverticulosis, history of cystic kidney disease, comes with severe headache. The patient had been having headache since last Monday. She visited the ER and they thought it was might be shingles and prescribed valacyclovir, then she saw her family doctor(Nov 12) and General Surgery(Nov 13). There is a plan for a temporal artery biopsy on November 16. As per the surgical notes she had this biopsy done several years ago which was negative. Outpatient labs showed ESR of 72, .Steroids are not started yet because of diabetes. As patient's headache is getting worse she came to the ER. The pain is in the left occipital region radiating to the left mandaeism region, severe in nature. No blurred visions. Has some nausea , has left jaw pain and also shoulder pain. She also complains of some chest discomfort. Gets short of breath once in a while. Nauseous. Complains of some mild right lower quadrant abdominal pain, has some diarrhea. Normal bladder movements. Currently, resting comfortable and stable. Lives alone. Daughter checks on her. Ambulates without any help. Appetite is okay. Admission Exam Per Admitting Provider GENERAL: The patient is obese, not in acute distress. VITAL SIGNS: Temperature 37.7, pulse 59, respiratory rate 16, blood pressure 163/77, oxygen 96% room air. HEENT: No pallor, no icterus. Pupils equal, round react to light. Tenderness in the left temporal region on palpation. NECK: No JVD, no neck masses, no carotid bruits. CARDIOVASCULAR: S1, S2 heard, regular rate and rhythm, no murmur, no gallop. RESPIRATORY SYSTEM: Normal AP diameter. Clear to auscultation. No wheezing, no crackles. ABDOMEN: Soft, bowel sounds present. Nontender. No distention. CENTRAL NERVOUS SYSTEM: Cranial nerves II-XII grossly intact. Nonfocal. EXTREMITIES: No edema, no erythema. Principal Diagnosis severe headaches- temporal arteritis, stroke, tumor ruled out Discharge Data Allergies Allergy/AdvReac Type Severity Reaction Status Date / Time Sulfa (Sulfonamide Allergy Mild Rash Verified 11/13/18 23:29 Antibiotics) adhesive Allergy Unknown ALLERGY TO Verified 11/13/18 23:29 TAPE nadolol Allergy Unknown UNSURE Verified 11/13/18 23:29 nifedipine Allergy Unknown BLISTERS, Verified 11/13/18 23:29 TOLERATES PLENDIL ciprofloxacin [From Cipro] Allergy Rash Verified 11/13/18 23:29 ibuprofen AdvReac Mild UPSET Verified 11/13/18 23:29 STOMACH diltiazem AdvReac Unknown TOLERATES Verified 11/13/18 23:29 PLENDIL, MALAISE oxycodone AdvReac Unknown SEVERE Verified 11/13/18 23:29 NAUSEA acetaminophen [From Tylenol] AdvReac DOES NOT Verified 11/13/18 23:29 TAKE DUE TO PANCREATITIS atorvastatin [From Lipitor] AdvReac Gastrointestinal Verified 11/13/18 23:29 Upset metformin AdvReac Diarrhea Verified 11/13/18 23:29 prednisone AdvReac BSG GOES Verified 11/13/18 23:29 OKSANA HIGH Consultations 11/14/18 00:28 Consult Case Management - Discharge Planning Routine 11/14/18 06:26 Consult Rheumatology Routine 11/14/18 08:00 Consult General Surgery Routine 11/14/18 09:55 Consult Cardiology Routine 11/16/18 09:37 Consult Neurology Routine 11/19/18 08:00 Consult Pain Management Routine Procedures Performed Operation Date: 11/15/18 11:30 Actual Procedures p Left Temporal Artery Biopsy(Left) - Namita Matthews MD Ordered Studies 11/13/18 20:50 CT head/brain wo con Stat 11/17/18 10:18 CT cervical spine wo con Routine MR angio head wo con Routine MR brain wo/w con Routine 11/19/18 13:41 CT abd pelvis oral and IV con Routine 11/20/18 02:03 CT head/brain wo con Urgent Hospital Course (1) Headache: ESR elevated. Temporal arteritis considered. Started on prednisone as outpatient without improvement of symptoms. Rheumatology consulted. General Surgery performed temporal artery biopsy, negative for temporal arteritis. Prednisone stopped. Neurology consulted for their input. Further imaging and trial of migraine meds (valproic acid, magnesium, prochlorperazine) recommended. No benefit from migraine cocktail- discontinued. CT cervical spine showed degenerative disease. MRI brain showed chronic small vessel ischemic changes, no acute findings, no masses. 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 Possible occipital neuralgia. Pain Medicine consulted. Nerve block greater and lesser occipital nerves performed. Cervical medial branch blocks considered, but not an option because of antiplatelet therapy with aspirin + clopidogrel. Started on duloxetine 30 mg daily. LP was considered, but it was felt that diagnostic yield would be very low and risk of procedure prohibitive due to antiplatelet therapy that could not be safely held for the procedure. (2) Diabetes mellitus type 2, controlled: DM type 2, usually fairly well-controlled on glimepiride. Hgb A1C = 8.0. Blood sugars elevated as high as 284 due to steroid therapy. Pharmacy consulted for glycemic management. Received Lantus / NovoLog per protocol. Prednisone discontinued once temporal artery biopsy results reported as negative. FBS morning of discharge 121. Discharge on usual regimen. (3) CAD (coronary artery disease): No chest pain. Aspirin and clopidogrel held for temporal artery biopsy, then resumed. Continue metoprolol. (4) HTN (hypertension): Continue metoprolol. (5) Diastolic CHF: Compensated. (6) CKD (chronic kidney disease), stage III: Creatinine 1.16 on 11/17. Follow. (7) Elevated erythrocyte sedimentation rate: ESR was 72 on 11/10/18. Seen in consultation by Rheumatology regarding possibility of temporal arteritis. Temporal arteritis ruled out as discussed above. SPEP and IEP recommended. SPEP demonstrated acute inflammatory pattern with acute phase proteins, faint restricted band (M-spike) migrating in the gamma globulin region. IEP: faint band in lambda region "cannot be ruled out." May have monoclonal gammopathy. Consider follow-up testing, perhaps in a few months. 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 (9) DVT (deep venous thrombosis): SCD's. Ambulate. (10) Discharge planning issues: Discharge to home. Primary care follow-up with Dr. Elizabeth Caicedo. Outpatient follow-up with Neurology recommended re: headaches and small basilar artery aneurysm. Total Time Total Time Spent Total Time Spent (In Minutes): 45 Discharge Plan Discharge Items Patient Disposition: Home - Self-Care Reason For Visit: severe headache Discharge Diagnosis: severe headache- no sign of temporal arteritis, stroke, brain tumor, or other serious problems Condition: Good Discharge Goals: Decrease discomfort Activity: Resume your previous activity Non-emergency contact: Primary Care Provider and Neurologist Call non-emergency contact if: you have any medication questions and your symptoms worsen Follow-up/Referrals: Elizabeth Caicedo MD [Primary Care Provider] - (11/23/2018 2:20 PM Elizabeth Caicedo MD) Diet: Carb Consistent or DM2 and Heart Healthy Addtl Provider Instructions: OTHER INSTRUCTIONS: Dr. Bright recommends trying duloxetine (Cymbalta) for your headaches. Take 1 pill each morning. Prescription sent to your pharmacy. Please ask Dr. Caicedo to arrange for consultation with neurologist for your headaches and concerns about possible Parkinson's disease. Seek medical attention if you have: * temperature above 101 * chest pain or trouble breathing * abdominal pain, nausea, vomiting * diarrhea, dark stools or bloody stools * any unanswered questions or concerns Call 911 if symptoms are severe. Call if you have any questions or problems. You can also reach a [facility] hospitalist on duty at [facility] 24 hours a day by calling [phone]. Prescriptions: New duloxetine 30 mg capsule,delayed release(DR/EC) 30 mg PO DAILY Qty: 30 RF: 5 Continue furosemide [Lasix] 40 mg tablet 40 mg PO DAILY RF: 0 triamcinolone acetonide 0.5 % Cream 1 applic TOPICAL BID PRN (Reason: DRY AREA) RF: 0 aspirin 325 mg Tablet 325 mg PO DAILY RF: 0 ondansetron HCl [Zofran] 8 mg Tablet 8 mg PO TID PRN (Reason: Nausea) RF: 0 metoprolol succinate 100 mg Tablet Extended Release 24 Hr 100 mg PO DAILY RF: 0 diphenoxylate-atropine [Lomotil] 2.5-0.025 mg Tablet 2 tab PO BID PRN (Reason: Diarrhea) RF: 0 clopidogrel [Plavix] 75 mg Tablet 150 mg PO DAILY RF: 0 metoclopramide HCl [Reglan] 5 mg Tablet 10 mg PO Q4 PRN (Reason: Nausea) RF: 0 baclofen 10 mg Tablet 10 mg PO BID RF: 0 amlodipine [Norvasc] 10 mg tablet 10 mg PO DAILY RF: 0 pantoprazole [Protonix] 40 mg Tablet,Delayed Release (Dr/Ec) 40 mg PO DAILY RF: 0 simvastatin [Zocor] 20 mg Tablet 20 mg PO HS RF: 0 glimepiride 4 mg Tablet 8 mg PO QAM RF: 0 nitroglycerin [Nitrostat] 0.4 mg Tablet, Sublingual 0.4 mg Sublingual UD PRN (Reason: Chest Pain) RF: 0 gabapentin 300 mg capsule 300 mg PO TID RF: 0 valsartan-hydrochlorothiazide 320-25 mg Tablet 1 tab PO DAILY RF: 0 sitagliptin [Januvia] 100 mg Tablet 100 mg PO DAILY RF: 0 cholestyramine-aspartame [Questran Light] 4 gram powder 4 g PO BID RF: 0 Clinical Trial Med 4 tab PO DAILY RF: 0 Discontinued acyclovir [Zovirax] 800 mg tablet 800 mg PO TID RF: 0 Stand-Alone Forms: [facility] Discharge Orders: Discharge Order (Routine); Ordered 11/20/18 Ordered By: Isauro Sood Admission Data Admit Date/Time: 11/13/18 23:27 Attending Provider: Isauro Sood Admit Provider: Ben Macias Primary Care Provider: Elizabeth Caicedo Other Providers: Yehuda Beyer ; Sean Turcios ; Judith Gabriel ; Marly Arambula ; Rodo Machado ; Ramesh Ceja ; Janine Doty ; Pelon Mcfarland ; Warren Pierce ; Ernestina Luna ; Dominic Powers ; Oumou Robbins ; Sandra Vasquez ; Mikael Alvarado Jr ; Namita Matthews ; Rodo Cisneros ; Isauro Hutton ; Nik Michel Service: Medical Other Interventions: Discharge Summary Assessment (RN) Last Done: 11/20/18 14:28 DC Date/Time DO NOT enter until pt leaves facility: 11/20/18 14:49
== END 2018-11-20 14:49 | disposition home or self-care (01) | DRG 516 ==
LOC: ED 19:35 → 2N 23:27 → 4W 11-18 00:46